=== PATIENT | female | born 1945 | race Caucasian/White ===

== ENCOUNTER 2020-06-29 19:13 | Inpatient (IN) | payer MEDICARE, SELFPAY ==
[2020-06-29] VITALS (10 sets, daily range): BP systolic 91–146; BP diastolic 59–122; PULSE 87–139; RESP 13–20; TEMP 36.6–36.9; O2SAT 94–99; BMI 26.3; BMI 25.9
--- NOTE | 2020-06-29 19:34 | EKG12_ITS ---
Test Reason : DYSRHYTHMIA Blood Pressure : / mmHG Vent. Rate : 140 BPM Atrial Rate : 138 BPM P-R Int : 000 ms QRS Dur : 094 ms QT Int : 300 ms P-R-T Axes : 000 -27 112 degrees QTc Int : 458 ms Atrial fibrillation with rapid ventricular response Nonspecific ST and T wave abnormality Abnormal ECG Confirmed by SHAHEED BEAVERS, FLYNN ([id number]), editor magazine CARLOZ DIXON ([id number]) on 07/02/2020 2:22:00 PM Referred By: Lauren Edwards Confirmed By:FLYNN HUMMEL MD
[2020-06-29 19:46] LABS: Absolute Lymphocyte Count 3.78 X10^3/uL (0.83-4.51); Absolute Neutrophil Count 4.9 X10^3/uL (2.0-7.7); Basophil# 0.04 X10^3/uL; Basophil% 0.4 % (0-1); Eosinophil# 0.16 X10^3/uL; Eosinophils% 1.6 % (0-5); Hematocrit 43.7 % (37-47); Hemoglobin 14.5 g/dL (12.0-15.0); Lymphocyte # 3.78 X10^3/ul (4.0); Lymphocyte % 38.5 % (19-41); Mean Corp Hgb Conc 33.2 g/dL (32-36); Mean Corpuscular Hgb 30.7 pg (27.0-32.0); Mean Corpuscular Volume 92.6 fL (81-99); Mean Platelet Vol. 10.7 fl (6.2-12.0); Monocyte# 0.92 X10^3/uL; Monocyte% 9.4 % (0-10); NRBC Flagged by Analyzer 0 % (0-5); Neutrophil % 49.8 % (47-70); Platelet Count 266 K/mm3 (150-450); RBC Distribution Width CV 12.9 % (11.6-14.6); RBC Distribution Width SD 43.8 fl (35.1-43.9); Red Blood Count 4.72 M/mm3 (4.2-5.4); White Blood Count 9.8 K/mm3 (4.4-11.0)
[2020-06-29] MEDS: Metoprolol Tartrate 5 MG/5 ML Vial IV ×3 (19:59→20:50)
[2020-06-29 20:16] LABS: Anion Gap 10 (5-15); BUN 18 mg/dL (7-18); BUN/Creat Ratio 17.8 RATIO (10-20); Calcium,Total 9.2 mg/dL (8.5-10.1); Chloride 104 mmol/L (98-107); Creatinine, Serum 1.01 mg/dL (0.55-1.02); EST Glomerular Filtration Rate 57 mL/min (>60); Est Glom Filt Rate - Afr Amer 69 mL/min (>60); Estimated Creatinine Clearance 47.52 ml/min; Glucose 196 mg/dL (74-106); Potassium 3.7 mmol/L (3.5-5.1); Sodium Level 140 mmol/L (136-145)
--- NOTE | 2020-06-29 20:20 | RAD_ITS ---
STUDY: X-RAY CHEST REASON FOR EXAM: Female, 75 years old. Chest pain, Hx afib TECHNIQUE: Single frontal view of the chest. COMPARISON: None. FINDINGS: There is no focal consolidation. Normal size heart. Normal mediastinum and sudhir. Normal visualized pulmonary arteries. Normal visualized aortic arch and descending thoracic aorta. Normal visualized thoracic spine. Normal visualized ribs, clavicles, and shoulders. There is no demonstrated abnormality of the visualized soft tissue structures of the upper abdomen. RAD/Chest 1 View (Portable) IMPRESSION: No acute cardiopulmonary process. Electronically Signed: Sonia West MD at 20:36 EST Tel , Service support ,
--- NOTE | 2020-06-29 21:16 | HP.PCM_ITS ---
Problem List (1) Atrial fibrillation with RVR Status: Acute (2) Diabetes mellitus, type II Status: Chronic Qualifiers: Diabetes mellitus intermediate insulin use: without intermediate manager use Diabetes mellitus complication status: with other specified complication Qualified Code(s): E11.69 - Type 2 diabetes mellitus with other specified complication (3) Hypertension Status: Chronic Qualifiers: Hypertension type: essential hypertension Qualified Code(s): I10 - Essential (primary) hypertension History of Present Illness Date of Admission: 06/29/20 Chief Complaint: Chest pain, palpitations, racing heart. 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 Patient notes she had an episode approximately 2 weeks prior with similar symptoms and did take an extra dose of metoprolol at that time that symptoms resolved within 5 hours. They had recommended that she go to the ED for evaluation if it was recurrent. Work-up in the ED included T 98.1, heart rate 139, BP 145/87, respiratory rate 18, 99% on room air, CBC unremarkable, BMP with glucose 196 otherwise not marked appearing, troponin less than 0.015, EKG with atrial fibrillation with RVR, chest x-rays no acute cardiopulmonary findings. In the ED patient administered 3 doses of metoprolol 5 mg IV. Discussed with ED physician and despite IV BB she still has variable rate 160-100. Discussed starting cardizem drip. Past Medical History Past Medical History (Chronic Problems): Chronic Problems Diabetes mellitus, type II (Chronic) Hypertension (Chronic) Allergies codeine Allergy (Verified 06/29/20 19:47) Rash Home Medications: Ambulatory Orders Medication Instructions Recorded Metformin HCl 500 mg PO BID 06/29/20 Metoprolol Succinate 25 mg PO DAILY 06/29/20 Rivaroxaban [Xarelto] 20 mg PO DAILY 06/29/20 Surgical History: - - Hysterectomy, bilateral tubal ligation, right breast cyst removal. Psychiatric History: No pertinent psych hx TUTORING MANAGER History: No pertinent TUTORING MANAGER history Lives: Spouse/ Significant Other Smoking Status: Never smoker Tobacco Use: Non-smoker Alcohol: None Drugs: None - *Family History Maternal History Items: Hypertension Paternal History Items: Cancer, Diabetes Review of Systems Constitutional: Reports: Fatigue. Denies: Chills, Fever, Weight Change HEENT: Denies: Head Aches, Sinus Congestion, Sinus Drainage Cardiovascular: Reports: Light Headedness, Palpitations. Denies: Chest Pain Respiratory: Denies: Cough, Shortness of Breath, Shortness of breath at rest, Shortness of breath upon exertion, Sputum production Gastrointestinal: Denies: Abdominal Pain, Nausea, Vomiting Genitourinary: Denies: Dysuria Musculoskeletal: Denies: Joint Pain, Joint Tenderness Skin: Denies: Rash, Wounds Neurological: Denies: Numbness, Tingling, Focal weakness Psychiatric: Denies: Anxiety, Depression, Homicidal Ideations, Suicidal Ideations Hematologic/ Lymphatic: Reports: Easy Bruising, Easy Bleeding VTE Information - Inpt Only VTE Present on Admission: No VTE Mechan Device Prophylaxis: SCD's VTE Pharm Prophylaxis ordered?: No Reason prophylaxis not ordered:: Medical Contraindication - We will continue patient home Xarelto regimen. Patient Problems: Active and Suspected Problems Atrial fibrillation with RVR (Acute) Subjective: Patient seated upright in the ED bed, no acute distress, rate varying between 90 and 130s during evaluation. Objective: Physical Examination: General: awake, alert, oriented x 3 and cooperative, seated upright in the ED bed in no apparent distress. Skin: normal color, turgor, no icterus, cyanosis. HEENT: AT/NC, EOMI, PERRLA, MMM, no carotid bruits or JVD noted. Lungs: CTA bilaterally, moderate effort, mild decrease BL bases, no rales, ronchi or wheezing. Heart: Irregular irregular; no gallop, rub audible, + SM. Abdomen: soft, NTTP, ND, normal BS, no HSM. Extremities: no cyanosis, clubbing, or edema. Neurological: patient awake, alert, oriented x 3; cognitive function intact; pupils equally reactive to light and accomodation; cranial nerves II-XII grossly normal, moving all 4 extremities, no focal deficits, strength mildly global decrease given acute presentation. Psychiatric: affect appears normal, no acute evidence of depressive or anxiety feelings. - Physical Exam Vitals/I&O's: Vital Signs Temp Pulse Resp BP Pulse Ox 98.1 F 121 H 13 131/68 H 96 06/29/20 19:14 06/29/20 20:03 06/29/20 20:03 06/29/20 20:03 06/29/20 20:03 Oxygen Delivery Method Room Air Weight: 168 lb Body Mass Index (BMI) 26.3 Laboratory Results 06/29/20 19:40: WBC 9.8, RBC 4.72, Hgb 14.5, Hct 43.7, MCV 92.6, MCH 30.7, MCHC 33.2, RDW Std Deviation 43.8, RDW Coeff of Matthew 12.9, Plt Count 266, MPV 10.7, Immature Gran % (Auto) 0.300, Neut % (Auto) 49.8, Lymph % (Auto) 38.5, [place] % (Auto) 9.4, Eos % (Auto) 1.6, Baso % (Auto) 0.4, Absolute Neuts (auto) 4.9, Absolute Lymphs (auto) 3.78, Nucleated RBC % 0 06/29/20 19:40: Sodium 140, Potassium 3.7, Chloride 104, Carbon Dioxide 26.0, Anion Gap 10, BUN 18, Creatinine 1.01, Estim Creat Clear Calc 47.52, Est GFR (MDRD) Af Amer 69, Est GFR (MDRD) Non-Af 57 L, BUN/Creatinine Ratio 17.8, Glucose 196 H, Calcium 9.2, Troponin I < 0.015 Assessment/Plan All Active Problems Atrial fibrillation with RVR (Acute) The patient is a 75 y/o F w/ PMHx: Diabetes mellitus type II, HTN, Chronic AF who presents to the [facility] ED on 06/29/20 with history of onset palpitations, racing heart with home heart monitor reporting 180s, associated lightheadedness without any associated chest pain or dyspnea but not improving despite self administration of an additional dose of her home metoprolol starting approximately 1 hour 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 1. Chronic atrial fibrillation with RVR: EKG in ED w/ atrial relation w/ RVR. Patient administered metoprolol 5 mg IV x 3 and transitioned to cardizem drip in ED. Will admit to PCU, maintain on telemetry, obtain cardiac enzyme serial set, obtain magnesium level, obtain ECHO, obtain TSH level. Continue home xarelto regimen. Will continue on cardizem drip with plan for oral transition after 24 hours if appropriate with likely increased metoprolol regimen. BP low in the ED following metoprolol regimen thus if ongoing may need to consider transition to amiodarone instead of Cardizem drip. If necessary may consider cardiology consultation. 2. Hypertension: Holding patient metoprolol regimen, IV Cardizem drip as noted, as needed IV hydralazine if needed although currently BP low with recent IV metoprolol regimen. 3. Diabetes mellitus type II: Hold oral home regimen, continue home insulin regimen, ADA diet, accu checks w/ ISS. 4. DVT prophylaxis: SCDs, continue home Xarelto regimen. 5. CODE status: Patient LEONARD is her and living will is currently in place. Discussed CODE status at length including difference between FULL code, DNR-CCA and DNR-CC status. Following discussions about the differences in these status, requested Full Code status. Advanced Care Planning Face to Face Time: 16 minutes. Inpatient E&M: 92743 Init Hosp L3 Procedures: 55977 Advncd Care Plan 30 Min
--- NOTE | 2020-06-29 21:31 | ED.DCSUM_ITS ---
History of Present Illness Chief Complaint: Palpitations Informant: Patient Narrative: Patient presenting for evaluation secondary to palpitations. Patient has an underlying history of atrial fibrillation, she is anticoagulated with Xarelto and takes metoprolol. Patient states that about an hour prior to arrival she had an onset of palpitations and lightheadedness. Patient denies that she has had any missed doses of her medications, recent illnesses, and there was no associated chest pain. She took an additional dose of her metoprolol which did not seem to alleviate her symptoms so she presented to the emergency department for further evaluation. Review of systems otherwise negative. Past Medical History - Allergies and Home Meds Allergies/Adverse Reactions: Allergies codeine Allergy (Verified 06/29/20 19:47) Rash Primary Care Physician: Baldev Shore DO [Primary Care Provider] - Past Medical History: - - Atrial fibrillation Lives: Alone Smoking Status: Never smoker Alcohol: None Drugs: None Review of Systems All systems negative except as indicated General: Denies: Chills, Fever, Sweats Eyes: Denies: Visual changes - bilaterally, Diplopia ENT: Denies: Rhinorrhea, Sore throat Cardiovascular: Reports: Palpitations, - - Lightheadedness Respiratory: Denies: Dyspnea, Cough, Dyspnea on exertion Gastrointestinal: Denies: Abdominal pain, Nausea, Vomiting, Diarrhea, Melena, Hematochezia Genitourinary: Denies: Dysuria, Hematuria, Frequency Musculoskeletal: Denies: Back pain, Extremity Pain Skin: Denies: Rash, Wounds Neurological: Denies: Headache, Weakness, Numbness Physical Exam Vital Signs/Narrative: Vital Signs Temp Pulse Resp BP Pulse Ox 06/29/20 20:03 121 H 13 131/68 H 96 06/29/20 19:47 132 H 17 146/122 H 95 06/29/20 19:14 98.1 F 139 H 18 145/87 H 99 Inital Vital Signs reviewed: Yes General: Well nourished, Well developed, No Acute Distress Head: Normocephalic, Atraumatic Eyes: Perrl, EOMI ENT: Moist mucous membranes, No rhinorrhea Neck: Supple, Nontender Cardiovascular: No murmurs, Irregular, Tachycardia, - - 2+ radial pulses bilaterally symmetric Respiratory: No distress, CTA bilaterally, Chest nontender Abdomen: Soft, Nontender, Nondistended, Normal bowel sounds Back: Nontender, Normal Inspection Extremities: Nontender, Edema - +1 bilateral lower extremity peripheral edema Skin: Normal color, No rash Neurological: Alert, Oriented x3, Cranial nerves II-XII grossly intact, Normal Strength, Normal Sensation Psychological: Normal affect, Normal Mood Diagnostic/Tx/Re-eval - Medical Decision Making Patient presented with A. fib with RVR. Laboratory work-up was obtained and was found to be unremarkable no elevation in troponin. Patient was given 3 doses of Lopressor and had modest improvement of her heart rate, but still maintained heart rates in the 1 teens to 120s. Due to her lightheadedness, symptomatology, and the fact that she has been refractory to initial medical treatment I believe she requires admission. She was started on a Cardizem drip, and will be admitted under the hospitalist. Critical care time (excluding procedures): 30-74 minutes ED Disposition - Plan for ED Patient: Disposition: Acute Care [facility] Diagnosis: Atrial fibrillation with RVR
--- NOTE | 2020-06-29 23:19 | ECHOD_ITS ---
Reason For Study: ARRHYTHMIA Procedure This was a 2D Doppler, Color Flow transthoracic echocardiogram. Exam performed portable in patient room. Left Ventricle Normal LV size. Left ventricular systolic function is normal. The estimated ejection fraction is 60 %. No evidence for diastolic dysfunction. No regional wall motion abnormalities noted. Right Ventricle Normal RV size. Normal systolic function. Atria The left atrium is mildly enlarged. Normal right atrium. No doppler evidence for ASD. Mitral Valve There is no mitral annular calcification. Normal mitral valve. Trivial mitral valve insufficiency. Tricuspid Valve Normal tricuspid valve. Mild tricuspid valve insufficiency. Right ventricular systolic pressure estimated to be 29 mmHg. Aortic Valve Trisinus/trileaflet aortic valve. Normal aortic valve. Pulmonic Valve The pulmonic valve is not well visualized. Trivial eccentric pulmonic valve insufficiency. Great Vessels Normal sized aortic root. Pericardium/Pleural No pericardial effusion. MMode/2D Measurements & Calculations LVIDd: 4.5 cm IVSd: 1.1 cm Ao root diam: 3.5 cm LVIDs: 2.9 cm LVPWd: 0.98 cm RVDd: 4.3 cm FS: 36.7 % LAV(MOD-bp): 56.2 ml LA A4 area: 20.8 cm2 LA dimension(2D): 4.1 cm LAV(MOD-bp) Indexed: 30.2 ml/m2 LAV(MOD-sp2): 45.0 ml LAV(MOD-sp4): 58.5 ml RA A4 area: 13.6 cm2 Time Measurements MV dec time: 0.28 sec Doppler Measurements & Calculations MV E max veto: 74.3 cm/sec Lat Peak E' Veto: 9.8 cm/sec Med Peak E' Veto: 6.1 cm/sec MV A max veto: 102.3 cm/sec E/E' lat: 7.6 E/E' med: 12.2 MV E/A: 0.73 Ao V2 max: 144.8 cm/sec LV V1 max: 82.3 cm/sec PA V2 max: 104.8 cm/sec Ao max P.4 mmHg LV V1 max P.7 mmHg TR max veto: 255.7 cm/sec TR max P.1 mmHg Interpretation Summary Left ventricular systolic function is normal. The estimated ejection fraction is 60 %. The left atrium is mildly enlarged. Trivial mitral valve insufficiency. Mild tricuspid valve insufficiency. Trivial eccentric pulmonic valve insufficiency. Right ventricular systolic pressure estimated to be 29 mmHg. No evidence for diastolic dysfunction. Ordering Physician: Lauren Edwards Referring Physician: BALDEV MOSS Performed By: Meghna Geller, MEDHATCS, RVT
[2020-06-30] VITALS (19 sets, daily range): BP systolic 80–135; BP diastolic 49–111; PULSE 52–88; RESP 16–18; TEMP 36.4–36.7; O2SAT 97–100
[2020-06-30 00:05] LABS: Bedside Glucose 142 mg/dL (70-110)
[2020-06-30 00:45] LABS: Magnesium 1.9 mg/dL (1.6-2.6)
[2020-06-30] MEDS: Metoprolol(XL)Succ 25 MG Tablet PO (03:10)
[2020-06-30 03:11] LABS: Absolute Lymphocyte Count 3.28 X10^3/uL (0.83-4.51); Absolute Neutrophil Count 3.2 X10^3/uL (2.0-7.7); Basophil# 0.05 X10^3/uL; Basophil% 0.7 % (0-1); Eosinophil# 0.21 X10^3/uL; Eosinophils% 2.8 % (0-5); Hematocrit 38.7 % (37-47); Hemoglobin 12.6 g/dL (12.0-15.0); Lymphocyte # 3.28 X10^3/ul (4.0); Lymphocyte % 43.2 % (19-41); Mean Corp Hgb Conc 32.6 g/dL (32-36); Mean Corpuscular Hgb 30.7 pg (27.0-32.0); Mean Corpuscular Volume 94.2 fL (81-99); Mean Platelet Vol. 10.9 fl (6.2-12.0); Monocyte# 0.82 X10^3/uL; Monocyte% 10.8 % (0-10); NRBC Flagged by Analyzer 0 % (0-5); Neutrophil # 3.21 X10^3/uL (2.7-7.7); Neutrophil % 42.1 % (47-70); Platelet Count 244 K/mm3 (150-450); RBC Distribution Width CV 13.1 % (11.6-14.6); Red Blood Count 4.11 M/mm3 (4.2-5.4); White Blood Count 7.6 K/mm3 (4.4-11.0)
[2020-06-30 04:46] LABS: AST(SGOT) 10 U/L (15-37); Alanine Aminotransfer ALT/SGPT 18 U/L (13-56); Albumin, Serum 3.5 g/dL (3.2-5.0); Alkaline Phosphatase 59 U/L (45-117); Anion Gap 7 (5-15); BUN 19 mg/dL (7-18); BUN/Creat Ratio 20.8 RATIO (10-20); Calcium,Total 8.5 mg/dL (8.5-10.1); Chloride 110 mmol/L (98-107); Cholesterol 160 mg/dL (200); Creatinine, Serum 0.91 mg/dL (0.55-1.02); EST Glomerular Filtration Rate 64 mL/min (>60); Est Glom Filt Rate - Afr Amer 78 mL/min (>60); Estimated Creatinine Clearance 52.74 ml/min; Globulin 3.4 g/dL (2.2-4.2); Glucose 112 mg/dL (74-106); High Density Lipoprotein 49 mg/dL; Potassium 3.6 mmol/L (3.5-5.1); Protein, Total 6.9 g/dL (6.4-8.2); Sodium Level 145 mmol/L (136-145); Thyroid Stim Hormone (TSH) 6.14 uIU/mL (0.358-3.74); Triglycerides 138 mg/dL; Very Low Density Lipoprotein 28 mg/dL (5-40)
--- NOTE | 2020-06-30 05:55 | EKG12_ITS ---
Test Reason : AM EKG Blood Pressure : / mmHG Vent. Rate : 056 BPM Atrial Rate : 056 BPM P-R Int : 168 ms QRS Dur : 092 ms QT Int : 476 ms P-R-T Axes : 043 -26 003 degrees QTc Int : 459 ms Sinus bradycardia Otherwise normal ECG When compared with ECG of 29-JUN-2020 19:16, MANUAL COMPARISON REQUIRED, DATA IS UNCONFIRMED Confirmed by LUZ ELENA BEAVERS, VIRGINIE ([id number]), city editor CARLOZ DIXON ([id number]) on 07/03/2020 11:00:59 AM Referred By: Lauren Edwards Confirmed By:VIRGINIE LAGUNA MD
--- NOTE | 2020-06-30 11:54 | DCINST_ITS ---
- Discharge Diagnoses Current Active Problems: Current Active and Chronic Problems Atrial fibrillation with RVR (Acute) Diabetes mellitus, type II (Chronic) Hypertension (Chronic) You will use the following diet at home:: Cardiac Discharge Activity: Return to Normal Activity Call your doctor if you observe: Shortness of breath, Dizziness, Fainting spells, Chest pain Allergies/Adverse Reactions: Allergies codeine Allergy (Verified 06/29/20 19:47) Rash Medications to take at Discharge Metformin HCl 500 mg PO BID 06/29/20 Rivaroxaban [Xarelto] 20 mg PO DAILY 06/29/20 Metoprolol Tartrate 25 mg PO BID #60 tab 06/30/20 The following prescriptions were given: Metoprolol Tartrate 25 mg PO BID #60 tab Prescription Printed Primary Care Physician: Baldev Shore DO [Primary Care Provider] - Please follow up with your Primary Care Physician in: 1 Week Test Results: Test results from this visit will be discussed in further detail at your follow- up appointment, if applicable. Please Follow Up With: Srinivasa Newby MD When: 1 Week, as scheduled Proposed Discharge Date: 06/30/20
--- NOTE | 2020-06-30 12:16 | PCM.DC.SUM ---
<Anamika Dupree NP - Last Filed: 06/30/20 13:06> Discharge Date and Diagnosis - Problem List Patient Problems: Active and Suspected Problems Atrial fibrillation with RVR (Acute) Date of Admission: 06/29/20 Date of Discharge: 06/30/20 - Primary Discharge Diagnosis Acute Problems: Active Problems 1. Paroxysmal atrial fibrillation with RVR 2. Hypertension 3. Type 2 diabetes mellitus - Secondary Discharge Diagnosis Chronic Problems: Chronic Problems Diabetes mellitus, type II (Chronic) Hypertension (Chronic) Hospital Course and Treatment Imaging Results: Diagnostic Data Chest X-Ray 06/29/20 20:20 IMPRESSION: No acute cardiopulmonary process. Electronically Signed: Sonia West MD at 20:36 EST Tel , Service support , Operations: None Procedures: 2-D Echocardiogram Summary of Care Provided: The patient is a 75 year old F admitted 06/29/2020 due to palpitations. 1. Paroxysmal atrial fibrillation with RVR-patient states she has had about 3 episodes of increased heart rate since March. She follows with Dr. Newby, cardiology with [facility] in [place]. Patient received IV metoprolol x3 followed by Cardizem drip in ER. She converted to sinus rhythm. Troponin negative. TSH 6.14. Free T4 normal. On day of discharge heart rate 50s to 60s. Previously on metoprolol XL 25 mg daily. Transitioned to metoprolol tartrate 25 mg twice daily. Instructed patient to continue monitoring heart rate. Follow-up with primary paramedic supervisor in 1 week. Echocardiogram completed, will be reviewed by cardiology prior to discharge. 2. Hypertension-continue metoprolol. 3. Type 2 diabetes mellitus-continue home metformin regimen. Patient seen and examined prior to discharge. Physical assessment as noted below. Patient is stable for discharge with follow up recommendations as noted above. This patient was seen by PRATIK CummingsC under the supervision of Dr. Gomes. Patient Problems: Active and Suspected Problems Atrial fibrillation with RVR (Acute) - Physical Exam Vitals/I&O's: Vital Signs Temp Pulse Resp BP Pulse Ox 97.6 F L 62 16 120/76 100 06/30/20 08:31 06/30/20 11:09 06/30/20 08:31 11/07/20 08:31 06/30/20 08:31 Oxygen Delivery Method Room Air Weight: 164 lb 14.492 oz Body Mass Index (BMI) 25.9 Intake and Output for Last 24 Hours 06/28/20 06/29/20 06/30/20 23:59 23:59 23:59 Intake Total 8.08 / 60.58 66.25 / 66.25 Balance 8.08 / 60.58 66.25 / 66.25 General: Alert, Oriented x3, Cooperative HEENT: Atraumatic, PERRLA, EOMI, Normocephalic Neck: Supple, No JVD, Negative Carotid Bruits Lungs: Clear to auscultation, Normal air movement Cardiovascular: - - Sinus bradycardia Abdomen: Bowel Sounds Present, Soft, Non Tender, Non-Distended Extremities: No clubbing, No cyanosis, No edema, Capillary Refill Less than 3 Seconds Skin: No rashes, No breakdown Musculoskeletal: No Tenderness to Palpation of Joints or Extremities Neurological: Cranial nerves II-XII grossly intact, Neuro grossly intact Psych/Mental Status: Normal Affect, Appropriate Laboratory Results 06/29/20 19:40: WBC 9.8, RBC 4.72, Hgb 14.5, Hct 43.7, MCV 92.6, MCH 30.7, MCHC 33.2, RDW Std Deviation 43.8, RDW Coeff of Matthew 12.9, Plt Count 266, MPV 10.7, Immature Gran % (Auto) 0.300, Neut % (Auto) 49.8, Lymph % (Auto) 38.5, [facility] % (Auto) 9.4, Eos % (Auto) 1.6, Baso % (Auto) 0.4, Absolute Neuts (auto) 4.9, Absolute Lymphs (auto) 3.78, Nucleated RBC % 0 06/29/20 19:40: Sodium 140, Potassium 3.7, Chloride 104, Carbon Dioxide 26.0, Anion Gap 10, BUN 18, Creatinine 1.01, Estim Creat Clear Calc 47.52, Est GFR (MDRD) Af Amer 69, Est GFR (MDRD) Non-Af 57 L, BUN/Creatinine Ratio 17.8, Glucose 196 H, Calcium 9.2, Troponin I < 0.015 06/29/20 23:33: POC Glucose 142 H 06/30/20 00:07: Magnesium 1.9, Troponin I < 0.015 06/30/20 02:46: WBC 7.6, RBC 4.11 L, Hgb 12.6, Hct 38.7, MCV 94.2, MCH 30.7, MCHC 32.6, RDW Std Deviation 45.0 H, RDW Coeff of Matthew 13.1, Plt Count 244, MPV 10.9, Immature Gran % (Auto) 0.400, Neut % (Auto) 42.1 L, Lymph % (Auto) 43.2 H, [facility] % (Auto) 10.8 H, Eos % (Auto) 2.8, Baso % (Auto) 0.7, Absolute Neuts (auto) 3.2, Absolute Lymphs (auto) 3.28, Nucleated RBC % 0 06/30/20 02:46: Sodium 145, Potassium 3.6, Chloride 110 H, Carbon Dioxide 28.0, Anion Gap 7, BUN 19 H, Creatinine 0.91, Estim Creat Clear Calc 52.74, Est GFR (MDRD) Af Amer 78, Est GFR (MDRD) Non-Af 64, BUN/Creatinine Ratio 20.8 H, Glucose 112 H, Calcium 8.5, Total Bilirubin 0.20, AST 10 L, ALT 18, Alkaline Phosphatase 59, Total Protein 6.9, Albumin 3.5, Globulin 3.4, Albumin/Globulin Ratio 1.0, Triglycerides 138, Cholesterol 160, LDL Cholesterol 83, VLDL Cholesterol 28, HDL Cholesterol 49, TSH 6.14 H 06/30/20 02:46: Troponin I < 0.015 06/30/20 05:38: Troponin I < 0.015 Current Medications Acetaminophen (Acetaminophen 325 Mg Tablet) 650 mg PO Q6H PRN PRN PRN Reason: Pain Score 1-10/Temp > 100.7 F Al Hydroxide/Mg Hydroxide (Mag Hydrox/Al Hydrox/Simeth 30 Ml Udc) 30 ml PO Q6H PRN PRN PRN Reason: Gastric Burning Albuterol Sulfate (Albuterol 2.5 Mg/3 Ml Vial.Neb.) 2.5 mg INHALATION Q2H PRN PRN PRN Reason: Dyspnea, wheezing Guaifenesin (Guaifenesin 10 Ml Udc (200mg/10ml)) 20 ml PO Q4H PRN PRN PRN Reason: COUGH Hydralazine HCl (Hydralazine 20 Mg/Ml Vial) 10 mg IV Q4H PRN PRN PRN Reason: SBP > 160 Sodium Chloride () 250 mls @ 15 mls/hr IV .[id number] PRN PRN Reason: Saline Flush Sodium Chloride () 250 mls @ 15 mls/hr IV .[id number] PRN PRN Reason: Additional IVPB Infusion Insulin Human Lispro (Insulin Lispro 100 Unit/Ml Insuln.Pen) 0 unit SC ACHS [facility]; Protocol Last Admin: 06/30/20 06:50 Dose: Not Given Documented by: Magnesium Hydroxide (Magnesium Hydroxide 30 Ml Udc) 30 ml PO DAILY PRN PRN PRN Reason: Constipation Melatonin (Melatonin 3 Mg Tablet) 3 mg PO QHS PRN PRN PRN Reason: INSOMNIA Metoprolol Succinate (Metoprolol(Xl)Succ 25 Mg Tablet) 25 mg PO DAILY [facility] Last Admin: 06/30/20 03:10 Dose: 25 mg Documented by: Nitroglycerin (Nitroglycerin (Inpatient Use) 0.4 Mg Tab.Subl) 0.4 mg SUBLINGUAL Q5M PRN PRN Reason: CARDIAC/CHEST PAIN Ondansetron HCl (Ondansetron 4 Mg/2 Ml Vial) 4 mg IV Q8H PRN PRN PRN Reason: NAUSEA/VOMITING Prochlorperazine Edisylate (Prochlorperazine 10 Mg/2 Ml Vial) 5 mg IV Q4H PRN PRN PRN Reason: Breakthrough Nausea/Vomiting Psyllium Hydrophilic Mucilloid (Psyllium 1 Packet) 1 packet PO DAILY PRN PRN PRN Reason: Constipation Rivaroxaban (Rivaroxaban 20 Mg Tablet) 20 mg PO DAILY [facility] Senna/Docusate Sodium (Senna/Docusate Sodium 1 Tablet) 2 tablet PO BID PRN PRN PRN Reason: Constipation Sodium Chloride (0.9% Saline Lock 10 Ml Syringe) 10 - 40 ml IV UD PRN PRN Reason: SALINE FLUSH Throat Lozenges (Benzocaine/Menthol 1 Lozenge) 1 lozenge MUCOUS MEM Q2H PRN PRN PRN Reason: SORE THROAT Discharge Diet: Low fat/ Low Cholesterol Discharge Activity: Return to Normal Activity Call your doctor if you observe: Shortness of breath, Dizziness, Fainting spells, Chest pain Home Medications: Medications to take at Discharge Metformin HCl 500 mg PO BID 06/29/20 Rivaroxaban [Xarelto] 20 mg PO DAILY 06/29/20 Metoprolol Tartrate 25 mg PO BID #60 tab 06/30/20 Following Prescriptions Were Given to Patient: Metoprolol Tartrate 25 mg PO BID #60 tab Prescription Printed Primary Care Physician: Baldev Shore DO [Primary Care Provider] - Please follow up with your Primary Care Physician in: 1 Week Please Follow Up With: Srinivasa Newby MD When: 1 Week Disposition: Home Minutes spent on discharge:: 35 Patient Condition:: Stable Medical Necessity - Tobacco Use Smoking Status: Never smoker Tobacco Use: Non-smoker Meaningful Use Info Meaningful Use Diagnoses (Choose all that apply): None applicable <Javi Gomes - Last Filed: 06/30/20 13:42> Discharge Date and Diagnosis - Primary Discharge Diagnosis Acute Problems: Active Problems Atrial fibrillation with RVR (Acute) - Secondary Discharge Diagnosis Chronic Problems: Chronic Problems Diabetes mellitus, type II (Chronic) Hypertension (Chronic) Hospital Course and Treatment Summary of Care Provided: This patient was seen in conjunction with LISSETT Cummings . I have independently interviewed and examined the patient and reviewed pertinent historical, laboratory, and other data. Please refer to LISSETT Cummings note for details of this patient's presentation, findings, and recommendations. I have reviewed LISSETT Cummings note and concur with documented findings. In brief, patient is a 85-year-old lady with past medical history significant for diabetes mellitus type 2, essential tension, paroxysmal A. fib who presented with patient's. Patient was found to be in A. fib with RVR. Admitted to monitored bed for subsequent management Hospital course: As documented above - Physical Exam Vitals/I&O's: Vital Signs Temp Pulse Resp BP Pulse Ox 97.6 F L 62 16 120/76 100 06/30/20 08:31 06/30/20 11:09 06/30/20 08:31 06/30/20 08:31 06/30/20 08:31 Oxygen Delivery Method Room Air Weight: 74.8 kg Body Mass Index (BMI) 25.9 Intake and Output for Last 24 Hours 1106/29/20 06/30/20 23:59 23:59 23:59 Intake Total 8.08 / 60.58 66.25 / 66.25 Balance 8.08 / 60.58 66.25 / 66.25 Laboratory Results 06/29/20 19:40: WBC 9.8, RBC 4.72, Hgb 14.5, Hct 43.7, MCV 92.6, MCH 30.7, MCHC 33.2, RDW Std Deviation 43.8, RDW Coeff of Matthew 12.9, Plt Count 266, MPV 10.7, Immature Gran % (Auto) 0.300, Neut % (Auto) 49.8, Lymph % (Auto) 38.5, [facility] % (Auto) 9.4, Eos % (Auto) 1.6, Baso % (Auto) 0.4, Absolute Neuts (auto) 4.9, Absolute Lymphs (auto) 3.78, Nucleated RBC % 0 06/29/20 19:40: Sodium 140, Potassium 3.7, Chloride 104, Carbon Dioxide 26.0, Anion Gap 10, BUN 18, Creatinine 1.01, Estim Creat Clear Calc 47.52, Est GFR (MDRD) Af Amer 69, Est GFR (MDRD) Non-Af 57 L, BUN/Creatinine Ratio 17.8, Glucose 196 H, Calcium 9.2, Troponin I < 0.015 06/29/20 23:33: POC Glucose 142 H 06/30/20 00:07: Magnesium 1.9, Troponin I < 0.015 06/30/20 02:46: WBC 7.6, RBC 4.11 L, Hgb 12.6, Hct 38.7, MCV 94.2, MCH 30.7, MCHC 32.6, RDW Std Deviation 45.0 H, RDW Coeff of Matthew 13.1, Plt Count 244, MPV 10.9, Immature Gran % (Auto) 0.400, Neut % (Auto) 42.1 L, Lymph % (Auto) 43.2 H, [facility] % (Auto) 10.8 H, Eos % (Auto) 2.8, Baso % (Auto) 0.7, Absolute Neuts (auto) 3.2, Absolute Lymphs (auto) 3.28, Nucleated RBC % 0 06/30/20 02:46: Sodium 145, Potassium 3.6, Chloride 110 H, Carbon Dioxide 28.0, Anion Gap 7, BUN 19 H, Creatinine 0.91, Estim Creat Clear Calc 52.74, Est GFR (MDRD) Af Amer 78, Est GFR (MDRD) Non-Af 64, BUN/Creatinine Ratio 20.8 H, Glucose 112 H, Calcium 8.5, Total Bilirubin 0.20, AST 10 L, ALT 18, Alkaline Phosphatase 59, Total Protein 6.9, Albumin 3.5, Globulin 3.4, Albumin/Globulin Ratio 1.0, Triglycerides 138, Cholesterol 160, LDL Cholesterol 83, VLDL Cholesterol 28, HDL Cholesterol 49, TSH 6.14 H 06/30/20 02:46: Troponin I < 0.015 06/30/20 02:46: Free T4 0.96 06/30/20 05:38: Troponin I < 0.015 06/30/20 13:32: POC Glucose 84 Current Medications Acetaminophen (Acetaminophen 325 Mg Tablet) 650 mg PO Q6H PRN PRN PRN Reason: Pain Score 1-10/Temp > 100.7 F Al Hydroxide/Mg Hydroxide (Mag Hydrox/Al Hydrox/Simeth 30 Ml Udc) 30 ml PO Q6H PRN PRN PRN Reason: Gastric Burning Albuterol Sulfate (Albuterol 2.5 Mg/3 Ml Vial.Neb.) 2.5 mg INHALATION Q2H PRN PRN PRN Reason: Dyspnea, wheezing Guaifenesin (Guaifenesin 10 Ml Udc (200mg/10ml)) 20 ml PO Q4H PRN PRN PRN Reason: COUGH Hydralazine HCl (Hydralazine 20 Mg/Ml Vial) 10 mg IV Q4H PRN PRN PRN Reason: SBP > 160 Sodium Chloride () 250 mls @ 15 mls/hr IV .[id number] PRN PRN Reason: Saline Flush Sodium Chloride () 250 mls @ 15 mls/hr IV .[id number] PRN PRN Reason: Additional IVPB Infusion Insulin Human Lispro (Insulin Lispro 100 Unit/Ml Insuln.Pen) 0 unit SC ACHS [facility]; Protocol Last Admin: 06/30/20 13:34 Dose: Not Given Documented by: Magnesium Hydroxide (Magnesium Hydroxide 30 Ml Udc) 30 ml PO DAILY PRN PRN PRN Reason: Constipation Melatonin (Melatonin 3 Mg Tablet) 3 mg PO QHS PRN PRN PRN Reason: INSOMNIA Metoprolol Succinate (Metoprolol(Xl)Succ 25 Mg Tablet) 25 mg PO DAILY [facility] Last Admin: 06/30/20 03:10 Dose: 25 mg Documented by: Nitroglycerin (Nitroglycerin (Inpatient Use) 0.4 Mg Tab.Subl) 0.4 mg SUBLINGUAL Q5M PRN PRN Reason: CARDIAC/CHEST PAIN Ondansetron HCl (Ondansetron 4 Mg/2 Ml Vial) 4 mg IV Q8H PRN PRN PRN Reason: NAUSEA/VOMITING Prochlorperazine Edisylate (Prochlorperazine 10 Mg/2 Ml Vial) 5 mg IV Q4H PRN PRN PRN Reason: Breakthrough Nausea/Vomiting Psyllium Hydrophilic Mucilloid (Psyllium 1 Packet) 1 packet PO DAILY PRN PRN PRN Reason: Constipation Rivaroxaban (Rivaroxaban 20 Mg Tablet) 20 mg PO DAILY [facility] Last Admin: 06/30/20 13:34 Dose: Not Given Documented by: Senna/Docusate Sodium (Senna/Docusate Sodium 1 Tablet) 2 tablet PO BID PRN PRN PRN Reason: Constipation Sodium Chloride (0.9% Saline Lock 10 Ml Syringe) 10 - 40 ml IV UD PRN PRN Reason: SALINE FLUSH Throat Lozenges (Benzocaine/Menthol 1 Lozenge) 1 lozenge MUCOUS MEM Q2H PRN PRN PRN Reason: SORE THROAT Inpatient E&M: [id number] [facility]
[2020-06-30 12:44] LABS: T4 Free Direct 0.96 ng/dL (0.76-1.46)
[2020-06-30 13:36] LABS: Bedside Glucose 84 mg/dL (70-110)
== END 2020-06-30 14:37 | disposition home or self-care (01) | DRG 310 ==
LOC: ED 21:43 → PCU 22:07
PROVIDERS: Nurse Practitioner Family; Admitting Provider Family Medicine; Emergency Provider Emergency Medicine; PCP Family Medicine; Referring Provider Family Medicine; Visit Provider Internal Medicine
DX: I48.0 Paroxysmal atrial fibrillation (principal); E11.9 Type 2 diabetes mellitus without complications; I10 Essential (primary) hypertension; Z79.01 Long term (current) use of anticoagulants; Z79.899 Other long term (current) drug therapy
CPT/HCPCS: 36415; 71045; 80048; 80053; 80061; 82962; 83735; 84439; 84443; 84484; 85025; 93005; 93306; 99285

== ENCOUNTER → 2021-04-26 15:20 | Outpatient (CLI) | payer MEDICARE, SELFPAY ==
--- NOTE | 2021-04-26 15:28 | US_ITS ---
STUDY: ULTRASOUND TRANSVAGINAL CLINICAL: Female, 75 years old. UTI, ABN EXAM -- PT REFUSED TA TECHNIQUE: Transvaginal COMPARISON: None. FINDINGS: Normal uterine size measuring 11.4 x 6.5 x 5.6 cm in maximal craniocaudal dimension. 5.8 cm fibroid in the fundus the uterus with some peripheral calcifications consistent with a degenerated fibroid.. 3.5 cm isoechoic mass within the lower uterine segment consistent with a fibroid. 1.5 cm exophytic fibroid of the posterior uterus. Normal endometrial thickness measuring 4 mm. There are no endometrial masses, and there is no fluid in the endometrial cavity. Normal uterine cervix. The ovaries are not visualized. There is no free fluid in the pelvis. Polycystic ovary disease: No. US/Transvaginal Non- IMPRESSION: Enlarged fibroid uterus. Electronically Signed: Navneet Castañeda MD at 11:27 EDT Tel , Service support ,
--- NOTE | 2021-04-26 15:28 | US_ITS ---
STUDY: RENAL ULTRASOUND - COMPLETE REASON FOR EXAM: Female, 75 years old. UTI TECHNIQUE: Ultrasound evaluation of the kidneys was performed with real-time and static abebe-scale imaging. COMPARISON: None. FINDINGS: RIGHT KIDNEY: Normal location of the right kidney, which is normal in size. The right kidney measures 12.4 cm. There is a normal cortex of the right kidney. The renal cortex measures 0.8 cm. There is no right renal mass or cyst. There are no right renal calculi. There is no right hydronephrosis. DISTAL RIGHT URETER: There is non-visualization of the distal right ureter. There is no demonstrated right ureterovesical junction calculus. There is a visualized right ureteral jet. LEFT KIDNEY: Normal location of the left kidney, which is normal in size. The left kidney measures 11.6 cm. There is a normal cortex of the left kidney. The renal cortex measures 1.1 cm. There is no left renal mass or cyst. There are no left renal calculi. There is no left hydronephrosis. DISTAL LEFT URETER: There is non-visualization of the distal left ureter. There is no demonstrated left ureterovesical junction calculus. There is a visualized left ureteral jet. BLADDER: The distended urinary bladder has a volume of 186 ml. The empty urinary bladder has a volume of ml. There is a normal wall thickness of the distended urinary bladder. There is no demonstrated mass within the urinary bladder. There are no demonstrated bladder calculi. US/Kidney and Bladder IMPRESSION: Normal ultrasound of the kidneys and urinary bladder. Electronically Signed: Navneet Castañeda MD at 10:58 EDT Tel , Service support ,
== END ==
LOC: US 15:25
PROVIDERS: PCP Family Medicine; Referring Provider Urology; Visit Provider Urology
DX: N39.0 Urinary tract infection, site not specified (principal); R93.49 Abnormal radiologic findings on diagnostic imaging of other urinary organs
CPT/HCPCS: 76770; 76830

== ENCOUNTER → 2023-11-17 | Outpatient (CLI) | payer MEDICARE, SELFPAY | END | disposition home or self-care (01) | PROVIDERS: PCP Family Medicine; Visit Provider Physician Assistant | DX: R30.0 Dysuria (principal) | CPT/HCPCS: 87086 ==

== ENCOUNTER 2025-02-02 07:22 | Day surgery (SDC) | payer MEDICARE, SELFPAY ==
--- NOTE | 2025-01-25 12:09 | EKG12_ITS ---
Test Reason : PREOP Blood Pressure : */* mmHG Vent. Rate : 50 BPM Atrial Rate : 50 BPM P-R Int : 170 ms QRS Dur : 94 ms QT Int : 452 ms P-R-T Axes : 49 -40 16 degrees QTcB Int : 412 ms Sinus bradycardia Possible Left atrial enlargement Left axis deviation Septal infarct , age undetermined Abnormal ECG Confirmed by Bhupinder Murcia ([id number]), editor trade journal CARLOZ DIXON ([id number]) on 01/25/2025 1:40:33 PM Referred By: Susan Best Confirmed By: Bhupinder Murcia
--- NOTE | 2025-01-25 23:34 | PAT.ANESEVAL ---
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 When Was Last Pacemaker Check QUESTION #4 FULL TEXT: You/Your Family Experience fever (hyperthermia) with Anesthesia Last Oral Intake Last Oral intake: Last Oral Intake NPO since Meds taken in AM with sips of water? Meds patient instructed to take am of surgery PONV PONV - motor vehicle operator road supervisor: PONV - motor vehicle operator road supervisor Female Yes 01/19/25 13:24 HX of Motion Sickness No 01/19/25 13:24 HX of N/V After Surgery No 01/19/25 13:24 Non-Smoker Yes 01/19/25 13:24 Duration of Surgery greater Yes 01/19/25 13:24 than 60 minutes Number of Risk Factors 3 01/19/25 13:24 PONV Score Moderate Risk 01/19/25 13:24 Height & Weight Height & Weight: Anesthesia: Height & Weight Height 5 ft 5 in 11/17/23 15:41 Respiratory Assessment Respiratory Assessment - motor vehicle operator road supervisor: Respiratory Tract Infection Hx - motor vehicle operator road supervisor Hx Respiratory Tract Infection No 01/19/25 13:24 STOP Sleep Apnea STOP Sleep Apnea - motor vehicle operator road supervisor: STOP Sleep Apnea - motor vehicle operator road supervisor Hx Hypertension Yes: CONTROLLED WITH MEDS 01/19/25 13:24 FOR MOST PART PER PATIENT Hx Sleep Apnea No 01/19/25 13:24 CPAP BIPAP Do you snore loudly (louder No 01/19/25 13:24 than talking or can be heard Do you often feel tired/ No 01/19/25 13:24 fatigued/ sleepy during daytime? Has anyone observed you stop No 01/19/25 13:24 breathing during sleep? STOP Results Negative 01/19/25 13:24 QUESTION #5 FULL TEXT : Do you snore loudly (louder than talking or can be heard through closed doors)? 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 Specify any problems Hx of Preganancy in last 3 No 01/19/25 13:24 Months Nurse Filling Out Transfusion DSCHRIBER 01/19/25 13:24 & Questions: Date: 01/19/25 01/19/25 13:24 Time: 13:27 01/19/25 13:24 Patient unable to answer at this time (ie. confused, unrespo /Reproduction History /Reproductive History - motor vehicle operator road supervisor: /Reproductive Hx- motor vehicle operator road supervisor Hx Now No 01/19/25 13:24 Gestational Age (in weeks): EDC: Hx Hx Para Hx Section SAB No 01/19/25 13:24 [facility] Medical History (Updated 01/19/25 @ 14:44 by Torie Young) Wears glasses Wears partial dentures Post-menopausal Diabetes Arthritis High cholesterol Dietary restriction History of diverticulitis Heartburn Non-smoker History of pain when walking History of edema History of echocardiogram Cardiology follow-up encounter Hypertension History of atrial fibrillation Home Medications ?Medication ?Instructions ?Recorded ?Last Taken ?Type rivaroxaban 20 mg tablet 20 mg PO DAILY blood thinner 06/29/20 Unknown History ascorbic acid (vitamin C) 500 mg 500 mg PO DAILY 11/17/23 Unknown History tablet cephalexin 250 mg capsule 250 mg PO QHS 11/17/23 Unknown History cyanocobalamin (vitamin B-12) 500 500 mcg PO DAILY 11/17/23 Unknown History mcg tablet metoprolol succinate 50 mg 100 mg PO QDAY 11/17/23 Unknown History tablet,extended release 24 hr atorvastatin 10 mg tablet 10 mg PO DAILY 01/19/25 Unknown History cholecalciferol (vitamin D3) 25 25 mcg PO DAILY 01/19/25 Unknown History mcg (1,000 unit) capsule (Vitamin D3) lisinopril 20 mg tablet 20 mg PO DAILY 01/19/25 Unknown History metformin 500 mg tablet 1,000 mg PO BID 01/19/25 Unknown History methenamine hippurate 1 gram tablet 1 g PO BID 01/19/25 Unknown History Allergy/AdvReac Type Severity Reaction Status Date / Time codeine Allergy Rash Verified 01/19/25 13:02 Family History (Updated 11/17/23 @ 15:30 by Anamika Valencia) Other A-fib Diabetes Surgical History (Updated 01/19/25 @ 13:34 by Torie Young) Hx of left cataract extraction Hx of breast biopsy History of Hx of colonoscopy History of hernia repair History of dilatation and curettage Social History (Updated 11/17/23 @ 15:30 by Anamika Valencia) Smoking Status: Never smoker alcohol intake: never Audit: Pertinent Findings HISTORY of Pertinent Findings History of Pertinent Findings: Hx of pAF and HTN. Pertinent Findings EKG Perinent findings: 09/2024: Sinus bradycardia with left axis deviation Echo (EF%) pertinent findings: 06/2020: EF 60%, trivial MV Regurg, mild Tricuspid regurg, mild pulm regurg Additional pertinent findings: Event monitor showed 5% Afib in early 2024. Recommendation Anesthesia Recommendation Anesthesia recommendation: OPTIMIZED for anesthesia
[2025-02-02] VITALS (9 sets, daily range): BP systolic 95–137; BP diastolic 44–67; PULSE 51–72; RESP 16; TEMP 36.1–36.7; O2SAT 85–100; BMI 26.2
--- OUTSIDE RECORDS SUMMARY | 2025-02-02 07:26 | XMS RPT_ITS | CCD ---
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 Baldev Shore Primary Care Provider [phone] Dr. Baldev Shore Referring Provider [phone] MAGDA Briscoe Attending Provider [phone] ARMANDO FRANKLIN Attending Unavailable PETRILLA, ARMANDO Referring Unavailable PETRILLA, ARMANDO Primary Care Unavailable PETRILLA, ARMANDO Primary Care Unavailable JOYCE PHILLIPS Attending Unavailable PETRILLA, ARMANDO Attending Unavailable PETRILLA, ARMANDO Primary Care Unavailable PETRILLA, ARMANDO Primary Care Unavailable JOYCE PHILLIPS Attending Unavailable ALICELLA, ARMANDO Primary Care Unavailable PARKER WEST Attending Unavailable PETRILLA, ARMANDO Primary Care Unavailable PETRILLA, ARMANDO Attending Unavailable PETRILLA, ARMANDO Primary Care Unavailable REYNALDO ROMAN Attending Unavailable PETRILLA, ARMANDO Primary Care Unavailable JOYCE PHILLIPS Attending Unavailable ALICELLA, ARMANDO Primary Care Unavailable PARKER WEST Referring Unavailable PARKER WEST Attending Unavailable NICK HAGAN Attending Unavailable ARMANDO FRANKLIN Primary Care Unavailable Susan Best Referring Unavailable Baldev Shore Primary Care Unavailable Bhupinder Murcia Attending Unavailable Susan Best Referring Unavailable Baldev Shore Primary Care Unavailable Susan Best Attending Unavailable Allergies Allergy Classification Reported Allergen(s) Allergy Type Date of Onset Reaction(s) Facility (20 sources) Cefaclor Drug Allergy 03-01-2015 [place], [place] (20 sources) Codeine Drug Allergy 03-01-2015 Rash [place], [place] (1 source) Codeine Drug Allergy 01-19-2025 [facility] Repository Medications Current Medications Medication Drug Class(es) Dates Sig (Normalized) Sig (Original) ALPRAZolam 0.25 mg oral tablet (20 sources) Benzodiazepine Start: 06-07-2024 End: 09-13-2024 ALPRAZolam (Xanax) 0.25 MG tablet Indications: Anxiety attack 1/2 or one tab q day prn anxiety 15 tablet 09/13/2024 Active Start: 08-18-2023 ALPRAZolam (Xa nax) disintegrating tablet 0.25 mg Start: 07-01-2023 End: 06-07-2024 take 1 tablet by mouth once daily as needed for anxiety ALPRAZolam (Xanax) 0.25 MG tablet Indications: Anxiety attack Take 1 tablet (0.25 mg) by mouth Nightly as needed for anxiety. 30 tablet 1 07/01/2023 06/07/2024 Discontinued (Reorder) Start: 03-24-2023 End: 05-07-2023 take 1 tablet by mouth three times daily as needed for anxiety ALPRAZolam (Xanax) 0.25 MG tablet Indications: Anxiety attack Take 1 tablet (0.25 mg) by mouth 3 times daily as needed for anxiety for up to 5 days. 15 tablet 0 03/24/2023 05/07/2023 Discontinued (Therapy completed) Start: 10-08-2022 End: 02-10-2023 take 1 tablet by mouth three times daily as needed for anxiety ALPRAZolam (Xanax) 0.25 MG tablet Indications: Anxiety attack Take 1 tablet (0.25 mg) by mouth 3 times daily as needed for anxiety for up to 4 days. 12 tablet 0 10/08/2022 02/10/2023 Discontinued (Therapy completed) ascorbic acid 500 mg oral tablet (20 sources) Vitamin C Start: 11-17-2023 take 500 mg by mouth once daily Ascorbic Acid (Vitamin C) Active 500 MG PO DAILY November 17, 2023 12:00am ascorbic acid (V itamin C) 500 mg chewable tablet Chew 500 mg in the morning. Active take 1 tablet by mouth once ivone y vitamin C (ASCORBIC ACID) 500 MG tablet Take 500 mg by mouth daily 0 Active atorvastatin 10 mg oral tablet (20 sources) HMG-CoA Reductase Inhibitor Start: 01-15-2023 End: 05-16-2025 take 1 tablet by mouth once daily atorvastatin (Lipitor) 10 MG tablet Indications: Pure hypercholesterolemia Take 1 tablet (10 mg) by mouth daily. 90 tablet 1 11/17/2024 05/16/2025 Active Start: 09-01-2022 End: 11-30-2022 take 1 tablet by mouth once daily atorvastatin (Lipitor) 10 MG tablet Take 1 tablet (10 mg) by mouth daily. 90 tablet 0 09/01/2022 Active Start: 06-23-2022 End: 08-29-2022 take 1 tablet by mouth in the morning atorvastatin (Lipitor) 10 MG tablet Take 1 tablet (10 mg) by mouth in the morning. 90 tablet 0 06/23/2022 08/29/2022 Discontinued (Reorder) Start: 12-06-2021 take 1 tablet by isabell th once daily atorvastatin (LIPITOR) 10 MG tablet Take 1 tablet by mouth daily 90 tablet 0 12/06/2021 Active blood glucose monitor kit an d supplies (3 sources) Start: 08-25-2019 blood glucose monitor kit and supplies Indications: Type 2 diabetes mellitus without complication, without long-term current use of insulin (HCC) Test 2 times a day & as needed for symptoms of irregular blood glucose. 1 kit 0 08/25/2019 Active Blood Glucose Monitoring Sup pl (FreeStyle Lite) device (20 sources) Start: 07-27-2024 Blood Glucose Monitoring Suppl (FreeStyle Lite) device Use as instructed E11.9 1 each 07/27/2024 Active Start: 07-27-2022 End: 07-27-2024 [address] Monitoring [address] (FreeStyle Lite) device Use as instructed E11.9 1 each 07/27/2022 07/27/2024 Discontinued (Reorder) Start: 07-27-2022 Blood Glucose Monitoring Suppl (FreeStyle Lite) device Use as instructed E11.9 1 each 07/27/2022 Active Start: 07-27-2022 Blood Glucose Monitoring Suppl (FreeStyle Lite) device Use as instructed E11.9 1 each 0 07/27/2022 Active calcium carbonate 1250 mg oral tablet (1 source) take 1 tablet by mouth twice daily calcium carbonate (OSCAL) 500 MG TABS tablet Take 500 mg by mouth 2 times daily 0 Active cephalexin 250 mg oral capsule (20 sources) Cephalosporin Antibacterial Start: End: take 500 mg by mouth three times daily Cephalexin Discontinued 500 MG PO THREE TIMES A DAY November 17, 2023 12:00am November 17, 2023 3:59pm Start: 10-12-2023 take 1 capsule by mo ut once daily cephalexin (Keflex) 250 MG capsule Take 250 mg by mouth Nightly. 10/12/2023 Active cholecalciferol 0.025 mg oral tablet (20 sources) Vitamin D take 1 tablet by mouth in the morning cholecalciferol (Vitamin D-3) 25 MCG (1000 UT) tablet Take 1,000 Units by mouth in the morning. Active take 1 tablet by mouth once ivone y vitamin D (CHOLECALCIFEROL) 1000 UNIT TABS tablet Take 1,000 Units by mouth daily 0 Active ciprofloxacin 500 mg oral tablet (1 source) Quinolone Antimicrobial Start: 11-17-2023 take 500 mg by mouth twice daily Ciprofloxacin Hcl Active 500 MG PO TWICE A DAY November 17, 2023 12:00am Diabetic Shoe MISC (3 sources) Start: 03-16-2020 Diabetic Shoe MISC Indications: Type 2 diabetes mellitus without complication, without long-term current use of insulin (HCC) by Does not apply route 1 each 0 03/16/2020 Active estradiol 0.1 mg/ml vaginal cream (20 sources) Estrogen estradiol (Estra ce) 0.1 MG/GM vaginal cream Insert 2 g into the vagina daily. Active lisinopril 20 mg oral tablet (20 sources) Angiotensin Converting Enzyme Inhibitor Start: 08-23-2024 End: 01-11-2025 take 1 tablet by mouth once daily lisinopril 20 MG tablet TAKE 1 TABLET BY MOUTH ONCE A DAY 90 tablet 1 01/11/2025 Active Start: 05-11-2024 End: 08-23-2024 take 1 tablet by mouth once daily lisinopril 10 MG tablet Indications: Essential (primary) hypertension Take 1 tablet (10 mg) by mouth daily for 90 doses. 90 tablet 1 05/11/2024 08/23/2024 Discontinued (Dose adjustment) Start: 04-26-2024 End: 05-11-2024 take 1 tablet by mouth once daily lisinopril 5 MG tablet Indications: Essential (primary) hypertension Take 1 tablet (5 mg) by mouth daily. 90 tablet 1 04/26/2024 05/11/2024 Discontinued Start: 07-01-2023 End: 12-12-2023 take 1 tablet by mouth once daily before breakfast lisinopril 5 MG tablet Indications: Essential (primary) hypertension Take 1 tablet (5 mg) by mouth every morning (before breakfast). 90 tablet 1 08/20/2023 Active metFORMIN hydrochloride 500 mg oral tablet (20 sources) Biguanide Start: 01-15-2023 End: 04-19-2025 take 2 tablets by mouth twice daily at mealtime metFORMIN (Glucophage) 500 MG tablet Indications: Type 2 diabetes mellitus without complication, without long-term current use of insulin (HCC) Take 2 tablets (1,000 mg) by mouth 2 times daily (with meals). 360 tablet 1 10/21/2024 04/19/2025 Active Start: 09-01-2022 End: 11-30-2022 take 2 tablets by mouth in the morning metFORMIN (Glucophage) 500 MG tablet Take 2 tablets (1,000 mg) by mouth in the morning and 2 tablets (1,000 mg) in the evening. Take with meals. 120 tablet 0 09/08/2022 10/01/2022 Discontinued (Reorder) Start: 06-23-2022 End: 08-29-2022 take 2 tablets by mouth in the morning metFORMIN (Glucophage) 500 MG tablet Take 2 tablets (1,000 mg) by mouth in the morning and 2 tablets (1,000 mg) in the evening. Take with meals. 120 tablet 1 06/23/2022 08/29/2022 Discontinued (Reorder) Start: 12-26-2021 metFORMIN (GLU COPHAGE) 500 MG tablet Indications: Type 2 diabetes mellitus without complication, without long-term current use of insulin (HCC) Take 2 tablets in the morning and 1 tablet in the evening 270 tablet 0 12/26/2021 Active Start: 06-29-2020 End: 11-17-2023 take 1 tablet by mouth twice daily at mealtime metFORMIN (GLUCOPHAGE) 500 MG tablet Indications: Type 2 diabetes mellitus without complication, without long-term current use of insulin (HCC) Take 1 tablet by mouth 2 times daily (with meals) 180 tablet 0 04/18/2021 Active Start: 03-16-2020 take 1 tablet by isabell th twice daily at mealtime metFORMIN (GLUCOPHAGE) 500 MG tablet Take 1 tablet by mouth 2 times daily (with meals) 180 tablet 0 03/16/2020 Active 24 hr metoprolol succinate 100 mg extended release oral tablet (20 sources) beta-Adrenergic Angela Start: 11-22-2024 End: 11-22-2025 take 1 tablet by mouth once daily metoprolol succinate XL (Toprol-XL) 100 MG 24 hr tablet Take 1 tablet (100 mg) by mouth daily. Do not crush or chew. 30 tablet 11 11/22/2024 11/22/2025 Active Start: 12-09-2023 End: 12-12-2023 take 5 mg intravenously every six hours as needed metoprolol tartrate (Lopressor) injection 5 mg Start: 01-15-2023 End: 08-23-2024 take 1 tablet by mouth once daily metoprolol succinate XL (Toprol-XL) 50 MG 24 hr tablet Indications: Essential (primary) hypertension Take 1 tablet (50 mg) by mouth daily. 90 tablet 1 07/18/2024 08/23/2024 Discontinued Start: 09-24-2022 take 1 tablet by mouth once da antonio metoprolol succinate XL (Toprol-XL) 50 MG 24 hr tablet Take 1 tablet (50 mg) by mouth daily. 90 tablet 3 09/24/2022 Active Start: 02-19-2022 End: 09-24-2022 take 1 tablet by mouth every twenty-four hours in the morning metoprolol succinate XL (Toprol-XL) 25 MG 24 hr tablet Take 1 tablet by mouth in the morning. 0 02/19/2022 09/24/2022 Discontinued (Reorder) Start: 12-17-2020 take 1 tablet by mouth once da antonio metoprolol succinate (TOPROL XL) 25 MG extended release tablet Take 1 tablet by mouth daily 90 tablet 3 12/17/2020 Active Start: 06-30-2020 End: 11-17-2023 take 25 mg by mouth twice daily Metoprolol Tartrate Di scontinued 25 MG PO TWICE A DAY 60 June 30, 2020 1:00am November 17, 2023 3:31pm Start: 06-29-2020 End: 06-30-2020 take 25 mg by mouth once daily Metoprolol Succinate Di scontinued 25 MG PO DAILY June 29, 2020 1:00am June 30, 2020 1:10pm Start: 01-25-2020 take 1 tablet by mouth once da antonio metoprolol succinate (TOPROL XL) 25 MG extended release tablet Take 1 tablet by mouth daily 90 tablet 3 01/25/2020 Active rivaroxaban 20 mg oral tablet (20 sources) Factor Xa Inhibitor Start: 06-27-2020 End: 12-08-2025 take 1 tablet by mouth once daily at breakfast rivaroxaban (Xarelto) 20 MG tablet TAKE 1 TABLET BY MOUTH DAILY (WITH BREAKFAST) 90 tablet 3 12/28/2024 8:43 AM EDT 12/08/2024 12/08/2025 Active Start: 03-28-2020 take 1 tablet by isabell th once daily at breakfast rivaroxaban (XARELTO) 20 MG TABS tablet Take 1 tablet by mouth daily (with breakfast) 90 tablet 3 03/28/2020 Active vitamin B12 (20 sources) Vitamin B12 Start: 11-17-2023 take 500 ug by mouth once daily Cyanocobalamin (Vitamin B-12) Active 500 MCG PO DAILY November 17, 2023 12:00am take 1 tablet by mouth in the mo rning cyanocobalamin (Vitamin B-12) 500 MCG tablet Take 500 mcg by mouth in the morning. Active Completed/Discontinued Medications Medication Drug Class(es) Dates Sig (Normalized) Sig (Original) Acetaminophen (3 sources) Start: 12-09-2023 End: 12-12-2023 take 1 tablet by mouth every six hours as needed for pain and fever acetaminophen (Tylenol) tablet 650 mg Start: 08-18-2023 End: 08-18-2023 acetaminophen (Tylenol) tabl et 1,000 mg acetaminophen 325 mg / oxyCODONE hydrochloride 5 mg oral tablet (4 sources) Opioid Agonist Start: 08-18-2023 End: 08-23-2023 take 1 tablet by mouth every six hours as needed for pain oxyCODONE-acetaminophen (Percocet) 5-325 MG tablet Indications: Hernia, inguinal, right Take 1 tablet by mouth every 6 hours as needed for severe pain (7-10) for up to 5 days. 10 tablet 0 08/18/2023 08/23/2023 calcium chloride 0.0014 meq/ml / potassium chloride 0.004 meq/ml / sodium chloride 0.103 meq/ml / sodium lactate 0.028 meq/ml injectable solution (3 sources) Start: 12-09-2023 End: 12-11-2023 lactated Ringer's infusion Start: 08-18-2023 End: 08-18-2023 lactated Ringer's (LR) infus ion carvedilol 12.5 mg oral tablet (20 sources) alpha-Adrenergic Angela, beta-Adrenergic Angela Start: 08-23-2024 End: 11-22-2024 take 1 tablet by mouth twice daily at mealtime carvedilol (Coreg) 12.5 MG tablet Take 1 tablet (12.5 mg) by mouth 2 times daily (with meals). 180 tablet 1 08/23/2024 11/22/2024 Discontinued (Therapy completed) cholecalciferol 9.52 unt/ml / glucose 357 mg/ml oral gel (3 sources) Vitamin D Start: 12-09-2023 End: 12-12-2023 glucose oral gel 15 g Start: 08-18-2023 End: 08-18-2023 glucose oral gel 15 g cranberry preparation 450 mg oral tablet (13 sources) Non-Standardized Food Allergenic Extract, Non-Standardized Plant Allergenic Extract End: 02-10-2023 Cranberry 450 MG tablet Take 1 tablet by mouth in the morning and 1 tablet at noon and 1 tablet before bedtime. 0 02/10/2023 Discontinued (Therapy completed) take 1 tablet by mouth once ivone y Cranberry 450 MG TABS Take 1 tablet by mouth daily 0 Active 0.4 ml enoxaparin sodium 100 mg/ml prefilled syringe (2 sources) Low Molecular Weight Heparin Start: 12-09-2023 End: 12-12-2023 enoxaparin (Lovenox) syringe 40 mg famotidine 20 mg oral tablet (20 sources) Histamine-2 Receptor Antagonist Start: 12-11-2023 End: 12-12-2023 take 20 mg by mouth once daily as needed for gastroesophageal reflux disease 20 mg, Oral, Nightly PRN, heartburn, Starting on Thu12/11/23 at 1432 Start: 08-18-2023 End: 08-18-2023 famotidine (Pepcid) tablet 2 0 mg fluticasone propionate 0.05 mg/actuat metered dose nasal spray (20 sources) Corticosteroid Start: 12-11-2023 End: 12-12-2023 1 spray, Each Nostril, Daily PRN, allergies, Starting on Thu12/11/23 at 1432, Shake gently. Before first use, prime pump (press 6 times until fine spray appears). After use, clean tip and replace cap. Start: 01-20-2020 take 1 spray(s) nasa l route once daily as needed fluticasone (Flonase) 50 MCG/ACT nasal spray Administer 1 spray into affected nostril(s) Daily as needed. 01/20/2020 Active Start: 01-20-2020 fluticasone (F lonase) 50 MCG/ACT nasal spray Administer 1 spray into affected nostril(s). 0 01/20/2020 Active Start: 01-20-2020 fluticasone (F LONASE) 50 MCG/ACT nasal spray 1 spray by Nasal route 2 times daily 3 Bottle 1 01/20/2020 Active glucagon (rdna) 1 mg injection (3 sources) Antihypoglycemic Agent Start: 12-09-2023 End: 12-12-2023 glucagon (human recombinant) injection 1 mg Start: 08-18-2023 End: 08-18-2023 glucagon (human recombinant) injection 1 mg 150 ml glucose 50 mg/ml inje ction (6 sources) Start: 12-09-2023 End: 12-12-2023 dextrose 50 % solution 12.5 g Start: 12-09-2023 End: 12-12-2023 dextrose 5 % infusion Start: 08-18-2023 End: 08-18-2023 dextrose 5 % infusion Start: 08-18-2023 End: 08-18-2023 dextrose 50 % solution 12.5 g 1 ml hydrALAZINE hydrochloride 20 mg/ml injection (2 sources) Arteriolar Vasodilator Start: 12-09-2023 End: 12-12-2023 take 5 mg intravenously every four hours as needed for hypertension hydrALAZINE (Apresoline) injection 5 mg 1 ml HYDROmorphone hydrochloride 1 mg/ml cartridge (1 source) Opioid Agonist Start: 08-18-2023 End: 08-18-2023 HYDROmorphone (Dilaudid) injection 0.5 mg hyoscyamine sulfate 0.12 mg / methenamine 118 mg / methylene blue 10 mg / phenyl salicylate 36 mg / sodium phosphate, monobasic 40.8 mg oral capsule (20 sources) Oxidation-Reduct ion Agent Start: 10-23-2021 End: 12-01-2023 Meth-Hyo-M Bl-Na Phos-Ph Warren (Uribel) 118 MG capsule Take 1 capsule by mouth in the morning and 1 capsule at noon and 1 capsule before bedtime. 0 10/23/2021 12/01/2023 Discontinued (Cost of medication) insulin lispro 100 unt/ml injectable solution (2 sources) Insulin Analog Start: 08-18-2023 End: 08-18-2023 Insulin Lispro (Humalog) injection 4 Units Start: 08-18-2023 End: 08-18-2023 Insulin Lispro (Humalog) inj ection 0-12 Units Insulin Lispro (Humalog) injection 0-6 Units (2 sources) Start: 12-09-2023 End: 12-12-2023 Insulin Lispro (Humalog) injection 0-6 Units iopamidol (Isovue-370) 76 % injection 75 mL (2 sources) Start: 12-08-2023 End: 12-08-2023 iopamidol (Isovue-370) 76 % injection 75 mL lidocaine hydrochloride 0.02 mg/mg topical gel (2 sources) Antiarrhythmic, Amide Local Anesthetic Start: 12-09-2023 End: 12-09-2023 lidocaine (Uro-Jet) 2 % gel 1 ml LORazepam 2 mg/ml injection (3 sources) Benzodiazepine Start: 12-09-2023 End: 12-12-2023 take 0.5 mg intravenously every six hours as needed for anxiety 0.5 mg, IntraVENous, Every 6 hours PRN, anxiety, Starting on Thu12/09/23 at 0249, For IV doses dilute dose with 1ml NS. Start: 06-18-2021 End: 06-18-2021 LORazepam (ATIVAN) tablet 1 mg 1 ml morphine sulfate 4 mg/ml cartridge (4 sources) Opioid Agonist Start: 12-08-2023 End: 12-12-2023 morphine injection 4 mg 1 ml naloxone hydrochloride 0.4 mg/ml injection (2 sources) Opioid Antagonist Start: 12-09-2023 End: 12-12-2023 naloxone (Narcan) injection 0.4 mg 2 ml ondansetron 2 mg/ml injection (2 sources) Serotonin-3 Receptor Antagonist Start: 12-08-2023 End: 12-08-2023 ondansetron (Zofran) injection 4 mg ondansetron ODT (Zofran-ODT) disintegrating tablet 4 mg (2 sources) Start: 12-09-2023 End: 12-12-2023 take 1 tablet by mouth every eight hours as needed for nausea and vomiting ondansetron ODT (Zofran-ODT) disintegrating tablet 4 mg oxymetazoline hydrochloride 0.5 mg/ml nasal spray (2 sources) Start: 12-09-2023 End: 12-09-2023 oxymetazoline (Afrin) 0.05 % nasal spray 2 spray phenol 14 mg/ml mucosal spray (2 sources) Start: 12-11-2023 End: 12-12-2023 phenol (Chloraseptic) 1.4 % mouth/throat spray 1 spray microencapsulated potassium chloride 20 meq extended release oral tablet (2 sources) Start: 12-11-2023 End: 12-12-2023 potassium chloride CR (Klor-Con M20) ER tablet 40 mEq 5 ml sodium chloride 9 mg/ml injection (6 sources) Start: 08-18-2023 End: 08-18-2023 sodium chloride 0.9 % infusion Start: 08-18-2023 End: 08-18-2023 sodium chloride 0.9% (NS) fl ush 10 mL turmeric extract 500 mg oral capsule (13 sources) End: 02-10-2023 take 1 tablet by mouth in the morning Turmeric 500 MG tablet Take 1 tablet by mouth in the morning. 0 02/10/2023 Discontinued (Therapy completed) take 1 tablet by mouth in the mo rning Turmeric 500 MG tablet Take 1 tablet by mouth in the morning. 0 Active take 1 tablet by mouth once ivone y Turmeric 500 MG TABS Take 1 tablet by mouth daily 0 Active take 1 tablet by mouth once ivone y Turmeric 500 MG TABS Take 1 tablet by mouth daily 0 Active Problems Active Problems Problem Classification Problem Date Documented Da te Episodic/Chronic Anxiety disorders (20 sources) Anxiety attack ; Translations: [Panic disorder [episodic paroxysmal anxiety]] Onset: 10-08-2022 Resolved: 10-05-2024 Chronic Cardiac dysrhythmias (20 sources) Paroxysmal atrial fibrillation; Translations: [Paroxysmal atrial fibrillation] Onset: 02-02-2018 02-02-2018 Chronic Cardiac dysrhythmias (2 sources) Palpitations; Translations: [Palpitations] Episodic Diabetes mellitus with complications (2 sources) Type 2 diabetes mellitus with other specified complication; Translations: [Type 2 diabetes mellitus with other specified complication (HCC)] Onset: 10-05-2024 Chronic Diabetes mellitus without complication (20 sources) Type 2 diabetes mellitus; Translations: [Type 2 diabetes mellitus without complication] Onset: 06-07-2015 Resolved: 04-25-2016 04-25-2016 Chronic Diabetes mellitus without complication (1 source) Drug-induced hyperglycemia; Translations: [Hyperglycemia, unspecified] 03-24-2023 Episodic Disorders of lipid metabolism (20 sources) Mixed hyperlipidemia; Translations: [Mixed hyperlipidemia] Onset: 05-11-2024 12-01-2023 Chronic Essential hypertension (20 sources) Essential hypertension; Translations: [Essential (primary) hypertension] Onset: 07-08-2022 10-08-2022 Chronic Malaise and fatigue (20 sources) Fatigue; Translations: [Chronic fatigue, unspecified] Onset: 01-27-2024 Resolved: 05-11-2024 01-27-2024 Chronic Nonmalignant breast conditions (2 sources) Diffuse cystic mastopathy of left breast; Translations: [Diffuse cystic mastopathy of left breast] Onset: 09-02-2018 Chronic Other and unspecified benign neoplasm (5 sources) Leiomyoma; Translations: [Benign neoplasm of connective and other soft tissue, unspecified] Resolved: 04-25-2016 04-25-2016 Episodic Other female genital disorders (3 sources) Vaginal bleeding; Translations: [Abnormal uterine and vaginal bleeding, unspecified] 06-16-2023 Chronic Other gastrointestinal disorders (2 sources) Groin mass; Translations: [Other intra-abdominal and pelvic swelling, mass and lump] 07-30-2023 Episodic Other injuries and conditions due to external causes (1 source) Contusion; Translations: [Other injury of unspecified body region, initial encounter] 10-22-2023 Episodic Residual codes; unclassified (1 source) Postoperative state; Translations: [Other specified postprocedural states] 09-03-2023 Episodic Residual codes; unclassified (1 source) Postmenopausal state; Translations: [Asymptomatic menopausal state] 09-30-2023 Episodic Unclassified (2 sources) 1 Month Follow Up; Translations: [1 Month Follow Up] Onset: 01-27-2024 Urinary tract infections (1 source) Chronic cystitis; Translations: [Other chronic cystitis without hematuria] Chronic Viral infection (2 sources) Disease caused by 2019-nCoV; Translations: [COVID-19] 12-09-2023 Episodic Past or Other Problems Problem Classification Problem Date Documented Da te Episodic/Chronic Abdominal hernia (20 sources) Right inguinal hernia ; Translations: [Unilateral inguinal hernia, without obstruction or gangrene, not specified as recurrent] Onset: 08-03-2023 Resolved: 05-11-2024 08-03-2023 Episodic Intestinal obstruction without hernia (20 sources) Small bowel obstruction; Translations: [Unspecified intestinal obstruction, unspecified as to partial versus complete obstruction] Onset: 12-09-2023 Resolved: 05-11-2024 12-09-2023 Episodic Malaise and fatigue (5 sources) Fatigue; Translations: [Other fatigue] Onset: 08-06-2024 12-01-2023 Episodic Menopausal disorders (20 sources) Postmenopausal bleeding; Translations: [Postmenopausal bleeding] Onset: 08-03-2023 Resolved: 10-05-2024 07-30-2023 Chronic Mycoses (20 sources) Onychomycosis; Translations: [Tinea unguium] Onset: 10-05-2024 10-05-2024 Episodic Other aftercare (20 sources) Patient encounter status; Translations: [senior care (current) use of anticoagulants] Onset: 08-27-2021 Resolved: 10-05-2024 08-27-2021 Episodic Other aftercare (20 sources) Long-term current use of anticoagulant; Translations: [intermission coordinator (current) use of anticoagulants] Onset: 08-27-2021 05-11-2024 Episodic Other aftercare (2 sources) senior care (current) use of anticoagulants; Translations: [intermission coordinator (current) use of anticoagulants] Onset: 05-11-2024 Episodic Other gastrointestinal disorders (20 sources) Personal history of other diseases of the digestive system; Translations: [Personal history of other diseases of digestive system] Onset: 05-11-2024 05-11-2024 Episodic Other screening for suspected conditions (not mental disorders or infectious disease) (2 sources) Encounter for screening mammogram for malignant neoplasm of breast; Translations: [Encounter for screening mammogram for malignant neoplasm of breast] Onset: 10-05-2024 Episodic Residual codes; unclassified (20 sources) Dependent edema; Translations: [Edema, unspecified] Onset: 04-25-2016 04-25-2016 Episodic Residual codes; unclassified (2 sources) Edema, unspecified; Translations: [Edema, unspecified] Onset: 06-08-2022 Episodic Urinary tract infections (20 sources) Recurrent urinary tract infection; Translations: [Urinary tract infection, site not specified] Onset: 04-25-2016 04-25-2016 Episodic Varicose veins of lower extremity (3 sources) Varicose veins of bilateral lower limbs; Translations: [Asymptomatic varicose veins of bilateral lower extremities] Onset: 05-11-2024 05-11-2024 Episodic Results Test Name Value Interpretation Reference Range Facility 12 Lead EKGon 01-25-2025 12 Lead EKG [facility] Cardiovascular Services [address] [place] [address] 12 Lead EKG 01/25/25 1216 MR#: [id number] Acct: [id number] Name: CASSIE MORGAN Rep #: [id number] : 1945 79 From: Bhupinder Murcia MD Attending Dr: Dr. Susan Best MD Status: PRE [facility] Ordering Dr: Susan Best MD Date: 01/25/25 Location: [facility] Sex: F C Admitted: Test Reason : PREOP Blood Pressure : */* mmHG Vent. Rate : 50 BPM Atrial Rate : 50 BPM P-R Int : 170 ms QRS Dur : 94 ms QT Int : 452 ms P-R-T Axes : 49 -40 16 degrees QTcB Int : 412 ms Sinus bradycardia Possible Left atrial enlargement Left axis deviation Septal infarct , age undetermined Abnormal ECG Confirmed by Bhupinder Murcia ([id number]), magazine editor CARLOZ DIXON ([id number]) on 01/25/2025 1:40:33 PM Referred By: Susan Best Confirmed By: Bhupinder Murcia 01/25/25 1340 Date Bhupinder Murcia MD CC: Dr. Susan Best MD; Dr. Baldev Shore, Signed [facility] MR/PAT.Chirag 01-25-2025 MR/PAT.[facility] Medical Records Department [address] [place] [address] PAT - Anesthesia 01/25/25 2334 MR#: [id number] Acct: [id number] Name: CASSIE MORGAN Rep #: [id number] : 1945 79 From: Phoenix Burt MD PCP: Dr. Baldev Shore DO Status:PRE [facility] Y Race: C Location: [facility] Pre-Assessment Diagnosis/Proposed Procedure Planned Operative Procedure(s): CYSTO URETHRAL DILATION Anesthesia History Anesthesia History - refractory technician: Anesthesia History - refractory technician Hx Hospitalization No 01/19/25 13:24 Any Problems With Anesthesia No 01/19/25 13:24 Cholinesterase deficiency No 01/19/25 13:24 You/Your Family Experience No 01/19/25 13:24 fever (hyperthermia) with Relationship Recent Exposure to Contagious Disease Does patient have nerve No 01/19/25 13:24 stimulator Patient instructed to have device shut off --Does patient have Pacemaker or ICD? When Was Last Pacemaker Check QUESTION #4 FULL TEXT: You/Your Family Experience fever (hyperthermia) with Anesthesia Last Oral Intake Last Oral intake: Last Oral Intake NPO since Meds taken in AM with sips of water? Meds patient instructed to take am of surgery PONV PONV - refractory technician: PONV - refractory technician Female Yes 01/19/25 13:24 HX of Motion Sickness No 01/19/25 13:24 HX of N/V After Surgery No 01/19/25 13:24 Non-Smoker Yes 01/19/25 13:24 Duration of Surgery greater Yes 01/19/25 13:24 than 60 minutes Number of Risk Factors 3 01/19/25 13:24 PONV Score Moderate Risk 01/19/25 13:24 Height Weight Height Weight: Anesthesia: Height Weight Height 5 ft 5 in 11/17/23 15:41 Respiratory Assessment Respiratory Assessment - refractory technician: Respiratory Tract Infection Hx - refractory technician Hx Respiratory Tract Infection No 01/19/25 13:24 STOP Sleep Apnea STOP Sleep Apnea - refractory technician: STOP Sleep Apnea - refractory technician Hx Hypertension Yes: CONTROLLED WITH MEDS 01/19/25 13:24 FOR MOST PART PER PATIENT Hx Sleep Apnea No 01/19/25 13:24 CPAP BIPAP Do you snore loudly (louder No 01/19/25 13:24 than talking or can be heard Do you often feel tired/ No 01/19/25 13:24 fatigued/ sleepy during daytime? Has anyone observed you stop No 01/19/25 13:24 breathing during sleep? STOP Results Negative 01/19/25 13:24 QUESTION #5 FULL TEXT : Do you snore loudly (louder than talking or can be heard through closed doors)? 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 Specify any problems Hx of Preganancy in last 3 No 01/19/25 13:24 Months Nurse Filling Out Transfusion DSCHRIBER 01/19/25 13:24 Questions: Date: 01/19/25 01/19/25 13:24 Time: 13:27 01/19/25 13:24 Patient unable to answer at this time (ie. confused, unrespo /Reproduction History /Reproductive History - refractory technician: /Reproductive Hx- refractory technician Hx Now No 01/19/25 13:24 Gestational Age (in weeks): EDC: Hx Hx Para Hx Section SAB No 01/19/25 13:24 [facility] Medical History (Updated 01/19/25 @ 14:44 by Torie Young) Wears glasses Wears partial dentures Post-menopausal Diabetes Arthritis High cholesterol Dietary restriction History of diverticulitis Heartburn Non-smoker History of pain when walking History of edema History of echocardiogram Cardiology follow-up encounter Hypertension History of atrial fibrillation Home Medications ???Medication ???Instructions ???Recorded ???Last Taken ???Type rivaroxaban 20 mg tablet 20 mg PO DAILY blood thinner 06/29 Unknown History ascorbic acid (vitamin C) 500 mg 500 mg PO DAILY 11/17/23 Unknown H istory tablet cephalexin 250 mg capsule 250 mg PO QHS 11/17/23 Unknown His tory cyanocobalamin (vitamin B-12) 500 500 mcg PO DAILY 11/17/23 Unknown History mcg tablet metoprolol succinate 50 mg 100 mg PO QDAY 11/17/23 Unknown Hi story tablet,extended release 24 hr atorvastatin 10 mg tabl (more content not included)... Normal [facility] 36on 01-17-2025 36 Patient is on Metoprolol for rate control and no longer on carvedilol. Normal [facility] 36on 01-11-2025 36 Last seen 12/21/24. B MP done 08/31/24. GFR 81 Normal [facility] Office Visiton 12-21-2024 Follow-up visit [id number] Franco Morgan 1945 F Date Provider Department Center 12/21/2024 [id number] PHILLIPS [facility] Family History Problem Relation Age of Onset Other Mother Comments: natural causes, age 89 Pancreatic cancer Father 79 Diabetes Sister Valvular heart disease Sister Diabetes Brother Family Status - Relation Status Age at Mother Father Sister Alive Brother Alive Brother Alive Brother Alive Level of Service:45418 [place] OFFICE/OUTPATIENT ESTABLISHED MOD MDM 30 MIN Reason for Visit and Comments: Follow-up [555622] Normal [facility] Progress Noteon 12-21-2024 Progress Note [facility] Cardiology Note DATE of SERVICE:12/21/24 TIME of SERVICE: 1:49 PM Chief Complaint: Chief Complaint Patient presents with Follow-up History of PresentIllness: Cassie Morgan is a 79 y.o. female with a history of paroxysmal atrial fibrillation, and hypertension. She was last seen in the office September 28 and seem to be doing well at that time. She then had called into the office on October 10 feeling that she was back in atrial fibrillation. She was set up with an event monitor that she wore for 22 days. She had a 5% A-fib burden with an average heart rate of 121. Coreg was transitioned back to metoprolol. She is now being seen for follow-up. She tells me that her 2 days ago. She had been taking care of him 16/03 prior to his . She states her palpitations have decreased significantly after transitioning back to metoprolol. She denies any chest discomfort. She does have some increased lower extremity edema, but admits that she has not been wearing her DANNIELLE hose as instructed due to being too warm. She will resume these. Past Medical History: Past Medical History: Diagnosis Date Breast cancer screening 09/2024 Chronic anxiety with advanced dementia COVID-19 11/2023 Dependent edema Diverticulosis 2018 hx of Diverticulitis H/O colonoscopy with polypectomy 07/2021- defers rech History of small bowel obstruction 11/2023 hospitalized History of transfusion PAF (paroxysmal atrial fibrillation) ([facility]) 2017 Dr. Roman- OAC, nml EF- successful CV 08/16 Recurrent UTI Keflex prophylaxis Type II or unspecified type diabetes mellitus without mention of complication, not stated as uncontrolled ([facility]) 2013 Past Surgical History Past Surgical History: Procedure Laterality Date BREAST CYST EXCISION Left 2012 Benign CATARACT EXTRACTION Left 2019 SECTION (HISTORICAL) COLONOSCOPY 2013 COLONOSCOPY W/ POLYPECTOMY 07/2021 pt defers rech CYSTOSCOPY 2010 DILATION AND CURETTAGE (HISTORICAL) 08/18/2023 Dr. 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 LAP,INGUINAL HERNIA REPR,INITIAL (HISTORICAL) Right 08/18/2023 [facility] Family History Family History Problem Relation Name Age of Onset Other (02376) Mother Aminah Benitez natural causes, age 89 Pancreatic cancer Father Freddy 79 Diabetes Sister Bonnie Valvular heart disease Sister Bonnie Diabetes Brother Ed Social History Social History Tobacco Use Smoking status: Never Smokeless tobacco: Never Vaping Use Vaping status: Never Used Substance Use Topics Alcohol use: No Alcohol/week: 0.0 standard drinks of alcohol Drug use: No Comment: caffeine: a couple cups of coffee a day Allergies: Allergies Allergen Reactions Cefaclor Codeine Rash Medications: Current Outpatient Medications: ALPRAZolam (Xanax) 0.25 MG tablet, 1/2 or one tab q day prn anxiety, Disp: 15 tablet, Rfl: 0 ascorbic acid (Vitamin C) 500 mg chewable tablet, Chew 500 mg in the morning., Disp: , Rfl: atorvastatin (Lipitor) 10 MG tablet, Take 1 tablet (10 mg) by mouth daily., Disp: 90 tablet, Rfl: 1 cephalexin (Keflex) 250 MG capsule, Take 250 mg by mouth Nightly., Disp: , Rfl: cholecalciferol (Vitamin D-3) 25 MCG (1000 UT) tablet, Take 1,000 Units by mouth in the morning., Disp: , Rfl: cyanocobalamin (Vitamin B-12) 500 MCG tablet, Take 500 mcg by mouth in the morning., Disp: , Rfl: estradiol (Estrace) 0.1 MG/GM vaginal cream, Insert 2 g into the vagina daily., Disp: , Rfl: famotidine (Pepcid) 20 MG tablet, Take 20 mg by mouth Nightly as needed for heartburn., Disp: , Rfl: fluticasone (Flonase) 50 MCG/ACT nasal spray, Administer 1 spray into affected nostril(s) Daily as needed., Disp: , Rfl: lisinopril 20 MG tablet, Take 1 tablet (20 mg) by mouth daily., Disp: 90 tablet, Rfl: 1 metFORMIN (Glucophage) 500 MG tablet, Take 2 tablets (1,000 mg) by mouth 2 times daily (with meals)., Disp: 360 tablet, Rfl: 1 metoprolol succinate XL (Toprol-XL) 100 MG 24 hr tablet, Take 1 tablet (100 mg) by mouth daily. Do not crush or chew., Disp: 30 tablet, Rfl: 11 rivaroxaban (Xarelto) 20 MG tablet, TAKE 1 TABLET BY MOUTH DAILY (WITH BREAKFAST), Disp: 90 tablet, Rfl: 3 Blood Glucose Monitoring Suppl (FreeStyle Lite) device, Use as instructed E11.9, Disp: 1 each, Rfl: 0 FREESTYLE LITE test strip, by Other route daily. Use as instructed E11.9, Disp: 100 each, Rfl: 11 Review of Systems: Review of Systems Constitutional: Negative for chills and fever. HENT: Negative for nosebleeds. Respiratory: Negative for chest tightness and shortness of breath. Cardiovascular: Positive for leg swelling. Negative for chest pain. Gastrointestinal: Negative for abdominal pain, diarrhea and nausea. Genitourinary: Negative for dysuria. Musculoskeletal: Negative for myalgias. Skin: Negative for pallor. Neurological: Negative for dizziness and syncope. (more content not included)... [facility] 36on 11-22-2024 36 I called and advised event monitor notes episodes of A-fib with RVR, heart rate in the 180s at times. Overall patient is asymptomatic. States she is under a lot of situational stress, taking care of her ill who is nearing end-of-life. I also discussed her plan of care with Dr. Roman. Will discontinue carvedilol 12.5 mg twice daily and put her back on Toprol at a higher dose of 100 mg daily. She will keep her upcoming appointment in office already scheduled December 21, 2024 for repeat evaluation. She continues on lisinopril 20 mg daily for her blood pressure as well. She will continue monitoring her blood pressure and heart rate in her home environment. She is to notify the office if she were to have any symptoms or intolerance. [place] [address] 11-17-2024 36 RX loaded Next ov 04/05/25 [facility] 36 Medication name: atorvastatin (Lipitor) 10 MG tablet Medication dosage: 10 mg (Miligrams Monthly quantity needed: 30 How many day supply requestin days Medication route: oral (PO) Medication administration time(s): daily If taking medication PRN, reason for taking medication: N/A If this is a controlled substance do you receive this or any other controlled medication from any other doctor or facility: No Ordering provider: Clyde Sharma PA-C Date of last office visit: 10/05/24 Date of next office visit: 04/05/25 Date of last refill: (see medication tab): 04/26/24 Updated/Validated preferred pharmacy: Yes Patient instructed to contact the pharmacy prior to picking up the medication: Yes [facility] 36 Order re faxed [facility] 36on 11-16-2024 36 Name of caller: [facility] Contact phone number: [phone] Relationship to Patient: patient Provider: Dr. Franklin Practice: [facility] GONZALEZ Chief Complaint/Reason for Call: Patient states [facility] has not received order for diabetic shoes. Requesting to be faxed to [facility] at [phone]. Please advise. Best time of day caller can be reached: any Patient advised that office/PCP has 24-48 business hours to return their call: Yes [place] [address] 11-11-2024 36 I received a strip o n pt's event monitor noting a-fib RVR 1 70's on 11/06/24. Pt states she is feeling well with no new complaints. I advised no new recommendations at this time. I would continue Xarelto 20 mg daily for OAC, Coreg 12.5 mg twice daily continues. She has a follow up in the office scheduled on 12/21/2024 for continued evaluation. [facility] Progress Noteon 11-09-2024 Progress Note Spoke to patient abo nh AWV scheduling. Has appointment on 04/05/25 and could move up and make this appointment her AWV. She stated she couldn't do earlier and just wanted to leave it as it was as her has Alzheimer's and it's difficult enough. Advised she could schedule when in office that day. [place] [address] 11-07-2024 36 Called and spoke to patient at 12:30 pm today. She states she was running a bunch of errands yesterday. She states she thinks she was finishing up at around 4:30 pm yesterday. Does not remember any specific sx but did feel tired at the end of the day. Gave s/sx when to report to ED. Let patient know we will continue to monitor her and we will call if there is anything urgent seen. Pt stats understanding and Pt will call with any questions or concerns. [facility] 11-06-2024 36 S: Rachel with [facility] spoke with CAC nurse regarding results. B: Onset of symptoms/concern 11/06/2024. A: Rachel with [facility] calling to report critical EKG results: She reports that they received at 4:36pm CT patient was in A. Fib RVR 176bpm and currently at 7:36pm CT she is still in A. Fib RVR 190bpm. R: This RN attempted to reach patient and patient's son several times with no answer, left a voicemail on patient's cell to return call. Paged cardiac rehabilitation specialist provider Dr. Betancourt via secure chat- advises if patient is not symptomatic, she should be ok. If she is symptomatic, go to ED for an evaluation. Called patient again with success, she reports that she has been running around all day on her feet, going in and out of the house getting her groceries, she is tired, but she denies palpitations, chest pain, shortness of breath or any other symptoms. Informed her of provider's instructions, she verbalized understanding. No further needs at this time. Patient instructed to call back with new or worsening symptoms. Reason for Disposition Lab or radiology calling with CRITICAL test results Protocols used: PCP Call - No [id number] [facility] 11-03-2024 36 faxed [facility] 36 Name of caller: Jaswinder lewis Contact phone number: [phone] Relationship to Patient: [facility] Provider: [facility] Practice: [facility] KHAN Chief Complaint/Reason for Call: [facility] called again regarding Request an Order for Diabetic shoes, inserts along with chart notes. . They are still waiting on return fax. Best time of day caller can be reached: any Patient advised that office/PCP has 24-48 business hours to return their call: No [facility] 2911-01-2024 29 Addended by: ARMANDO NAJERA on: 11/01/2024 12:12 PM Modules accepted: Orders [facility] 29 Addended by: HARRIET SALDANA on: 11/01/2024 11:19 AM Modules accepted: Orders [facility] 11-01-2024 36 Please sign orders f or Diabetic shoes [facility] 3610-27-2024 36 Is order ok for patient? Please advise [facility] 36 Name of caller: Jaswinder lewis Contact phone number: [phone] Relationship to Patient: [facility] Provider: Dr Franklin Practice: [facility] Chief Complaint/Reason for Call: Requesting an Order for Diabetic shoes, inserts along with chart notes. Best time of day caller can be reached: any Patient advised that office/PCP has 24-48 business hours to return their call: No [facility] Progress Noteon 10-26-2024 Progress Note Your cardiac event monitor notes that of the 22 days of wearing the monitor, you are in atrial fibrillation approximately 5% of the time, heart rates elevated at times. Please continue present medications including Toprol XL 100 mg daily, please continue taking your oral anticoagulant, Xarelto 20 mg daily for stroke risk reduction. Please keep your upcoming appointment in the office as scheduled December 21, 2024 at 1:30 PM at our office for continued evaluation. If any questions, concerns in the interim, please feel free to call our office. Thank you. [facility] 10-21-2024 36 Medication name: metFORMIN (Glucophage) 500 MG tablet Medication dosage: 500 mg (Miligrams Monthly quantity needed: 360 How many day supply requestin days Medication route: oral (PO) Medication administration time(s): 2 times a day (BID) If taking medication PRN, reason for taking medication: N/A If this is a controlled substance do you receive this or any other controlled medication from any other doctor or facility: N/A Ordering provider: Dr. Franklin Date of last office visit: 10.05.24 Date of next office visit: 04.05.25 Date of last refill: (see medication tab): 06.27.24 Updated/Validated preferred pharmacy: Yes Patient instructed to contact the pharmacy prior to picking up the medication: No [facility] 10-14-2024 29 Addended by: PARKER WEST on: 10/14/2024 01:08 PM Modules accepted: Orders [facility] 36on 10-14-2024 36 Chart reviewed. I ag ree a 30 day event monitor would be beneficial to assess if she is having recurrent atrial fibrillation and how often. I will order a 30 day event monitor and ask she be scheduled follow up in 2 months to review results. [facility] 36 Called patient to review A-fib. She states last night she was sitting on the couch and watching tv and she felt like she was into A-fib. She states she started tiredness and her heart was racing. She denied chest pain, SOB or dizziness. HR at that time was 129. Blood pressure this morning was 138/87 HR 97. She does no feel she is in A-fib now. Pulse ox while nurse was on the phone was in the 80's and 90's steady. Pulse ox HR was not bouncing all over. Let patient know Joyce suggested if she went into a-fib again we should have patient get EM. Pt is agreeable. Let patient know this message would be sent to provider to review and make recommendations. [facility] 36 Patient states that she is back in A- Fib, she also stated her blood sugar this morning was 198. Stated it has been up to 212 although she doesn't know if that was right since it was the wrist cuff. States the a- fib is up as well because she can feel it Please call her back to discuss at your earliest convenience. Thank you . [facility] 36on 10-10-2024 36 Pt called back and states her HR on the Kardia is 81 but she did not notice if it gave the rhythm or not. She also took her BP with a wrist cuff, her BP was 113/66 and HR of 74. She reports feeling much better than she did this morning. Pt instructed to call back if she would go back into A-fib, which at that time, an event monitor could ordered per Amauri. Pt verbalized understanding and had no further questions at this time. [facility] 36 Spoke with pt and relayed recommendations per Amauri. Pt states she has not rechecked her rhythm on her Kardia-mobile but will check and call back with the results. [facility] 36 If Bobby now shows a normal sinus rhythm, I would continue her present medications. She is on Xarelto for stroke risk reduction. She is on beta-angela for rate control. If this occurs again however we should consider a 30-day event monitor to see how much A-fib she is having. Thank you Normal [facility] 36 Pt called in stating she was back in A-fib. She reports noticing heart racing palpitations and overall feeling lousey about 8:30 am. She states she checked her rhythm on [employer] around 9:30 am which confirmed A-fib with, HR-126 and second strip, HR-118. Pt denies any CP or SOB. She endorses palpitations and fatigue. Requested pt to put pulse-ox on her finger to monitor HR while on the phone with this nurse. HR stayed consistent between 60's-70's. Pt most likely back to SR. Pt states she was instructed at her CLARI to call if back in A-fib. Let pt know that this information would be given to the provider and someone would call her back with any further recommendations. Pt verbalized understanding and had no further questions at this time. Normal [facility] AMB POC URINE, MICROALBUMINO rdered By: Marti Castaneda on 10-05-2024 Albumin Test strip detection limit <= 20 mg/L (U) [Mass/Vol] 30 mg/L [facility] - 30 mg/L [facility] Albumin/Creatinine (U) [Ratio] 30 mg/g [facility] - 30 mg/g [facility] CREATININE MG/DL 100 mg/dL [facility] brandee [facility] DBT Breast - bilateral scree doriegon 10-05-2024 No mammographic evidence of malignancy. ASSESSMENT: Category 1 Negative RECOMMENDATION: Routine screening mammogram in 1 year. Bilateral CANCER RISK ASSESSMENT: This risk assessment is based on patient provided information collected in a risk survey taken at the time of this examination. LIFETIME BREAST CANCER RISK: William 8: 1.65% - If greater than or equal to 20%, consider annual mammogram and annual screening Breast MRI or follow up in high risk clinic. Is the patient at elevated risk based on the HBOC criteria? Yes (Hereditary Breast and Ovarian Cancer) - If Yes, consider genetic counseling and testing with high risk follow up Is the patient at elevated risk based on the Jackson Syndrome criteria? No - If Yes, consider genetic counseling and testing with high risk follow up. Report Dictated on Electronically Signed By: Kristine Kaye MD Electronically Signed Date/Time: 10/05/2024 2:51 PM EST [facility] Patient Name: CASSIE MORGAN : 1945 Exam Date/Time: 10/05/2024 14:02 Procedure: BI MAMMOGRAM SCREENING TOMOSYNTHESIS BILATERAL Ordering Provider: FRANKLIN EUGENE Reason For Exam: This exam was performed at [facility] [address] [place] [address] RISK ALERT: The Cancer Risk Assessment scores below the recommendation of this report contain an outcome above the normal risk range. PATIENT CANCER HISTORY: No Personal History of Cancer FAMILY CANCER HISTORY: Father Pancreatic Cancer age 79 Image views: 2D Bilateral CC and MLO views were acquired. 3D Bilateral CC and MLO views were acquired. Images were reviewed with CAD. Markings on images: BB's = Nipples; skin lesions Open hopi = Palpable Line = Scar COMPARISON: 09/30/2023 and 12/28/2021 TISSUE DENSITY: BIRADS B - There are scattered areas of fibroglandular density. FINDINGS: No suspicious masses, architectural distortions or suspiciously clustered microcalcifications are identified. There is no evidence of skin thickening or nipple retraction. There are no significant changes when compared with prior studies. [facility] Kristine Kaye MD - 10/05/2024 Patient Name: CASSIE MORGAN : 1945 Exam Date/Time: 10/05/2024 14:02 Procedure: BI MAMMOGRAM SCREENING TOMOSYNTHESIS BILATERAL Ordering Provider: FRANKLIN EUGENE Reason For Exam: This exam was performed at [facility] [address] [place] [place] [address] RISK ALERT: The Cancer Risk Assessment scores below the recommendation of this report contain an outcome above the normal risk range. PATIENT CANCER HISTORY: No Personal History of Cancer FAMILY CANCER HISTORY: Father Pancreatic Cancer age 79 Image views: 2D Bilateral CC and MLO views were acquired. 3D Bilateral CC and MLO views were acquired. Images were reviewed with CAD. Markings on images: BB's = Nipples; skin lesions Open hopi = Palpable Line = Scar COMPARISON: 09/30/2023 and 12/28/2021 TISSUE DENSITY: BIRADS B - There are scattered areas of fibroglandular density. FINDINGS: No suspicious masses, architectural distortions or suspiciously clustered microcalcifications are identified. There is no evidence of skin thickening or nipple retraction. There are no significant changes when compared with prior studies. IMPRESSION: No mammographic evidence of malignancy. ASSESSMENT: Category 1 Negative RECOMMENDATION: Routine screening mammogram in 1 year. Bilateral CANCER RISK ASSESSMENT: This risk assessment is based on patient provided information collected in a risk survey taken at the time of this examination. LIFETIME BREAST CANCER RISK: William 8: 1.65% - If greater than or equal to 20%, consider annual mammogram and annual screening Breast MRI or follow up in high risk clinic. Is the patient at elevated risk based on the HBOC criteria? Yes (Hereditary Breast and Ovarian Cancer) - If Yes, consider genetic counseling and testing with high risk follow up Is the patient at elevated risk based on the Jackson Syndrome criteria? No - If Yes, consider genetic counseling and testing with high risk follow up. Report Dictated on Electronically Signed By: Kristine Kaye MD Electronically Signed Date/Time: 10/05/2024 2:51 PM EST [facility] Radiology Study observation (narrative) [facility] alth DBT Breast - bilateral scree ningOrdered By: Kristine Kaye on 10-05-2024 [facility] [employer] Work Phone: Office Visiton 10-05-2024 Follow-up visit [id number] Franco Morgan 1945 F Date Provider Department Center 10/05/2024 [id number] FRANKLIN [facility] Family History Problem Relation Age of Onset Other Mother Comments: natural causes, age 89 Pancreatic cancer Father 79 Diabetes Sister Valvular heart disease Sister Diabetes Brother Family Status - Relation Status Age at Mother Father Sister Alive Brother Alive Brother Alive Brother Alive Level of Service:55018 [place] OFFICE/OUTPATIENT ESTABLISHED MOD MDM 30 MIN Reason for Visit and Comments: Follow-up [267550] - Med check Normal [facility] Progress Noteon 10-05-[address] [facility] [address] [facility] [id number] Visit type: Established Patient Reason for Visit: Follow-up (Med check) Assessment / Plan: Cassie was seen today for follow-up. Diagnoses and all orders for this visit: Type 2 diabetes mellitus with other specified complication, without long-term current use of insulin (HCC) (Primary) Comments: Stable, cont metformin Orders: - AMB POC URINE, MICROALBUMIN - Comprehensive metabolic panel; Future - Hemoglobin A1c; Future - Lipid panel; Future - Comprehensive metabolic panel - Hemoglobin A1c - Lipid panel THIERRY (generalized anxiety disorder) Comments: Stable, continue as needed Xanax Anticoagulant long-term use Comments: Stable continue Xarelto Recurrent UTI Comments: Stable continue daily Keflex Essential (primary) hypertension Comments: Stable on lisinopril, carvedilol, PAF (paroxysmal atrial fibrillation) (HCC) Comments: Presently normal sinus rhythm Pure hypercholesterolemia Comments: Stable on lipid for Subjective: Patient ID: Cassie Morgan is a 79 y.o. female. HPI type II diabetic with history of hypertension, hyperlipidemia and PAF status post cardioversion 2 months ago for rapid A-fib presents for checkup. Glucose levels in the 150 range. However A1c's have been well. Mostly she has a lot of stress with her who is presently on hospice with advanced dementia. She takes Xanax a few times a week. Due to time restraints she would like to have a checkup only for 6 months. She continues not to smoke or drink. Her children and step kids are pretty helpful. Review of Systems no recent earache sore throat or cough. No chest pain or palpitations. No breakthrough dyspnea PND orthopnea claudication or change in chronic pedal edema. No heartburn or abdominal pain. Bowels are regular. No melena or blood. No breast complaints. Has frequent UTIs and presently on Keflex without vaginal yeast infections. Allergies Allergen Reactions Cefaclor Codeine Rash Current Outpatient Medications on File Prior to Visit Medication Sig Dispense Refill ALPRAZolam (Xanax) 0.25 MG tablet 1/2 or one tab q day prn anxiety 15 tablet 0 ascorbic acid (Vitamin C) 500 mg chewable tablet Chew 500 mg in the morning. atorvastatin (Lipitor) 10 MG tablet Take 1 tablet (10 mg) by mouth daily. 90 tablet 1 Blood Glucose Monitoring Suppl (FreeStyle Lite) device Use as instructed E11.9 1 each 0 carvedilol (Coreg) 12.5 MG tablet Take 1 tablet (12.5 mg) by mouth 2 times daily (with meals). 180 tablet 1 cephalexin (Keflex) 250 MG capsule Take 250 mg by mouth Nightly. cholecalciferol (Vitamin D-3) 25 MCG (1000 UT) tablet Take 1,000 Units by mouth in the morning. cyanocobalamin (Vitamin B-12) 500 MCG tablet Take 500 mcg by mouth in the morning. estradiol (Estrace) 0.1 MG/GM vaginal cream Insert 2 g into the vagina daily. famotidine (Pepcid) 20 MG tablet Take 20 mg by mouth Nightly as needed for heartburn. fluticasone (Flonase) 50 MCG/ACT nasal spray Administer 1 spray into affected nostril(s) Daily as needed. FREESTYLE LITE test strip by Other route daily. Use as instructed E11.9 100 each 11 lisinopril 20 MG tablet Take 1 tablet (20 mg) by mouth daily. 90 tablet 1 metFORMIN (Glucophage) 500 MG tablet Take 2 tablets (1,000 mg) by mouth in the morning and 2 tablets (1,000 mg) in the evening. Take with meals. 360 tablet 1 rivaroxaban (Xarelto) 20 MG tablet TAKE 1 TABLET BY MOUTH DAILY (WITH BREAKFAST) 90 tablet 3 No current facility-administered medications on file prior to visit. Patient Active Problem List Diagnosis Recurrent UTI Type 2 diabetes mellitus with other specified complication, without long-term current use of insulin (HCC) Dependent edema PAF (paroxysmal atrial fibrillation) (HCC) Anticoagulant long-term use Essential (primary) hypertension Postmenopausal bleeding Pure hypercholesterolemia THIERRY (generalized anxiety disorder) History of small bowel obstruction Social History Tobacco Use Smoking status: Never Smokeless tobacco: Never Substance Use Topics Alcohol use: No Alcohol/week: 0.0 standard drinks of alcohol Past Surgical History: Procedure Laterality Date BREAST CYST EXCISION Left 2012 Benign CATARACT EXTRACTION Left 2019 SECTION (HISTORICAL) COLONOSCOPY 2013 COLONOSCOPY W/ POLYPECTOMY 07/2021 ? 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 Normal [facility] ECG 12 lead - CLINIC PERFORM EDon 09-28-2024 [facility] Office Visiton 09-28-2024 Follow-up visit [id number] Franco Morgan 1945 F Date Provider Department Center 09/28/2024 [id number] PHILLIPS [facility] Family History Problem Relation Age of Onset Other Mother Comments: natural causes, age 89 Pancreatic cancer Father 79 Diabetes Sister Diabetes Brother Family Status - Relation Status Age at Mother Father Sister Alive Brother Alive Brother Alive Brother Alive Level of Service:95227 [place] OFFICE/OUTPATIENT ESTABLISHED MOD MDM 30 MIN Reason for Visit and Comments: Follow-up [950314] Normal [facility] Progress Noteon 09-28-2024 Progress Note [facility] Cardiology Note DATE of SERVICE:09/28/24 TIME of SERVICE: 11:35 AM Chief Complaint: Chief Complaint Patient presents with Follow-up History of PresentIllness: Cassie Morgan is a 79 y.o. female with a history of paroxysmal atrial fibrillation, and hypertension. When she was last seen in the office August 23 her blood pressure was elevated. At that time Toprol was changed to carvedilol, and lisinopril was increased to 20 mg daily. She had follow-up blood work August 31 that noted stable electrolytes and renal function. She is back in today for reassessment. She is doing well. She has developed a urinary tract infection and is being treated with antibiotic therapy. She denies any cardiac symptoms including chest pain, shortness of breath, palpitations, or edema. Blood pressure is much better controlled today at this visit. Past Medical History: Past Medical History: Diagnosis Date Anxiety Breast cancer screening by mammogram 09/2023 COVID-19 11/2023 Dependent edema Diverticulosis 2019 Diverticulitis H/O colonoscopy 2013 Dr Ramesh- due 2023 History of transfusion PAF (paroxysmal atrial fibrillation) ([facility]) 2017 Dr. Newby- OAC, nml EF Recurrent UTI Keflex prophylaxis SBO (small bowel obstruction) ([facility]) 11/2023 hospitalized Type II or unspecified type diabetes mellitus without mention of complication, not stated as uncontrolled ([facility]) 2013 Past Surgical History Past Surgical History: Procedure Laterality Date BREAST CYST EXCISION Left 2013 CATARACT EXTRACTION Left 2019 SECTION (HISTORICAL) COLONOSCOPY 2013 COLONOSCOPY W/ POLYPECTOMY 07/2021 ? 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 LAP,INGUINAL HERNIA REPR,INITIAL (HISTORICAL) Right 08/18/2023 Lacho Family History Family History Problem Relation Name Age of Onset Other (24397) Mother Aminah Benitez natural causes, age 89 Pancreatic cancer Father Freddy 79 Diabetes Sister Bonnie Diabetes Brother Ed Social History Social History Tobacco Use Smoking status: Never Smokeless tobacco: Never Vaping Use Vaping status: Never Used Substance Use Topics Alcohol use: No Alcohol/week: 0.0 standard drinks of alcohol Drug use: No Comment: caffeine: a couple cups of coffee a day Allergies: Allergies Allergen Reactions Cefaclor Codeine Rash Medications: Current Outpatient Medications: ALPRAZolam (Xanax) 0.25 MG tablet, 1/2 or one tab q day prn anxiety, Disp: 15 tablet, Rfl: 0 ascorbic acid (Vitamin C) 500 mg chewable tablet, Chew 500 mg in the morning., Disp: , Rfl: atorvastatin (Lipitor) 10 MG tablet, Take 1 tablet (10 mg) by mouth daily., Disp: 90 tablet, Rfl: 1 carvedilol (Coreg) 12.5 MG tablet, Take 1 tablet (12.5 mg) by mouth 2 times daily (with meals)., Disp: 180 tablet, Rfl: 1 cephalexin (Keflex) 250 MG capsule, Take 250 mg by mouth Nightly., Disp: , Rfl: cholecalciferol (Vitamin D-3) 25 MCG (1000 UT) tablet, Take 1,000 Units by mouth in the morning., Disp: , Rfl: cyanocobalamin (Vitamin B-12) 500 MCG tablet, Take 500 mcg by mouth in the morning., Disp: , Rfl: estradiol (Estrace) 0.1 MG/GM vaginal cream, Insert 2 g into the vagina daily., Disp: , Rfl: famotidine (Pepcid) 20 MG tablet, Take 20 mg by mouth Nightly as needed for heartburn., Disp: , Rfl: fluticasone (Flonase) 50 MCG/ACT nasal spray, Administer 1 spray into affected nostril(s) Daily as needed., Disp: , Rfl: lisinopril 20 MG tablet, Take 1 tablet (20 mg) by mouth daily., Disp: 90 tablet, Rfl: 1 metFORMIN (Glucophage) 500 MG tablet, Take 2 tablets (1,000 mg) by mouth in the morning and 2 tablets (1,000 mg) in the evening. Take with meals., Disp: 360 tablet, Rfl: 1 rivaroxaban (Xarelto) 20 MG tablet, TAKE 1 TABLET BY MOUTH DAILY (WITH BREAKFAST), Disp: 90 tablet, Rfl: 3 Blood Glucose Monitoring Suppl (FreeStyle Lite) device, Use as instructed E11.9, Disp: 1 each, Rfl: 0 FREESTYLE LITE test strip, by Other route daily. Use as instructed E11.9, Disp: 100 each, Rfl: 11 Review of Systems: Review of Systems Constitutional: Negative for chills and fever. HENT: Negative for nosebleeds. Respiratory: Negative for chest tightness and shortness of breath. Cardiovascular: Negative for chest pain and leg swelling. Gastrointestinal: Negative for abdominal pain, diarrhea and nausea. Genitourinary: Negative for dysuria. Musculoskeletal: Negative for myalgias. Skin: Negative for pallor. Neurological: Negative for dizziness and syncope. Hematological: Does not bruise/bleed easily. Physical Examination: Vitals: Vitals: 09/28/24 1102 BP: 136/80 BP Location: Left arm Patient Position: Sitting BP Cuff Size: Adult Pulse: 57 SpO2: 100% Weight: 162 lb (73.5 kg) Height: 5' 5 (1.651 m) Body mass index is 26.96 kg/m?. Physical Exam Constitutional: (more content not included)... Normal [facility] 09-20-2024 36 Pt was left a detail ed message and was given breast center number to call and schedule her mammogram. [address] 09-19-2024 36 Last OV:05/11/24 Scheduled:10/05/24 [facility] 36 Name of caller: Franco almeida Contact phone number: [phone] Relationship to Patient: patient Provider: [facility]: [facility] Chief Complaint/Reason for Call: Patient wants to know if you can place an order for her to get a mammogram. She said she would like to get it done on a day she already has some appointments scheduled in September. Please advise Best time of day caller can be reached: any Patient advised that office/PCP has 24-48 business hours to return their call: No [place] [id number] 36 Talked to patient an d got an appointment to be seen sooner per Dr. Franklin on 10/05/[address] 09-13-2024 Medication name: ALPRAZolam (Xanax) 0.25 MG tablet Medication dosage: 0.25 mg (Miligrams Monthly quantity needed: 30 How many day supply requestin days Medication route: oral (PO) Medication administration time(s): as needed (PRN) If taking medication PRN, reason for taking medication: 1/2 or one tab q day prn anxiety If this is a controlled substance do you receive this or any other controlled medication from any other doctor or facility: No Ordering provider: Dr. Franklin Date of last office visit: 05/11/24 Date of next office visit: 11/09/24 Date of last refill: (see medication tab): 07/07/24 Updated/Validated preferred pharmacy: Yes Patient instructed to contact the pharmacy prior to picking up the medication: Yes [address] 09-12-2024 36 Received notificatio n of unread [employer] message sent to pt with lab results per Joyce. Mrs Morgan, I reviewed your blood work. Your labs look stable. Please call with any questions or concerns. Thank you, Joyce Phillips PA-C Spoke with pt and relayed lab results per [employer] message from Joyce. Pt verbalized understanding and had no further questions at this time. Normal [facility] No Panel Informationon 08-23 Sinus Rhythm WITHIN NORMAL LIMITS [facility] Office Visiton 08-23-2024 Follow-up visit [id number] Franco Morgan 1945 F Date Provider Department Center 08/23/2024 [id number] PHILLIPS [facility] Family History Problem Relation Age of Onset Other Mother Comments: natural causes, age 89 Pancreatic cancer Father 79 Diabetes Sister Diabetes Brother Family Status - Relation Status Age at Mother Father Sister Alive Brother Alive Brother Alive Brother Alive Level of Service:33889 [place] OFFICE/OUTPATIENT ESTABLISHED MOD MDM 30 MIN Reason for Visit and Comments: Follow-up [118309] - ED visit follow up Normal [facility] Progress Noteon 08-23-2024 Progress Note Mrs Morgan, I reviewed your blood work. Your labs look stable. Please call with any questions or concerns. Thank you, Joyce Phillips PA-C Normal [facility] Progress Note [facility] Cardiology Note DATE of SERVICE:08/23/24 TIME of SERVICE: 10:40 AM Chief Complaint: Chief Complaint Patient presents with Follow-up ED visit follow up History of PresentIllness: Cassie Morgan is a 79 y.o. female with a history of paroxysmal atrial fibrillation, and hypertension. She was in the emergency room August 06, feeling that she was in atrial fibrillation. EKG did demonstrate that she was in fact in atrial fibrillation. She was also hypertensive with a blood pressure of 175/93. Direct-current cardioversion was completed in the emergency room with adventism of sinus rhythm. She is now being seen in the office for follow-up. She states she will frequently feel fatigued. She has a Kardia, and states she uses it frequently, but is unable to tell me whether she has found herself in atrial fibrillation any other day but August 06. We did do a 3-day monitor back in December but noted normal sinus rhythm without recurrent A-fib. An echocardiogram at that time noted normal LV systolic function without significant valvular disease. Her blood pressure here today is also high. She is unable to tell me how she felt on August 06 that was a different than her typical feeling of fatigue that led her to go to the ER. Past Medical History: Past Medical History: Diagnosis Date Anxiety Breast cancer screening by mammogram 09/2023 COVID-19 11/2023 Dependent edema Diverticulosis 2018 Diverticulitis H/O colonoscopy 2013 Dr Ramesh- due 2023 History of transfusion PAF (paroxysmal atrial fibrillation) ([facility]) 2017 Dr. Newby- OAC, nml EF Recurrent UTI Keflex prophylaxis SBO (small bowel obstruction) ([facility]) 11/2023 hospitalized Type II or unspecified type diabetes mellitus without mention of complication, not stated as uncontrolled ([facility]) 2013 Past Surgical History Past Surgical History: Procedure Laterality Date BREAST CYST EXCISION Left 2013 CATARACT EXTRACTION Left 2019 SECTION (HISTORICAL) COLONOSCOPY 2013 COLONOSCOPY W/ POLYPECTOMY 07/2021 ? 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 LAP,INGUINAL HERNIA REPR,INITIAL (HISTORICAL) Right 08/18/2023 Lacho Family History Family History Problem Relation Name Age of Onset Other (06057) Mother Aminah Benitez natural causes, age 89 Pancreatic cancer Father Freddy 79 Diabetes Sister Bonnie Diabetes Brother Ed Social History Social History Tobacco Use Smoking status: Never Smokeless tobacco: Never Vaping Use Vaping status: Never Used Substance Use Topics Alcohol use: No Alcohol/week: 0.0 standard drinks of alcohol Drug use: No Comment: caffeine: a couple cups of coffee a day Allergies: Allergies Allergen Reactions Cefaclor Codeine Rash Medications: Current Outpatient Medications: ALPRAZolam (Xanax) 0.25 MG tablet, 1/2 or one tab q day prn anxiety, Disp: 30 tablet, Rfl: 0 ascorbic acid (Vitamin C) 500 mg chewable tablet, Chew 500 mg in the morning., Disp: , Rfl: atorvastatin (Lipitor) 10 MG tablet, Take 1 tablet (10 mg) by mouth daily., Disp: 90 tablet, Rfl: 1 cephalexin (Keflex) 250 MG capsule, Take 250 mg by mouth Nightly., Disp: , Rfl: cholecalciferol (Vitamin D-3) 25 MCG (1000 UT) tablet, Take 1,000 Units by mouth in the morning., Disp: , Rfl: cyanocobalamin (Vitamin B-12) 500 MCG tablet, Take 500 mcg by mouth in the morning., Disp: , Rfl: estradiol (Estrace) 0.1 MG/GM vaginal cream, Insert 2 g into the vagina daily., Disp: , Rfl: famotidine (Pepcid) 20 MG tablet, Take 20 mg by mouth Nightly as needed for heartburn., Disp: , Rfl: fluticasone (Flonase) 50 MCG/ACT nasal spray, Administer 1 spray into affected nostril(s) Daily as needed., Disp: , Rfl: metFORMIN (Glucophage) 500 MG tablet, Take 2 tablets (1,000 mg) by mouth in the morning and 2 tablets (1,000 mg) in the evening. Take with meals., Disp: 360 tablet, Rfl: 1 rivaroxaban (Xarelto) 20 MG tablet, TAKE 1 TABLET BY MOUTH DAILY (WITH BREAKFAST), Disp: 90 tablet, Rfl: 3 Blood Glucose Monitoring Suppl (FreeStyle Lite) device, Use as instructed E11.9, Disp: 1 each, Rfl: 0 carvedilol (Coreg) 12.5 MG tablet, Take 1 tablet (12.5 mg) by mouth 2 times daily (with meals)., Disp: 180 tablet, Rfl: 1 FREESTYLE LITE test strip, by Other route daily. Use as instructed E11.9, Disp: 100 each, Rfl: 11 lisinopril 20 MG tablet, Take 1 tablet (20 mg) by mouth daily., Disp: 90 tablet, Rfl: 1 Review of Systems: Review of Systems Constitutional: Negative for chills and fever. HENT: Negative for nosebleeds. Respiratory: Negative for chest tightness and shortness of breath. Cardiovascular: Negative for chest pain and leg swelling. Gastrointestinal: Negative for abdominal pain, diarrhea and nausea. Genitourinary: Negative for dysuria. Musculoskeletal: Negative for myalgias. Skin: Negativ (more content not included)... Normal [facility] ED Nursing Noteon 08-07-2024 ED Nursing Note Pt rhythm back into sinus. Normal [facility] ED Nursing Note Monitor sent to [facility] . Changed to 200 J and shock. Normal [facility] HIGH SENSITIVITY TROPONIN, S ERIAL, SECOND TESTon 08-07-2024 TROPONIN HS DELTA, BASELINE TO SECOND 0 ng/L Normal <=2 [facility] Comment on above: Result Comment: A tr oponin delta greater than or equal to 15 ng/L is significant for acute cardiac injury. Values less than 15 but greater than 2 are an intermediate change requiring a 3rd serial troponin to be drawn. Values less than or equal to 2 indicate acute cardiac injury is not likely, see external algorithms for further clinical guidance. Performed By: #### L [id number], [id number] #### Weight Engineer: NAHED BUENO ([id number]) [facility] ([facility]) [address] TROPONIN HS, SERIAL REFLEX, TEST TWO 6 ng/L Normal <=14 [facility] Comment on above: Performed By: #### L [id number], [id number] #### Weight Engineer: NAHED BUENO ([id number]) [facility] ([facility] [address] BASIC METABOLIC PANELon 12-1 Anion gap [Moles/Vol] 13 mmol/L Normal 3-13 [facility] Comment on above: Performed By: #### L [id number], [id number] #### Weight Engineer: NAHED BUENO ([id number]) [facility] ([facility]) [address] Calcium [Mass/Vol] 9.3 mg/dL Normal 8.8-10.0 [facility] Comment on above: Performed By: #### L [id number], [id number] #### Weight Engineer: NAHED BUENO ([id number]) [facility] ([facility]) [address] Chloride [Moles/Vol] 107 mmol/L Normal 98-107 [facility] Comment on above: Performed By: #### L [id number], [id number] #### Weight Engineer: NAHED BUENO ([id number]) [facility] ([facility]) [address] CO2 [Moles/Vol] 21 mmol/L Low 23-31 [facility] Comment on above: Performed By: #### L [id number], [id number] #### Weight Engineer: NAHED BUENO ([id number]) [facility] ([facility]) [address] Creatinine [Mass/Vol] 0.87 mg/dL Normal 0.57-1.11 [facility] Comment on above: Performed By: #### L [id number], [id number] #### Weight Engineer: NAHED BUENO ([id number]) [facility] ([facility]) [address] GLOMERULAR FILTRATION RATE ML/MIN/1.73 SQ M.PREDICTED 68.3 mL/min/1.73m*2 Normal >60.0 [facility] Comment on above: Result Comment: Calc ulation based on the Chronic Kidney Disease Epidemiology Collaboration (CKD-EPI) equation refit without adjustment for race Performed By: #### L [id number], [id number] #### Weight Engineer: NAHED BUENO ([id number]) [facility] ([facility]) [address] Glucose [Mass/Vol] 151 mg/dL High 82-115 [facility] Comment on above: Performed By: #### L [id number], [id number] #### Weight Engineer: NAHED BUENO ([id number]) [facility] ([facility]) [address] Potassium [Moles/Vol] 3.8 mmol/L Normal 3.5-5.1 [facility] Comment on above: Result Comment: [facility] potassium values may be up to 0.5 mmol/L lower than serum values. Performed By: #### L [id number], [id number] #### Weight Engineer: NAHED BUENO ([id number]) [facility] ([facility]) [address] Sodium [Moles/Vol] 141 mmol/L Normal 136-145 [facility] Comment on above: Performed By: #### L [id number], [id number] #### Weight Engineer: NAHED BUENO ([id number]) [facility] ([facility] [address] Urea nitrogen [Mass/Vol] 17 mg/dL Normal 9-23 [facility] Comment on above: Performed By: #### L [id number], LAB15 #### Weight Engineer: NAHED BUENO ([id number]) [facility] ([facility] [address] CBC WITH AUTO DIFFERENTIALon 08-06-2024 Basophils (Bld) [#/Vol] 0.0 10*3/uL Normal 0.0-0.2 [facility] Comment on above: Performed By: #### L [id number] #### Weight Engineer: NAHED BUENO ([id number]) [facility] ([facility] [address] Basophils/100 WBC (Bld) 0.5 % Normal 0.0-2.0 [facility] Comment on above: Performed By: #### L [id number] #### Weight Engineer: NAHED BUENO ([id number]) [facility] [place] ([facility]) [address] Eosinophils (Bld) [#/Vol] 0.1 10*3/uL Normal 0.0-0.5 [facility] Comment on above: Performed By: #### L [id number] #### Weight Engineer: NAHED BUENO ([id number]) [facility] [address] Eosinophils/100 WBC (Bld) 1.4 % Normal 0.0-6.0 [facility] Comment on above: Performed By: #### L [id number] #### Weight Engineer: NAHED BUENO ([id number]) [facility] ([facility] [address] Erythrocyte distribution width (RBC) [Ratio] 13.2 % Normal 11.5-15.0 [facility] Comment on above: Performed By: #### L [id number] #### Weight Engineer: NAHED BUENO ([id number]) [facility] ([facility]) [address] Hematocrit (Bld) [Volume fraction] 40.7 % Normal 35.0-47.0 [facility] Comment on above: Performed By: #### L [id number] #### Weight Engineer: NAHED BUENO ([id number]) [facility] ([facility]) [address] Hemoglobin (Bld) [Mass/Vol] 13.9 g/dL Normal 11.7-16.0 [facility] Comment on above: Performed By: #### L [id number] #### Weight Engineer: NAHED BUENO ([id number]) [facility] ([facility]) [address] [place] [address] IMMATURE GRANS % 0.1 % Normal 0.0-2.0 [facility] Comment on above: Performed By: #### L [id number] #### Weight Engineer: NAHED BUENO ([id number]) [facility] ([facility]) [address] IMMATURE GRANS ABSOLUTE 0.0 10*3/uL Normal <0.1 [facility] Comment on above: Performed By: #### L [id number] #### Weight Engineer: NAHED BUENO ([id number]) [facility] ([facility]) [address] Lymphocytes (Bld) [#/Vol] 3.2 10*3/uL Normal 1.0-4.3 [facility] Comment on above: Performed By: #### L [id number] #### Weight Engineer: NAHED BUENO ([id number]) [facility] ([facility]) [address] Lymphocytes/100 WBC (Bld) 43.0 % Normal 15.0-45.0 [facility] Comment on above: Performed By: #### L [id number] #### Weight Engineer: NAHED BUENO ([id number]) [facility] ([facility]) [address] MCH (RBC) [Entitic mass] 30.8 pg Normal 26.0-34.0 [facility] Comment on above: Performed By: #### L [id number] #### Weight Engineer: NAHED BUENO ([id number]) [facility] ([facility]) [address] MCHC 34.2 % Normal 30.5-36.0 [facility] Comment on above: Performed By: #### L [id number] #### Weight Engineer: NAHED BUENO ([id number]) [facility] ([facility]) [address] MCV (RBC) [Entitic vol] 90.2 fL Normal 77.0-99.0 [facility] Comment on above: Performed By: #### L [id number] #### Weight Engineer: NAHED BUENO ([id number]) [facility] ([facility]) [address] Monocytes (Bld) [#/Vol] 0.7 10*3/uL Normal 0.0-0.9 [facility] Comment on above: Performed By: #### L [id number] #### Weight Engineer: NAHED BUENO ([id number]) [facility] ([facility]) [address] [place] [address] [place] Monocytes/100 WBC (Bld) 9.3 % Normal 5.0-13.0 [facility] Comment on above: Performed By: #### L [id number] #### Weight Engineer: NAHED BUENO ([id number]) [facility] ([facility]) [address] NEUTROPHILS ABSOLUTE 3.4 10*3/uL Normal 1.8-7.5 [facility] Comment on above: Performed By: #### L [id number] #### Weight Engineer: NAHED BUENO ([id number]) [facility] ([facility]) [address] Neutrophils/100 WBC (Bld) 45.7 % Normal 38.0-82.0 [facility] Comment on above: Performed By: #### L [id number] #### Weight Engineer: NAHED BUENO ([id number]) [facility] ([facility]) [address] NRBC 0.0 /100 WBCs Normal 0.0-2.0 [facility] Comment on above: Performed By: #### L [id number] #### Weight Engineer: NAHED BUENO ([id number]) [facility] ([facility]) [address] Platelet mean volume (Bld) [Entitic vol] 10.2 fL Normal 9.0-12.7 [facility] Comment on above: Performed By: #### L [id number] #### Weight Engineer: NAHED BUENO ([id number]) [facility] ([facility]) [address] [place] [address] [place] Platelets (Bld) [#/Vol] 293 10*3/uL Normal 140-440 [facility] Comment on above: Performed By: #### L [id number] #### Weight Engineer: NAHED BUENO ([id number]) [facility] ([facility]) [address] [place] [address] [place] RBC (Bld) [#/Vol] 4.51 10*6/uL Normal 3.80-5.20 [facility] Comment on above: Performed By: #### L [id number] #### Weight Engineer: NAHED BUENO ([id number]) [facility] ([facility]) [address] [place] [address] [place] WBC (Bld) [#/Vol] 7.4 10*3/uL Normal 3.6-10.7 [facility] Comment on above: Performed By: #### L [id number] #### Weight Engineer: NAHED BUENO ([id number]) [facility] ([facility]) [address] ECG 12-LEADon 08-06-2024 ECG 12-LEAD IMPRESSION: Atrial fibrillation Ventricular premature complex 107 BPM, no STEMI Electronically Signed On 08-06-2024 22:57:55 EST by Ken Jones [facility] ED Provider Noteon ED Provider Note EMERGENCY DEPARTMENT ENCOUNTER Pt Name: Cassie Morgan Birthdate 1945 Date of evaluation: 08/06/2024 ED Provider: Nissa Griggs PA-C CHIEF COMPLAINT Chief Complaint Patient presents with Rapid Heart Rate Patient arrived to ED c/o feeling like she's in a-fib. States she ate a lot of candy earlier today and feels like her heart rate is all over the place. 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 Denies CP or palpitations. HISTORY OF PRESENT ILLNESS (Location/Symptom, Timing/Onset, Context/Setting, Quality, Duration, Modifying Factors, Severity) Note limiting factors. I wore appropriate PPE for the entirety of this encounter. HPI Cassie Mogran is a 79 y.o. female who presents to the emergency department for evaluation of generalized unwell feeling. Patient reports that she has a history of A-fib currently on metoprolol and Xarelto. 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 States that she checked her blood sugar noted to be 200 states that this is very high for her. Reports that she also checked her pulse and noted to be 140 bpm. Denies any chest pain or shortness of breath at this time. Denies any lightheadedness, dizziness, syncopal episode. Denies any abdominal pain, nausea, vomiting. Nursing Notes were reviewed. Limitations to history: None Outside historians: None REVIEW OF SYSTEMS Review of Systems 7 systems reviewed, positives and pertinent negatives as per HPI. All other systems were reviewed and are negative. PAST MEDICAL HISTORY Past Medical History: Diagnosis Date Anxiety Breast cancer screening by mammogram 09/2023 COVID-19 11/2023 Dependent edema Diverticulosis 2019 Diverticulitis H/O colonoscopy 2013 Dr Ramesh- due 2023 History of transfusion PAF (paroxysmal atrial fibrillation) ([facility]) 2017 Dr. Newby- OAC, nml EF Recurrent UTI Keflex prophylaxis SBO (small bowel obstruction) ([facility]) 11/2023 hospitalized Type II or unspecified type diabetes mellitus without mention of complication, not stated as uncontrolled ([facility]) 2013 SURGICAL HISTORY Past Surgical History: Procedure Laterality Date BREAST CYST EXCISION Left 2013 CATARACT EXTRACTION Left 2019 SECTION (HISTORICAL) COLONOSCOPY 2013 COLONOSCOPY W/ POLYPECTOMY 07/2021 ? rech 2025 CYSTOSCOPY 2009 DILATION AND CURETTAGE (HISTORICAL) 08/18/2023 Dr. 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 ATORVASTATIN (LIPITOR) 10 MG TABLET Take 1 tablet (10 mg) by mouth daily. BLOOD GLUCOSE MONITORING SUPPL (FREESTYLE LITE) DEVICE Use as instructed E11.9 CEPHALEXIN (KEFLEX) 250 MG CAPSULE Take 250 mg by mouth Nightly. CHOLECALCIFEROL (VITAMIN D-3) 25 MCG (1000 UT) TABLET Take 1,000 Units by mouth in the morning. CYANOCOBALAMIN (VITAMIN B-12) 500 MCG TABLET Take 500 mcg by mouth in the morning. ESTRADIOL (ESTRACE) 0.1 MG/GM VAGINAL CREAM Insert 2 g into the vagina daily. FAMOTIDINE (PEPCID) 20 MG TABLET Take 20 mg by mouth Nightly as needed for heartburn. FLUTICASONE (FLONASE) 50 MCG/ACT NASAL SPRAY Administer 1 spray into affected nostril(s) Daily as needed. FREESTYLE LITE TEST STRIP by Other route daily. Use as instructed E11.9 LISINOPRIL 10 MG TABLET Take 1 tablet (10 mg) by mouth daily for 90 doses. METFORMIN (GLUCOPHAGE) 500 MG TABLET Take 2 tablets (1,000 mg) by mouth in the morning and 2 tablets (1,000 mg) in the evening. Take with meals. METOPROLOL SUCCINATE XL (TOPROL-XL) 50 MG 24 HR TABLET Take 1 tablet (50 mg) by mouth daily. RIVAROXABAN (XARELTO) 20 MG TABLET TAKE 1 TABLET BY MOUTH DAILY (WITH BREAKFAST) ALLERGIES Cefaclor and Codeine FAMILY HISTORY Family History Problem Relation Name Age of Onset Other (66860) Mother Aminah Benitez natural causes, age 89 Pancreatic cancer Father Freddy 79 Diabetes Sister Bonnie Diabetes Brother Ed SOCIAL HISTORY Social History Socioeconomic History Marital status: Tobacco Use Smoking status: Never Smokeless tobacco: Never Vaping Use Vaping status: Never Used Substance and Sexual Activity Alcohol use: No Alcohol/week: 0.0 standard drinks of alcohol Drug use: No Sexual activity: Defer Social History Narrative to [place], [place] or drinker, has one son and 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 Normal [facility] HIGH SENSITIVITY TROPONIN, S ERIAL BASELINEon 08-06-2024 TROPONIN HIGH SENSITIVITY BASELINE 6 ng/L Normal <=14 [facility] Comment on above: Performed By: #### L [id number], [id number] #### Weight Engineer: NAHED BUENO ([id number]) [facility] ([facility]) [address] [place] [address] Progress Noteon 08-06-2024 Progress Note Emergency Department Encounter [facility] ED Patient: Cassie Morgan : 1945 Date of Evaluation: 08/06/2024 ED Supervising Physician: Nick Hagan DO Patient, Cassie Morgan, is seen and examined in conjunction with advanced practice practitioner. I independently performed history, physical exam, admitted all diagnostic treatment and disposition decisions. I personally evaluated Cassie Morgan and made/approved the management plan and take responsibility for the patient management. This will serve as my Supervisory note and shared attestation. I did perform a substantive portion of the visit including all aspects of the Medical Decision Making. In brief their history revealed 71-year-old female presenting for not feeling well. She says she woke up this morning, did not feel well. She felt fatigued. She checked her blood sugar and found it to be elevated. Checked her heart rate later in the day and found it to be elevated. Has history of atrial fibrillation and takes Xarelto. Has not missed any doses. I did take an extra dose of metoprolol when she noticed her heart rate was elevated. Currently denying chest pain, shortness of breath, leg swelling. Denies recent illness, GI losses.. Their focused exam: GENERAL: Awake, alert, no apparent distress HEENT: Atraumatic, normocephalic. PERRL. EOMI. NECK: Trachea midline. CV: Irregular tachycardia RESPIRATORY: Clear breath sounds bilaterally. No respiratory distress. No accessory muscle use. GI: Abdomen soft, nontender throughout. No rigidity, rebound or guarding. NEURO: Alert and oriented x 3. Follows commands. Normal motor and sensation throughout. EXTREMITIES: No deformities noted. No palpable bony injury. SKIN: Warm, dry, no lesions noted PSYCH: Normal mood and affect ED course/brief MDM: 71-year-old female presenting for not feeling well. Rhythm strip personally reviewed and shows irregular rhythm. EKG personally interpreted confirms atrial fibrillation. Patient appears to have paroxysmal A-fib and was in sinus rhythm at her last cardiology office visit per documentation of previous office visit. We considered dehydration, electrolyte abnormality. Patient was found to have a grossly normal CBC, normal metabolic panel. Her glucose is minimally elevated. She was treated with a liter of IV fluids, 1 single dose of IV metoprolol. Her heart rate did slow into the upper 80s but continued to persistent atrial fibrillation. Chest x-ray personally interpreted shows no acute consolidative process to suggest pneumonia or evidence of heart failure. She has no leg swelling. She is not short of breath nor she requiring oxygen. I discussed options with the patient as her A-fib appears to be incidental and not related to signs of acute coronary syndrome, sepsis or heart failure. Discussed cardioversion versus admission versus discharge and close for cardiology follow-up. She preferred admission. Patient has been compliant with her Xarelto. This does reduce her stroke risk. She was sedated with etomidate, please see procedure note, successfully cardioverted. She woke from sedation without difficulty, was able to walk and ambulate. She continues to feel slightly fatigued but this may be related to an oncoming viral illness. 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 EKG as interpreted by myself: Interpreted in [employer] software by myself and reflects atrial fibrillation. Repeat EKG shows sinus rhythm Diagnostics interpreted by me: Personally interpreted EKG, chest x-ray as above I personally discussed the patient's management with other clinicians: I did personally call and speak with the outside energy sales representatives prior to cardioversion Cardioversion Performed by: Nick Hagan DO Authorized by: Nick Hagan DO Consent: The indications, risks, benefits, alternatives to the procedure were explained to the patient/surrogate decision maker and their questions answered. Consent was obtained to proceed with the procedure. Timeout: Completed immediately prior to the start of the procedure which included verification of the correct patient, correct site and agreement on the procedure to be done. Indications: Indications: atrial fibrillation Sedation: Sedation: moderate Preparation: Cardioversion basis: elective Pre-procedure rhythm: atrial fibrillation Electrode placement: anterior-posterior Procedure Details: Number of attempts: 1 Attempt One Cardioversion mode: synchronous Waveform: biphasic Shock (Joules): 200 Shock outcome: conversion to normal sinus rhythm Post-procedure: Patient status: awake Specify Complication(s): no apparent complications 12 lead ECG: ordered Assistants & Supervision: I personally performed the procedure documented as signed by this procedure note The rhythm stri (more content not included)... [facility] 36on 07-27-2024 36 RX loaded Next ov 11/09/24 [facility] 36 Name of caller: Moraima ferrari Contact phone number: [phone] Relationship to Patient: Carlos Pharmacy Provider: Dr. Franklin Practice: [facility] Chief Complaint/Reason for Call: Pharmacy requesting a new Blood Glucose Monitoring Suppl (FreeStyle Lite) device Please advise Best time of day caller can be reached: Any Patient advised that office/PCP has 24-48 business hours to return their call: Adina [facility] 36on 07-18-2024 36 Medication name: metoprolol succinate XL (Toprol-XL) Medication dosage: 50mg Monthly quantity needed: 30 How many day supply requestin days Medication route: oral (PO) Medication administration time(s): daily If taking medication PRN, reason for taking medication: N/A If this is a controlled substance do you receive this or any other controlled medication from any other doctor or facility: N/A Ordering provider: Dr Franklin Date of last office visit: 05/11/24 Date of next office visit: 11/09/24 Date of last refill: (see medication tab): 06/23/24 Updated/Validated preferred pharmacy: Yes Patient instructed to contact the pharmacy prior to picking up the medication: Yes [address] 07-07-2024 36 Medication name: ALPRAZolam (Xanax) tablet Medication dosage: 0.25 mg (Miligrams Monthly quantity needed: 30 How many day supply requestin days Medication route: oral (PO) Medication administration time(s): as needed (PRN) If taking medication PRN, reason for taking medication: anxiety If this is a controlled substance do you receive this or any other controlled medication from any other doctor or facility: No Ordering provider: Ion Date of last office visit: 05.11.2024 Date of next office visit: 11.09.2024 Date of last refill: (see medication tab): 06.08.2024 Updated/Validated preferred pharmacy: Yes Patient instructed to contact the pharmacy prior to picking up the medication: Yes [address] 06-27-2024 36 Rx loaded [address] 06-24-2024 Medication name: metFORMIN (Glucophage) 500 MG tablet Medication dosage: 1000 mg (Miligrams Monthly quantity needed: 120 How many day supply requestin days Medication route: oral (PO) Medication administration time(s): 2 times a day (BID) If taking medication PRN, reason for taking medication: N/A If this is a controlled substance do you receive this or any other controlled medication from any other doctor or facility: N/A Ordering provider: Dr. Franklin Date of last office visit: 05/11/2024 Date of next office visit: 11/09/2024 Date of last refill: (see medication tab): 01/13/2024 Updated/Validated preferred pharmacy: Yes Patient instructed to contact the pharmacy prior to picking up the medication: N/A [address] 06-09-2024 36 Talked to pharmacy a nd clarified prescription and she verbalized understanding. [facility] 36 Name of caller: eN brand Contact phone number: [phone] Relationship to Patient: [facility] Pharmacy Provider: Ion Practice: [facility] Chief Complaint/Reason for Call: Pharmacy has questions regarding Questions regarding ALPRAZolam (Xanax) 0.25 MG tablet directives. Please advise. Best time of day caller can be reached: any Patient advised that office/PCP has 24-48 business hours to return their call: No [facility] 36on 06-08-2024 36 Noted. [facility] 36on 06-07-2024 36 S: cardiovascular technician calling [facility] for prescription clarification. B: Pt was prescribed Xanax by PCP. A: Pharmacy needs clarification on how often pt can take medication. R: Message to Dr. Franklin's office. Reason for Disposition [1] Caller has NON-URGENT medicine question about med that PCP prescribed AND [2] triager unable to answer question Protocols used: Medication Question [facility] Please send to [facility] pharmacy in [place]. [facility] 36on 06-06-2024 36 Spoke with patient a nd she says she takes a 1/2 pill and sometimes when she needs it she takes a whole pill she says its tricky because its just depends on how she feels, and yes its due to taking care of her . [facility] 36 Patient has only got ten 10 or 20 of these meds at a time reviewing her record and last refilled last fall by Mr. Sharma. Get me details on how frequently she is needing these meds for as needed anxiety. I imagine it is related to taking care of her . [facility] 36 Rx loaded [facility] 36 Pt called into the office stating she had an episode of A-fib after she was seen in office last week. She states it was brief. Nothing further at this time. She just wanted to let us know. [facility] 36 Name of caller: [facility] Contact phone number: [phone] Relationship to Patient: patient Provider: Ion Practice: [facility] Chief Complaint/Reason for Call: Pt wanted to let Dr. Franklin know she went to the heart doctor and had an episode of A Fib. Also BP has been down except a couple of times. Best time of day caller can be reached: AM Patient advised that office/PCP has 24-48 business hours to return their call: N/A Normal [facility] 36 Medication name: ALPRAZolam (Xanax) 0.25 MG tablet Medication dosage: 0.25 mg (Miligrams Monthly quantity needed: 90 How many day supply requestin days Medication route: oral (PO) Medication administration time(s): daily If taking medication PRN, reason for taking medication: N/A If this is a controlled substance do you receive this or any other controlled medication from any other doctor or facility: No Ordering provider: Pedro Date of last office visit: 05/11/24 Date of next office visit: 11/09/24 Date of last refill: (see medication tab): 07/01/23 Updated/Validated preferred pharmacy: Yes [facility] [address] Patient instructed to contact the pharmacy prior to picking up the medication: Yes Normal [facility] ECG 12 lead - CLINIC PERFORM EDon 06-01-2024 Sinus Bradycardia -occasional PAC -Left atrial enlargement. -Anteroseptal infarct -age undetermined. ABNORMAL [facility] Office Visiton 06-01-2024 Follow-up visit [id number] [facility] 1945 F Date Provider Department Center 06/01/2024 [id number] ROMAN [facility] [place] [facility]IDI [facility] [place] Sofya Family History Problem Relation Age of Onset Other Mother Comments: natural causes, age 89 Pancreatic cancer Father 79 Diabetes Sister Diabetes Brother Family Status - Relation Status Age at Mother Father Sister Alive Brother Alive Brother Alive Brother Alive Level of Service:71464 [place] OFFICE/OUTPATIENT ESTABLISHED MOD MDM 30 MIN Reason for Visit and Comments: 3 Month Follow Up [[id number]] Atrial Fibrillation [80] Normal [facility] Progress Noteon 06-01-2024 Progress Note [facility] Medical [facility] Cardiology [facility] - [address] [facility] [address] Dept: [phone] Dept Visit type: Established : 1945 Chief Complaint: Chief Complaint Patient presents with 3 Month Follow Up Atrial Fibrillation History of Present Illness: Cassie Morgan is a 79 y.o. female who is here in follow-up concerning her history of paroxysmal atrial fibrillation and hypertension. Overall she is doing well from a cardiac standpoint with no symptoms of chest pain or tightness. She has rare palpitations. She tries to remain active but has limited mobility due to knee problems. 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 She has not had any bleeding complications related to her anticoagulation. Past Medical History: Past Medical History: Diagnosis Date Anxiety Breast cancer screening by mammogram 09/2023 COVID-19 11/2023 Dependent edema Diverticulosis 2019 Diverticulitis H/O colonoscopy 2013 Dr Ramesh- due 2023 History of transfusion PAF (paroxysmal atrial fibrillation) ([facility]) 2017 Dr. Newby- OAC, nml EF Recurrent UTI Keflex prophylaxis SBO (small bowel obstruction) ([facility]) 11/2023 hospitalized Type II or unspecified type diabetes mellitus without mention of complication, not stated as uncontrolled ([facility]) 2013 Past Surgical History Past Surgical History: Procedure Laterality Date BREAST CYST EXCISION Left 2013 CATARACT EXTRACTION Left 2019 SECTION (HISTORICAL) COLONOSCOPY 2014 COLONOSCOPY W/ POLYPECTOMY 07/2021 ? rech 2025 CYSTOSCOPY 2010 DILATION AND CURETTAGE (HISTORICAL) 08/18/2023 Dr. 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 LAP,INGUINAL HERNIA REPR,INITIAL (HISTORICAL) Right 08/18/2023 Lacho Family History Family History Problem Relation Name Age of Onset Other (13335) Mother Aminah Benitez natural causes, age 89 Pancreatic cancer Father Freddy 79 Diabetes Sister Bonnie Diabetes Brother Ed Social History Social History Tobacco Use Smoking status: Never Smokeless tobacco: Never Vaping Use Vaping status: Never Used Substance Use Topics Alcohol use: No Alcohol/week: 0.0 standard drinks of alcohol Drug use: No Allergies: Allergies Allergen Reactions Cefaclor Codeine Rash Medications: Current Outpatient Medications: ALPRAZolam (Xanax) 0.25 MG tablet, Take 1 tablet (0.25 mg) by mouth Nightly as needed for anxiety., Disp: 30 tablet, Rfl: 1 ascorbic acid (Vitamin C) 500 mg chewable tablet, Chew 500 mg in the morning., Disp: , Rfl: atorvastatin (Lipitor) 10 MG tablet, Take 1 tablet (10 mg) by mouth daily., Disp: 90 tablet, Rfl: 1 Blood Glucose Monitoring Suppl (FreeStyle Lite) device, Use as instructed E11.9, Disp: 1 each, Rfl: 0 cephalexin (Keflex) 250 MG capsule, Take 250 mg by mouth Nightly., Disp: , Rfl: cholecalciferol (Vitamin D-3) 25 MCG (1000 UT) tablet, Take 1,000 Units by mouth in the morning., Disp: , Rfl: cyanocobalamin (Vitamin B-12) 500 MCG tablet, Take 500 mcg by mouth in the morning., Disp: , Rfl: estradiol (Estrace) 0.1 MG/GM vaginal cream, Insert 2 g into the vagina daily., Disp: , Rfl: famotidine (Pepcid) 20 MG tablet, Take 20 mg by mouth Nightly as needed for heartburn., Disp: , Rfl: fluticasone (Flonase) 50 MCG/ACT nasal spray, Administer 1 spray into affected nostril(s) Daily as needed., Disp: , Rfl: FREESTYLE LITE test strip, by Other route daily. Use as instructed E11.9, Disp: 100 each, Rfl: 11 lisinopril 10 MG tablet, Take 1 tablet (10 mg) by mouth daily for 90 doses. (Patient taking differently: Take 20 mg by mouth daily.), Disp: 90 tablet, Rfl: 1 metFORMIN (Glucophage) 500 MG tablet, Take 2 tablets (1,000 mg) by mouth in the morning and 2 tablets (1,000 mg) in the evening. Take with meals., Disp: 360 tablet, Rfl: 1 metoprolol succinate XL (Toprol-XL) 50 MG 24 hr tablet, Take 1 tablet (50 mg) by mouth daily., Disp: 90 tablet, Rfl: 3 rivaroxaban (Xarelto) 20 MG tablet, TAKE 1 TABLET BY MOUTH DAILY (WITH BREAKFAST), Disp: 90 tablet, Rfl: 3 Review of Systems: Review of Systems Constitutional: Negative for activity change, chills, diaphoresis, fatigue and fever. HENT: Negative for nosebleeds and trouble swallowing. Eyes: Negative for discharge and visual disturbance. Respiratory: Negative for apnea, cough, chest tightness, shortness of breath and wheezing. Cardiovascular: Positive for leg swelling. Negative for chest pain and palpitations. Gastrointestinal: Negative for abdominal distention, abdominal pain, blood in stool, diarrhea, nausea and vomiting. Endocrine: Negative for cold intolerance and heat intolerance. Genitourinary: Negative for hematuria. Musculoskeletal: Negative for gait problem and myalgias. Skin: Negative for color change and rash. Neurological: Ne (more content not included)... Normal [facility] 36on 05-13-2024 36 Placed call to virgiejagjit nt. Two patient identifers confirmed. Was able to speak to patient. All concerns in message have been addressed. No questions at this time. Call ended Normal [facility] 36 Pt anxious for results Normal [facility] 36 Name of caller: [facility] Contact phone number: [phone] Relationship to Patient: patient Provider: Armando Franklin DO Practice: [facility] Chief Complaint/Reason for Call: Pt calling to go over her lab results. Please advise Best time of day caller can be reached: any Patient advised that office/PCP has 24-48 business hours to return their call: no Normal [facility] Office Visiton 05-11-2024 Follow-up visit [id number] Franco Morgan la 1945 F Date Provider Department Center 05/11/2024 [id number] FRANKLIN [facility] Family History Problem Relation Age of Onset Other Mother Comments: natural causes, age 89 Pancreatic cancer Father 79 Diabetes Sister Diabetes Brother Family Status - Relation Status Age at Mother Father Sister Alive Brother Alive Brother Alive Brother Alive Level of Service:54566 [place] OFFICE/OUTPATIENT ESTABLISHED MOD MDM 30 MIN Reason for Visit and Comments: Other [0] - [place] - small bowel obstruction Flu Vaccine [189] - Patient has agreed to receive influenza vaccine in the office today. Normal [facility] PATINSon 05-11-2024 PATINS Call with BP reading in one month Normal [facility] Progress Noteon 05-11-[address] [facility] - [address] [facility] [address] Visit type: Established Patient Reason for Visit: Other ([place] - small bowel obstruction ) and Flu Vaccine (Patient has agreed to receive influenza vaccine in the office today. ) Assessment / Plan: Cassie was seen today for other and flu vaccine. Diagnoses and all orders for this visit: Type 2 diabetes mellitus with other specified complication, without long-term current use of insulin (HCC) (Primary) Comments: Stable, continue metformin Orders: - Hemoglobin A1c; Future - Hemoglobin A1c Essential (primary) hypertension Comments: Uncontrolled, increase lisinopril 10 mg daily. BP check 4 weeks Orders: - lisinopril 10 MG tablet; Take 1 tablet (10 mg) by mouth daily for 90 doses. - CBC auto differential; Future - Comprehensive metabolic panel; Future - CBC auto differential - Comprehensive metabolic panel PAF (paroxysmal atrial fibrillation) (HCC) Comments: Stable, continue metoprolol and Xarelto Pure hypercholesterolemia Comments: Stable, continue Lipitor Orders: - Lipid panel; Future - TSH; Future - Lipid panel - TSH THIERRY (generalized anxiety disorder) History of small bowel obstruction Comments: Resolved, high-fiber meals stool softener lots of liquids Anticoagulant long-term use Dependent edema Varicose veins of both lower extremities, unspecified whether complicated Other orders - Flu vaccine (FLUAD), trivalent, adjuvanted, preservative-free (ages 65+/high dose) 35 Minutes spent on reviewing pertinent history, patient interview, physical exam, discussion of diagnosis and treatment and work-up options. Subjective: Patient ID: Cassie Morgan is a 79 y.o. female. HPI well-controlled type II hypertensive diabetic with atrial fibrillation on Xarelto presents for first-time evaluation in many years. Past medical, surgical, family and social history reviewed and chart updated. Glucose levels have been excellent. No change in vision or skin. Had a partial small bowel obstruction in November requiring NG suction. No recurrent symptoms. Had a ventral hernia repair in August 15 along with a D&C for postmenopausal vaginal bleeding. No pathology found on endometrial sampling. Hernia surgery went well. Overall she considers herself healthy. Has a lot of stress dealing with her with moderately severe dementia. Review of Systems no recent earache sore throat or cough. No chest pain or dyspnea. No palpitations PND orthopnea or change in chronic leg edema and varicosities. Recent echocardiogram showed preserved left ventricular ejection fraction. She denies cough or phlegm or fever. No heartburn or reflux. Bowels are regular on fruit and fiber. No change in arthralgias. No change in skin breakdowns of her legs or feet or toes she does wear support hose in the fall and winter Allergies Allergen Reactions Cefaclor Codeine Rash Current Outpatient Medications on File Prior to Visit Medication Sig Dispense Refill ALPRAZolam (Xanax) 0.25 MG tablet Take 1 tablet (0.25 mg) by mouth Nightly as needed for anxiety. 30 tablet 1 ascorbic acid (Vitamin C) 500 mg chewable tablet Chew 500 mg in the morning. atorvastatin (Lipitor) 10 MG tablet Take 1 tablet (10 mg) by mouth daily. 90 tablet 1 Blood Glucose Monitoring Suppl (FreeStyle Lite) device Use as instructed E11.9 1 each 0 cephalexin (Keflex) 250 MG capsule Take 250 mg by mouth Nightly. cholecalciferol (Vitamin D-3) 25 MCG (1000 UT) tablet Take 1,000 Units by mouth in the morning. cyanocobalamin (Vitamin B-12) 500 MCG tablet Take 500 mcg by mouth in the morning. estradiol (Estrace) 0.1 MG/GM vaginal cream Insert 2 g into the vagina daily. famotidine (Pepcid) 20 MG tablet Take 20 mg by mouth Nightly as needed for heartburn. fluticasone (Flonase) 50 MCG/ACT nasal spray Administer 1 spray into affected nostril(s) Daily as needed. FREESTYLE LITE test strip by Other route daily. Use as instructed E11.9 100 each 11 metFORMIN (Glucophage) 500 MG tablet Take 2 tablets (1,000 mg) by mouth in the morning and 2 tablets (1,000 mg) in the evening. Take with meals. 360 tablet 1 metoprolol succinate XL (Toprol-XL) 50 MG 24 hr tablet Take 1 tablet (50 mg) by mouth daily. 90 tablet 3 rivaroxaban (Xarelto) 20 MG tablet TAKE 1 TABLET BY MOUTH DAILY (WITH BREAKFAST) 90 tablet 3 [DISCONTINUED] lisinopril 5 MG tablet Take 1 tablet (5 mg) by mouth daily. 90 tablet 1 No current facility-administered medications on file prior to visit. Patient Active Problem List Diagnosis Recurrent UTI Type 2 diabetes mellitus with other specified complication, without long-term current use of insulin (HCC) Dependent edema PAF (paroxysmal atrial fibrillation) (HCC) Anticoagulant long-term use Essential (primary) hypertension Postmenopausal bleeding Pure hypercholesterolemia THIERRY (generalized anxiet (more content not included)... [facility] 36on 04-26-2024 36 Rx loaded [facility] 36 Medication name: atorvastatin (Lipitor) 10 MG tablet Medication dosage: 10 mg (Miligrams Monthly quantity needed: 90 How many day supply requestin days Medication route: oral (PO) Medication administration time(s): daily If taking medication PRN, reason for taking medication: N/A If this is a controlled substance do you receive this or any other controlled medication from any other doctor or facility: N/A Ordering provider: Clyde Sharma Date of last office visit: 07/01/23 Date of next office visit: 05/11/24 Date of last refill: (see medication tab): 01/15/23 Updated/Validated preferred pharmacy: Yes [facility] [address] Patient instructed to contact the pharmacy prior to picking up the medication: N/A [facility] 36 Rx loaded [facility] Progress Noteon 04-26-2024 Progress Note Patient is requested refill her medication lisinopril and atorvastatin. I did review her chart she did have baseline blood work obtained back in November. Shows normal kidney function liver function. She does have a scheduled follow-up appointment later this month with her primary care physician. Medications are authorized and refilled today. Clyde Sharma PA-C [facility] 36on 04-22-2024 36 Medication name: lisinopril 5 MG tablet Medication dosage: 5 mg (Miligrams Monthly quantity needed: 30 How many day supply requestin days Medication route: oral (PO) Medication administration time(s): daily If taking medication PRN, reason for taking medication: N/A If this is a controlled substance do you receive this or any other controlled medication from any other doctor or facility: N/A Ordering provider: Dr. Franklin Date of last office visit: na Date of next office visit: 05/11/24 Date of last refill: (see medication tab): 08/20/23 Updated/Validated preferred pharmacy: Yes Request is coming from [facility] [phone] Patient instructed to contact the pharmacy prior to picking up the medication: N/A [facility] 36on 03-28-2024 36 Medication name: TGYLE LITE test strip Medication dosage: . . Monthly quantity needed: 100 How many day supply requestin days Medication route: other Medication administration time(s): daily If taking medication PRN, reason for taking medication: N/A If this is a controlled substance do you receive this or any other controlled medication from any other doctor or facility: N/A Ordering provider: ion Date of last office visit: 07/01/2023 Date of next office visit: 05/11/2024 Date of last refill: (see medication tab): 06/23/23 Updated/Validated preferred pharmacy: Yes Patient instructed to contact the pharmacy prior to picking up the medication: Yes [facility] 36on 02-12-2024 36 Noted [facility] 36 Name of caller: [facility] Contact phone number: [phone] Relationship to Patient: patient Provider: Dr Franklin Practice: [facility] Chief Complaint/Reason for Call: Patient has been scheduled on 05/06/[address] Franklin for transitional care appointment. FY Best time of day caller can be reached: any Patient advised that office/PCP has 24-48 business hours to return their call: Yes [facility] 36 Left message for patient to return call to the office. First available with Dr Franklin on a Thursday afternoon is May 25. [place] 16378on 02-11-2024 36 Name of Caller: [facility] Contact Reason for Appointment: Pt has had to reschedule her [place] appt twice , I contacted back line and she was offered 02/16/24 at 430 but Pt is only able to be seen on a Thursday afternoon appt. I was unable to find an appt Pt would like to be contacted to discuss getting fit into schedule. Please advise Office Name: [facility]. Medication Refills need, if any: na Medication Name: na [facility] Office Visiton 01-27-2024 [id number] [facility] 1945 [facility] Date Provider Department Center 01/27/2024 [id number] GOMEZ [facility] CV Sofya Family History Problem Relation Age of Onset Other Mother Comments: natural causes Pancreatic cancer Father 79 Diabetes Sister Diabetes Brother Family Status - Relation Status Age at Mother Father Sister Alive Brother Alive Brother Alive Brother Alive Level of Service:57947 [place] OFFICE/OUTPATIENT ESTABLISHED MOD MDM 30 MIN Reason for Visit and Comments: 1 Month Follow Up [[id number]] Normal [facility] Progress Noteon 01-27-2024 Progress Note [facility] Cardiol ogy Office Note DATE of SERVICE: 01/27/24 TIME of SERVICE: 1:38 PM Reason for Visit: Chief Complaint Patient presents with 1 Month Follow Up History ofPresent Illness: Cassie Morgan is a 78 y.o. female who is known to Dr. Roman. She has a history of paroxysmal atrial fibrillation, historically maintaining a normal sinus rhythm. Continues on Toprol XL 50 mg daily, and is anticoagulated on Xarelto 20 mg daily. At her last office visit with Dr. Roman in November she was describing symptoms of intermittent palpitations and fatigue. She was recommended underwent a repeat transthoracic echo December 30, 2023 noting a well-preserved EF measured 67%, no significant valvular disease. She also wore a 3-day Holter monitor in December noting a sinus rhythm, with an average heart rate in the 60s. Today in office she continues to experience intermittent palpitations and fatigue, denies worsening symptoms. States she remains very active, is able to do the things that she wants to do without limitation. Blood pressure and heart rate remain well-controlled. She has a [employer] mobile, she showed me strips that note elevated heart rates in the 130s. I spent quite a long time discussing these, the baseline of the stroke is quite variable, it was difficult for me to tell if she was indeed in A-fib at that time. I did note that if she is experiencing elevated heart rates, she can take a one-time dose of extra half tab of Toprol to equal 25 mg in a 24-hour period. However if she is taking extra Toprol, I advise she notify the office. She continues to deny any specific symptoms of chest discomfort, pain, or shortness of breath. Past Medical History: Past Medical History: Diagnosis Date Anxiety Breast cancer screening by mammogram 09/2023 needs phys exam Dependent edema Diverticulosis 2018 Diverticulitis H/O colonoscopy 2013 Dr Ramesh- due 2023 History of transfusion PAF (paroxysmal atrial fibrillation) ([facility]) 2017 Dr. Newby- OAC, nml EF Recurrent UTI Type II or unspecified type diabetes mellitus without mention of complication, not stated as uncontrolled ([facility]) 2013 Past Surgical History Past Surgical History: Procedure Laterality Date BREAST CYST EXCISION Left 10/2012 CATARACT EXTRACTION Left 10/2018 SECTION (HISTORICAL) COLONOSCOPY 2013 COLONOSCOPY W/ POLYPECTOMY 07/2021 ? rech 2025 CYSTOSCOPY 10/2009 DILATION AND CURETTAGE (HISTORICAL) 08/18/2023 LAP,INGUINAL HERNIA REPR,INITIAL (HISTORICAL) Right 08/18/2023 Lacho Family History Family History Problem Relation Name Age of Onset Other (28905) Mother Aminah Benitez natural causes Pancreatic cancer Father Freddy 79 Diabetes Sister Diabetes Brother Social History Social History Tobacco Use Smoking status: Never Smokeless tobacco: Never Vaping Use Vaping Use: Never used Substance Use Topics Alcohol use: No Alcohol/week: 0.0 standard drinks of alcohol Drug use: No Allergies: Allergies Allergen Reactions Cefaclor Codeine Rash Medications: Current Outpatient Medications: ALPRAZolam (Xanax) 0.25 MG tablet, Take 1 tablet (0.25 mg) by mouth Nightly as needed for anxiety., Disp: 30 tablet, Rfl: 1 ascorbic acid (Vitamin C) 500 mg chewable tablet, Chew 500 mg in the morning., Disp: , Rfl: atorvastatin (Lipitor) 10 MG tablet, Take 1 tablet (10 mg) by mouth daily., Disp: 90 tablet, Rfl: 1 Blood Glucose Monitoring Suppl (FreeStyle Lite) device, Use as instructed E11.9, Disp: 1 each, Rfl: 0 cephalexin (Keflex) 250 MG capsule, Take 250 mg by mouth Nightly., Disp: , Rfl: cholecalciferol (Vitamin D-3) 25 MCG (1000 UT) tablet, Take 1,000 Units by mouth in the morning., Disp: , Rfl: cyanocobalamin (Vitamin B-12) 500 MCG tablet, Take 500 mcg by mouth in the morning., Disp: , Rfl: estradiol (Estrace) 0.1 MG/GM vaginal cream, Insert 2 g into the vagina daily., Disp: , Rfl: famotidine (Pepcid) 20 MG tablet, Take 20 mg by mouth Nightly as needed for heartburn., Disp: , Rfl: fluticasone (Flonase) 50 MCG/ACT nasal spray, Administer 1 spray into affected nostril(s) Daily as needed., Disp: , Rfl: FREESTYLE LITE test strip, by Other route daily. Use as instructed E11.9, Disp: 100 each, Rfl: 1 lisinopril 5 MG tablet, Take 1 tablet (5 mg) by mouth every morning (before breakfast)., Disp: 90 tablet, Rfl: 1 metFORMIN (Glucophage) 500 MG tablet, Take 2 tablets (1,000 mg) by mouth in the morning and 2 tablets (1,000 mg) in the evening. Take with meals., Disp: 360 tablet, Rfl: 1 metoprolol succinate XL (Toprol-XL) 50 MG 24 hr tablet, Take 1 tablet (50 mg) by mouth daily., Disp: 90 tablet, Rfl: 3 rivaroxaban (Xarelto) 20 MG tablet, TAKE 1 TABLET BY MOUTH DAILY (WITH BREAKFAST), Disp: 90 tablet, Rfl: 3 Review of Systems: Review of Systems Constitutional: Negative for activity change, chills, diaphoresis, fatigue and fever. Pt states feeling well HENT: Negative for nosebleeds (more content not included)... Normal [facility] Heart TransthoracicOrdere d By: Srinivasa Gonzalez on 12-30-2023 Aortic Sinus Valsalva 3.0 cm [employer] Work Phone: [phone] Aortic Sinus Valsalva Index 1.67 cm/m2 [facility] Work Phone: [phone] Ascending Aorta 3.4 cm [facility] Work Phone: [phone] Ascending Aorta Index 1.89 cm/m2 [facility] Work Phone: [employer] Velocity 2.6 cm2 [facility] Work Phone: [phone] AV Area by VTI 2.0 cm2 [facility] Work Phone: AV Mean Gradient 5 mmHg [facility] Work Phone: [phone] AV Mean Velocity 1.1 m/s [facility] Work Phone: AV Peak Gradient 9 mmHg [facility] Work Phone: [phone] AV Peak Velocity 1.5 m/s [facility] Work Phone: [phone] AV Velocity Ratio 0.60 [facility] Work Phone: AV VTI 39.5 cm [facility] Work Phone: NOLAN/BSA Peak Velocity 1.4 cm2/m2 [facility] Work Phone: [phone] NOLAN/BSA VTI 1.1 cm2/m2 [facility] Work Phone: [phone] E/E' Lateral 11.60 [facility] Work Phone: [phone] E/E' Ratio (Averaged) 11.60 [facility] Work Phone: [phone] E/E' Septal 11.60 [facility] Work Phone: [phone] EF BP 67 % 55 - 100 % [facility] Work Phone: [phone] Est. RA Pressure 3 mmHg [facility] Work Phone: [phone] Fractional Shortening 2D 33 % 28 - 44 % [facility] Work Phone: [phone] Global Longitudinal Strain -21.1 % [facility] Work Phone: [phone] Interpretation and review of laboratory results Abnormal [facility] Work Phone: [phone] IVC Diameter 1.8 cm [facility] Work Phone: [phone] IVSd 1.1 cm Abnormal 0.6 - 0.9 cm [facility] Work Phone: [phone] LA Diameter 3.8 cm [facility] Work Phone: [phone] LA Size Index 2.11 cm/m2 [facility] Work Phone: [phone] LA Volume 2C 77 mL Abnormal 22 - 52 mL [facility] Work Phone: [phone] LA Volume 4C 48 mL 22 - 52 mL [facility] Work Phone: [phone] LA Volume A/L 68 mL [facility] Work Phone: LA Volume Index 2C 43 mL/m2 Abnormal 16 - 34 mL/m2 [facility] Work Phone: LA Volume Index 4C 27 mL/m2 16 - 34 mL/m2 [facility] Work Phone: LA Volume Index A/L 38 mL/m2 16 - 34 mL/m2 [facility] Work Phone: LV E' Lateral Velocity 5 cm/s [facility] Work Phone: LV E' Septal Velocity 5 cm/s [facility] Work Phone: LV EDV A2C 84 mL [facility] Work Phone: LV EDV A4C 75 mL [facility] Work Phone: LV EDV BP 81 mL 56 - 104 mL [facility] Work Phone: LV EDV Index A2C 47 mL/m2 [facility] Work Phone: LV EDV Index A4C 42 mL/m2 [facility] Work Phone: LV EDV Index BP 45 mL/m2 [facility] Work Phone: LV Ejection Fraction A2C 73 % [facility] Work Phone: LV Ejection Fraction A4C 60 % [facility] Work Phone: LV ESV A2C 22 mL [facility] Work Phone: LV ESV A4C 30 mL [facility] Work Phone: LV ESV BP 26 mL 19 - 49 mL [facility] Work Phone: LV ESV Index A2C 12 mL/m2 [facility] Work Phone: LV ESV Index A4C 17 mL/m2 [facility] Work Phone: LV ESV Index BP 14 mL/m2 [facility] Work Phone: LV Mass 2D 188.1 g Abnormal 67 - 162 g [facility] Work Phone: LV Mass 2D Index 104.5 g/m2 Abnormal 43 - 95 g/m2 [facility] Work Phone: LV RWT Ratio 0.41 [facility] Work Phone: LVIDd 4.9 cm 3.9 - 5.3 cm [facility] Work Phone: LVIDd Index 2.72 cm/m2 [facility] Work Phone: LVIDs 3.3 cm [facility] Work Phone: LVIDs Index 1.83 cm/m2 [facility] Work Phone: LVOT Area 4.2 cm2 [facility] Work Phone: LVOT Cardiac Output 5.1 liter/minute [facility] Work Phone: LVOT Diameter 2.3 cm [facility] Work Phone: LVOT Mean Gradient 2 mmHg [facility] [employer] Work Phone: LVOT Peak Gradient 4 mmHg [facility] [employer] Work Phone: LVOT Peak Velocity 0.9 m/s [facility] [employer] Work Phone: LVOT Stroke Volume Index 43.4 mL/m2 [facility] [employer] Work Phone: LVOT SV 78.1 ml [facility] [employer] Work Phone: LVOT VTI 18.8 cm [facility] [employer] Work Phone: LVOT:AV VTI Index 0.48 [facility] Work Phone: LVPWd 1.0 cm Abnormal 0.6 - 0.9 cm [facility] Work Phone: MV A Velocity 1.12 m/s [facility] Work Phone: MV E Velocity 0.58 m/s [facility] Work Phone: MV E Wave Deceleration Time 345.7 ms [facility] Work Phone: MV E/A 0.52 [facility] Work Phone: RV Basal Dimension 3.6 cm [facility] Work Phone: RV Mid Dimension 3.1 cm [facility] Work Phone: RVSP 33 [facility] Work Phone: [phone] Sinotubular Junction 2.9 cm [facility] Work Phone: [phone] TAPSE 3.1 cm 1.7 cm [facility] Work Phone: TR Max Velocity 2.73 m/s [facility] Work Phone: TR Peak Gradient 30 mmHg [facility] Work Phone: [facility] Work Phone: Heart Transthoracicon Left Ventricle: Left ventricle size is normal. Mildly increased wall thickness. Normal left ventricular systolic function. EF by 2D [employer] Biplane is 67%. Global longitudinal strain is normal with a value of -21.1%. Normal wall motion. Diastolic dysfunction present with normal LVEF. Normal left ventricular filling pressure. Right Ventricle: Right ventricle size is normal. Normal systolic function. TAPSE is 3.1 cm. Left Atrium: Left atrium is mildly dilated. LA Vol Index A/L is 38 mL/m2. No significant valvular abnormalities. Left Ventricle Left ventricle size is normal. Mildly increased wall thickness. Normal left ventricular systolic function. EF by 2D [employer] Biplane is 67%. Global longitudinal strain is normal with a value of -21.1%. Normal wall motion. Diastolic dysfunction present with normal LVEF. Normal left ventricular filling pressure. Right Ventricle Right ventricle size is normal. Normal systolic function. TAPSE is 3.1 cm. Left Atrium Left atrium is mildly dilated. LA Vol Index A/L is 38 mL/m2. Right Atrium Right atrium size is normal. IVC/SVC IVC diameter is normal and decreases greater than 50% during inspiration; therefore the estimated right atrial pressure is normal (~3 mmHg). Mitral Valve Valve structure is normal. No regurgitation. No stenosis noted. Tricuspid Valve Valve structure is normal. Mild (1+) regurgitation. Normal RVSP. Est RA pressure is 3 mmHg. RVSP is 33 mmHg. Aortic Valve Trileaflet. No cusp thickening. No cusp calcification. No regurgitation. No stenosis. Pulmonic Valve Valve structure is normal. Trace regurgitation. Ascending Aorta Normal sized sinuses of Valsalva and ascending aorta. Sinuses of Valsalva diameter is 3.0 cm. Ao ascending diameter is 3.4 cm. Pericardium No pericardial effusion. Septum No interatrial shunt visualized on color Doppler. Study Details Image quality: adequate. Additional technique includes myocardial strain. Heart rate: 61 bpm. Blood pressure: 154/85 mmHg. Technical qualifiers: Technically difficult study. No contrast was given. Comparison Study There is no prior study available for comparison Echo Additional Conclusions No significant valvular abnormalities. CV CPACS Basic metabolic 1998 panelon 12-12-2023 Anion gap [Moles/Vol] 2 mmol/L Low 3 - 13 mmol/L [facility] Calcium [Mass/Vol] 8.3 mg/dL Low 8.4 - 10. 4 mg/dL [facility] Chloride [Moles/Vol] 107 mmol/L 98 - 10 7 mmol/L [facility] CO2 [Moles/Vol] 29 mmol/L 22 - 30 mmol/L [facility] Creatinine [Mass/Vol] 0.63 mg/dL 0.52 - 1.04 mg/dL [facility] GFR/1.73 sq M.predicted MDRD (S/P/Bld) [Vol rate/Area] - PINF [facility] Comment on above: Calculation based on the Chronic Kidney Disease Epidemiology Collaboration (CKD-EPI) equation refit without adjustment for race Glucose [Mass/Vol] 108 mg/dL High 70 - 100 mg/dL [facility] Interpretation and review of laboratory results Abnormal [facility] Potassium [Moles/Vol] 4.0 mmol/L 3.5 - 5.1 mmol/L [facility] Sodium [Moles/Vol] 139 mmol/L 135 - 145 mmol/L [facility] Urea nitrogen [Mass/Vol] 10 mg/dL 7 - 17 mg/dL [facility] CBC W Auto Differential pane l (Bld)on 12-12-2023 Basophils (Bld) [#/Vol] 0.0 10*3/uL 0.0 - 0.2 10*3/uL [facility] Basophils/100 WBC (Bld) 0.6 % 0.0 - 2.0 % [facility] Eosinophils (Bld) [#/Vol] 0.3 10*3/uL 0.0 - 0.5 10*3/uL [facility] Eosinophils/100 WBC (Bld) 4.8 % 0.0 - 6.0 % [facility] Erythrocyte distribution width (RBC) [Ratio] 13.0 % 11.5 - 15.0 % [facility] Hematocrit (Bld) [Volume fraction] 33.5 % Low 35.0 - 47.0 % [facility] Hemoglobin (Bld) [Mass/Vol] 10.8 g/dL Low 11.7 - 16.0 g/dL [facility] Immature granulocytes (Bld) [#/Vol] 0.0 10*3/uL NINF - 0.1 10*3/uL [facility] Immature granulocytes/100 WBC (Bld) 0.0 % 0.0 - 2.0 % [facility] Interpretation and review of laboratory results Abnormal [facility] Lymphocytes (Bld) [#/Vol] 2.6 10*3/uL 1.0 - 4.3 10*3/uL [facility] Lymphocytes/100 WBC (Bld) 37.3 % 15.0 - 45.0 % [facility] MCH (RBC) [Entitic mass] 30.3 pg 26.0 - 34.0 pg [facility] MCHC (RBC) [Mass/Vol] 32.2 % 30.5 - 36.0 % [facility] MCV (RBC) [Entitic vol] 94.1 fL 77.0 - 99.0 fL [facility] Monocytes (Bld) [#/Vol] 0.8 10*3/uL 0.0 - 0.9 10*3/uL [facility] Monocytes/100 WBC (Bld) 10.8 % 5.0 - 13.0 % [facility] Neutrophils (Bld) [#/Vol] 3.2 10*3/uL 1.8 - 7.5 10*3/uL [facility] Neutrophils/100 WBC (Bld) 46.5 % 38.0 - 82.0 % [facility] Nucleated RBC/100 WBC (Bld) [Ratio] 0.0 % [facility] Platelet mean volume (Bld) [Entitic vol] 10.3 fL 9.0 - 12.7 fL [facility] Platelets (Bld) [#/Vol] 192 10*3/uL 140 - 440 10*3/uL [facility] RBC (Bld) [#/Vol] 3.56 10*6/uL Low 3.80 - 5.2 0 10*6/uL [facility] WBC (Bld) [#/Vol] 6.9 10*3/uL 3.6 - 10.7 10*3/uL [facility] Laboratory - Chemistry and C hemistry - challengeon 12-12-2023 Glucose [Mass/Vol] 261 mg/dL High 70 - 100 mg/dL [facility] Glucose [Mass/Vol] 117 mg/dL High 70 - 100 mg/dL [facility] No Panel Informationon 12-11 Interpretation and review of laboratory results Abnormal [facility] Performed by: [facility], [address] [facility] [address] CLIA ID: [id number] [facility] Interpretation and review of laboratory results Abnormal [facility] Performed by: [facility], [address] [facility] [address] CLIA ID: [id number] [facility] Radiology Study observation (narrative) [facility] Radiology Study observation (narrative) [facility] Basic metabolic 1998 panelon 12-11-2023 Anion gap [Moles/Vol] 5 mmol/L 3 - 13 mmol/L [facility] Calcium [Mass/Vol] 8.3 mg/dL Low 8.4 - 10. 4 mg/dL [facility] Chloride [Moles/Vol] 106 mmol/L 98 - 10 7 mmol/L [facility] CO2 [Moles/Vol] 27 mmol/L 22 - 30 mmol/L [facility] Creatinine [Mass/Vol] 0.60 mg/dL 0.52 - 1.04 mg/dL [facility] GFR/1.73 sq M.predicted MDRD (S/P/Bld) [Vol rate/Area] - PINF [facility] Comment on above: Calculation based on the Chronic Kidney Disease Epidemiology Collaboration (CKD-EPI) equation refit without adjustment for race Glucose [Mass/Vol] 135 mg/dL High 70 - 100 mg/dL [facility] Interpretation and review of laboratory results Abnormal [facility] Potassium [Moles/Vol] 3.1 mmol/L Low 3.5 - 5.1 mmol/L [facility] Sodium [Moles/Vol] 138 mmol/L 135 - 145 mmol/L [facility] Urea nitrogen [Mass/Vol] 5 mg/dL Low 7 - 17 mg/dL [facility] CBC W Auto Differential pane l (Bld)on 12-11-2023 Basophils (Bld) [#/Vol] 0.0 10*3/uL 0.0 - 0.2 10*3/uL [facility] Basophils/100 WBC (Bld) 0.3 % 0.0 - 2.0 % [facility] Eosinophils (Bld) [#/Vol] 0.2 10*3/uL 0.0 - 0.5 10*3/uL [facility] Eosinophils/100 WBC (Bld) 1.7 % 0.0 - 6.0 % [facility] Erythrocyte distribution width (RBC) [Ratio] 13.3 % 11.5 - 15.0 % [facility] Hematocrit (Bld) [Volume fraction] 34.4 % Low 35.0 - 47.0 % [facility] Hemoglobin (Bld) [Mass/Vol] 11.3 g/dL Low 11.7 - 16.0 g/dL [facility] Immature granulocytes (Bld) [#/Vol] 0.0 10*3/uL NINF - 0.1 10*3/uL [facility] Immature granulocytes/100 WBC (Bld) 0.3 % 0.0 - 2.0 % [facility] Interpretation and review of laboratory results Abnormal [facility] Lymphocytes (Bld) [#/Vol] 2.0 10*3/uL 1.0 - 4.3 10*3/uL [facility] Lymphocytes/100 WBC (Bld) 22.6 % 15.0 - 45.0 % [facility] MCH (RBC) [Entitic mass] 30.7 pg 26.0 - 34.0 pg [facility] MCHC (RBC) [Mass/Vol] 32.8 % 30.5 - 36.0 % [facility] MCV (RBC) [Entitic vol] 93.5 fL 77.0 - 99.0 fL [facility] Monocytes (Bld) [#/Vol] 0.9 10*3/uL 0.0 - 0.9 10*3/uL [facility] Monocytes/100 WBC (Bld) 10.4 % 5.0 - 13.0 % [facility] Neutrophils (Bld) [#/Vol] 5.7 10*3/uL 1.8 - 7.5 10*3/uL [facility] Neutrophils/100 WBC (Bld) 64.7 % 38.0 - 82.0 % [facility] [employer] Nucleated RBC/100 WBC (Bld) [Ratio] 0.0 % [facility] [employer] Platelet mean volume (Bld) [Entitic vol] 11.1 fL 9.0 - 12.7 fL [facility] Platelets (Bld) [#/Vol] 207 10*3/uL 140 - 440 10*3/uL [facility] RBC (Bld) [#/Vol] 3.68 10*6/uL Low 3.80 - 5.2 0 10*6/uL [facility] WBC (Bld) [#/Vol] 8.8 10*3/uL 3.6 - 10.7 10*3/uL [facility] Laboratory - Chemistry and C hemistry - challengeon 12-11-2023 Glucose [Mass/Vol] 243 mg/dL High 70 - 100 mg/dL [facility] Glucose [Mass/Vol] 121 mg/dL High 70 - 100 mg/dL [facility] Glucose [Mass/Vol] 86 mg/dL 70 - 100 mg/dL [facility] Magnesium [Mass/Vol] 1.8 mg/dL 1.6 - 2 .3 mg/dL [facility] Glucose [Mass/Vol] 147 mg/dL High 70 - 100 mg/dL [facility] Magnesium [Mass/Vol]on 12-10 Interpretation and review of laboratory results Normal [facility] No Panel Informationon 12-10 Interpretation and review of laboratory results Abnormal [facility] Performed by: [facility], [address] [facility] [address] CLIA ID: [id number] [facility] Interpretation and review of laboratory results Abnormal [facility] Performed by: [facility], [address] [facility] [address] CLIA ID: [id number] [facility] Interpretation and review of laboratory results Normal [facility] Performed by: [facility], [address] [facility] [address] CLIA ID: [id number] [facility] Interpretation and review of laboratory results Abnormal [facility] Performed by: [facility], [address] [facility] [address] CLIA ID: [id number] [facility] Radiology Study observation (narrative) [facility] Radiology Study observation (narrative) [facility] Radiology Study observation (narrative) [facility] Radiology Study observation (narrative) [facility] Basic metabolic 1998 panelon 12-10-2023 Anion gap [Moles/Vol] 4 mmol/L 3 - 13 mmol/L [facility] Calcium [Mass/Vol] 8.3 mg/dL Low 8.4 - 10. 4 mg/dL [facility] Chloride [Moles/Vol] 106 mmol/L 98 - 10 7 mmol/L [facility] CO2 [Moles/Vol] 30 mmol/L 22 - 30 mmol/L [facility] Creatinine [Mass/Vol] 0.62 mg/dL 0.52 - 1.04 mg/dL [facility] GFR/1.73 sq M.predicted MDRD (S/P/Bld) [Vol rate/Area] - PINF [facility] Comment on above: Calculation based on the Chronic Kidney Disease Epidemiology Collaboration (CKD-EPI) equation refit without adjustment for race Glucose [Mass/Vol] 144 mg/dL High 70 - 100 mg/dL [facility] Interpretation and review of laboratory results Abnormal [facility] Potassium [Moles/Vol] 3.6 mmol/L 3.5 - 5.1 mmol/L [facility] Sodium [Moles/Vol] 140 mmol/L 135 - 145 mmol/L [facility] Urea nitrogen [Mass/Vol] 10 mg/dL 7 - 17 mg/dL [facility] CBC W Auto Differential pane l (Bld)Ordered By: Roger Teixeira on 12-10-2023 Basophils (Bld) [#/Vol] 0.0 10*3/uL 0.0 - 0.2 10*3/uL [facility] Basophils/100 WBC (Bld) 0.2 % 0.0 - 2.0 % [facility] Eosinophils (Bld) [#/Vol] 0.0 10*3/uL 0.0 - 0.5 10*3/uL [facility] Eosinophils/100 WBC (Bld) 0.3 % 0.0 - 6.0 % [facility] Erythrocyte distribution width (RBC) [Ratio] 13.8 % 11.5 - 15.0 % [facility] Hematocrit (Bld) [Volume fraction] 35.6 % 35.0 - 47.0 % [facility] Hemoglobin (Bld) [Mass/Vol] 11.3 g/dL Low 11.7 - 16.0 g/dL [facility] [employer] Immature granulocytes (Bld) [#/Vol] 0.0 10*3/uL NINF - 0.1 10*3/uL [facility] Immature granulocytes/100 WBC (Bld) 0.3 % 0.0 - 2.0 % [facility] Interpretation and review of laboratory results Abnormal [facility] [employer] Lymphocytes (Bld) [#/Vol] 1.9 10*3/uL 1.0 - 4.3 10*3/uL [facility] Lymphocytes/100 WBC (Bld) 19.6 % 15.0 - 45.0 % [facility] MCH (RBC) [Entitic mass] 29.9 pg 26.0 - 34.0 pg [facility] MCHC (RBC) [Mass/Vol] 31.7 % 30.5 - 36.0 % [facility] MCV (RBC) [Entitic vol] 94.2 fL 77.0 - 99.0 fL [facility] [employer] Monocytes (Bld) [#/Vol] 0.8 10*3/uL 0.0 - 0.9 10*3/uL [facility] Monocytes/100 WBC (Bld) 8.4 % 5.0 - 13.0 % [facility] Neutrophils (Bld) [#/Vol] 6.7 10*3/uL 1.8 - 7.5 10*3/uL [facility] Neutrophils/100 WBC (Bld) 71.2 % 38.0 - 82.0 % [facility] Nucleated RBC/100 WBC (Bld) [Ratio] 0.0 % [facility] [employer] Platelet mean volume (Bld) [Entitic vol] 10.3 fL 9.0 - 12.7 fL [facility] Platelets (Bld) [#/Vol] 204 10*3/uL 140 - 440 10*3/uL [facility] RBC (Bld) [#/Vol] 3.78 10*6/uL Low 3.80 - 5.2 0 10*6/uL [facility] WBC (Bld) [#/Vol] 9.4 10*3/uL 3.6 - 10.7 10*3/uL [facility] Laboratory - Chemistry and C hemistry - challengeon 12-10-2023 Glucose [Mass/Vol] 122 mg/dL High 70 - 100 mg/dL [facility] [employer] Glucose [Mass/Vol] 150 mg/dL High 70 - 100 mg/dL [facility] [employer] Glucose [Mass/Vol] 154 mg/dL High 70 - 100 mg/dL [facility] Glucose [Mass/Vol] 143 mg/dL High 70 - 100 mg/dL [facility] [employer] No Panel Informationon 12-09 Interpretation and review of laboratory results Abnormal [facility] [employer] Performed by: [facility], [address] [facility] [address] CLIA ID: [id number] [facility] [employer] [facility] Interpretation and review of laboratory results Abnormal [facility] Performed by: [facility], [address] [facility] [address] CLIA ID: [id number] [facility] Interpretation and review of laboratory results Abnormal [facility] Performed by: [facility], [address] [facility] [address] CLIA ID: [id number] [facility] [employer] [facility] Interpretation and review of laboratory results Abnormal [facility] [employer] Performed by: [facility], [address] [facility] [address] CLIA ID: [id number] [facility] Radiology Study observation (narrative) [facility] Radiology Study observation (narrative) [facility] Radiology Study observation (narrative) [facility] Radiology Study observation (narrative) [facility] XR Abdomen Supine and Latera l-decubituson 12-10-2023 Improved small bowel dilation since the prior study. Enteric tube terminates overlying the proximal stomach; consider repositioning. Report Dictated on Electronically Signed By: Homer Sanders MD Electronically Signed Date/Time: 12/10/2023 8:03 AM T [facility] RADIOLOGY SYSTEM Patient Name: CASSIE MORGAN : 1945 [facility]#: [id number] Exam Date/Time: 12/10/2023 07:33 Procedure: XR ABDOMEN 2 VIEWS SUPINE AND DECUBITUS Ordering Provider: CANO ALAINA Reason For Exam: SBO EXAM TYPE: XR ABDOMEN 2 VIEWS SUPINE AND DECUBITUS EXAM DATE AND TIME: 12/10/2023 7:33 AM EDT INDICATION: 78 years Female with small bowel obstruction COMPARISON: 12/09/2023, 12/08/2023 TECHNIQUE: AP supine and left lateral decubitus radiographs of the abdomen and pelvis were obtained. FINDINGS: Improved small bowel dilation since the prior study No free air or air-fluid levels. An enteric tube terminates overlying the proximal stomach with the side-port overlying the distal esophagus. Calcified uterine leiomyomata are present. Degenerative changes are seen in the visualized spine. The visualized lung bases are unremarkable. [facility] Homer Sanders MD - 12/10/2023 Patient Name: CASSIE MORGAN : 1945 Exam Date/Time: 12/10/2023 07:33 Procedure: XR ABDOMEN 2 VIEWS SUPINE AND DECUBITUS Ordering Provider: CANO ALAINA Reason For Exam: SBO EXAM TYPE: XR ABDOMEN 2 VIEWS SUPINE AND DECUBITUS EXAM DATE AND TIME: 12/10/2023 7:33 AM EDT INDICATION: 78 years Female with small bowel obstruction COMPARISON: 12/09/2023, 12/08/2023 TECHNIQUE: AP supine and left lateral decubitus radiographs of the abdomen and pelvis were obtained. FINDINGS: Improved small bowel dilation since the prior study No free air or air-fluid levels. An enteric tube terminates overlying the proximal stomach with the side-port overlying the distal esophagus. Calcified uterine leiomyomata are present. Degenerative changes are seen in the visualized spine. The visualized lung bases are unremarkable. IMPRESSION: Improved small bowel dilation since the prior study. Enteric tube terminates overlying the proximal stomach; consider repositioning. Report Dictated on Electronically Signed By: Homer Sanders MD Electronically Signed Date/Time: 12/10/2023 8:03 AM EDT [facility] Radiology Study observation (narrative) [facility] XR Abdomen Supine and Latera l-decubitusOrdered By: Homer Sanders on 12-10-2023 [facility] Work Phone: CRP [Mass/Vol]on 12-09-2023 Interpretation and review of laboratory results Normal [facility] CT Abdomen and Pelvis W cont rast Elsa 12-09-2023 Findings are most concerning for small bowel obstruction with a transition point within the lower abdomen at the midline. A small amount of fluid is present in the pelvis dependently. There is no obvious free air. Surgical consultation is recommended. Colonic diverticulosis. The uterus is enlarged with multiple probable calcified leiomyomas, correlate with clinical exam. Hepatic lesions likely reflect cysts and/or hemangiomas. Report Dictated on Electronically Signed By: Sabrina Baker MD Electronically Signed Date/Time: 12/09/2023 12:06 AM [facility] Patient Name: CASSIE MORGAN : 1945 Exam Date/Time: 12/08/2023 23:56 Procedure: CT ABDOMEN PELVIS W CONTRAST Ordering Provider: IYER AMY Reason For Exam: Abdominal pain, acute, nonlocalized CT ABDOMEN AND PELVIS Indication: Abdominal pain Scan Parameters: Multiple axial CT images were obtained of the abdomen and pelvis. Coronal and sagittal reconstructions were reviewed as well. ALARA protocol. Dose reduction was employed with automated exposure control. Contrast: 75 mL of Isovue-370 IV contrast; no oral contrast Comparison: 09/04/2018 (report only; images not available) FINDINGS: Lung bases: The lung bases are clear. Osseous structures: The osseous lesions are intact. There is narrowing of both hips. Liver: A few low attenuating lesions are present within the liver measuring up to 1.1 cm. Gallbladder/Biliary tree: No biliary dilatation. The gallbladder is normal. Spleen: Normal. Adrenals: Normal. Pancreas: Normal. Kidneys/Bladder: The kidneys are symmetric without hydronephrosis. Tiny right renal cysts present. The bladder contour is normal. Adnexa: Multiple calcified uterine probable leiomyomas are present. The uterus is enlarged and anteverted measuring 7.3 x 6.5 x 6.3 cm. A small amount of fluid is present in the pelvic cul-de-sac, of uncertain etiology. Lymph nodes: There is no adenopathy. GI Tract: Multiple colonic diverticuli are present. The appendix is not clearly identified in the right lower quadrant. There is poor distention of multiple large bowel loops which limits overall evaluation. Lack of GI contrast limits overall evaluation. There are multiple loops of fluid-filled and distended small bowel with what appears to be a change of caliber at the midline along the distal small bowel (coronal series 5 image 35). Small bowel loop distention of 3 cm. The distal small bowel is completely decompressed. Air within the lumen of the dilated small bowel is likely within the lumen and less likely within the wall. A small sliding-type hiatal hernia is present. The duodenum and proximal jejunum are of normal caliber. Vasculature: Normal contour. Mild atherosclerotic calcifications are present. [facility] Sabrina Baker MD - 12/09/2023 Patient Name: CASSIE MORGAN : 1945 Exam Date/Time: 12/08/2023 23:56 Procedure: CT ABDOMEN PELVIS W CONTRAST Ordering Provider: IYER AMY Reason For Exam: Abdominal pain, acute, nonlocalized CT ABDOMEN AND PELVIS Indication: Abdominal pain Scan Parameters: Multiple axial CT images were obtained of the abdomen and pelvis. Coronal and sagittal reconstructions were reviewed as well. ALARA protocol. Dose reduction was employed with automated exposure control. Contrast: 75 mL of Isovue-370 IV contrast; no oral contrast Comparison: 09/04/2018 (report only; images not available) FINDINGS: Lung bases: The lung bases are clear. Osseous structures: The osseous lesions are intact. There is narrowing of both hips. Liver: A few low attenuating lesions are present within the liver measuring up to 1.1 cm. Gallbladder/Biliary tree: No biliary dilatation. The gallbladder is normal. Spleen: Normal. Adrenals: Normal. Pancreas: Normal. Kidneys/Bladder: The kidneys are symmetric without hydronephrosis. Tiny right renal cysts present. The bladder contour is normal. Adnexa: Multiple calcified uterine probable leiomyomas are present. The uterus is enlarged and anteverted measuring 7.3 x 6.5 x 6.3 cm. A small amount of fluid is present in the pelvic cul-de-sac, of uncertain etiology. Lymph nodes: There is no adenopathy. GI Tract: Multiple colonic diverticuli are present. The appendix is not clearly identified in the right lower quadrant. There is poor distention of multiple large bowel loops which limits overall evaluation. Lack of GI contrast limits overall evaluation. There are multiple loops of fluid-filled and distended small bowel with what appears to be a change of caliber at the midline along the distal small bowel (coronal series 5 image 35). Small bowel loop distention of 3 cm. The distal small bowel is completely decompressed. Air within the lumen of the dilated small bowel is likely within the lumen and less likely within the wall. A small sliding-type hiatal hernia is present. The duodenum and proximal jejunum are of normal caliber. Vasculature: Normal contour. Mild atherosclerotic calcifications are present. IMPRESSION: Findings are most concerning for small bowel obstruction with a transition point within the lower abdomen at the midline. A small amount of fluid is present in the pelvis dependently. There is no obvious free air. Surgical consultation is recommended. Colonic diverticulosis. The uterus is enlarged with multiple probable calcified leiomyomas, correlate with clinical exam. Hepatic lesions likely reflect cysts and/or hemangiomas. Report Dictated on Electronically Signed By: Sabrina Baker MD Electronically Signed Date/Time: 12/09/2023 12:[address] [facility] [address] Abdomen and Pelvis W cont rast IVOrdered By: Sabrina aBker on 12-09-2023 [facility] Work Phone: Laboratory - Chemistry and C hemistry - challengeon 12-09-2023 Glucose [Mass/Vol] 132 mg/dL High 70 - 100 mg/dL [facility] [employer] Glucose [Mass/Vol] 115 mg/dL [facility] [employer] Glucose [Mass/Vol] 115 mg/dL High 70 - 100 mg/dL [facility] [employer] Glucose [Mass/Vol] 153 mg/dL High 70 - 100 mg/dL [facility] [employer] Glucose [Mass/Vol] 153 mg/dL [facility] [employer] Glucose [Mass/Vol] 174 mg/dL High 70 - 100 mg/dL [facility] Procalcitonin [Mass/Vol] 0.03 ng/mL 0.00 - 0.09 ng/mL [facility] [employer] CRP [Mass/Vol] mg/L NINF - 10.0 mg/L [facility] [employer] Laboratory - Chemistry and C hemistry - challengeOrdered By: Michael Mendoza on 12-09-2023 Glucose [Mass/Vol] 174 mg/dL [facility] No Panel Informationon 12-08 Interpretation and review of laboratory results Abnormal [facility] by: [facility], [address], [facility] [address] CLIA ID: [id number] [facility] Interpretation and review of laboratory results Normal [facility] Interpretation and review of laboratory results Abnormal [facility] Performed by: [facility], [address], [facility] [address] CLIA ID: [id number] [facility] Interpretation and review of laboratory results Abnormal [facility] Performed by: [facility], [address], [facility] [address] CLIA ID: [id number] [facility] Interpretation and review of laboratory results Normal [facility] Interpretation and review of laboratory results Abnormal [facility] Performed by: [facility], [address] [place], [facility] [address] CLIA ID: [id number] [facility] Radiology Study observation (narrative) [facility] Rad[facility] Study observation (narrative) [facility] Rad[facility] Study observation (narrative) [facility] Radiology Study observation (narrative) [facility] Rad[facility] Study observation (narrative) [facility] observation (narrative) [facility] No Panel InformationOrdered By: Michael Mendoza on 12-09-2023 Interpretation and review of laboratory results Normal [facility] Radiology Study observation (narrative) [facility] Procalcitonin [Mass/Vol]on 0 12-09-2023 Interpretation and review of laboratory results Normal [facility] PCT <0.50 = Low risk of severe sepsis and/or septic shock. PCT >2.00 = High risk of severe sepsis and/or septic shock. [facility] Urinalysis complete panel (U )Ordered By: Xochitl Concepcion on 12-09-2023 Bacteria LM.HPF (Urine sed) [#/Area] Negative Negative /HPF [facility] Bilirubin Ql (U) Negative Negative mg/dL [facility] Clarity (U) Clear Clear [facility] Color (U) Light Yellow Lt. Yellow [facility] Epithelial cells.squamous LM.HPF (Urine sed) [#/Area] [facility] Gl[facility] Ql (U) Normal Normal (<70) mg/dL [facility] Hemoglobin Ql (U) 0.03 mg/dL Abnormal Negative [facility] Hyaline casts Auto (Urine sed) [#/Area] 0-2 Abnormal Negative /LPF [facility] Interpretation and review of laboratory results Abnormal [facility] Ketones (U) [Mass/Vol] 60 mg/dL Abnormal Negative [facility] Leukocyte esterase Test strip Ql (U) Negative Negative [facility]/uL [facility] Mucus LM.HPF (Urine sed) [#/Area] Few Negative /LPF [facility] Nitrite Ql (U) Negative Negative [facility] th pH (U) 6.5 [pH] 5.0 - 8.0 pH [facility] Protein (U) [Mass/Vol] 20 mg/dL Abnormal Negative [facility] RBC LM.HPF (Urine sed) [#/Area] 3-5 Abnormal [facility] Specific gravity (U) [Rel density] High 1.005 - 1.030 [facility] Urobilinogen (U) [Mass/Vol] Normal Normal (0-1) mg/dL [facility] WBC LM.HPF (Urine sed) [#/Area] 3-5 [facility] XR Abdomen Single viewon Findings and impression: Abdomen single view shows the tip of the NG tube projecting below left hemidiaphragm pointing laterally. Please confirm the function and positioning clinically prior to use. Report Dictated on Electronically Signed By: Naresh Nelson MD Electronically Signed Date/Time: 12/09/2023 10:37 AM EDT [facility] Patient Name: CASSIE MORGAN : 1945 Exam Date/Time: 12/09/2023 10:33 Procedure: XR ABDOMEN 1 VIEW Ordering Provider: CANO ALAINA Reason For Exam: NGT placement, SBO Indication: NG placement. [facility] Naresh Nelson MD - 12/09/2023 Patient Name: CASSIE MORGAN : 1945 Exam Date/Time: 12/09/2023 10:33 Procedure: XR ABDOMEN 1 VIEW Ordering Provider: CANO ALAINA Reason For Exam: NGT placement, SBO Indication: NG placement. IMPRESSION: Findings and impression: Abdomen single view shows the tip of the NG tube projecting below left hemidiaphragm pointing laterally. Please confirm the function and positioning clinically prior to use. Report Dictated on Electronically Signed By: Naresh Nelson MD Electronically Signed Date/Time: 12/09/2023 10:37 AM EDT [facility] Radiology Study observation (narrative) [facility] XR Abdomen Single viewOrdere d By: Naresh Nelson on 12-09-2023 [facility] Work Phone: Basic metabolic 1998 panelon 12-08-2023 Anion gap [Moles/Vol] 15 mmol/L High 3 - 13 mmol/L [facility] [employer] Calcium [Mass/Vol] 9.7 mg/dL 8.4 - 10. 4 mg/dL [facility] Chloride [Moles/Vol] 104 mmol/L 98 - 10 7 mmol/L [facility] CO2 [Moles/Vol] 19 mmol/L Low 22 - 30 mmol/L [facility] Creatinine [Mass/Vol] 0.91 mg/dL 0.52 - 1.04 mg/dL [facility] GFR/1.73 sq M.predicted MDRD (S/P/Bld) [Vol rate/Area] 65.1 mL/min/{1.73_m2} - PINF [facility] Comment on above: Calculation based on the Chronic Kidney Disease Epidemiology Collaboration (CKD-EPI) equation refit without adjustment for race Glucose [Mass/Vol] 175 mg/dL High 70 - 100 mg/dL [facility] Interpretation and review of laboratory results Abnormal [facility] Potassium [Moles/Vol] 3.8 mmol/L 3.5 - 5.1 mmol/L [facility] Sodium [Moles/Vol] 138 mmol/L 135 - 145 mmol/L [facility] Urea nitrogen [Mass/Vol] 22 mg/dL High 7 - 17 mg/dL [facility] CBC W Auto Differential pane l (Bld)on 12-08-2023 Basophils (Bld) [#/Vol] 0.1 10*3/uL 0.0 - 0.2 10*3/uL [facility] Basophils/100 WBC (Bld) 0.5 % 0.0 - 2.0 % [facility] Eosinophils (Bld) [#/Vol] 0.1 10*3/uL 0.0 - 0.5 10*3/uL [facility] Eosinophils/100 WBC (Bld) 1.2 % 0.0 - 6.0 % [facility] Erythrocyte distribution width (RBC) [Ratio] 12.9 % 11.5 - 15.0 % [facility] Hematocrit (Bld) [Volume fraction] 39.5 % 35.0 - 47.0 % [facility] Hemoglobin (Bld) [Mass/Vol] 13.4 g/dL 11.7 - 16.0 g/dL [facility] Immature granulocytes (Bld) [#/Vol] 0.0 10*3/uL NINF - 0.1 10*3/uL [facility] Immature granulocytes/100 WBC (Bld) 0.2 % 0.0 - 2.0 % [facility] Interpretation and review of laboratory results Abnormal [facility] Lymphocytes (Bld) [#/Vol] 3.4 10*3/uL 1.0 - 4.3 10*3/uL [facility] Lymphocytes/100 WBC (Bld) 31.0 % 15.0 - 45.0 % [facility] MCH (RBC) [Entitic mass] 30.1 pg 26.0 - 34.0 pg [facility] MCHC (RBC) [Mass/Vol] 33.9 % 30.5 - 36.0 % [facility] MCV (RBC) [Entitic vol] 88.8 fL 77.0 - 99.0 fL [facility] Monocytes (Bld) [#/Vol] 0.9 10*3/uL 0.0 - 0.9 10*3/uL [facility] Monocytes/100 WBC (Bld) 7.8 % 5.0 - 13.0 % [facility] Neutrophils (Bld) [#/Vol] 6.4 10*3/uL 1.8 - 7.5 10*3/uL [facility] Neutrophils/100 WBC (Bld) 59.3 % 38.0 - 82.0 % [facility] Nucleated RBC/100 WBC (Bld) [Ratio] 0.0 % [facility] Platelet mean volume (Bld) [Entitic vol] 10.9 fL 9.0 - 12.7 fL [facility] Platelets (Bld) [#/Vol] 280 10*3/uL 140 - 440 10*3/uL [facility] RBC (Bld) [#/Vol] 4.45 10*6/uL 3.80 - 5.2 0 10*6/uL [facility] WBC (Bld) [#/Vol] 10.8 10*3/uL High 3.6 - 10.7 10*3/uL [facility] CT Abdomen and Pelvis W cont rast Elsa 12-08-2023 Radiology Study observation (narrative) [facility] Hepatic function 2000 panelo n 12-08-2023 Albumin [Mass/Vol] 4.5 g/dL 3.5 - 5.0 g/dL [facility] ALP [Catalytic activity/Vol] 64 U/L 38 - 126 U/L [facility] ALT [Catalytic activity/Vol] 15 U/L 0 - 34 U/L [facility] AST [Catalytic activity/Vol] 21 U/L 15 - 46 U/L [facility] Bilirubin [Mass/Vol] 0.6 mg/dL 0.2 - 1 .3 mg/dL [facility] Bilirubin.conjugated [Mass/Vol] 0.0 mg/dL 0.0 - 0.3 mg/dL [facility] Protein [Mass/Vol] 7.5 g/dL 6.3 - 8.2 g/dL [facility] Laboratory - Chemistry and C hemistry - challengeon 12-08-2023 Lipase [Catalytic activity/Vol] 115 U/L 23 - 300 U/L [facility] Laboratory - Microbiology an d Antimicrobial susceptibilityon 12-08-2023 FLUAV RNA MALI+probe Ql (Resp) Not detected Not Detected [facility] FLUBV RNA MALI+probe Ql (Resp) Not detected Not Detected [facility] RSV RNA MALI+probe Ql (Resp) Not detected Not Detected [facility] SARS-CoV-2 (COVID-19) RNA MALI+probe Ql (Resp) Detected Abnormal Not Detected [facility] SARS-CoV-2 (COVID-19) RNA MALI+probe Ql (Unsp spec) Methodology: real-time, RT-PCR The SARS-CoV-2, Flu A/B, and RSV Combo assay is intended for in vitro diagnostic use under the FDA Emergency Use Authorization (EUA). This test has not been FDA cleared or approved. In compliance with this authorization, please visit www.fda.gov/media/42399 5/download or www.fda.gov/media/48977 6/download to access the applicable information sheets. [facility] No Panel Informationon 12-07 Interpretation and review of laboratory results Normal [facility] SARS-CoV-2, Flu A/B, and RSV Comboon 12-08-2023 Interpretation and review of laboratory results Abnormal [facility] ECG 12 lead - CLINIC PERFORM EDon 12-01-2023 Sinus Bradycardia Low voltage in precordial leads. -Left atrial enlargement. Left axis ABNORMAL [facility] Culture, urineOrdered By: [facility] on 11-17-2023 Bacteria identified Cx Nom (U) Culture exhibits no growth. [facility] Laboratory - Chemistry and C hemistry - challengeon 11-17-2023 Bilirubin Ql (U) Negative [facility] Glucose Ql (U) Negative [facility] Ketones Ql (U) Negative [facility] pH (U) 5.0 [pH] [facility] Specific gravity (U) [Rel density] 1.005 [facility] Urobilinogen (U) [Mass/Vol] 0.4604964 mg/dL [facility] Laboratory - Hematology and Cell countson 11-17-2023 Hemoglobin Ql (U) Trace [facility] Laboratory - Specimen inform ationon 11-17-2023 Clarity (U) Clear [facility] Color (U) Yellow [facility] Laboratory - Urinalysison Nitrite Ql (U) Negative [facility] Protein Ql (U) Negative [facility] No Panel Informationon 11-16 Urine Leukocytes Positive [facility] Urine Non-Hemolyzed Blood [facility] DBT Breast - bilateral scree ningon 09-30-2023 No mammographic evidence of malignancy. ASSESSMENT: Category 1 Negative RECOMMENDATION: Routine screening mammogram in 1 year. Bilateral CANCER RISK ASSESSMENT: This risk assessment is based on patient provided information collected in a risk survey taken at the time of this examination. LIFETIME BREAST CANCER RISK: William: 2.22% - If greater than or equal to 20%, consider annual mammogram and annual screening Breast MRI or follow up in high risk clinic. Is the patient at elevated risk based on the HBOC criteria? Yes (Hereditary Breast and Ovarian Cancer) - If Yes, consider genetic counseling and testing with high risk follow up. Is the patient at elevated risk based on the Jackson Syndrome criteria? No - If Yes, consider genetic counseling and testing with high risk follow up. Report Dictated on Workstation: [id number] Electronically Signed By: Ubaldo Horner MD Electronically Signed Date/Time: 09/30/2023 1:43 PM EST [facility] Patient Name: CASSIE MORGAN : 1945 Exam Date/Time: 09/30/2023 13:34 Procedure: BI MAMMOGRAM SCREENING TOMOSYNTHESIS BILATERAL Ordering Provider: SHARMA JAMES Reason For Exam: z12.31 Image views: 2D Bilateral CC and MLO views were acquired. 3D Bilateral CC and MLO views were acquired. Images were reviewed with CAD. Markings on images: BB's = Nipples; skin lesions Open hopi = Palpable Line = Scar COMPARISON: 12/28/2021 and 05/04/2020 TISSUE DENSITY: BIRADS B - There are scattered fibroglandular densities. FINDINGS: No suspicious masses, architectural distortions or suspiciously clustered microcalcifications are identified. There is no evidence of skin thickening or nipple retraction. There are no significant changes when compared with prior studies. [facility] Ubaldo Horner MD - 09/30/2023 Patient Name: CASSIE MORGAN : 1945 Exam Date/Time: 09/30/2023 13:34 Procedure: BI MAMMOGRAM SCREENING TOMOSYNTHESIS BILATERAL Ordering Provider: SHARMA JAMES Reason For Exam: z12.31 Image views: 2D Bilateral CC and MLO views were acquired. 3D Bilateral CC and MLO views were acquired. Images were reviewed with CAD. Markings on images: BB's = Nipples; skin lesions Open hopi = Palpable Line = Scar COMPARISON: 12/28/2021 and 05/04/2020 TISSUE DENSITY: BIRADS B - There are scattered fibroglandular densities. FINDINGS: No suspicious masses, architectural distortions or suspiciously clustered microcalcifications are identified. There is no evidence of skin thickening or nipple retraction. There are no significant changes when compared with prior studies. IMPRESSION: No mammographic evidence of malignancy. ASSESSMENT: Category 1 Negative RECOMMENDATION: Routine screening mammogram in 1 year. Bilateral CANCER RISK ASSESSMENT: This risk assessment is based on patient provided information collected in a risk survey taken at the time of this examination. LIFETIME BREAST CANCER RISK: William: 2.22% - If greater than or equal to 20%, consider annual mammogram and annual screening Breast MRI or follow up in high risk clinic. Is the patient at elevated risk based on the HBOC criteria? Yes (Hereditary Breast and Ovarian Cancer) - If Yes, consider genetic counseling and testing with high risk follow up. Is the patient at elevated risk based on the Jackson Syndrome criteria? No - If Yes, consider genetic counseling and testing with high risk follow up. Report Dictated on Workstation: [id number] Electronically Signed By: Ubaldo Horner MD Electronically Signed Date/Time: 09/30/2023 1:43 PM EST [facility] Radiology Study observation (narrative) [facility] DBT Breast - bilateral scree ningOrdered By: Ubaldo Horner on 09-30-2023 [facility] Work Phone: DXA Skeletal system.axial Vi ews for bone densityon 09-30-2023 Osteopenia FRACTURE RISK: The estimated 10 year risk for a major osteoporosis-related fracture is 17 % and risk for hip fracture is 5.2 % (FRAX web version 3.08). FOLLOW-UP RECOMMENDATIONS: Patients with osteoporosis or or at high risk for fracture should have follow-up bone density tests. For Medicare patients, routine testing is allowed every 2 years. Patients who have low bone mass (T score -2.0 to -2.49), who are currently on treatment for low bone mass, or having risk factors for accelerated bone loss (glucocorticoids, aromatase inhibitors, etc.), consider repeat DXA in 1-2 years. Patients with osteopenia and no risk factors may consider follow-up every 3-5 years. Report Dictated on Electronically Signed By: Kiran Taylor MD Electronically Signed Date/Time: 09/30/2023 4:15 PM [facility] Patient Name: CASSIE MORGAN : 1945 Exam Date/Time: 09/30/2023 13:20 Procedure: DEXA BONE DENSITY AXIAL SKELETON Ordering Provider: SHARMA JAMES Reason For Exam: POSTMENOPAUSAL OSTEOPOROSIS DXA BONE DENSITOMETRY: CLINICAL INDICATION: Asymptomatic postmenopausal status, screening for osteoporosis COMPARISON: None TECHNIQUE: Quantitative bone mineral densitometry of the hip and lumbar spine was performed with a dual energy x-ray observed absorptiometry device - HoloWOWIO Horizon W. Regions of interest were obtained through the left proximal femur and compared to the normal value of the young adult. Regions of interest were also obtained through the lumbar vertebrae with an average value determined and compared with the young adult. The measured bone density minus the bone density of the young normal reference divided by the reference standard deviation is expressed as the T score. Using the same formula adjusting the reference density and standard deviation for age and race determines the Z score. According to World Health Organization criteria: T-score of -1.0 or higher is normal. T-score between -1.0 and -2.5 is low bone density or osteopenia. T-score of -2.5 or lower is abnormally low, compatible with osteoporosis. T-score of -2.5 or less plus fragility fracture indicates severe osteoporosis. FINDINGS: Spine: L1-L4 Density 0.89 g/cm2. T-score: -1.5 Z-score: 1.1 Comparison from prior examination:N/A Hip: Femoral neck Density: 0.58 g/cm2. T-score: -2.4 Z-score: -0.2 Hip: Total hip Density: 0.75 g/cm2. T-score: -1.6 Z-score: 0.3 Comparison from prior examination:N/A [facility] Kiran Taylor MD - 09/30/2023 Patient Name: CASSIE MORGAN : 1945 Exam Date/Time: 09/30/2023 13:20 Procedure: DEXA BONE DENSITY AXIAL SKELETON Ordering Provider: SHARMA JAMES Reason For Exam: POSTMENOPAUSAL OSTEOPOROSIS DXA BONE DENSITOMETRY: CLINICAL INDICATION: Asymptomatic postmenopausal status, screening for osteoporosis COMPARISON: None TECHNIQUE: Quantitative bone mineral densitometry of the hip and lumbar spine was performed with a dual energy x-ray observed absorptiometry device - HoloWOWIO Horizon W. Regions of interest were obtained through the left proximal femur and compared to the normal value of the young adult. Regions of interest were also obtained through the lumbar vertebrae with an average value determined and compared with the young adult. The measured bone density minus the bone density of the young normal reference divided by the reference standard deviation is expressed as the T score. Using the same formula adjusting the reference density and standard deviation for age and race determines the Z score. According to World Health Organization criteria: T-score of -1.0 or higher is normal. T-score between -1.0 and -2.5 is low bone density or osteopenia. T-score of -2.5 or lower is abnormally low, compatible with osteoporosis. T-score of -2.5 or less plus fragility fracture indicates severe osteoporosis. FINDINGS: Spine: L1-L4 Density 0.89 g/cm2. T-score: -1.5 Z-score: 1.1 Comparison from prior examination:N/A Hip: Femoral neck Density: 0.58 g/cm2. T-score: -2.4 Z-score: -0.2 Hip: Total hip Density: 0.75 g/cm2. T-score: -1.6 Z-score: 0.3 Comparison from prior examination:N/A IMPRESSION: Osteopenia FRACTURE RISK: The estimated 10 year risk for a major osteoporosis-related fracture is 17 % and risk for hip fracture is 5.2 % (FRAX web version 3.08). FOLLOW-UP RECOMMENDATIONS: Patients with osteoporosis or or at high risk for fracture should have follow-up bone density tests. For Medicare patients, routine testing is allowed every 2 years. Patients who have low bone mass (T score -2.0 to -2.49), who are currently on treatment for low bone mass, or having risk factors for accelerated bone loss (glucocorticoids, aromatase inhibitors, etc.), consider repeat DXA in 1-2 years. Patients with osteopenia and no risk factors may consider follow-up every 3-5 years. Report Dictated on Electronically Signed By: Kiran Taylor MD Electronically Signed Date/Time: 09/30/2023 4:15 PM EST [facility] Radiology Study observation (narrative) [facility] DXA Skeletal system.axial Vi ews for bone densityOrdered By: Kiran Taylor on 09-30-2023 [facility] Work Phone: POCT glucose meteron 023 Glucose [Mass/Vol] 210 mg/dL High 70 - 100 mg/dL [facility] Interpretation and review of laboratory results Abnormal [facility] Performed by: [facility], [address] [place] [id number] CLIA ID: [id number] [facility] Glucose [Mass/Vol] 123 mg/dL High 70 - 100 mg/dL [facility] Interpretation and review of laboratory results Abnormal [facility] Performed by: [facility], [address] [place] [id number] CLIA ID: [id number] [facility] ABO and Rh group Confirm Nom (Bld)on 06-16-2023 ABO group Nom (Bld) A [facility] D Ag Ql (RBC) Positive [facility] Bacterial vaginosis and vagi nitis rRNA panel Probe (Vag fld)on 06-16-2023 Bacterial vaginosis Ql (Vag fld) [Interp] Not detected Not Detected [facility] C. glabrata DNA MALI+probe Ql (Vag fld) Not detected Not Detected [facility] Brisa sp DNA MALI+probe Ql (Vag fld) Not detected Not Detected [facility] Interpretation and review of laboratory results Normal [facility] T. vaginalis DNA MALI+probe Ql (Vag fld) Not detected Not Detected [facility] Methodology: real-ti me PCR A negative result does not preclude a possible infection. This assay can detect the Brisa species C. albicans, C. tropicalis, C. parapsilosis, and C. dubliniensis but does not differentiate among them. The assay also detects C. glabrata and C. krusei, but does not differentiate between them. Results should be interpreted in conjunction with other clinical data. This test has not been validated for use with specimens collected by patients at home. This test is intended for medical purposes only and is not valid for the evaluation of suspected sexual abuse or for other forensic purposes. [facility] Blood type and Crossmatch magda cain (Bld)on 06-16-2023 ABO group Nom (Bld) A [facility] Blood group antibody screen GEL Ql Negative [facility] D Ag Ql (RBC) Positive [facility] CBC panel Auto (Bld)on 06-16 Erythrocyte distribution width (RBC) [Ratio] 13.7 % 11.5 - 14.5 % [facility] Hematocrit (Bld) [Volume fraction] 40.0 % 35.0 - 47.0 % [facility] Hemoglobin (Bld) [Mass/Vol] 13.4 g/dL 11.7 - 16.0 g/dL [facility] Interpretation and review of laboratory results Normal [facility] MCH (RBC) [Entitic mass] 30.8 pg 26.0 - 34.0 pg [facility] MCHC (RBC) [Mass/Vol] 33.5 % 32.0 - 36.0 % [facility] MCV (RBC) [Entitic vol] 92.0 fL 80.0 - 98.0 fL [facility] Platelet mean volume (Bld) [Entitic vol] 8.8 fL 7.4 - 12.4 fL [facility] Platelets (Bld) [#/Vol] 249 10*3/uL 140 - 440 10*3/uL [facility] RBC (Bld) [#/Vol] 4.35 10*6/uL 3.8 - 5.20 10*6/uL [facility] WBC (Bld) [#/Vol] 5.8 10*3/uL 3.6 - 10.7 10*3/uL [facility] Comprehensive metabolic 1998 panelon 06-16-2023 Albumin [Mass/Vol] 4.4 g/dL 3.5 - 5.0 g/dL [facility] ALP [Catalytic activity/Vol] 50 U/L 38 - 126 U/L [facility] ALT [Catalytic activity/Vol] 14 U/L 0 - 34 U/L [facility] Anion gap [Moles/Vol] 8 mmol/L 3 - 13 mmol/L [facility] AST [Catalytic activity/Vol] 23 U/L 15 - 46 U/L [facility] Bilirubin [Mass/Vol] 0.8 mg/dL 0.2 - 1 .3 mg/dL [facility] Calcium [Mass/Vol] 8.9 mg/dL 8.4 - 10. 4 mg/dL [facility] Chloride [Moles/Vol] 106 mmol/L 98 - 10 7 mmol/L [facility] CO2 [Moles/Vol] 28 mmol/L 22 - 30 mmol/L [facility] Creatinine [Mass/Vol] 0.69 mg/dL 0.52 - 1.04 mg/dL [facility] GFR/1.73 sq M.predicted MDRD (S/P/Bld) [Vol rate/Area] 89.5 mL/min/{1.73_m2} - PINF [facility] Comment on above: Calculation based on the Chronic Kidney Disease Epidemiology Collaboration (CKD-EPI) equation refit without adjustment for race Glucose [Mass/Vol] 170 mg/dL High 70 - 100 mg/dL [facility] Interpretation and review of laboratory results Abnormal [facility] Potassium [Moles/Vol] 3.7 mmol/L 3.5 - 5.1 mmol/L [facility] Protein [Mass/Vol] 7.3 g/dL 6.3 - 8.2 g/dL [facility] Sodium [Moles/Vol] 141 mmol/L 135 - 145 mmol/L [facility] Urea nitrogen [Mass/Vol] 13 mg/dL 7 - 17 mg/dL [facility] US Pelvis transvaginalon Partially calcified uterine leiomyomas in the anterior and posterior myometrium obscure the endometrium. Nonvisualization of both ovaries. Report Dictated on Electronically Signed By: Yovanny Ribeiro MD Electronically Signed Date/Time: 06/16/2023 4:19 PM [facility] 1945 [id number] Exam Date/Time: 06/16/2023 16:10 Procedure: US PELVIS TRANSVAGINAL Ordering Provider: FALLON JULIANNE Reason For Exam: painless vaginal bleeding post menopause TRANSVAGINAL PELVIC ULTRASOUND CLINICAL INDICATION: vaginal bleeding postmenopausal Transvaginal sonographic images of the pelvis were obtained. COMPARISON: None. FINDINGS: UTERUS: Size: 7.6 x 7.1 x 8.1 cm Myometrium: Several partially calcified uterine leiomyomas, including a 5.9 cm intramural leiomyoma in the anterior uterine body and a 3.5 cm leiomyoma in the posterior uterine body. Endometrium: Obscured Cervix: Unremarkable OVARIES: Not visualized. FLUID: No free fluid. OTHER: No adnexal masses are identified. [facility] Yovanny Ribeiro M D - 06/16/2023 Patient Name: CASSI[facility] MORGAN [facility] 1945 [id number] Exam Date/Time: 06/16/2023 16:10 Procedure: US PELVIS TRANSVAGINAL Ordering Provider: FALLON JULIANNE Reason For Exam: painless vaginal bleeding post menopause TRANSVAGINAL PELVIC ULTRASOUND CLINICAL INDICATION: vaginal bleeding postmenopausal Transvaginal sonographic images of the pelvis were obtained. COMPARISON: None. FINDINGS: UTERUS: Size: 7.6 x 7.1 x 8.1 cm Myometrium: Several partially calcified uterine leiomyomas, including a 5.9 cm intramural leiomyoma in the anterior uterine body and a 3.5 cm leiomyoma in the posterior uterine body. Endometrium: Obscured Cervix: Unremarkable OVARIES: Not visualized. FLUID: No free fluid. OTHER: No adnexal masses are identified. IMPRESSION: Partially calcified uterine leiomyomas in the anterior and posterior myometrium obscure the endometrium. Nonvisualization of both ovaries. Report Dictated on Electronically Signed By: Yovanny Ribeiro MD Electronically Signed Date/Time: 06/16/2023 4:19 PM EDT [facility] Radiology Study observation (narrative) [facility] US Pelvis transvaginalOrdere d By: Yovanny Ribeiro on 06-16-2023 [facility] Work Phone: Urinalysis complete panel (U )on 06-16-2023 Bilirubin Ql (U) Negative Negative mg/dL [facility] [facility] Clarity (U) Clear Clear [facility] [facility] Color (U) Colorless Lt. Yellow [facility] [facility] Glucose Ql (U) Normal Normal (<70) mg/dL [facility] Hemoglobin Ql (U) Negative Negative mg/dL [facility] Interpretation and review of laboratory results Normal [facility] Ketones (U) [Mass/Vol] Negative Negat jef mg/dL [facility] Leukocyte esterase Test strip Ql (U) Negative Negative [facility]/uL [facility] Nitrite Ql (U) Negative Negative [facility] th pH (U) 7.0 [pH] 5.0 - 8.0 pH [facility] Protein (U) [Mass/Vol] Negative Negat jef mg/dL [facility] Specific gravity (U) [Rel density] 1.007 1.005 - 1.030 [facility] Urobilinogen (U) [Mass/Vol] Normal Normal (0-1) mg/dL [facility] ECG 12 lead - CLINIC PERFORM EDon 09-24-2022 Sinus Rhythm -Left atrial enlargement. [facility] MG Breast Tomosynthesis Scr Blon 12-28-2021 MG Breast Tomosynthesis Scr Bl Patient Name: CASSIE MORGAN Mammography ACCESSION EXAM DATE/TIME PROCEDURE ORDERING PROVIDER [id number] 12/28/2021 12:50 EDT MG Breast Tomosynthesis DO SHORE PAUL E. BI Scr CPT code 03174 37620 Reason For Exam (MG Breast Tomosynthesis BI Scr) routine Report TIME SINCE LAST MAMMOGRAM: Last mammogram was performed 1 year and 8 months ago. REASON FOR EXAM: screening, asymptomatic. PROCEDURE: MG BREAST TOMOSYNTHESIS BL SCR: DECEMBER 28, 2021 - 2D/3D Procedure 3D Bilateral CC and MLO view(s) were taken. 2D Bilateral CC and MLO view(s) were taken. Prior study comparison: May 04, 2020, bilateral MG breast tomosynthesis bl scr performed at [facility]. September 02, 2018, bilateral MG breast tomosynthesis bl performed at [facility] at [facility]. September 02, 2018, left breast US breast limited left performed at [facility] at [facility]. TISSUE DENSITY: BIRADS B - There are scattered fibroglandular densities. . RISK ALERT: The Cancer Risk Assessment scores below the recommendation of this report contain an outcome above the normal risk range. PATIENT CANCER HISTORY: No Personal History of Cancer FAMILY CANCER HISTORY: Father Liver Cancer age 80, Pancreatic Cancer age 80 Paternal Uncle Lung Cancer age 50 FINDINGS: No suspicious masses, architectural distortions or suspiciously clustered microcalcifications are identified. There is no evidence of skin thickening or nipple retraction. There are no significant changes when compared with prior studies. No mammographic evidence of malignancy. Markings on images: BB's = Nipples; skin lesions Open hopi = Palpable Line = Scar Mammography Report 2D digital mammography and tomosynthesis imaging were performed and reviewed with CAD. ASSESSMENT: Category 1 Negative RECOMMENDATION: Routine screening mammogram of both breasts in 1 year. . Report Dictated on Cancer Risk Assessment: This risk assessment is based on patient provided information collected in a risk survey taken at the time of this examination. Lifetime breast cancer risk: Average Risk - If greater than or equal to 20%, consider annual mammogram and annual screening Breast MRI or follow up in high risk clinic. A score of Average Risk indicates a score of less than 20%. Is the patient at elevated risk based on the HBOC criteria? Yes (Hereditary Breast and Ovarian Cancer) - If yes, consider genetic counseling and testing with high risk follow up. Is the patient at elevated risk based on the Jackson Syndrome criteria? No - If yes, consider genetic counseling and testing with high risk follow up. Final Signed Date and Time: 12/30/2021 8:12 am Signed by: MD KAYE ANN C. Normal [facility] CULTURE URINEon 06-20-2021 CULTURE URINE CULTURE URINE --> Status: F Normal urogenital oliver present. Normal [facility] Comment on above: Performed By: #### C /UR #### [facility] [address] [place] [id number] CR Chest Portableon 06-18-20 21 CR Chest Portable Patient Name: CASSIE MORGAN Diagnostic Radiology ACCESSION EXAM DATE/TIME PROCEDURE ORDERING PROVIDER [id number] 06/18/2021 13:18 EDT CR Chest Portable [id number] AB [facility] CPT code 28509 Reason For Exam (CR Chest Portable) chest pain shortness of breath Report Portable chest 06/18/2021: Clinical Information: Chest pain, shortness of breath. Findings: A single AP portable view of the chest was obtained at 1315 hours. Comparison was made to the prior study 01/13/2018. The trachea is midline. The heart is not enlarged. No focal areas of consolidation or volume loss are seen. There are no pleural effusions. The pulmonary vasculature does not appear congested. The visualized bony structures are intact. Impression: No acute process. Report Dictated on Final Dictating Physician: MD MILLER RISA Signed Date and Time: 06/18/2021 1:43 pm Signed by: MD MILLER RISA Transcribed Date and Time: 06/18/2021 1:44 Normal [facility] Comp Metabolic Panelon 06-18 Calcium [Mass/Vol] 9.8 mg/dL Normal 8.4-10.4 [facility] Comment on above: Performed By: #### SHANI ORLANDODF, CMP3 #### [facility] [address] [place] [address] ALP [Catalytic activity/Vol] 70 U/L Normal 38-126 [facility] Comment on above: Performed By: #### SHANI ORLANDODF CMP3 #### [facility] [address] [place] [address] ALT [Catalytic activity/Vol] 14 U/L Normal 0-34 [facility] Comment on above: Result Comment: The ALT test is performed by an updated assay method. Please note that the reference intervals have been changed and are now sex specific. Performed By: #### Maximus MORRELL HEMDF, CMP3 #### [facility] [address] [place] [address] Anion gap [Moles/Vol] 12 mmol/L Normal 3-13 [facility] Comment on above: Performed By: #### Maximus MORRELL HEMDF, CMP3 #### [facility] [address] [place] [address] AST [Catalytic activity/Vol] 22 U/L Normal 15-46 [facility] Comment on above: Performed By: #### Maximus MORRELL HEMDF, CMP3 #### [facility] [address] [place] [address] Bilirubin [Mass/Vol] 0.7 mg/dL Normal 0.2-1.3 [facility] Comment on above: Performed By: #### SAUD ORLANDO, CMP3 #### [facility] [address] [place] [address] CO2 [Moles/Vol] 18 mmol/L Low 22-30 [facility] Comment on above: Performed By: #### SHANI ORLANDODF, CMP3 #### [facility] [address] [place] [address] Creatinine [Mass/Vol] 0.71 mg/dL Normal 0.52-1.25 [facility] Comment on above: Performed By: #### SHANI ORLANDODF, CMP3 #### [facility] [address] [place] [address] GFR/1.73 sq M.predicted among blacks MDRD (S/P/Bld) [Vol rate/Area] mL/min/{1.73_m2} Normal >60 [facility] Comment on above: Performed By: #### Maximus MORRELL HEMDF, CMP3 #### [facility] [address] [place] [address] GFR/1.73 sq M.predicted among non-blacks MDRD (S/P/Bld) [Vol rate/Area] 83.2 mL/min/{1.73_m2} Normal >60 [facility] Comment on above: Result Comment: KDIG O guidelines provide the following GFR categories: Stage GFR(ml/min/1.73 m2) Terms G1 >=90 Normal or high G2 60-89 Mildly decreased* G3a 45-59 Mildly to moderately decreased G3b 30-44 Moderately to severely decreased G4 15-29 Severely decreased G5 <15 Kidney failure *Relative to young adult level. In the absence of evidence of kidney damage, neither GFR category G1 nor G2 fulfill the criteria for CKD. The CKD-EPI equation is validated in individuals 18 years of age and older. Currently the best equation for estimating glomerular filtration rate (GFR) from serum creatinine in children is the Bedside Madrigal equation. It is less accurate in patients with extremes of muscle mass, restriction of dietary protein, ingestion of creatine, extra-renal metabolism of creatinine, or treatment with medications that affect renal tubular creatinine secretion. Performed By: #### T PORSCHE HEMDF, CMP3 #### [facility] [address] [place] [address] Glucose [Mass/Vol] 174 mg/dL High 70-100 [facility] Comment on above: Performed By: #### T PORSCHE, HEMDF, CMP3 #### [facility] [address] [place] [address] Protein [Mass/Vol] 7.6 g/dL Normal 6.3-8.2 [facility] Comment on above: Performed By: #### T PORSCHE, HEMDF, CMP3 #### [facility] [address] [place] [address] Urea nitrogen [Mass/Vol] 18 mg/dL Normal 9-20 [facility] Comment on above: Performed By: #### T PORSCHE, HEMDF, CMP3 #### [facility] [address] [place] [address] Potassium [Moles/Vol] 3.8 mmol/L Normal 3.5-5.1 [facility] Comment on above: Performed By: #### T PORSCHE HEMDF, CMP3 #### [facility] [address] [place] [address] Albumin [Mass/Vol] 4.7 g/dL Normal 3.5-5.0 [facility] Comment on above: Performed By: #### T PORSCHE, HEMDF, CMP3 #### [facility] [address] [place] [address] Chloride [Moles/Vol] 111 mmol/L High 98-107 [facility] Comment on above: Performed By: #### T PORSCHE, HEMDF, CMP3 #### [facility] [address] [place] [address] Sodium [Moles/Vol] 142 mmol/L Normal 135-145 [facility] Comment on above: Performed By: #### T PORSCHE, HEMDF, CMP3 #### [facility] [address] [place] [address] Complete Urinalysison 2020 Appearance (U) Clear Normal Clear [facility] Comment on above: Result Comment: . Performed By: #### C UA2 #### [facility] [address] [place] [address] Bilirubin,Urine Negative Normal Negative [facility] Comment on above: Result Comment: . Performed By: #### C UA2 #### [facility] [address] [place] [address] Color (U) Light-Yellow Normal Lt. Yellow [facility] Comment on above: Result Comment: . Performed By: #### C UA2 #### [facility] [address] [place] [address] Glucose Ql (U) Normal Normal Normal (<70) [facility] Comment on above: Result Comment: . Performed By: #### C UA2 #### [facility] [address] [place] [address] Ketone,Urine 20 mg/dL Abnormal Negative [facility] Comment on above: Result Comment: . Performed By: #### C UA2 #### [facility] [address] [place] [address] Leukocytes,Urine Negative Normal Negative [facility] Comment on above: Result Comment: . Performed By: #### C UA2 #### [facility] [address] [place] [address] Nitrites,Urine Negative Normal Negative [facility] Comment on above: Result Comment: . Performed By: #### C UA2 #### [facility] [address] [place] [address] Occult Blood,Urine Negative Normal Negative [facility] Comment on above: Result Comment: . Performed By: #### C UA2 #### [facility] [address] [place] [address] pH,Urine 7.0 Normal 5.0-8.0 [facility] Comment on above: Result Comment: . Performed By: #### C UA2 #### [facility] [address] [place] [address] Specific [place],Urine 1.006 Normal 1.005 - 1.030 [facility] Comment on above: Result Comment: . Performed By: #### C UA2 #### [facility] [address] [place] [address] Total Protein,Urine Negative Normal Negative [facility] Comment on above: Result Comment: . Performed By: #### C UA2 #### [facility] [address] [place] [address] Urobilinogen,Urine Normal Normal Normal (0-1) [facility] Comment on above: Result Comment: . Performed By: #### C UA2 #### [facility] [address] [place] [address] Comprehensive Metabolic Pane lOrdered By: Ab Reza on 06-18-2021 Albumin [Mass/Vol] 4.7 g/dL 3.5 - 5.0 g/dL [facility] Work Phone: [phone] ALP (Bld) [Catalytic activity/Vol] 70 U/L 38 - 126 U/L [facility] Work Phone: [phone] ALT [Catalytic activity/Vol] 14 U/L 0 - 34 U/L [facility] Work Phone: [phone] Comment on above: The ALT test is perf ormed by an updated assay method. Please note that the reference intervals have been changed and are now sex specific. Anion gap [Moles/Vol] 12 mmol/L 3 - 13 mmol/L [facility] Work Phone: [phone] [Catalytic activity/Vol] 22 U/L 15 - 46 U/L [facility] Work Phone: [phone] Bilirubin [Mass/Vol] 0.7 mg/dL 0.2 - 1 .3 mg/dL [facility] Work Phone: [phone] Calcium [Mass/Vol] 9.8 mg/dL 8.4 - 10. 4 mg/dL [facility] Work Phone: [phone] Chloride [Moles/Vol] 111 mmol/L High 98 - 10 7 mmol/L [facility] Work Phone: [phone] CO2 [Moles/Vol] 18 mmol/L Low 22 - 30 mmol/L [facility] [facility] Work Phone: [phone] Creatinine [Mass/Vol] 0.71 mg/dL 0.52 - 1.25 mg/dL [facility] Work Phone: [phone] EGFR IF NonAfrican Maltese 83.2 mL/min >60 [facility] Work Phone: Comment on above: KDIGO guidelines pro vide the following GFR categories: Stage GFR(ml/min/1.73 m2) Terms G1 >=90 Normal or high G2 60-89 Mildly decreased* G3a 45-59 Mildly to moderately decreased G3b 30-44 Moderately to severely decreased G4 15-29 Severely decreased G5 <15 Kidney failure *Relative to young adult level. In the absence of evidence of kidney damage, neither GFR category G1 nor G2 fulfill the criteria for CKD. The CKD-EPI equation is validated in individuals 18 years of age and older. Currently the best equation for estimating glomerular filtration rate (GFR) from serum creatinine in children is the Bedside Madrigal equation. It is less accurate in patients with extremes of muscle mass, restriction of dietary protein, ingestion of creatine, extra-renal metabolism of creatinine, or treatment with medications that affect renal tubular creatinine secretion. Free PSA/Total PSA [Mass fraction] 7.6 g/dL 6.3 - 8.2 g/dL [facility] Work Phone: GFR/1.73 sq M.predicted among blacks MDRD (S/P/Bld) [Vol rate/Area] mL/min/{1.73_m2} >60 mL/min [facility] Work Phone: Glucose [Mass/Vol] 174 mg/dL High 70 - 100 mg/dL [facility] Work Phone: Potassium [Moles/Vol] 3.8 mmol/L 3.5 - 5.1 mmol/L [facility] Work Phone: Sodium [Moles/Vol] 142 mmol/L 135 - 145 mmol/L [facility] Work Phone: Urea nitrogen (BldV) [Mass/Vol] 18 mg/dL 9 - 20 mg/dL [facility] Work Phone: ED Provider Noteon ED Provider Note Emergency Department Encounter [facility] Patient: Cassie Morgan : 1945 Date of Evaluation: 06/18/2021 ED Supervising Physician: Libertad López DO I independently examined and evaluated Cassie Morgan. In brief, ED Course as of Jun 18 150 Tue Jun 18, 2021 1318 Patient is a 76-year-old who presents emergency department today for anxiety attack. [BM] 1342 She does have history of paroxysmal atrial fibrillation noticed that her heart rate was faster today than normal and was having palpitations. Reports bilateral foot numbness as well and does have history of neuropathy but she states that this made her more anxious. Denies any chest pain or any other recent illness. On exam patient slightly anxious appearing, initially patient's heart rate is irregularly irregular and tachycardic at 134 but repeat is irregularly irregular now heart rate is 64. Will give 1 mg Ativan for anxiety and perform cardiac evaluation. [BM] 1357 Repeat EKG performed at 1349 showing atrial fibrillation, heart rate 114, no ST or T wave changes appreciated. [BM] 1401 CBC is unremarkable. [BM] 1402 Chest x-ray showed no acute process. [BM] 1421 CMP is unremarkable. [BM] 1429 Troponin is within normal limits. [BM] 1459 Urinalysis showing no evidence of infection. [BM] ED Course User Index [BM] Libertad López DO On reevaluation patient is feeling significantly improved. Will discharge home with close outpatient follow-up with her primary care provider as well as guest services lead in the next 1 to 2 days. Told to return to the ED for any new or concerning symptoms. All diagnostic, treatment, and disposition decisions were made by myself in conjunction with the Resident. I also supervised monique portions of any procedures performed by the Resident. For all further details of the patient's emergency department visit, please see their documentation. (Please note that portions of this note may have been completed with a voice recognition program. Efforts were made to edit the dictations but occasionally words are mis-transcribed.) Libertad López DO [employer] Libertad López DO 06/18/21 1508 [facility] ED [facility] EMERGENCY DEPARTMENT ENCOUNTER Pt Name: Cassie Morgan Birthdate 1945 Date of evaluation: 06/18/2021 Provider: Ab Reza MD CHIEF COMPLAINT Chief Complaint Patient presents with ? Anxiety HISTORY OF PRESENT ILLNESS (Location/Symptom, Timing/Onset, Context/Setting, Quality, Duration, Modifying Factors, Severity) Note limiting factors. I wore a N95 mask for the entirety of this encounter. Does this patient come from an ECF, SNF, Rehab, Retirement or other Congregate setting: No (If yes to above patient needs a Covid-19 test) DEBORA Morgan is a 76 y.o. female who presents to the emergency department chest pain, shortness of breath onset this morning the patient attributes to an anxiety attack. Patient reports the symptoms are common with her anxiety attacks. She states that this trigger today was exacerbated by sudden paresthesias in her left foot. She denies any recent trauma, slurred speech, weakness in her extremities or difficulty walking. Patient does have history of atrial fibrillation which she takes Toprol-XL and Xarelto for anticoagulation. She denies any recent travel or sick contacts, she is vaccinated for COVID-19, she denies any unilateral swelling. Patient also reports that sometimes benzodiazepines assist for anxiety. Denies any suicidal homicidal ideations. Nursing Notes were reviewed. REVIEW OF SYSTEMS (2+ for level 4; 10+ for level 5) Review of Systems Constitutional: Negative for chills and fever. HENT: Negative for sore throat. Eyes: Negative for visual disturbance. Respiratory: Positive for shortness of breath. Negative for cough. Cardiovascular: Positive for chest pain and palpitations. Negative for leg swelling. Gastrointestinal: Negative for abdominal pain, diarrhea, nausea and vomiting. Genitourinary: Negative for dysuria and hematuria. Musculoskeletal: Negative for myalgias. Skin: Negative for rash and wound. Neurological: Negative for dizziness, weakness, light-headedness and headaches. Psychiatric/Behavioral: Negative for self-injury and suicidal ideas. The patient is nervous/anxious. PAST MEDICAL HISTORY Past Medical History: Diagnosis Date ? Dependent edema ? Diverticulosis 2019 Diverticulitis ? Eye exam normal 08/23/2020 no retinopathy ? H/O colonoscopy 2013 Dr Ramesh- due for 2023 ? PAF (paroxysmal atrial fibrillation) ([facility]) 2017 Dr. Newby- OAC, nml EF ? Recurrent UTI ? Type II or unspecified type diabetes mellitus without mention of complication, not stated as uncontrolled 2013 SURGICAL HISTORY Past Surgical History: Procedure Laterality Date ? BREAST CYST EXCISION Left 10/2012 ? CATARACT REMOVAL Left 10/2018 ? COLONOSCOPY 09/2013 ? CYSTOSCOPY 10/2009 CURRENT MEDICATIONS Discharge Medication List as of 06/18/2021 3:03 PM CONTINUE these medications which have NOT CHANGED Details metFORMIN (GLUCOPHAGE) 500 MG tablet Take 1 tablet by mouth 2 times daily (with meals), Disp-180 tablet, R-0Normal metoprolol succinate (TOPROL XL) 25 MG extended release tablet Take 1 tablet by mouth daily, Disp-90 tablet, R-3Normal rivaroxaban (XARELTO) 20 MG TABS tablet Take 1 tablet by mouth daily (with breakfast), Disp-90 tablet,R-3Normal Diabetic Shoe MISC Starting Thu03/16/2020, Disp-1 each,R-0, Print blood glucose test strips (EXACTECH TEST) strip 1 each by In Vitro route daily As needed., Disp-100 each, R-3Normal fluticasone (FLONASE) 50 MCG/ACT nasal spray 1 spray by Nasal route 2 times daily, Disp-3 Bottle, R-1Normal blood glucose monitor kit and supplies Test 2 times a day & as needed for symptoms of irregular blood glucose., Disp-1 kit, R-0, Normal Turmeric 500 MG TABS Take 1 tablet by mouth dailyHistorical Med Cranberry 450 MG TABS Take 1 tablet by mouth dailyHistorical Med vitamin C (ASCORBIC ACID) 500 MG tablet Take 500 mg by mouth dailyHistorical Med LANCETS ULTRA FINE MISC DAILY Starting [facility] 10/08/2017, Disp-100 each, R-3, NormalDX E11.9 vitamin D (CHOLECALCIFEROL) 1000 UNIT TABS tablet Take 1,000 Units by mouth daily ALLERGIES Ceclor [cefaclor] and Codeine FAMILY HISTORY Family History Problem Relation Age of Onset ? Other Mother natural causes ? Cancer Father age 79, pancreatic CA ? Diabetes Sister ? Diabetes Brother SOCIAL HISTORY Social History Socioeconomic History ? Marital status: Spouse name: None ? Number of children: None ? Years of education: None ? Highest education level: None Occupational History ? None Tobacco Use ? Smoking status: Never Smoker ? Smokeless tobacco: Never Used Vaping Use ? Vaping Use: Never used Substance and Sexual Activity ? Alcohol use: No Alcohol/week: 0.0 standard drinks ? Drug use: No Comment: Caffeine use:2 to 3 cups of coffee per day ? Sexual activity: Yes Partners: Male Other Topics Concern ? None Social History Narrative to Peter, (more content not included)... Normal [facility] Hemogram (CBC) w/Auto DiffOr dered By: Ab Reza on 06-18-2021 Absolute Baso # 0.0 10*3/uL 0.0 - 0.2 10*3/uL [facility] Work [facility]: Absolute Neut # 3.0 10*3/uL 1.8 - 7.0 10*3/uL [facility] Work Phone: Hemoglobin.gastrointest inal spec 1 Ql (Stl) 14.1 g/dL 11.7 - 16.0 g/dL [facility] Work Phone: [phone] MCHC (RBC) [Mass/Vol] 33.2 % 32.0 - 36.0 % [facility] Work Phone: [phone] Platelet distribution width (Bld) [Ratio] 13.5 % 11.5 - 14.5 % [facility] Work Phone: [phone] Hemogram w/ Autodiffon 06-18 Abs Baso Cnt 0.0 10*3/uL Normal 0.0-0.2 [facility] Comment on above: Performed By: #### SAUD ORLANDO, CMP3 #### [facility] [address] [place] [address] Abs Neutrophile Cnt 3.0 10*3/uL Normal 1.8-7.0 [facility] Comment on above: Performed By: #### SHANI ORLANDODF, CMP3 #### [facility] [address] [place] [address] Erythrocyte distribution width (RBC) [Ratio] 13.5 % Normal 11.5-14.5 [facility] Comment on above: Performed By: #### SHANI ORLANDODF, CMP3 #### [facility] [address] [place] [address] Hemoglobin (Bld) [Mass/Vol] 14.1 g/dL Normal 11.7-16.0 [facility] Comment on above: Performed By: #### Maximus MORRELL HEMDF, CMP3 #### [facility] [address] [place] [address] MCHC 33.2 % Normal 32.0-36.0 [facility] Comment on above: Performed By: #### Maximus MORRELL HEMDF, CMP3 #### [facility] [address] [place] [address] Hemogram w/ AutodiffOrdered By: Ab Reza on 06-18-2021 Basophils/100 WBC (Bld) 0.7 % Normal 0.0-2.0 [facility] Work Phone: [phone] Comment on above: Performed By: #### Maximus MORRELL HEMDF, CMP3 #### [facility] [address] [place] [address] Eosinophils (Bld) [#/Vol] 0.1 10*3/uL Normal 0.0-0.5 [facility] Work Phone: [phone] Comment on above: Performed By: #### Maximus MORRELL HEMDF, CMP3 #### [place] [address] [place] [address] Eosinophils/100 WBC (Bld) 1.2 % Normal 1.0-6.0 [facility] Work Phone: [phone] Comment on above: Performed By: #### Maximus MORRELL HEMDF, CMP3 #### [facility] [address] [place] [address] Granulocytes/100 WBC (Bld) 48.2 % Normal 40.0-80.0 [facility] Work Phone: [phone] Comment on above: Performed By: #### Maximus MORRELL HEMDF, CMP3 #### [facility] [address] [place] [address] Hematocrit (Bld) [Volume fraction] 42.5 % Normal 35.0-47.0 [facility] Work Phone: [phone] Comment on above: Performed By: #### T PORSCHE HEMDF, CMP3 #### [place] [address] [place] [address] Lymphocytes (Bld) [#/Vol] 2.4 10*3/uL Normal 1.0-4.3 [facility] Work Phone: [phone] Comment on above: Performed By: #### T PORSCHE, HEMDF, CMP3 #### [employer] [facility] [address] [place] [address] Lymphocytes/100 WBC (Bld) 38.6 % Normal 20.0-40.0 [facility] Work Phone: [phone] Comment on above: Performed By: #### T PORSCHE, HEMDF, CMP3 #### [facility] [employer] [facility] [address] [place] [address] MCH (RBC) [Entitic mass] 30.3 pg Normal 26.0-34.0 [facility] Work Phone: Comment on above: Performed By: #### T PORSCHE, HEMDF, CMP3 #### [facility] [employer] [place] [address] [place] [address] MCV (RBC) [Entitic vol] 91.2 fL Normal 79.0-98.0 [facility] Work Phone: Comment on above: Performed By: #### T PORSCHE, HEMDF, CMP3 #### [employer] [place] [address] [place] [address] Monocytes (Bld) [#/Vol] 0.7 10*3/uL Normal 0.0-0.8 [facility] Work Phone: 1 Comment on above: Performed By: #### T ROPBg, HEMDF, CMP3 #### [employer] [place] [address] [place] [address] Monocytes/100 WBC (Bld) 11.3 % High 2.0-10.0 [facility] Work Phone: Comment on above: Performed By: #### T ROPBg, HEMDF, CMP3 #### [employer] [place] [address] [place] [address] Platelet mean volume (Bld) [Entitic vol] 9.2 fL Normal 7.4-10.4 [facility] Work Phone: [phone] Comment on above: Performed By: #### T ROPN, HEMDF, CMP3 #### [employer] [place] [address] [place] [address] Platelets (Bld) [#/Vol] 253 10*3/uL Normal 140-440 [facility] Work Phone: 1 Comment on above: Performed By: #### Maximus MORRELL HEMDF, CMP3 #### [employer] [address] [place] [address] RBC (Bld) [#/Vol] 4.66 10*6/uL Normal 3.80-5.20 [facility] Work Phone: 1 Comment on above: Performed By: #### Maximus MORRELL, HEMDF, CMP3 #### [employer] [address] [place] [address] WBC (Bld) [#/Vol] 6.2 10*3/uL Normal 3.6-10.7 [facility] Work Phone: 1 Comment on above: Performed By: #### Maximus MORRELL HEMDF, CMP3 #### [facility] [address] [place] [address] No Panel InformationOrdered By: Ab Reza on 06-18-2021 Interpretation and review of laboratory results Abnormal [facility] Work Phone: 1 Test Performed by [facility], [address] [place] [address] [facility] Work Phone: [facility] Work Phone: Troponin Ion 06-18-2021 Troponin I.cardiac [Mass/Vol] ng/mL Normal 0.000-0.034 [facility] [employer] Comment on above: Result Comment: . Performed By: #### Maximus MORRELL, HEMDF, CMP3 #### [facility] [address] [place] [address] Troponin j2Ocygeqz By: Daniel Reza on 06-18-2021 Troponin I.cardiac [Mass/Vol] ng/mL 0.000 - 0.034 ng/mL [facility] Work Phone: Comment on above: . Test Performed by [facility] [employer] [facility], [address] [place] [address] [facility] Work Phone: [phone] [facility] Work Phone: [phone] UrinalysisOrdered By: Ab Reza on 06-18-2021 Appearance (U) Clear Clear NA [facility] Work Phone: [phone] Comment on above: . Bilirubin Urine Negative Negative mg/dL [facility] Work Phone: [phone] Comment on above: . Color (U) Light-Yellow Lt. Yellow NA [facility] Work Phone: [phone] Comment on above: . Glucose, Ur Normal Normal (<70) mg/dL [facility] Work Phone: [phone] Comment on above: . Interpretation and review of laboratory results Abnormal [facility] Work Phone: [phone] Ketones Ql (U) 20 mg/dL Abnormal Negative [facility] Work Phone: 1 Comment on above: . LEUKOCYTES, UA Negative Negative Emerita/uL [facility] Work Phone: [phone] Comment on above: . Nitrite, Urine Negative Negative NA [facility] Work Phone: 1 Comment on above: . Occult Blood,Urine Negative Negative mg/dL [facility] Work Phone: 1 Comment on above: . pH (U) 7.0 [pH] [facility] Work Phone: 1 Comment on above: . Specific [place], Urine 1.006 [facility] Work Phone: [phone] Comment on above: . Total Protein, Urine Negative Negativ e mg/dL [facility] Work Phone: [phone] Comment on above: . Urobilinogen, Urine Normal Normal ( 0-1) mg/dL [facility] Work Phone: [phone] Comment on above: . Test Performed by [facility], [address] [place], [place] [address] [facility] Work Phone: [phone] [facility] Work Phone: [phone] XR CHEST PORTABLEOrdered By: Ab Reza on 06-18-2021 Patient Name: CASSIE MORGAN Diagnostic Radiology ACCESSION EXAM DATE/TIME PROCEDURE ORDERING PROVIDER [id number] 06/18/2021 13:18 EDT CR Chest Portable [id number] AB MUHAMMAD CPT code 15717 Reason For Exam (CR Chest Portable) chest pain shortness of breath Report Portable chest 06/18/2021: Clinical Information: Chest pain, shortness of breath. Findings: A single AP portable view of the chest was obtained at 1315 hours. Comparison was made to the prior study 01/13/2018. The trachea is midline. The heart is not enlarged. No focal areas of consolidation or volume loss are seen. There are no pleural effusions. The pulmonary vasculature does not appear congested. The visualized bony structures are intact. Impression: No acute process. Report Dictated on --- Final --- Dictating Physician: MD MILLER RISA Signed Date and Time: 06/18/2021 1:43 pm Signed by: MD MILLER RISA Transcribed Date and Time: 06/18/2021 1:44 [facility] Work Phone: [facility] - 06/18/2021 1:45 PM EDT Patient Name: CASSIE MORGAN Diagnostic Radiology ACCESSION EXAM DATE/TIME PROCEDURE ORDERING PROVIDER [id number] 06/18/2021 13:18 EDT CR Chest Portable [id number] REZA CPT code 77241 Reason For Exam (CR Chest Portable) chest pain shortness of breath Report Portable chest 06/18/2021: Clinical Information: Chest pain, shortness of breath. Findings: A single AP portable view of the chest was obtained at 1315 hours. Comparison was made to the prior study 01/13/2018. The trachea is midline. The heart is not enlarged. No focal areas of consolidation or volume loss are seen. There are no pleural effusions. The pulmonary vasculature does not appear congested. The visualized bony structures are intact. Impression: No acute process. Report Dictated on --- Final --- Dictating Physician: MD MILLER RISA Signed Date and Time: 06/18/2021 1:43 pm Signed by: MD MILLER RISA Transcribed Date and Time: 06/18/2021 1:44 [facility] Work Phone: [facility] Work Phone: [facility] JUSTIN DIGITAL SCREEN SAAD Kapoor 05-04-2020 Patient Name: CASSIE MORGAN ---Mammography--- Exam Date/Time 05/04/2020 10:25:00 EDT Exam MG Breast Tomosynthesis BI Scr Ordering Physician DO SHORE PAUL E. Accession Number [id number] CPT4 Codes 85938 (MG Breast Tomosynthesis Scr Bl), 00650 (MG MAMMO 2D SCREENING) Reason For Exam screening Report TIME SINCE LAST MAMMOGRAM: Last mammogram was performed 1 year and 8 months ago. REASON FOR EXAM: screening, asymptomatic. PROCEDURE: MG BREAST TOMOSYNTHESIS BL SCR: 2019 - 2D/3D Procedure 3D Bilateral CC and MLO view(s) were taken. 2D Bilateral CC and MLO view(s) were taken. Prior study comparison: September 02, 2018, bilateral MG breast tomosynthesis bl performed at [facility]. February 12, 2018, left breast MG breast tomosynthesis left performed at [facility]. May 25, 2017, bilateral MG breast tomosynthesis bl scr performed at [facility]. May 12, 2016, bilateral screening mammogram performed at [facility]. TISSUE DENSITY: BIRADS B - There are scattered fibroglandular densities. FINDINGS: No suspicious masses, architectural distortions or suspiciously clustered microcalcifications are identified. There is no evidence of skin thickening or nipple retraction. There are no significant changes when compared with prior studies. Markings on images: BB's = Nipples; skin lesions Open hopi = Palpable Line = Scar 2D digital mammography and tomosynthesis imaging were performed and reviewed with CAD. ASSESSMENT: Category 1 Negative RECOMMENDATION: Routine screening mammogram of both breasts in 1 year. Report Dictated on Cancer Risk Assessment: This risk assessment is based on patient provided information collected in a risk survey taken at the time of this examination. Lifetime breast cancer risk: 5.72% - If greater than or equal to 20%, consider annual mammogram and annual screening Breast MRI or follow up in high risk clinic. Is the patient at elevated risk based on the HBOC criteria? Yes (Hereditary Breast and Ovarian Cancer) - If yes, consider genetic counseling and testing with high risk follow up. HNPCC mutation risk (Jackson Syndrome): 1.4% - if greater than or equal to 5%, consider genetic counseling, testing and screening colonoscopy. --- Final --- Signed Date and Time: 05/04/2020 11:04 am Signed by: MD TONIE, SABRINA [facility] Incoming Radiology Results From [facility] - 05/04/2020 11:17 AM EDT Patient Name: CASSIE MORGAN ---Mammography--- Exam Date/Time 05/04/2020 10:25:00 EDT Exam MG Breast Tomosynthesis BI Scr Ordering Physician DO SHORE PAUL E. Accession Number [id number] CPT4 Codes 84757 (MG Breast Tomosynthesis Scr Bl), 55149 (MG MAMMO 2D SCREENING) Reason For Exam screening Report TIME SINCE LAST MAMMOGRAM: Last mammogram was performed 1 year and 8 months ago. REASON FOR EXAM: screening, asymptomatic. PROCEDURE: MG BREAST TOMOSYNTHESIS BL SCR: 2019 - 2D/3D Procedure 3D Bilateral CC and MLO view(s) were taken. 2D Bilateral CC and MLO view(s) were taken. Prior study comparison: September 02, 2018, bilateral MG breast tomosynthesis bl performed at [facility]. February 12, 2018, left breast MG breast tomosynthesis left performed at [facility]. May 25, 2017, bilateral MG breast tomosynthesis bl scr performed at [facility]. May 12, 2016, bilateral screening mammogram performed at [facility]. TISSUE DENSITY: BIRADS B - There are scattered fibroglandular densities. FINDINGS: No suspicious masses, architectural distortions or suspiciously clustered microcalcifications are identified. There is no evidence of skin thickening or nipple retraction. There are no significant changes when compared with prior studies. Markings on images: BB's = Nipples; skin lesions Open hopi = Palpable Line = Scar 2D digital mammography and tomosynthesis imaging were performed and reviewed with CAD. ASSESSMENT: Category 1 Negative RECOMMENDATION: Routine screening mammogram of both breasts in 1 year. Report Dictated on Cancer Risk Assessment: This risk assessment is based on patient provided information collected in a risk survey taken at the time of this examination. Lifetime breast cancer risk: 5.72% - If greater than or equal to 20%, consider annual mammogram and annual screening Breast MRI or follow up in high risk clinic. Is the patient at elevated risk based on the HBOC criteria? Yes (Hereditary Breast and Ovarian Cancer) - If yes, consider genetic counseling and testing with high risk follow up. HNPCC mutation risk (Jackson Syndrome): 1.4% - if greater than or equal to 5%, consider genetic counseling, testing and screening colonoscopy. --- Final --- Signed Date and Time: 05/04/2020 11:04 am Signed by: MD TONIE, [place], [place] MG Breast Tomosynthesis Diag nostic BIo 09-02-2018 MG Breast Tomosynthesis Diagnostic BI Patient Name: CASSIE MORGAN Mammography Exam Date/Time 09/02/2018 13:08:32 EST Exam MG Breast Tomosynthesis BI Ordering Physician DO SHORE PAUL E. Accession Number [id number] CPT4 Codes 52720 (MG Breast Tomosynthesis BI), 80505 (MG MAMMO 2D DIAG BILAT) Reason For Exam fibrocystic disease of the left breast N60.12 Report PATIENT HISTORY: Patient is postmenopausal. No known family history of cancer. Benign excisional biopsy of the left breast, 1999. Benign excisional biopsy of the right breast, 1961. Took hormonal contraceptives for 10 years. Patient has never smoked. Patient's BMI is 26.3. TIME SINCE LAST MAMMOGRAM: Last mammogram was performed 1 year and 3 months ago. REASON FOR EXAM: follow-up at short interval from prior study. PROCEDURE: MG BREAST TOMOSYNTHESIS BL: SEPTEMBER 02, 2018 - 2D/3D Procedure 3D Bilateral CC and MLO view(s) were taken. 2D Bilateral CC and MLO view(s) were taken. Prior study comparison: February 12, 2018, MG breast tomosynthesis left, performed at [facility]. May 25, 2017, bilateral MG breast tomosynthesis bl scr, performed at [facility]. May 12, 2016, bilateral screening mammogram, performed at [facility]. May 08, 2015, bilateral screening mammogram, performed at [facility]. TISSUE DENSITY: There are scattered fibroglandular densities. . FINDINGS: The patient is a 73-year-old who presents for short-term follow-up for findings in the right breast initially described on a mammogram dated 05/25/2017. Stable nodular densities are noted in both breasts. There is a Dilated nodule in the middle third of the inferior left breast laterally. A nodular density being followed in the middle third of the right breast is no longer identified mammographically. This was likely a cyst which has resolved. No suspicious tumor calcifications are identified. There is no skin thickening or nipple retraction. Follow-up ultrasound of the right breast fails to demonstrate a discrete solid or cystic mass at the 6:00 position where a hypoechoic mass was previously noted. Targeted ultrasound of the left breast is performed at the seven to 8:00 position. In this location there are three cysts the largest measuring 4 mm in greatest dimension. One is a lobulated and appears to correlate with the mammographic findings. The patient may resume routine screening in one year. Markings on images: BB's = Nipples; skin lesions Open hopi = Palpable Line = Scar US BREAST LIMITED LEFT: SEPTEMBER 02, 2018 - US BREAST LIMITED RIGHT: SEPTEMBER 02, 2018 - 2D digital mammography and tomosynthesis imaging were performed and reviewed with CAD. ASSESSMENT: Category 2 Benign (Overall) RECOMMENDATION: Routine screening mammogram of both breasts in 1 year. . Report Dictated on Final Signed Date and Time: 09/02/2018 2:26 pm Signed by: MD CHU LAUREN B [facility] US Breast Limited Lefton US Breast Limited Left Patient Name: CASSIE ERNANDEZ Ultrasound Exam Date/Time 09/02/2018 14:14:51 EST Exam US Breast Limited Left Ordering Physician DO SHORE PAUL E. Accession Number [id number] CPT4 Codes 76328 () Reason For Exam breast cyst Report PATIENT HISTORY: Patient is postmenopausal. No known family history of cancer. Benign excisional biopsy of the left breast, 1999. Benign excisional biopsy of the right breast, 1961. Took hormonal contraceptives for 10 years. Patient has never smoked. Patient's BMI is 26.3. TIME SINCE LAST MAMMOGRAM: Last mammogram was performed 1 year and 3 months ago. REASON FOR EXAM: follow-up at short interval from prior study. PROCEDURE: MG BREAST TOMOSYNTHESIS BL: SEPTEMBER 02, 2018 - 2D/3D Procedure 3D Bilateral CC and MLO view(s) were taken. 2D Bilateral CC and MLO view(s) were taken. Prior study comparison: February 12, 2018, MG breast tomosynthesis left, performed at [facility]. May 25, 2017, bilateral MG breast tomosynthesis bl scr, performed at [facility]. May 12, 2016, bilateral screening mammogram, performed at [facility]. May 08, 2015, bilateral screening mammogram, performed at [facility]. TISSUE DENSITY: There are scattered fibroglandular densities. . FINDINGS: The patient is a 73-year-old who presents for short-term follow-up for findings in the right breast initially described on a mammogram dated 05/25/2017. Stable nodular densities are noted in both breasts. There is a Dilated nodule in the middle third of the inferior left breast laterally. A nodular density being followed in the middle third of the right breast is no longer identified mammographically. This was likely a cyst which has resolved. No suspicious tumor calcifications are identified. There is no skin thickening or nipple retraction. Follow-up ultrasound of the right breast fails to demonstrate a discrete solid or cystic mass at the 6:00 position where a hypoechoic mass was previously noted. Targeted ultrasound of the left breast is performed at the seven to 8:00 position. In this location there are three cysts the largest measuring 4 mm in greatest dimension. One is a lobulated and appears to correlate with the mammographic findings. The patient may resume routine screening in one year. Markings on images: BB's = Nipples; skin lesions Open hopi = Palpable Line = Scar US BREAST LIMITED LEFT: SEPTEMBER 02, 2018 - US BREAST LIMITED RIGHT: SEPTEMBER 02, 2018 - 2D digital mammography and tomosynthesis imaging were performed and reviewed with CAD. ASSESSMENT: Category 2 Benign (Overall) RECOMMENDATION: Routine screening mammogram of both breasts in 1 year. . Report Dictated on Final Signed Date and Time: 09/02/2018 2:26 pm Signed by: MD CHU LAUREN B [facility] US Breast Limited Righton US Breast Limited Right Patient Name: CASSIE DEL CID Ultrasound Exam Date/Time 09/02/2018 13:45:00 EST Exam US Breast Limited Right Ordering Physician DO SHORE PAUL E. Accession Number [id number] CPT4 Codes 32720 () Reason For Exam breast cyst Report PATIENT HISTORY: Patient is postmenopausal. No known family history of cancer. Benign excisional biopsy of the left breast, 2000. Benign excisional biopsy of the right breast, 1962. Took hormonal contraceptives for 10 years. Patient has never smoked. Patient's BMI is 26.3. TIME SINCE LAST MAMMOGRAM: Last mammogram was performed 1 year and 3 months ago. REASON FOR EXAM: follow-up at short interval from prior study. PROCEDURE: MG BREAST TOMOSYNTHESIS BL: SEPTEMBER 02, 2018 - 2D/3D Procedure 3D Bilateral CC and MLO view(s) were taken. 2D Bilateral CC and MLO view(s) were taken. Prior study comparison: February 12, 2018, MG breast tomosynthesis left, performed at [facility]. May 25, 2017, bilateral MG breast tomosynthesis bl scr, performed at [facility]. May 12, 2016, bilateral screening mammogram, performed at [facility]. May 08, 2015, bilateral screening mammogram, performed at [facility]. TISSUE DENSITY: There are scattered fibroglandular densities. . FINDINGS: The patient is a 73-year-old who presents for short-term follow-up for findings in the right breast initially described on a mammogram dated 05/25/2017. Stable nodular densities are noted in both breasts. There is a Dilated nodule in the middle third of the inferior left breast laterally. A nodular density being followed in the middle third of the right breast is no longer identified mammographically. This was likely a cyst which has resolved. No suspicious tumor calcifications are identified. There is no skin thickening or nipple retraction. Follow-up ultrasound of the right breast fails to demonstrate a discrete solid or cystic mass at the 6:00 position where a hypoechoic mass was previously noted. Targeted ultrasound of the left breast is performed at the seven to 8:00 position. In this location there are three cysts the largest measuring 4 mm in greatest dimension. One is a lobulated and appears to correlate with the mammographic findings. The patient may resume routine screening in one year. Markings on images: BB's = Nipples; skin lesions Open hopi = Palpable Line = Scar US BREAST LIMITED LEFT: SEPTEMBER 02, 2018 - US BREAST LIMITED RIGHT: SEPTEMBER 02, 2018 - 2D digital mammography and tomosynthesis imaging were performed and reviewed with CAD. ASSESSMENT: Category 2 Benign (Overall) RECOMMENDATION: Routine screening mammogram of both breasts in 1 year. . Report Dictated on Final Signed Date and Time: 09/02/2018 2:26 pm Signed by: MD VLAD, VANIA [facility] 11-30-2002 CONVERTED ELECTRONIC SIGNATURE CALEB GONCALVES M.D., PATHOLOGIST (Electronic signature on file) Final Signed Out: 11/30/2002 16:26 [facility] CONVERTED FINAL DIAGNOSIS A. ENDOCERVIX, CURETTAGE - SCANT FRAGMENTS OF BENIGN ENDOCERVICAL GLANDULAR EPITHELIUM. B. ENDOMETRIUM, CURETTAGE - FEATURES SUGGESTIVE OF BENIGN ENDOMETRIAL POLYP. COMMENT - Specimen B consists of fragments of benign endometrium showing mild glandular dilatation and a fibrous stroma. While not completely specific, the features suggest a benign endometrial polyp. There is no evidence of hyperplasia or malignancy. [facility] CONVERTED ORDERING PROVIDER Ordering Provider: REYNALDO WOODRUFF [facility] Vital Signs Date Time Vital Sign Value Performing Clinician Facility 12-21-2024 13:29-0400 Body height 165.1 cm Joyce Alan PA-C Work Phone: [facility] [facility] 12-21-2024 13:29-0400 Body mass index (BMI) [Ratio] 27.32 kg/m2 Joyce Alan PA-C Work Phone: [facility] 12-21-2024 13:29-0400 Body weight 74.48 kg Joyce Alan PA-C Work Phone: [facility] 12-21-2024 13:29-0400 Diastolic blood pressure 70 mm[Hg] Joyce Alan PA-C Work Phone: [facility] 12-21-2024 13:29-0400 Heart rate 61 /min Joyce Alan PA-C Work Phone: [facility] 12-21-2024 13:29-0400 Respiratory rate 16 /min Joyce Alan PA-C Work Phone: [facility] 12-21-2024 13:29-0400 SaO2% (BldA) [Mass fraction] 99 % Joyce Alan PA-C Work Phone: [facility] 12-21-2024 13:29-0400 Systolic blood pressure 138 mm[Hg] Joyce Alan PA-C Work Phone: [facility] 10-05-2024 15:31-0500 Diastolic blood pressure 78 mm[Hg] Armando Franklin DO Work Phone: [facility] 10-05-2024 15:31-0500 Heart rate 68 /min Armando Franklin DO Work Phone: [facility] 10-05-2024 15:31-0500 Systolic blood pressure 136 mm[Hg] Armando Franklin DO Work Phone: [facility] 10-05-2024 14:57-0500 Body height 165.1 cm Armando Franklin DO Work Phone: [facility] 10-05-2024 14:57-0500 Body mass index (BMI) [Ratio] 27.46 kg/m2 Armando Franklin DO Work Phone: [facility] 10-05-2024 14:57-0500 Body temperature 97.81 [degF] Armando Franklin DO Work Phone: [facility] 10-05-2024 14:57-0500 Body weight 74.84 kg Armando Franklin DO Work Phone: [facility] 10-05-2024 14:57-0500 SaO2% (BldA) [Mass fraction] 98 % Armando Franklin DO Work Phone: [facility] 09-28-2024 11:02-0500 Body height 165.1 cm Joyce Alan PA-C Work Phone: [facility] 09-28-2024 11:02-0500 Body mass index (BMI) [Ratio] 26.96 kg/m2 Joyce Alan PA-C Work Phone: [facility] 09-28-2024 11:02-0500 Body weight 73.48 kg Joyce Alan PA-C Work Phone: [facility] 09-28-2024 11:02-0500 Diastolic blood pressure 80 mm[Hg] Joyce Alan PA-C Work Phone: [facility] 09-28-2024 11:02-0500 Heart rate 57 /min Joyce Alan PA-C Work Phone: [facility] 09-28-2024 11:02-0500 SaO2% (BldA) [Mass fraction] 100 % Joyce Alan PA-C Work Phone: [facility] 09-28-2024 11:02-0500 Systolic blood pressure 136 mm[Hg] Joyce Alan PA-C Work Phone: [facility] 08-23-2024 10:23-0500 Diastolic blood pressure 88 mm[Hg] Joyce Alan PA-C Work Phone: [facility] 08-23-2024 10:23-0500 Systolic blood pressure 150 mm[Hg] Joyce Alan PA-C Work Phone: [facility] 08-23-2024 10:01-0500 Body height 165.1 cm Joyce Alan PA-C Work Phone: [facility] 08-23-2024 10:01-0500 Body mass index (BMI) [Ratio] 27.66 kg/m2 Joyce Alan PA-C Work Phone: [facility] 08-23-2024 10:01-0500 Body weight 75.39 kg Joyce Alan PA-C Work Phone: [facility] 08-23-2024 10:01-0500 Heart rate 60 /min Joyce Alan PA-C Work Phone: [facility] 08-23-2024 10:01-0500 SaO2% (BldA) [Mass fraction] 99 % Joyce Alan PA-C Work Phone: [facility] 06-01-2024 10:36-0400 Body height 165.1 cm Reynaldo Roman MD Work Phone: [facility] 06-01-2024 10:36-0400 Body mass index (BMI) [Ratio] 26.59 kg/m2 Reynaldo Roman MD Work Phone: [facility] 06-01-2024 10:36-0400 Body weight 72.48 kg Reynaldo Roman MD Work Phone: [facility] 06-01-2024 10:36-0400 Diastolic blood pressure 80 mm[Hg] Reynaldo Roman MD Work Phone: [facility] 06-01-2024 10:36-0400 Heart rate 58 /min Reynaldo Roman MD Work Phone: [facility] 06-01-2024 10:36-0400 Respiratory rate 16 /min Reynaldo Roman MD Work Phone: [facility] 06-01-2024 10:36-0400 SaO2% (BldA) [Mass fraction] 98 % Reynaldo Roman MD Work Phone: [facility] 06-01-2024 10:36-0400 Systolic blood pressure 130 mm[Hg] Reynaldo Roman MD Work Phone: [facility] 05-11-2024 10:30-0400 Diastolic blood pressure 82 mm[Hg] Armando Franklin DO Work Phone: [facility] 05-11-2024 10:30-0400 Heart rate 72 /min Armando Franklin DO Work Phone: [facility] 05-11-2024 10:30-0400 Systolic blood pressure 144 mm[Hg] Armando Franklin DO Work Phone: [facility] 05-11-2024 09:49-0400 Body height 165.1 cm Armando Franklin DO Work Phone: [facility] 05-11-2024 09:49-0400 Body mass index (BMI) [Ratio] 26.49 kg/m2 Armando Franklin DO Work Phone: [facility] 05-11-2024 09:49-0400 Body temperature 97.11 [degF] Armando Franklin DO Work Phone: [facility] 05-11-2024 09:49-0400 Body weight 72.21 kg Armando Franklin DO Work Phone: [facility] 05-11-2024 09:49-0400 SaO2% (BldA) [Mass fraction] 98 % Armando Franklin DO Work Phone: [facility] 01-27-2024 13:14-0400 Body height 165.1 cm Parker Jenna PERFORMANCE MANAGER - HUMAN SERVICES SUPERVISOR Work Phone: [facility] 01-27-2024 13:14-0400 Body mass index (BMI) [Ratio] 26.56 kg/m2 Parker Jenna PERFORMANCE MANAGER - HUMAN SERVICES SUPERVISOR Work Phone: [facility] 01-27-2024 13:14-0400 Body weight 72.39 kg Parker Alemank PERFORMANCE MANAGER - HUMAN SERVICES SUPERVISOR Work Phone: [facility] 01-27-2024 13:14-0400 Diastolic blood pressure 68 mm[Hg] Parker West PERFORMANCE MANAGER - HUMAN SERVICES SUPERVISOR Work Phone: [facility] 01-27-2024 13:14-0400 Heart rate 65 /min Parker West PERFORMANCE MANAGER - HUMAN SERVICES SUPERVISOR Work Phone: [facility] 01-27-2024 13:14-0400 Respiratory rate 16 /min Parker West PERFORMANCE MANAGER - HUMAN SERVICES SUPERVISOR Work Phone: [facility] 01-27-2024 13:14-0400 SaO2% (BldA) [Mass fraction] 100 % Parker West PERFORMANCE MANAGER - HUMAN SERVICES SUPERVISOR Work Phone: [facility] 01-27-2024 13:14-0400 Systolic blood pressure 122 mm[Hg] Parker West PERFORMANCE MANAGER - HUMAN SERVICES SUPERVISOR Work Phone: [facility] 12-12-2023 07:42-0400 Body temperature 97.3 [degF] Srinivasa Enciso Jr., DO Work Phone: [facility] 12-12-2023 07:42-0400 Diastolic blood pressure 76 mm[Hg] Srinivasa Enciso Jr., DO Work Phone: [facility] 12-12-2023 07:42-0400 Heart rate 69 /min Srinivasa Enciso Jr., DO Work Phone: [facility] 12-12-2023 07:42-0400 Respiratory rate 18 /min Srinivasa Enciso Jr., DO Work Phone: [facility] 12-12-2023 07:42-0400 SaO2% (BldA) [Mass fraction] 98 % Srinivasa Enciso Jr., DO Work Phone: [facility] 12-12-2023 07:42-0400 Systolic blood pressure 134 mm[Hg] Srinivasa Enciso Jr., DO Work Phone: [facility] 12-09-2023 09:11-0400 Body height 165.1 cm Srinivasa Lojewski Jr., DO Work Phone: [facility] 12-09-2023 09:11-0400 Body mass index (BMI) [Ratio] 26.63 kg/m2 Srinivasa Enciso Jr., DO Work Phone: [facility] 12-09-2023 09:11-0400 Body weight 72.58 kg Srinivasa Enciso Jr., DO Work Phone: [facility] 12-01-2023 09:39-0400 Body height 167.6 cm Reynaldo Roman MD Work Phone: [facility] 12-01-2023 09:39-0400 Body mass index (BMI) [Ratio] 25.82 kg/m2 Reynaldo Roman MD Work Phone: [facility] 12-01-2023 09:39-0400 Body weight 72.58 kg Reynaldo Roman MD Work Phone: [facility] 12-01-2023 09:39-0400 Diastolic blood pressure 84 mm[Hg] Reynaldo Roman MD Work Phone: [facility] 12-01-2023 09:39-0400 Heart rate 56 /min Reynaldo Roman MD Work Phone: [facility] 12-01-2023 09:39-0400 Respiratory rate 15 /min Reynaldo Roman MD Work Phone: [facility] 12-01-2023 09:39-0400 Systolic blood pressure 138 mm[Hg] Reynaldo Roman MD Work Phone: [facility] 11-17-2023 15:41-0400 Body height 165.[address] Baldev Shore Work Phone: [facility] 11-17-2023 15:41-0400 Body mass index (BMI) [Ratio] 26.9 kg/m2 Dr. Baldev Shore Work Phone: [facility] 11-17-2023 15:41-0400 Body temperature 98.6 [degF] Dr. Baldev Shore Work Phone: [facility] 11-17-2023 15:41-0400 Body weight 73.[address] Baldev Shore Work Phone: [facility] 11-17-2023 15:41-0400 Diastolic blood pressure 88 mm[Hg] Dr. Baldev Shore Work Phone: [facility] 11-17-2023 15:41-0400 Heart rate 63 /min Dr. Baldev Shore Work Phone: [facility] 11-17-2023 15:41-0400 Respiratory rate 16 /min Dr. Baldev Shore Work Phone: [facility] 11-17-2023 15:41-0400 SaO2% (BldA) [Mass fraction] 98 % Dr. Baldev Shore Work Phone: [facility] 11-17-2023 15:41-0400 Systolic blood pressure 150 mm[Hg] Dr. Baldev Shore Work Phone: [facility] 09-03-2023 12:58-0500 Diastolic blood pressure 76 mm[Hg] Derrell Sims MD Work Phone: [facility] 09-03-2023 12:58-0500 Systolic blood pressure 148 mm[Hg] Derrell Sims MD Work Phone: [facility] 09-03-2023 12:57-0500 Body mass index (BMI) [Ratio] 26.79 kg/m2 Derrell Sims MD Work Phone: [facility] 09-03-2023 12:57-0500 Body weight 73.03 kg Derrell Sims MD Work Phone: [facility] 09-03-2023 12:57-0500 Heart rate 61 /min Derrell Sims MD Work Phone: [facility] 08-18-2023 17:00-0500 Diastolic blood pressure 78 mm[Hg] Derrell Sims MD Work Phone: [facility] 08-18-2023 17:00-0500 Heart rate 62 /min Derrell Sims MD Work Phone: [facility] 08-18-2023 17:00-0500 Respiratory rate 16 /min Derrell Sims MD Work Phone: [facility] 08-18-2023 17:00-0500 SaO2% (BldA) [Mass fraction] 100 % Derrell Sims MD Work Phone: [facility] 08-18-2023 17:00-0500 Systolic blood pressure 152 mm[Hg] Derrell Sims MD Work Phone: [facility] 08-18-2023 15:52-0500 Body temperature 97.5 [degF] Derrell Sims MD Work Phone: [facility] 08-18-2023 10:46-0500 Body mass index (BMI) [Ratio] 26.63 kg/m2 Derrell Sims MD Work Phone: [facility] 08-18-2023 10:46-0500 Body weight 72.58 kg Derrell Sims MD Work Phone: [facility] 08-03-2023 13:41-0500 Body height 165.1 cm Jose Durant MD Work Phone: [facility] 08-03-2023 13:41-0500 Body temperature 97.5 [degF] Jose Durant MD Work Phone: [facility] 08-03-2023 13:41-0500 Diastolic blood pressure 74 mm[Hg] Jose Durant MD Work Phone: [facility] 08-03-2023 13:41-0500 Heart rate 61 /min Jose Durant MD Work Phone: [facility] 08-03-2023 13:41-0500 Systolic blood pressure 137 mm[Hg] Jose Durant MD Work Phone: [facility] 07-28-2023 12:59-0500 Body mass index (BMI) [Ratio] 26.46 kg/m2 Derrell Sims MD Work Phone: [facility] 07-28-2023 12:59-0500 Body weight 72.12 kg Derrell Sims MD Work Phone: [facility] 07-28-2023 12:59-0500 Diastolic blood pressure 79 mm[Hg] Derrell Sims MD Work Phone: [facility] 07-28-2023 12:59-0500 Heart rate 71 /min Derrell Sims MD Work Phone: [facility] 07-28-2023 12:59-0500 Systolic blood pressure 144 mm[Hg] Derrell Sims MD Work Phone: [facility] 06-16-2023 14:33-0400 Diastolic blood pressure 74 mm[Hg] Haydee Roosevelt DO Work Phone: [facility] 06-16-2023 14:33-0400 Heart rate 54 /min Haydee Roosevelt DO Work Phone: [facility] 06-16-2023 14:33-0400 Respiratory rate 16 /min Haydee Roosevelt DO Work Phone: [facility] 06-16-2023 14:33-0400 SaO2% (BldA) [Mass fraction] 100 % Haydee Roosevelt DO Work Phone: [facility] 06-16-2023 14:33-0400 Systolic blood pressure 160 mm[Hg] Haydee Roosevelt DO Work Phone: [facility] 06-16-2023 11:09-0400 Body temperature 97.5 [degF] Haydee Roosevelt DO Work Phone: [facility] 05-07-2023 14:16-0400 Body height 165.1 cm Jona Garcia MD Work Phone: [facility] 05-07-2023 14:16-0400 Body mass index (BMI) [Ratio] 26.63 kg/m2 Jona Garcia MD Work Phone: [facility] 05-07-2023 14:16-0400 Body weight 72.58 kg Jona Garcia MD Work Phone: [facility] 05-07-2023 14:16-0400 Diastolic blood pressure 76 mm[Hg] Jona Garcia MD Work Phone: [facility] 05-07-2023 14:16-0400 Heart rate 66 /min Jona Garcia MD Work Phone: [facility] 05-07-2023 14:16-0400 SaO2% (BldA) [Mass fraction] 99 % Jona Garcia MD Work Phone: [facility] 05-07-2023 14:16-0400 Systolic blood pressure 125 mm[Hg] Jona Garcia MD Work Phone: [facility] 03-24-2023 12:53-0400 Diastolic blood pressure 86 mm[Hg] Clyde Grafo PA-C Work Phone: [facility] 03-24-2023 12:53-0400 Systolic blood pressure 136 mm[Hg] Clyde Sharma PA-C Work Phone: [facility] 03-24-2023 12:33-0400 Body height 165.1 cm Clyde Sharma PA-C Work Phone: [facility] 03-24-2023 12:33-0400 Body mass index (BMI) [Ratio] 25.96 kg/m2 Clyde Sharma PA-C Work Phone: [facility] 03-24-2023 12:33-0400 Body temperature 99.1 [degF] Clyde Grafo PA-C Work Phone: [facility] 03-24-2023 12:33-0400 Body weight 70.76 kg Clyde Sharma PA-C Work Phone: [facility] 03-24-2023 12:33-0400 Heart rate 62 /min Clyde Sharma PA-C Work Phone: [facility] 03-24-2023 12:33-0400 SaO2% (BldA) [Mass fraction] 97 % Clyde Sharma PA-C Work Phone: [facility] 02-10-2023 11:18-0400 Diastolic blood pressure 78 mm[Hg] Joyce Alan PA-C Work Phone: [facility] 02-10-2023 11:18-0400 Systolic blood pressure 144 mm[Hg] Joyce Alan PA-C Work Phone: [facility] [employer] 02-10-2023 11:15-0400 Body height 167.6 cm Joyce Alan PA-C Work Phone: [facility] [employer] 02-10-2023 11:15-0400 Body mass index (BMI) [Ratio] 25.82 kg/m2 Joyce Alan PA-C Work Phone: [facility] [employer] 02-10-2023 11:15-0400 Body weight 72.58 kg Joyce Alan PA-C Work Phone: [facility] [employer] 02-10-2023 11:15-0400 Heart rate 69 /min Joyce Alan PA-C Work Phone: [facility] [employer] 02-10-2023 11:15-0400 Respiratory rate 14 /min Joyce Aaln PA-C Work Phone: [facility] [employer] 10-08-2022 11:10-0500 Body height 167.6 cm Clyde Sharma PA-C Work Phone: [facility] [employer] 10-08-2022 11:10-0500 Body mass index (BMI) [Ratio] 25.82 kg/m2 Clyde Sharma PA-C Work Phone: [facility] [employer] 10-08-2022 11:10-0500 Body temperature 97.81 [degF] Clyde Sharma PA-C Work Phone: [facility] [employer] 10-08-2022 11:10-0500 Body weight 72.58 kg Clyde Grafo PA-C Work Phone: [facility] [employer] 10-08-2022 11:10-0500 Diastolic blood pressure 74 mm[Hg] Clyde Sharma PA-C Work Phone: [facility] [employer] 10-08-2022 11:10-0500 Heart rate 64 /min Clyde Grafo PA-C Work Phone: [facility] [employer] 10-08-2022 11:10-0500 SaO2% (BldA) [Mass fraction] 100 % Clyde Sharma PA-C Work Phone: [facility] [employer] 10-08-2022 11:10-0500 Systolic blood pressure 130 mm[Hg] Clyde Grafo PA-C Work Phone: [facility] [employer] 09-24-2022 14:39-0500 Body height 167.6 cm Tommy Woodard MD Work Phone: [facility] [employer] 09-24-2022 14:39-0500 Body mass index (BMI) [Ratio] 25.34 kg/m2 Tommy Woodard MD Work Phone: [facility] [employer] 09-24-2022 14:39-0500 Body weight 71.22 kg Tommy Woodard MD Work Phone: [facility] [employer] 09-24-2022 14:39-0500 Diastolic blood pressure 82 mm[Hg] Tommy Woodard MD Work Phone: [facility] [employer] 09-24-2022 14:39-0500 Heart rate 81 /min Tommy Woodard MD Work Phone: [facility] [employer] 09-24-2022 14:39-0500 Respiratory rate 14 /min Tommy Woodard MD Work Phone: [facility] [employer] 09-24-2022 14:39-0500 Systolic blood pressure 134 mm[Hg] Tommy Woodard MD Work Phone: [facility] [employer] 06-18-2021 15:20-0400 Diastolic blood pressure 88 mm[Hg] Libertad Maribel DO Work Phone: [facility] Work Phone: 06-18-2021 15:20-0400 Heart rate 87 /min Libertad Maribel DO Work Phone: [facility] Work Phone: 06-18-2021 15:20-0400 Respiratory rate 16 /min Libertad Maribel DO Work Phone: [facility] Work Phone: 06-18-2021 15:20-0400 SaO2% (BldA) [Mass fraction] 97 % Libertad Maribel DO Work Phone: [facility] Work Phone: 06-18-2021 15:20-0400 Systolic blood pressure 136 mm[Hg] Libertad Maribel DO Work Phone: [facility] Work Phone: 06-18-2021 14:15-0400 Body mass index (BMI) [Ratio] 25.92 kg/m2 Libertad Maribel DO Work Phone: [facility] Work Phone: 06-18-2021 14:15-0400 Body weight 76.2 kg Libertad Maribel DO Work Phone: [facility] Work Phone: 06-18-2021 13:01-0400 Body temperature 97.7 [degF] Libertad Maribel DO Work Phone: [facility] Work Phone: Encounters Encounter Date Encounter Type Care Provider Facility Start: 02-02-2025 ambulatory [facility] Facility: [facility] Start: 01-30-2025 Encounter for other preprocedural examination [facility] Start: 01-25-2025 End: 01-25-2025 ambulatory [facility] Facility:[facility] Start: 01-10-2025 End: 01-11-2025 Valentina Phillips PA-C Work Phone: [facility] Start: 12-21-2024 End: 12-21-2024 Office outpatient visit 25 minutes Joyce Phillips PA-C Work Phone: [facility] Comment on above: PAF (paroxysmal atri al fibrillation) (HCC) (Primary Dx); Essential (primary) hypertension Start: 12-21-2024 End: 12-21-2024 ambulatory [facility] Start: 12-08-2024 End: 12-08-2024 Refill Reynaldo Roman MD Work Phone: [facility] Start: 11-22-2024 End: 11-22-2024 Telephone encounter Parker West APRN - SUSAN Work Phone: [facility] Comment on above: Other (Elevated hear t rate on her event monitor.) Start: 11-17-2024 End: 11-17-2024 Refill Clyde Sh[facility]-C [facility] Comment on above: Pure hypercholestero lemia Start: 11-11-2024 End: 11-11-2024 Telephone encounter Parker West APRN - SUSAN Work Phone: [facility] Comment on above: Other (A-fib RVR on event monitor) Start: 10-27-2024 End: 10-28-2024 Telephone encounter Armando Franklin DO [facility] Phone[facility] Comment on above: Other Start: 10-26-2024 End: 10-26-2024 Subsequent hospital visit by physician Parker West APRN - SUSAN Work Phone: [facility] Non-Invasive Cardiology Comment on above: PAF (paroxysmal atri al fibrillation) (HCC) Start: 10-26-2024 End: 10-26-2024 ambulatory [facility] Start: 10-21-2024 End: 10-21-2024 Refill Armando Franklin DO Work Phone: [facility] Comment on above: Type 2 diabetes vilma itus without complication, without long- term current use of insulin (CMS/HCC) (HCC) Start: 10-14-2024 End: 10-14-2024 Telephone encounter Reynaldo Roman MD Work Phone: [facility] Start: 10-10-2024 End: 10-10-2024 Telephone encounter Reynaldo Roman MD Work Phone: [facility] Comment on above: Atrial Fibrillation Start: 10-05-2024 End: 10-05-2024 Office outpatient visit 25 minutes Armando Franklin DO Work Phone: [facility] Comment on above: Type 2 diabetes vilma itus with other specified complication, without long-term current use of insulin ([facility]) (Primary Dx); THIERRY (generalized anxiety disorder); Anticoagulant long-term use; Recurrent UTI; Essential (primary) hypertension; PAF (paroxysmal atrial fibrillation) ([facility]); Pure hypercholesterolemia; Onychomycosis Start: 10-05-2024 End: 10-05-2024 Subsequent hospital visit by physician Armando Franklin DO Work Phone: [facility] Comment on above: Encounter for screen ing mammogram for malignant neoplasm of breast Start: 10-05-2024 End: 10-05-2024 ambulatory [facility] Start: 09-28-2024 End: 09-28-2024 Office outpatient visit 25 minutes Joyce Phillips PA-C Work Phone: [facility] Comment on above: Essential (primary) hypertension (Primary Dx); PAF (paroxysmal atrial fibrillation) (HCC) Start: 09-28-2024 End: 09-28-2024 ambulatory [facility] Start: 09-19-2024 End: 12-19-2024 Telephone encounter Armando Franklin DO Work Phone: [facility] Comment on above: Orders Encounter for screen ing mammogram for malignant neoplasm of breast (Primary Dx) Start: 09-13-2024 End: 09-13-2024 Refill Armando Franklin DO Work Phone: [facility] Comment on above: Anxiety attack Start: 08-23-2024 End: 08-23-2024 Office outpatient visit 25 minutes Joyce Phillips PA-C Work Phone: [facility] Cardiology - [place] Comment on above: Essential (primary) hypertension (Primary Dx); PAF (paroxysmal atrial fibrillation) (HCC) Start: 08-23-2024 End: 08-23-2024 ambulatory ARMANDO FRANKLIN [facility] Start: 08-06-2024 End: 08-07-2024 Emergency department patient visit NICK HAGAN [facility] Start: 07-27-2024 End: 07-27-2024 Refill Armando Franklin DO Work Phone: [facility] Start: 07-18-2024 End: 07-18-2024 Refill Armando Franklin DO Work Phone: [facility] Comment on above: Essential (primary) hypertension Start: 07-07-2024 End: 07-07-2024 Refill Armando Franklin DO Work Phone: [facility] Comment on above: Anxiety attack Start: 06-24-2024 End: 06-27-2024 Refill Armando Franklin DO Work Phone: [facility] Comment on above: Type 2 diabetes vilma itus without complication, without long- term current use of insulin ([facility]/HCC) (HCC) Start: 06-08-2024 End: 06-08-2024 Orders Only Armando Franklin DO Work Phone: [facility] Comment on above: Anxiety attack Start: 06-07-2024 End: 06-07-2024 Orders Only Armando Franklin DO Work Phone: [facility] Comment on above: Anxiety attack Start: 06-06-2024 End: 06-29-2024 Orders Only Armando Franklin DO Work Phone: [facility] Comment on above: Anxiety attack Other (A Fib ) Start: 06-01-2024 End: 06-01-2024 ambulatory [facility] Start: 06-01-2024 End: 06-01-2024 Office outpatient visit 25 minutes Reynaldo Roman MD Work Phone: [facility] Cardiology [place] Comment on above: PAF (paroxysmal atri al fibrillation) (HCC) (Primary Dx); Essential (primary) hypertension; Mixed hyperlipidemia Start: 05-11-2024 End: 05-11-2024 Office outpatient visit 25 minutes Armando Franklin DO Work Phone: [facility] Comment on above: Type 2 diabetes vilma itus with other specified complication, without long-term current use of insulin (HCC) (Primary Dx); Essential (primary) hypertension; PAF (paroxysmal atrial fibrillation) (HCC); Pure hypercholesterolemia; THIERRY (generalized anxiety disorder); History of small bowel obstruction; Anticoagulant long-term use; Dependent edema; Varicose veins of both lower extremities, unspecified whether complicated Start: 05-11-2024 End: 05-11-2024 ambulatory [facility] Start: 04-26-2024 End: 04-28-2024 Orders Only Clyde Sharma PA-C Work Phone: [facility] Comment on above: Pure hypercholestero lemia Start: 03-28-2024 End: 03-29-2024 Refill Armando Franklin DO Work Phone: [facility] Start: 02-11-2024 End: 02-12-2024 Telephone encounter Armando Franklin DO Work Phone: [facility] Comment on above: Appointment Start: 01-27-2024 End: 01-27-2024 ambulatory [facility] Start: 01-27-2024 End: 01-27-2024 Office outpatient visit 25 minutes Parkerbg West PERFORMANCE MANAGER - HUMAN SERVICES SUPERVISOR Work Phone: [facility] Comment on above: Essential (primary) hypertension (Primary Dx); PAF (paroxysmal atrial fibrillation) (HCC); Chronic fatigue; Encounter for current long-term use of anticoagulants Start: 01-13-2024 Refill Armando Soriano Alice maecory DO Work Phone: [facility] Clinical Communication Comment on above: Type 2 diabetes vilma itus without complication, without long- term current use of insulin ([facility]/HCC) (HCC) Start: 12-30-2023 End: 12-30-2023 Subsequent hospital visit by physician Reynaldo Roman MD Work Phone: [facility] Non-Invasive Cardiology Comment on above: PAF (paroxysmal atri al fibrillation) (HCC); Other fatigue PAF (paroxysmal atri al fibrillation) (HCC) Start: 12-21-2023 End: 02-15-2024 ambulatory Yolanda Cleveland RN [facility] Clinical Communication Start: 12-21-2023 End: 02-15-2024 Patient encounter procedure Yolanda Cleveland RN [facility] Clinic al Communication Start: 12-17-2023 Refill Tommy Jameson Work Phone: [facility] Start: 12-08-2023 End: 12-12-2023 Evaluation and management of inpatient Srinivasa Wilder Enciso DO Work Phone: [facility] Medical Surgical Unit [facility] Comment on above: Small bowel obstruct ion (HCC) (Primary Dx); COVID Start: 12-01-2023 End: 12-01-2023 Office outpatient visit 25 minutes Reynaldo Roman MD Work Phone: [facility] Card[facility] Comment on above: PAF (paroxysmal atri al fibrillation) (HCC) (Primary Dx); Palpitations; Mixed hyperlipidemia; Other fatigue Start: 11-30-2023 Telephone encounter Reynaldo lewis MD Work Phone: [facility] Card[facility] Comment on above: OTHER Start: 11-17-2023 End: 11-17-[address] Baldev Shore Work Phone: [facility] Work Phone: Start: 11-17-2023 End: 11-17-[address] Baldev Shore Work Phone: [facility]-Laboratory, Specimen Work Phone: Start: 11-17-2023 End: 11-17-[address] Baldev Shore Work Phone: [facility] Work Phone: Start: 10-22-2023 Orders Only Katerina acosta PA-C Work Phone: [facility] Cardiology Comment on above: PAF (paroxysmal atri al fibrillation) (HCC) (Primary Dx); Bruising Start: 10-01-2023 Telephone encounter Armando Correa lesley MONT[place] OCA Work Phone: [facility] Comment on above: other (Released 3 re sult messages to Patient) Start: 09-30-2023 End: 09-30-2023 Subsequent hospital visit by physician Clyde Sharma PA-C Work Phone: [facility] Comment on above: Encounter for screen ing mammogram for malignant neoplasm of breast Post-menopausal Start: 09-08-2023 End: 09-08-2023 Subsequent hospital visit by physician Clyde Sharma PA-C Work Phone: [facility] Radiology Comment on above: Canceled (Other: Poonam m/Resource Maintenance) Start: 09-03-2023 End: 09-03-2023 Postop follow up visit related to original px Derrell Sims MD Work Phone: [facility] Obstetrics & Gynecology Comment on above: Postoperative state (Primary Dx) Start: 08-25-2023 ambulatory [facility] Start: 08-25-2023 Patient encounter procedure [facility] Pate [facility] Start: 08-23-2023 ambulatory Delicia Santos RN [facility] Clinical Communication Start: 08-23-2023 Patient encounter procedure Delicia Santos RN [facility] Clinical Communication Start: 08-22-2023 ambulatory Delicia Santos RN [facility] Clinical Communication Start: 08-22-2023 Patient encounter procedure Delicia Santos RN [facility] Clinical Communication Start: 08-20-2023 Refill Clyde Ordonez Work Phone: [facility] Comment on above: Essential (primary) hypertension Start: 08-18-2023 ambulatory Derrell Sims MD Work Phone: [facility] PRE PROCEDURE Start: 08-18-2023 End: 08-18-2023 Subsequent hospital visit by physician Derrell Sims MD Work Phone: [facility] MAIN OR Comment on above: Right inguinal herni a (Primary Dx); Postmenopausal bleeding; Hernia, inguinal, right Start: 08-05-2023 End: 08-05-2023 Subsequent hospital visit by physician Clyde Sharma PA-C Work Phone: [facility] Radiology Comment on above: Canceled (Patient: Bo bell Unwell) Start: 08-04-2023 Telephone encounter Derrell Sims MD Work Phone: [facility] Gynecologic Oncology Comment on above: surgery scheduling ( Scheduled at [facility]) Cardiac Clearance Start: 08-03-2023 Admission to [facility] Trupti MAN Work Phone: [facility] General Surgery Comment on above: Right inguinal herni a (Primary Dx) Start: 08-03-2023 ambulatory Trupti MAN Work Phone: [facility] General Surgery Start: 08-03-2023 End: 08-03-2023 Office outpatient new 45 minutes Jose Durant MD Work Phone: [facility] General Surgery Comment on above: Hernia, inguinal, ri ght (Primary Dx); Inguinal mass Start: 07-28-2023 End: 07-28-2023 Office outpatient new 30 minutes Derrell Sims MD Work Phone: [facility] Obstetrics & Gynecology Comment on above: PMB (postmenopausal bleeding) (Primary Dx); Vaginal bleeding; Inguinal mass Start: 06-25-2023 Refill Baldev varghese DO Work Phone: [facility] Clinical Communication Comment on above: Type 2 diabetes vilma itus without complication, without long- term current use of insulin ([facility]) ([facility]) Start: 06-23-2023 Refill Ade Enamorado [facility] Cardiology Comment on above: Essential (primary) hypertension Start: 06-18-2023 Refill Armando chandler DO Work Phone: [facility] Medicine Comment on above: Type 2 diabetes vilma itus without complication, without long- term current use of insulin ([facility]) ([facility]) Start: 06-17-2023 ambulatory Rika bird RN [facility] Clinical Communication Start: 06-17-2023 Patient encounter procedure Teri Miranda RN [facility] Clinical Communication Start: 06-16-2023 End: 06-16-2023 Emergency department patient visit Haydee Garcia DO Work Phone: [facility] ED Comment on above: Vaginal bleeding (Pr imary Dx); Leiomyoma Start: 06-15-2023 Transcribe Orders Clyde Sharma PA-C Work Phone: [facility] Central Scheduling Comment on above: Encounter for screen ing mammogram for malignant neoplasm of breast (Primary Dx) Start: 05-07-2023 End: 05-07-2023 Office outpatient visit 25 minutes Jona Garcia MD Work Phone: [facility] Cardiology Comment on above: PAF (paroxysmal atri al fibrillation) ([facility]) ([facility]) Start: 03-24-2023 End: 03-24-2023 Office outpatient visit 15 minutes Clyde Sharma PA-C Work Phone: [facility] Comment on above: Anxiety attack (Prim rob Dx); Hyperglycemia, drug-induced Start: 03-19-2023 ambulatory Tanja Iqbal RN [facility] C linical Communication Start: 03-19-2023 Patient encounter procedure [facility] Start: 02-10-2023 End: 02-10-2023 Office outpatient visit 15 minutes Joyce Phillips PA-C Work Phone: [facility] Cardiology Comment on above: PAF (paroxysmal atri al fibrillation) (CMS/HCC) (HCC) (Primary Dx) Start: 12-22-2022 Refill Sushma Hussein CNP Work Phone: [facility] Start: 10-08-2022 End: 10-08-2022 Office outpatient visit 25 minutes Clyde Sharma PA-C Work Phone: [facility] Comment on above: Type 2 diabetes vilma itus without complication, without long- term current use of insulin (CMS/HCC) (HCC) (Primary Dx); Anxiety attack; PAF (paroxysmal atrial fibrillation) (CMS/HCC) (HCC); Chronic cystitis Start: 10-01-2022 Refill Baldev Tipton o DO Work Phone: [facility] Start: 09-24-2022 End: 09-24-2022 Office outpatient new 45 minutes Tommy Woodard MD Work Phone: [facility] Comment on above: PAF (paroxysmal atri al fibrillation) (CMS/HCC) (HCC) Start: 09-08-2022 Refill Baldev Jagjit Vickcass o DO Work Phone: [facility] Start: 09-05-2022 Refill Baldev Vickcass o DO Work Phone: [facility] Start: 08-29-2022 Refill Baldev E Fracass o DO Work Phone: [facility] Start: 12-28-2021 End: 12-28-2021 Subsequent hospital visit by physician Baldev Shore DO Work Phone: [facility] Mammography Comment on above: Visit for screening mammogram Start: 06-18-2021 End: 06-18-2021 Emergency department patient visit Libertad López DO [facility] Comment on above: Anxiety attack (Prim rob Dx); Palpitations Start: 05-04-2020 End: 05-04-2020 Subsequent hospital visit by physician Baldev Shore Work Phone: [facility] Comment on above: Arrived Start: 09-02-2018 Patient encounter procedure Baldev ano [facility] Start: 11-29-2002 End: 11-29-2002 Patient encounter procedure Reynaldo Hopatriciawanda Work Phone: [facility] Start: 11-29-2002 Results Only Reynaldo Woodruff Work Phone: [facility] Procedures Date Procedure Procedure Detail Performing Clinician Start: 10-05-2024 Urine albumin quantitative Armando Soriano Ion DO Work Phone: Start: 10-05-2024 Screening digital br east tomosynthesis bi Armando Soriano Ion DO Work Phone: Start: 09-28-2024 Ecg routine ecg w/le ast 12 lds w/i&r Reynaldo Roman MD Work Phone: Start: 08-23-2024 Ecg routine ecg w/le ast 12 lds w/i&r Reynaldo Roman MD Work Phone: Start: 06-01-2024 Ecg routine ecg w/le ast 12 lds w/i&r Reynaldo Roman MD Work Phone: Start: 12-30-2023 Echo tthrc r-t 2d w/wom-mode compl spec&colr d Reynaldo Roman MD Work Phone: Start: 12-12-2023 Glucose quantitative blood xcpt reagent strip Clyde Ugarte MD Work Phone: Start: 12-12-2023 Glucose quantitative blood xcpt reagent strip Clyde Ugarte MD Work Phone: Start: 12-12-2023 Basic metabolic pane l calcium total Sheron Mccallum MD Work Phone: Start: 12-11-2023 Glucose quantitative blood xcpt reagent strip Sheron Mccallum MD Work Phone: Start: 12-11-2023 Glucose quantitative blood xcpt reagent strip Sheron Mccallum MD Work Phone: Start: 12-11-2023 Glucose quantitative blood xcpt reagent strip Sheron Mccallum MD Work Phone: Start: 12-11-2023 End: 12-11-2023 Basic metabolic panel calcium total Sheron Mccallum MD Work Phone: Start: 12-10-2023 End: 12-10-2023 Basic metabolic panel calcium total Sheron Mccallum MD Work Phone: Start: 12-10-2023 Radiologic exam abdo men 2 views rTupti MAN Work Phone: Start: 12-09-2023 Glucose quantitative blood xcpt reagent strip Sheron Mccallum MD Work Phone: Start: 12-09-2023 POCT GLUCOSE METER Ryan Chung MD Work Phone: Start: 12-09-2023 Glucose quantitative blood xcpt reagent strip Sheron Mccallum MD Work Phone: Start: 12-09-2023 POCT GLUCOSE METER Ryan Chung MD Work Phone: Start: 12-09-2023 Glucose quantitative blood xcpt reagent strip Sheron Mccallum MD Work Phone: Start: 12-09-2023 Radiologic exam abdo men 1 view Trupti MAN Work Phone: Start: 12-09-2023 Urinalysis complete panel - Urine Padmini MAN Work Phone: Start: 12-09-2023 Urnls dip stick/tabl et reagent auto microscopy Padmini MAN Work Phone: Start: 12-09-2023 POCT GLUCOSE METER Ryan Chung MD Work Phone: Start: 12-09-2023 Glucose quantitative blood xcpt reagent strip Sheron Mccallum MD Work Phone: Start: 12-08-2023 Ct abdomen & pelvis w/contrast material Padmini MAN Work Phone: Start: 12-08-2023 Basic metabolic pane l calcium total Padmini Smiley Adilene MAN Work Phone: Start: 12-08-2023 C-reactive protein Ryan mena Chung MD Work Phone: Start: 12-08-2023 SARS-COV-2, FLU A/B, AND RSV COMBO Srinivasa Wilder Enciso DO Work Phone: Start: 12-01-2023 Ecg routine ecg w/le ast 12 lds w/i&r Reynaldo Roman MD Work Phone: Start: 11-17-[address] Baldev Shore Work Phone: Start: 09-30-2023 Screening digital br east tomosynthesis bi Clyde Sharma PA-C Work Phone: Start: 09-30-2023 Dxa bone density ilana dy 1/> sites axial skel Clyde Sharma PA-C Work Phone: Start: 08-18-2023 Glucose quantitative blood xcpt reagent strip Derrell Sims MD Work Phone: Start: 08-18-2023 End: 08-18-2023 Hysteroscopy bx endometrium&/polypc w/wo d&c Derrell Sims MD Work Phone: Start: 08-18-2023 End: 08-18-2023 Laparoscopy surg rpr initial inguinal hernia Jose Durant MD Work Phone: Start: 08-18-2023 Glucose quantitative blood xcpt reagent strip Derrell Sims MD Work Phone: Start: 07-01-2023 Adult depression scr eening assessment Derrell Sims MD Work Phone: Start: 06-16-2023 Us transvaginal Yara Fallon PA-C Work Phone: Start: 06-16-2023 Bacterial vaginosis and vaginitis rRNA panel - Vaginal fluid by Probe Sahra Aminah LAKE Work Phone: Start: 06-16-2023 Urinalysis complete panel - Urine Sahra Fallon ALEKSANDRA Work Phone: Start: 06-16-2023 Urnls dip stick/tabl et rgnt auto w/o microscopy Sahra Aminah [facility] Work Phone: Start: 06-16-2023 ABO and Rh group [Ty pe] in Blood by Confirmatory method Sahra Fallon [facility] Work Phone: Start: 06-16-2023 Blood typing serologic abo Sahraindu [facility] Work Phone: Start: 06-16-2023 Comprehensive metabo lic panel Sahraindu SELBYFlynn Work Phone: Start: 05-07-2023 Ecg routine ecg w/le ast 12 lds trcg only w/o i&r Jona Garcia MD Work Phone: Start: 02-10-2023 Ecg routine ecg w/le ast 12 lds trcg only w/o i&r Tommy Woodard MD Work Phone: Start: 09-24-2022 Ecg routine ecg w/le ast 12 lds w/i&r Tommy Woodard MD Work Phone: Start: 07-08-2022 Adult depression scr eening assessment Sushma Pereira APRN - [facility] Work Phone: Start: 02-27-2022 Lipid 1996 panel - S jolynn or Plasma Baldev Shore DO Work Phone: Start: 08-08-2021 Colonoscopy Baldev coronado DO Work Phone: Start: 06-18-2021 Urnls dip stick/tabl et rgnt auto w/o microscopy Ab Reza MD Work Phone: Start: 06-18-2021 Comprehensive metabo lic panel Ab Reza MD Work Phone: Start: 06-18-2021 End: 06-18-2021 Ecg routine ecg w/least 12 lds w/i&r Ab Reza MD Work Phone: Start: 06-18-2021 Radiologic exam ches t single view Ab Reza MD Work Phone: Start: 05-04-2020 Screening digital br east tomosynthesis bi Baldev Tiptonhalima Work Phone: Start: 11-29-2002 CONVERTED SURGICAL PATHOLOGY Reynaldo Feliciano Kacy Work Phone: Plan of Treatment Date Care Activity Detail Author Start: 08-08-2031 Screening for malignant neoplasm of colon [facility] Start: 10-05-2025 Diabetes: Urine Albumin-Creatinine Ratio for Kidney Health Diabetes: Urine Albumin-Creatinine Ratio for Kidney Health [facility] Start: 08-31-2025 Diabetes: Estimated Glomerular Filtration Rate for Kidney [facility] Diabetes: Estimated Glomerular Filtration Rate for Kidney Health [facility] Start: 08-06-2025 Diabetes: Estimated Glomerular Filtration Rate for Kidney Health Diabetes: Estimated Glomerular Filtration Rate for Kidney Health [facility] Start: 05-11-2025 Diabetes: Estimated Glomerular Filtration Rate for Kidney Health Diabetes: Estimated Glomerular Filtration Rate for Kidney Health [facility] Start: 04-05-2025 End: 04-05-2025 Patient encounter procedure [facility] Start: 03-29-2025 End: 03-29-2025 Patient encounter procedure 03/29/2025 3:00 PM EDT Office Visit [facility] [address] [phone] Reynaldo Roman MD [address] [place] [phone] [facility] Start: 12-29-2024 Echocardiography Echocardiogram [facility] Start: 12-21-2024 End: 12-21-2024 Patient encounter procedure 12/21/2024 1:30 PM EDT Office Visit [facility] [address] [facility] [address] [place] [phone] Joyce Phillips PA-C [address] [facility] [address] [place] [address] [facility] Start: 12-15-2024 Glaucoma screening Diabetes: Retinopathy Screening [facility] Start: 12-11-2024 Creatinine measurement Creatinine Level [facility] Start: 12-11-2024 Potassium measurement Potassium Level [facility] Start: 12-07-2024 End: 12-07-2024 Patient encounter procedure 12/07/2024 1:00 PM EDT Office Visit [facility] 155 [facility] [address] [place] [phone] Joyce Phillips PA-C [address] [address] [facility] Start: 11-09-2024 End: 11-09-2024 Patient encounter procedure 11/09/2024 1:30 PM EDT Office Visit [facility] [address] [place] [address] Armando Franklin DO [address] [place] [address] [facility] Start: 10-26-2024 End: 10-26-2024 Patient encounter procedure 10/26/2024 1:30 PM EST Appointment [facility] Non-Invasive Cardiology [address] [place] [phone] Parker West, PERFORMANCE MANAGER - HUMAN SERVICES SUPERVISOR [address] [facility], [address] [place] [address] [facility] Non-Invasive Cardiology Start: 10-14-2024 End: 10-14-2026 Cardiac event monitor (30 days) Cardiac event monitor (30 days) [facility] Cardiac Services Routine PAF (paroxysmal atrial fibrillation) (HCC) Expected: 10/14/2024, Expires: 10/14/2026 [facility] [employer] [facility] Work Phone: Comment on above: Expected: 10/14/2024, Expires: Start: 10-05-2024 End: 10-05-2024 Patient encounter procedure [facility] Start: 10-05-2024 End: 10-05-2025 Comprehensive metabolic 1998 panel - Serum or Plasma Comprehensive metabolic panel Lab Routine Type 2 diabetes mellitus with other specified complication, without long-term current use of insulin (HCC) Expected: 10/05/2024 (Approximate), Expires: 10/05/2025 [facility] [employer] Work Phone: Comment on above: Expected: 10/05/2024 (Approximate), Expi res: 10/05/2025 Start: 10-05-2024 End: 10-05-2025 Hemoglobin A1c measurement Hemoglobin A1c Lab Routine Type 2 diabetes mellitus with other specified complication, without long-term current use of insulin (HCC) Expected: 10/05/2024 (Approximate), Expires: 10/05/2025 [facility] [employer] Comment on above: Expected: 10/05/2024 (Approximate), Expi res: 10/05/2025 Start: 10-05-2024 End: 10-05-2025 Lipid 1996 panel - Serum or Plasma Lipid panel Lab Routine Type 2 diabetes mellitus with other specified complication, without long-term current use of insulin (HCC) Expected: 10/05/2024 (Approximate), Expires: 10/05/2025 [facility] Comment on above: Expected: 10/05/2024 (Approximate), Expi res: 10/05/2025 Start: 09-28-2024 End: 09-28-2024 Patient encounter procedure 09/28/2024 11:00 AM EST Office Visit [facility] Cardiology [facility] [address] [phone] Joyce Phillips PA-C [address] [address] [facility] Cardiology [facility] Start: 09-06-2024 End: 08-23-2025 Basic metabolic 1998 panel - Serum or Plasma Basic metabolic panel Lab Routine PAF (paroxysmal atrial fibrillation) (HCC) Essential (primary) hypertension Expected: 09/06/2024 (Approximate), Expires: 08/23/2025 [employer] Work Phone: Comment on above: Expected: 09/06/2024 (Approximate), Expi res: 08/23/2025 Start: 08-24-2024 Medicare Advantage Annual Wellness Visit Medicare Advantage Annual Wellness Visit [email or web address] Start: 07-31-2024 Medicare Advantage Annual Wellness Visit (AWV) Medicare Advantage Annual Wellness Visit (AWV) [email or web address] Start: 07-01-2024 Depression Screening Depression Screening [employer] Start: 06-16-2024 Creatinine measurement Creatinine Level [employer] Start: 06-16-2024 Potassium measurement Potassium Level [employer] Start: 06-01-2024 End: 06-01-2024 Patient encounter procedure [facility] [employer] [facility] Cardiology Start: 05-11-2024 End: 05-11-2025 CBC W Auto Differential panel - Blood CBC auto differential Lab Routine Essential (primary) hypertension Expected: 05/11/2024 (Approximate), Expires: 05/11/2025 [employer] Work Phone: Comment on above: Expected: 05/11/2024 (Approximate), Expi res: 05/11/2025 Start: 05-11-2024 End: 05-11-2025 Comprehensive metabolic 1998 panel - Serum or Plasma Comprehensive metabolic panel Lab Routine Essential (primary) hypertension Expected: 05/11/2024 (Approximate), Expires: 05/11/2025 [email or web address] Comment on above: Expected: 05/11/2024 (Approximate), Expi res: 05/11/2025 Start: 05-11-2024 End: 05-11-2025 Hemoglobin A1c measurement Hemoglobin A1c Lab Routine Type 2 diabetes mellitus with other specified complication, without long-term current use of insulin (HCC) Expected: 05/11/2024 (Approximate), Expires: 05/11/2025 [email or web address] Comment on above: Expected: 05/11/2024 (Approximate), Expi res: 05/11/2025 Start: 05-11-2024 End: 05-11-2025 Lipid 1996 panel - Serum or Plasma Lipid panel Lab Routine Pure hypercholesterolemia Expected: 05/11/2024 (Approximate), Expires: 05/11/2025 [facility] Comment on above: Expected: 05/11/2024 (Approximate), Expi res: 05/11/2025 Start: 05-11-2024 End: 05-11-2025 Thyrotropin [Units/volume] in Serum or Plasma TSH Lab Routine Pure hypercholesterolemia Expected: 05/11/2024 (Approximate), Expires: 05/11/2025 [facility] Comment on above: Expected: 05/11/2024 (Approximate), Expi res: 05/11/2025 Start: 05-11-2024 End: 05-11-2024 Patient encounter procedure 05/11/2024 10:00 AM EDT Office Visit [facility] [address] [place] [address] Armando Franklin, [address] [place] [address] [facility] Start: 05-09-2024 End: 05-09-2024 Patient encounter procedure 05/09/2024 3:30 PM EDT Office Visit [facility] [address] [place] [address] Armando Franklin, [address] [place] [address] [facility] Start: 05-06-2024 End: 05-06-2024 Patient encounter procedure 05/06/2024 2:30 PM EDT Office Visit [facility] Cardiology [address] [facility] [address] [place] [phone] Reynadlo Roman MD [address] [facility] [address] [place] [address] [facility] Start: 04-24-2024 COVID-19 Vaccine ( season) COVID-19 Vaccine ( season) [facility] Start: 04-24-2024 COVID-19 Vaccine ( season) COVID-19 Vaccine ( season) [facility] Start: 04-24-2024 Influenza vaccination [facility] Start: 03-02-2024 End: 03-02-2024 Patient encounter procedure 03/02/2024 3:30 PM EDT Office Visit [facility] Medicine [address] [place] [address] Armando Franklin, DO [address] [place] [address] [facility] Start: 01-28-2024 End: 01-28-2024 Patient encounter procedure 01/28/2024 2:30 PM EDT Office Visit [facility] Medicine [address] [place] [address] Armando Franklin, DO [address] [place] [address] [facility] Start: 01-27-2024 End: 01-27-2024 Patient encounter procedure 01/27/2024 1:00 PM EDT Office Visit [facility] Cardiology [address] [phone] Parker West, PERFORMANCE MANAGER - HUMAN SERVICES SUPERVISOR [address] [facility], [address] [place] [address] [facility] Start: 01-20-2024 End: 01-20-2024 Patient encounter procedure 01/20/2024 10:00 AM EDT Office Visit [facility] Cardiology [address] [facility] [address] [place] [phone] Parker West, PERFORMANCE MANAGER - HUMAN SERVICES SUPERVISOR [address] [facility], [address] [place] [address] [facility] Start: 01-12-2024 End: 01-12-2024 Patient encounter procedure 01/12/2024 3:00 PM EDT Office Visit [facility] [address] [place] [address] Armando Franklin, [address] [place] [address] [facility] Start: 12-30-2023 Depression Monitoring Depression Monitoring [facility] Start: 12-30-2023 End: 12-30-2023 Patient encounter procedure [facility] Non-Invasive Cardiology Start: 12-16-2023 End: 12-16-2023 Patient encounter procedure [facility] Non-Invasive Cardiology Start: 12-01-2023 End: 11-30-2025 Cardiac holter monitor (8- 15 days) Cardiac holter monitor (8- 15 days) CV Cardiac Services Routine PAF (paroxysmal atrial fibrillation) (HCC) Expected: 12/01/2023, Expires: 11/30/2025 [employer] Work Phone: Comment on above: Expected: 12/01/2023, Expires: Start: 12-01-2023 End: 11-30-2025 US Heart Transthoracic Transthoracic echocardiogram (TTE) complete with contrast, bubble, strain, and 3D PRN CV Echocardiography Routine PAF (paroxysmal atrial fibrillation) (HCC) Other fatigue Expected: 12/01/2023 (Approximate), Expires: 11/30/2025 [email or web address] Comment on above: Expected: 12/01/2023 (Approximate), Expi res: 11/30/2025 Start: 10-22-2023 End: 10-21-2024 CBC W Auto Differential panel - Blood CBC auto differential Lab Routine PAF (paroxysmal atrial fibrillation) (HCC) Bruising Expected: 10/22/2023 (Approximate), Expires: 10/21/2024 [employer] Work Phone: Comment on above: Expected: 10/22/2023 (Approximate), Expi res: 10/21/2024 Start: 10-08-2023 Diabetic foot examination Diabetes: Foot Exam [facility] Start: 10-08-2023 DTaP/Tdap/Td Vaccines (1 - Tdap) DTaP/Tdap/Td Vaccines (1 - Tdap) [facility] Comment on above: Postponed from 1965 (Patient Refus ed) Start: 09-30-2023 End: 09-30-2023 Patient encounter procedure [facility] Radiology Start: 09-20-2023 Screening for malignant neoplasm of colon Colon cancer screen colonoscopy [place], [place] Start: 09-08-2023 Subsequent hospital visit by physician 09/08/2023 1:20 PM EST Hospital Encounter [facility] [address] [place] [address] Clyde Sharma PA-C [address] [facility] [address] [place] [address] [facility] Start: 09-08-2023 End: 09-08-2023 Patient encounter procedure [facility] Radiology Start: 09-03-2023 End: 09-03-2023 Patient encounter procedure 09/03/2023 1:00 PM EST Office Visit [facility] Obstetrics & Gynecology [address] [place] [address] [place] [phone] Derrell Sims MD [address] [place] [address] [facility] Ob[facility]etrics [facility] Gynecology Start: 08-31-2023 End: 08-31-2023 Patient encounter procedure [facility] General Surgery Start: 08-27-2023 End: 08-27-2023 Patient encounter procedure 08/27/2023 1:00 PM EST Office Visit [facility] Cardiology [address] [place] [phone] Jona Garcia MD [address] [address] [facility] Card[facility] Start: 08-24-2023 Medicare Advantage Annual Wellness Visit Medicare Advantage Annual Wellness Visit [facility] Start: 08-18-2023 End: 08-18-2023 Hysteroscopy bx endometrium&/polypc w/wo d&c HYSTEROSCOPY BIOPSY ENDOMETRIUM AND OR POLYPECTOMY Right inguinal hernia Postmenopausal bleeding 08/18/2023 2:29 PM EST [facility] Operating Room Start: 08-18-2023 End: 08-18-2023 Laparoscopy surg rpr initial inguinal hernia LAPAROSCOPY REPAIR INGUINAL HERNIA Right inguinal hernia Postmenopausal bleeding 08/18/2023 2:29 PM EST [facility] Operating Room Start: 08-18-2023 End: 08-18-2023 Admission to same day surgery center 08/18/2023 12:30 PM EST - 08/18/2023 2:25 PM EST Surgery [facility] MAIN OR [address] [place] [address] Derrell Sims MD [address] [place] [address] HYSTEROSCOPY, DILATION AND CURETTAGE / ROBOTIC RIGHT INGUINAL HERNIA REPAIR [14368 (CPT )] [facility] MAIN OR Comment on above: HYSTEROSCOPY, DILATION AND CURETTAGE / R OBOTIC RIGHT INGUINAL HERNIA REPAIR [16737 (CPT )] Start: 08-18-2023 End: 08-18-2023 Anesthesia consultation 08/18/2023 12:30 PM EST Anesthesia Event [facility] MAIN OR [address] [place] [address] Ronal Vargas PA-C [address] [facility] [address] [place] [address] [facility] MAIN OR Start: 08-18-2023 End: 08-18-2023 Hysteroscopy bx endometrium&/polypc w/wo d&c HYSTEROSCOPY BIOPSY ENDOMETRIUM AND OR POLYPECTOMY Right inguinal hernia Postmenopausal bleeding 08/18/2023 12:30 PM EST [facility] Operating Room Start: 08-18-2023 End: 08-18-2023 Laparoscopy surg rpr initial inguinal hernia LAPAROSCOPY REPAIR INGUINAL HERNIA Right inguinal hernia Postmenopausal bleeding 08/18/2023 12:30 PM EST [facility] Operating Room Start: 08-18-2023 Subsequent hospital visit by physician 08/18/2023 12:30 PM EST Hospital Encounter [facility] MAIN OR [address] [place] [phone] Derrell Sims MD [address] [place] [address] [facility] MAIN OR Start: 08-06-2023 End: 08-06-2023 Admission to establishment 08/06/2023 7:30 AM EST Pre-Admission Testing [facility] Pre-Admit Testing [address] [place] [phone] Derrell Sims MD [address] [place] [address] [facility] Pre-Admit Testing Start: 08-05-2023 End: 08-05-2023 Patient encounter procedure [facility] Radiology Start: 08-05-2023 Subsequent hospital visit by physician 08/05/2023 1:00 PM EST Hospital Encounter [facility] Radiology [address] [place] [address] Clyde Sharma PA-C [address] [facility] [address] [place] [address] Canceled (Patient: Feeling Unwell) [facility] Radiology Comment on above: Canceled (Patient: Feeling Unwell) Start: 08-03-2023 End: 08-03-2023 Patient encounter procedure 08/03/2023 1:30 PM EST Office Visit [facility] General Surgery [address] [facility] [address] [place] [phone] Jose Durant MD [address] [facility] [address] [place] [address] [facility] General Surgery Start: 07-28-2023 End: 07-28-2023 Patient encounter procedure 07/28/2023 1:15 PM EST Office Visit [facility] Obstetrics & Gynecology [address] [place] [phone] Derrell Sims MD [address] [place] [address] [facility]etric[facility]necology Start: 07-08-2023 Depression Screening Depression Screening [facility] Start: 07-01-2023 End: 07-01-2023 Patient encounter procedure [facility] Start: 06-15-2023 End: 08-15-2024 DBT Breast - bilateral screening Bilateral screening mammogram with tomosynthesis Imaging Routine Encounter for screening mammogram for malignant neoplasm of breast Expected: 06/15/2023, Expires: 08/15/2024 [facility] Work Phone: Comment on above: Expected: 06/15/2023, Expires: Start: 05-07-2023 End: 05-07-2023 Patient encounter procedure 05/07/2023 2:00 PM EDT Office Visit [facility] Cardiology [address] [place] [phone] Jona Garcia MD [address] [address] [facility] Cardiology Start: 04-24-2023 COVID-19 Vaccine ( season) COVID-19 Vaccine ( season) [facility] Start: 04-24-2023 Influenza vaccination Influenza Vaccine (#1) [facility] Start: 03-25-2023 End: 03-25-2023 Patient encounter procedure 03/25/2023 3:00 PM EDT Office Visit [facility] Cardiology [address] [place] [phone] Katerina Hopkins PA-Flynn [address] [place] [address] [facility] Start: 02-27-2023 Lipid panel Lipid Panel [facility] Start: 01-05-2023 Hemoglobin A1c measurement Diabetes: Hemoglobin A1C [facility] Start: 12-09-2022 Diabetic retinal exam Di[facility] Start: 10-29-2022 Depression Screen Depression Screen [facility] Start: 10-29-2022 Lipid panel Lipids [facility] Start: 10-14-2022 COVID-19 Vaccine (5 - Pfizer series) COVID-19 Vaccine (5 - Pfizer series) [facility] Start: 10-08-2022 End: 10-08-2023 Hemoglobin A1c/Hemoglobin.total in Blood Hemoglobin A1c Lab Routine Type 2 diabetes mellitus without complication, without long-term current use of insulin ([facility]) (HCC) Expected: 10/08/2022 (Approximate), Expires: 10/08/2023 [facility] Work Phone: Comment on above: Expected: 10/08/2022 (Approximate), Expi res: 10/08/2023 Start: 10-08-2022 End: 10-08-2022 Patient encounter procedure 10/08/2022 Office Visit Family Medicine Clyde Sharma PA-C [address], [place] [phone] [facility] Medicine Start: 10-07-2022 End: 10-07-2022 Patient encounter procedure 10/07/2022 Office Visit Family Medicine Baldev Shore DO [address] [place] [address] [facility] Start: 07-03-2022 Hemoglobin A1c measurement A1C test (Diabetic or Prediabetic) [facility] Start: 06-25-2022 Diabetes: Urine Albumin-Creatinine Ratio for Kidney Health Diabetes: Urine Albumin-Creatinine Ratio for Kidney Health [facility] Start: 06-25-2022 Diabetic foot examination Diabetic foot exam [facility] Start: 06-25-2022 Urine screening for protein Diabetes: Urine Protein Screening [facility] Start: 05-30-2022 Hemoglobin A1c measurement Diabetes: Hemoglobin A1C [facility] Start: 02-27-2022 End: 02-27-2022 Patient encounter procedure 02/27/2022 Office Visit [facility] Baldev Shore DO [address] [place] [address] [facility] Start: 08-23-2021 Diabetic retinal exam Diabetic retinal exam [facility] Work Phone: Start: 08-04-2021 Annual Wellness Visit (AWV) Annual Wellness Visit (AWV) [facility] Start: 08-03-2021 Hemoglobin A1c measurement A1C test (Diabetic or Prediabetic) [facility] Work Phone: Start: 06-25-2021 End: 06-25-2021 Patient encounter procedure 06/25/2021 Office Visit [facility] Baldev Shore DO [address] [place] [address] [phone] [facility] Start: 05-15-2021 COVID-19 Vaccine (3 - Pfizer booster) COVID-19 Vaccine (3 - Pfizer booster) [facility] Work Phone: Start: 2021 RSV Immunization for Adults (1 - 1-dose 75+ series) RSV Immunization for Adults (1 - 1-dose 75+ series) [facility] Start: 04-24-2021 Influenza vaccination Flu vaccine (#1) [facility] Work Phone: Start: 03-16-2021 HbA1c (Bld) [Mass fraction] A1C test (Diabetic or Prediabetic) [place], [place] Start: 01-19-2021 Lipid panel Lipid screen [place] Start: 10-03-2020 Diabetic retinal exam Diabetic retinal exam [place], [place] Start: 09-02-2020 Screening for malignant neoplasm of breast Breast cancer screen [place] Start: 05-19-2020 Diabetic foot examination Diabetic foot exam [place] Start: 04-24-2020 Influenza vaccination Flu vaccine (#1) [place] Start: 07-01-2019 Diabetic microalbuminuria test Diabetic microalbuminuria test [place] Start: 02-10-2019 Annual Wellness Visit (AWV) Annual Wellness Visit (AWV) [place] Start: 12-15-2013 Shingles Vaccine (2 of 3) Shingles Vaccine (2 of 3) [place] Start: 2006 RSV Immunization aged 60 or older (1 - 1-dose 60+ series) RSV Immunization aged 60 or older (1 - 1-dose 60+ series) [facility] Start: 1991 Screening for malignant neoplasm of colon [facility] Start: 1965 DTaP/Tdap/Td vaccine (1 - Tdap) DTaP/Tdap/Td vaccine (1 - Tdap) [facility] Start: 1965 DTaP/Tdap/Td Vaccines (1 - Tdap) DTaP/Tdap/Td Vaccines (1 - Tdap) [facility] Start: 1964 Hepatitis C screening [facility] Start: 1956 Diabetic foot examination Diabetes: Foot Exam [facility] Start: 1956 Glaucoma screening Diabetes: Retinopathy Screening [facility] Start: 1956 Preventive dental service Diabetes: Dental Exam [facility] Start: 1946 DISCONTINUED Medicare Advantage Annual Wellness Visit (AWV) DISCONTINUED Medicare Advantage Annual Wellness Visit (AWV) [facility] Start: 1946 Echocardiography Echocardiogram [facility] Start: 1946 Hepatitis B Vaccines (1 of 3 - 3-dose series) Hepatitis B Vaccines (1 of 3 - 3-dose series) [facility] Start: 1946 Hepatitis C screening Hepatitis C screen [place], [place] Start: 1945 Medicare Advantage Annual Wellness Visit (AWV) Medicare Advantage Annual Wellness Visit (AWV) [facility] Start: 1945 Screening for osteoporosis Bone Density Scan [facility] End: 10-26-2024 Cardiac event monitor (30 days) [facility] [employer] Work Phone: Comment on above: Once for 1 Occurrences starting 10/27/19 until 10/26/2024 End: 12-30-2023 Cardiac holter monitor (8- 15 days) [employer] Work Phone: Comment on above: Once for 1 Occurrences starting 12/30/19 24 until 12/30/2023 End: 06-18-2021 Culture, Urine Culture, Urine Microbiology STAT One Time for 1 Occurrences starting 06/18/2021 until 06/18/2021 [employer] Work Phone: Comment on above: One Time for 1 Occurrences starting 05/25 until 06/18/2021 Culture, Urine Culture, Urine M icrobiology STAT 06/18/2021 2:14 PM EDT [employer] Work Phone: ECG 12 lead - CLINIC PERFORMED ECG 12 lead - CLINIC PERFORMED CV ECG Routine PAF (paroxysmal atrial fibrillation) (CMS/HCC) ([facility]) 02/10/2023 11:10 AM EDT [employer] Work Phone: ECG 12 lead - CLINIC PERFORMED ECG 12 lead - CLINIC PERFORMED CV ECG Routine PAF (paroxysmal atrial fibrillation) ([facility]/HCC) ([facility]) 05/07/2023 2:29 PM EDT [employer] Work Phone: EKG 12 Lead - Chest Pain [facility] Work Phone: Laparoscopy surg rpr initial inguinal hernia ROBOTIC (XI) REPAIR INGUINAL HERNIA Right inguinal hernia [employer] OUTSIDE PROCEDURE SCAN OUTSIDE P ROCEDURE SCAN Procedures Ordered: 08/04/2023 [employer] Comment on above: Ordered: 08/04/2023 OUTSIDE PROCEDURE SCAN OUTSIDE P ROCEDURE SCAN Procedures Ordered: 09/07/2023 [employer] Comment on above: Ordered: 09/07/2023 End: 12-28-2021 Screening digital breast tomosynthesis bi [employer] Work Phone: Comment on above: Once for 1 Occurrences starting 12/29/19 until 12/28/2021 Tissue exam [employer] Work Phone: Comment on above: Release Upon Ordering for 1 Occurrences starting 08/18/2023 Immunizations Immunization Date Immunization Notes Care Provider Braden montemayor 05-11-2024 Seasonal trivalent influenza vaccine, adjuvanted, preservative free Armando Franklin DO Work Phone: [email or web address] 06-13-2022 Covid-19, Pfizer Bivalent Booster, (Age 12y+), Im, 30 Mcg/0e Sushma Pereira PERFORMANCE MANAGER - HUMAN SERVICES SUPERVISOR Work Phone: [facility] 06-13-2022 Influenza, Seasonal, Quadrivalent, Adjuvanted Sushma Nellyynick PERFORMANCE MANAGER - HUMAN SERVICES SUPERVISOR Work Phone: [facility] 06-13-2022 influenza virus vacc ine, unspecified formulation Clyde Sharma PA-C Work Phone: [facility] 06-25-2021 Influenza, Seasonal, Quadrivalent, Adjuvanted Sushma Nellyynick PERFORMANCE MANAGER - HUMAN SERVICES SUPERVISOR Work Phone: [facility] 06-25-2021 Pfizer SARS-CoV-2 Vaccination Sushma Nellyynick PERFORMANCE MANAGER - HUMAN SERVICES SUPERVISOR Work Phone: [facility] 11-29-2020 zoster vaccine recombinant Sushma Nellyynick PERFORMANCE MANAGER - HUMAN SERVICES SUPERVISOR Work Phone: [facility] 11-12-2020 Pfizer SARS-CoV-2 Vaccination Sushma Easy[employer]comynick PERFORMANCE MANAGER - HUMAN SERVICES SUPERVISOR Work Phone: [facility] 10-21-2020 Pfizer SARS-CoV-2 Vaccination Sushma Nellyynick PERFORMANCE MANAGER - HUMAN SERVICES SUPERVISOR Work Phone: [facility] 08-01-2020 zoster vaccine recombinant Sushma [employer]com[employer] PERFORMANCE MANAGER - HUMAN SERVICES SUPERVISOR Work Phone: [facility] 06-24-[address] Baldev Shore Work Phone: [facility] 05-17-2019 influenza, high dose seasonal, preservative-free [facility] [place], [place] 06-16-2018 influenza, injectabl e, quadrivalent, contains preservative [facility], [place] 06-26-2017 influenza, injectabl e, quadrivalent, contains preservative Baldev Shore [facility] 06-19-2016 influenza, injectabl e, quadrivalent, contains preservative [facility], [place] 11-27-2015 pneumococcal conjuga te vaccine, 13 valent Baldev Shore [facility] 06-07-2015 influenza virus vacc ine, unspecified formulation Baldev Shore [facility] , [place] 06-07-2015 influenza virus vacc ine, whole virus Sushma Pereira PERFORMANCE MANAGER - HUMAN SERVICES SUPERVISOR Work Phone: [facility] 08-10-2014 influenza virus vacc ine, unspecified formulation Baldev Shore [facility] , [place] 08-10-2014 influenza, seasonal, injectable Sushma Villegasjania PERFORMANCE MANAGER - HUMAN SERVICES SUPERVISOR Work Phone: [facility] 08-10-2014 pneumococcal polysaccharide vaccine, 23 valent Baldev Shore [facility] 10-20-2013 zoster vaccine, live Baldev Shore [facility] Payers Date Payer Category Payer Self-pay [id number] 2021 Medicare [employer] MED[employer] RE [employer] SECURE [id number] 2021-Present [address] [place] [address] Medicare HMO [id number] 2021 Medicare HMO [employer] SECURE [id number] 2015 Medicare [id number] 1945 Unknown [id number] Unknown Unknown [id number] 2 Unknown [id number] Social History Date Type Detail Facility Start: 04-12-2020 End: 06-18-2021 Tobacco smoking status NHIS Never smoker [place] Start: 04-12-2020 End: 06-18-2021 Tobacco use and exposure Never used [place] Start: 04-12-2020 End: 12-21-2024 Alcohol intake Current non-drinker of alcohol (finding) [place] Start: 01-05-2019 End: 03-20-2021 History SDOH Alcohol Frequency 1 [place] Start: 01-05-2019 End: 03-20-2021 History SDOH Social Connections Phone 5 [place] Start: 01-05-2019 End: 01-20-2020 History SDOH Social Connections Get Together 3 [place] Start: 01-05-2019 End: 01-20-2020 History SDOH IPV Fear 2 [place], [place] Start: 1945 Sex Assigned At Not on file M [place] Start: 06-18-2021 End: 12-12-2023 Alcohol intake [facility] Start: 08-29-2022 End: 05-07-2023 Exposure to SARS-CoV-2 (event) Not sure [facility] Start: 02-10-2023 End: 12-12-2023 Tobacco use panel [facility] How often to you hav e a drink containing alcohol? Never [facility] How many standard dr inks containing alcohol do you have on a typical day? Patient does not drink [facility] In the past 12 month s, was there a time when you were not able to pay the mortgage or rent on time? No [facility] Start: 11-17-2023 Tobacco smoking stat us IAIS Unknown if ever smoked [facility] Start: 06-29-2020 None [facility] Start: 06-29-2020 Spouse/ Signif icant Other [facility] Start: 06-29-2020 Non-smoker [facility] Start: 1945 Sex Assigned At Female [facility] Are you now , , , , never or living with a partner? [facility] [employer] How hard is it for y ou to pay for the very basics like food, housing, medical care, and heating Not very hard [facility] [employer] Do you feel stress - tense, restless, nervous, or anxious, or unable to sleep at night because your mind is troubled all the time - these days [OSQ] To some extent [employer] (I/We) worried wheth er (my/our) food would run out before (I/we) got money to buy more. Never true [employer] Start: 03-24-2022 Sex Female (finding) [employer] Medical Equipment Procedure Code Equipment Code Equipment Origin al Text Equipment Identifier Dates 1 each by In Vit ro route daily As needed. [id number] Start: 01-23-2020 1 Units by Does not apply route daily DX E11.9 [id number] Start: 10-08-2017 Use as instructe d E11.9 [id number] Start: 07-27-2022 End: 07-08-2023 Use as instructed [id number] Start: 07-25-2022 End: 07-25-2023 1 each by Other route daily. Use as instructed E11.9 [id number] Start: 07-27-2022 End: 06-23-2023 1 EACH BY IN VIT RO ROUTE DAILY NEEDED. [id number] Start: 04-27-2022 End: 04-27-2023 by Other route daily. Use as instructed E11.9 [id number] Start: 06-23-2023 End: 03-28-2024 Mesh Progrip 16x 12cm - [id number] Start: 08-18-2023 by Other route daily. Use as instructed E11.9 [id number] Start: 03-29-2024 Goals Date Patient Goal Desired Activity /State Clinical Notes 06-18-2021 to 01-11-2025 Telephone Encounter - January Mccurdy RN - 01/11/2025 7:35 AM EDTTelephone Encounter - January Mccurdy RN - 01/11/2025 7:35 AM Bin Phillips PA-C - 12/21/2024 1:30 PM EDTPatient Instructions Note Date & Type Note Facility 01-11-2025 Telephone encounter Note Last seen 12/21/24. BMP done 08/31/24. GFR 81 [facility] 01-11-2025 Miscellaneous Notes Last seen 12/21/24. BMP done 08/31/24. GFR 81 documented in this encounter [facility] 12-21-2024 History of Present illness Narrative [facility] Cardiology Note DATE of SERVICE:12/21/24 TIME of SERVICE: 1:49 PM Chief Complaint: Chief Complaint Patient presents with Follow-up History of PresentIllness: Cassie Morgan is a 79 y.o. female with a history of paroxysmal atrial fibrillation, and hypertension. She was last seen in the office September 28 and seem to be doing well at that time. She then had called into the office on October 10 feeling that she was back in atrial fibrillation. She was set up with an event monitor that she wore for 22 days. She had a 5% A-fib burden with an average heart rate of 121. Coreg was transitioned back to metoprolol. She is now being seen for follow-up. She tells me that her 2 days ago. She had been taking care of him 16/03 prior to his . She states her palpitations have decreased significantly after transitioning back to metoprolol. She denies any chest discomfort. She does have some increased lower extremity edema, but admits that she has not been wearing her DANNIELLE hose as instructed due to being too warm. She will resume these. Past Medical History: Past Medical History: Diagnosis Date Breast cancer screening 09/2024 Chronic anxiety with advanced dementia COVID-19 11/2023 Dependent edema Diverticulosis 2019 hx of Diverticulitis H/O colonoscopy with polypectomy 07/2021- defers rech History of small bowel obstruction 11/2023 hospitalized History of transfusion PAF (paroxysmal atrial fibrillation) (HCC) 2017 Dr. Roman- OAC, nml EF- successful CV 08/16 Recurrent UTI Keflex prophylaxis Type II or unspecified type diabetes mellitus without mention of complication, not stated as uncontrolled (HCC) 2013 Past Surgical History Past Surgical History: Procedure Laterality Date BREAST CYST EXCISION Left 2012 Benign CATARACT EXTRACTION Left 2019 SECTION (HISTORICAL) COLONOSCOPY 2013 COLONOSCOPY W/ POLYPECTOMY 07/2021 pt defers rech CYSTOSCOPY 2009 DILATION AND CURETTAGE (HISTORICAL) 08/18/2023 Dr. 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 LAP,INGUINAL HERNIA REPR,INITIAL (HISTORICAL) Right 08/18/2023 [facility] Family History Family History Problem Relation Name Age of Onset Other (36209) Mother Aminah Benitez natural causes, age 89 Pancreatic cancer Father Freddy 79 Diabetes Sister Bonnie Valvular heart disease Sister Bonnie Diabetes Brother Ed Social History Social History Tobacco Use Smoking status: Never Smokeless tobacco: Never Vaping Use Vaping status: Never Used Substance Use Topics Alcohol use: No Alcohol/week: 0.0 standard drinks of alcohol Drug use: No Comment: caffeine: a couple cups of coffee a day Allergies: Allergies Allergen Reactions Cefaclor Codeine Rash Medications: Current Outpatient Medications: ALPRAZolam (Xanax) 0.25 MG tablet, 1/2 or one tab q day prn anxiety, Disp: 15 tablet, Rfl: 0 ascorbic acid (Vitamin C) 500 mg chewable tablet, Chew 500 mg in the morning., Disp: , Rfl: atorvastatin (Lipitor) 10 MG tablet, Take 1 tablet (10 mg) by mouth daily., Disp: 90 tablet, Rfl: 1 cephalexin (Keflex) 250 MG capsule, Take 250 mg by mouth Nightly., Disp: , Rfl: cholecalciferol (Vitamin D-3) 25 MCG (1000 UT) tablet, Take 1,000 Units by mouth in the morning., Disp: , Rfl: cyanocobalamin (Vitamin B-12) 500 MCG tablet, Take 500 mcg by mouth in the morning., Disp: , Rfl: estradiol (Estrace) 0.1 MG/GM vaginal cream, Insert 2 g into the vagina daily., Disp: , Rfl: famotidine (Pepcid) 20 MG tablet, Take 20 mg by mouth Nightly as needed for heartburn., Disp: , Rfl: fluticasone (Flonase) 50 MCG/ACT nasal spray, Administer 1 spray into affected nostril(s) Daily as needed., Disp: , Rfl: lisinopril 20 MG tablet, Take 1 tablet (20 mg) by mouth daily., Disp: 90 tablet, Rfl: 1 metFORMIN (Glucophage) 500 MG tablet, Take 2 tablets (1,000 mg) by mouth 2 times daily (with meals)., Disp: 360 tablet, Rfl: 1 metoprolol succinate XL (Toprol-XL) 100 MG 24 hr tablet, Take 1 tablet (100 mg) by mouth daily. Do not crush or chew., Disp: 30 tablet, Rfl: 11 rivaroxaban (Xarelto) 20 MG tablet, TAKE 1 TABLET BY MOUTH DAILY (WITH BREAKFAST), Disp: 90 tablet, Rfl: 3 Blood Glucose Monitoring Suppl (FreeStyle Lite) device, Use as instructed E11.9, Disp: 1 each, Rfl: 0 FREESTYLE LITE test strip, by Other route daily. Use as instructed E11.9, Disp: 100 each, Rfl: 11 Review of Systems: Review of Systems Constitutional: Negative for chills and fever. HENT: Negative for nosebleeds. Respiratory: Negative for chest tightness and shortness of breath. Cardiovascular: Positive for leg swelling. Negative for chest pain. Gastrointestinal: Negative for abdominal pain, diarrhea and nausea. Genitourinary: Negative for dysuria. Musculoskeletal: Negative for myalgias. Skin: Negative for pallor. Neurological: Negative for dizziness and syncope. Hematological: Does not bruise/bleed easily. Physical Examination: Vitals: Vitals: 12/21/24 1329 BP: 138/70 BP Location: Right arm Patient Position: Sitting BP Cuff Size: Large adult Pulse: 61 Resp: 16 SpO2: 99% Weight: 164 lb 3.2 oz (74.5 kg) Height: 5' 5 (1.651 m) Body mass index is 27.32 kg/m . Physical Exam Constitutional: General: She is not in acute distress. Appearance: She is not diaphoretic. HENT: Head: Normocephalic. Eyes: General: Right eye: No discharge. Left eye: No discharge. Conjunctiva/sclera: Conjunctivae normal. Cardiovascular: Rate and Rhythm: Normal rate and regular rhythm. Pulmonary: Breath sounds: No wheezing or rales. Abdominal: General: Bowel sounds are normal. Palpations: Abdomen is soft. Musculoskeletal: Right lower leg: No edema. Left lower leg: No edema. Skin: General: Skin is warm and dry. Findings: No erythema or rash. Neurological: Mental Status: She is oriented to person, place, and time. Psychiatric: Mood and Affect: Mood normal. Laboratory Tests: Lab Results Component Value Date WBC 7.4 08/06/2024 HGB 13.9 08/06/2024 HCT 40.7 08/06/2024 MCV 90.2 08/06/2024 PLT 293 08/06/2024 Lab Results Component Value Date GLUCOSE 119 (H) 08/31/2024 CALCIUM 9.2 08/31/2024 NA 141 08/06/2024 K 3.8 08/06/2024 CO2 23 08/31/2024 CL 107 08/06/2024 BUN 18 08/31/2024 CREATININE 0.75 [facility]/31/2024 [facility] Lab Results Component Value Date CHOL 145 02/27/2022 CHOL 195 10/29/2021 CHOL 189 07/03/2021 Lab Results Component Value Date TRIG 75 02/27/2022 TRIG 96 10/29/2021 TRIG 97 07/03/2021 Lab Results Component Value Date HDL 60 02/27/2022 HDL 57 10/29/2021 HDL 43 07/03/2021 No results found for: LDLCALC, LDLDIRECT No components found for: LVEF, LVEFMODE [id number] Score for Atrial Fibrillation Stroke Risk Risk Factors C CHF No, 0 H HTN Yes, 1 A2 Age >= 75 Yes, 2 D DM Yes, 1 S2 Prior Stroke/TIA No, 0 V Vascular Disease No, 0 A Age 65-74 No, 0 Sc Sex Female, 1 [id number] Score 5 Calculator: [id number] risk stratification score for estimation of stroke risk for nonvalvular atrial fibrillation in adults - UpToDate Atrial fibrillation in adults: Use of oral anticoagulants - UpToDate Assessment and Plan: Paroxysmal atrial fibrillation. By exam heart rate rhythm is regular. She will continue metoprolol for rate control. She will rate control. She will continue Xarelto for stroke risk reduction. Hypertension. Blood pressure is controlled. She will continue lisinopril and metoprolol. Chemistry panel in August noted stable electrolytes and renal function. Hyperlipidemia. She will continue atorvastatin. She has a lipid panel ordered along with CMP per Dr. Franklin's office. Is scheduled to see Dr. Roman office 6. She understands to call sooner with any questions or concerns. I, Joyce Phillips PA-C, furnish ongoing care related to Cassie Morgan single, serious and complex condition(s) Atrial Fibrillation. I assume responsibility for the patient's ongoing medical care of this condition. documented in this encounter [facility] 11-22-2024 Telephone encounter Note I called and advised event monitor notes episodes of A-fib with RVR, heart rate in the 180s at times. Overall patient is asymptomatic. States she is under a lot of situational stress, taking care of her ill who is nearing end-of-life. I also discussed her plan of care with Dr. Roman. Will discontinue carvedilol 12.5 mg twice daily and put her back on Toprol at a higher dose of 100 mg daily. She will keep her upcoming appointment in office already scheduled December 21, 2024 for repeat evaluation. She continues on lisinopril 20 mg daily for her blood pressure as well. She will continue monitoring her blood pressure and heart rate in her home environment. She is to notify the office if she were to have any symptoms or intolerance. [facility] 11-22-2024 Miscellaneous Notes I called and advised event monitor notes episodes of A-fib with RVR, heart rate in the 180s at times. Overall patient is asymptomatic. States she is under a lot of situational stress, taking care of her ill who is nearing end-of-life. I also discussed her plan of care with Dr. Roman. Will discontinue carvedilol 12.5 mg twice daily and put her back on Toprol at a higher dose of 100 mg daily. She will keep her upcoming appointment in office already scheduled December 21, 2024 for repeat evaluation. She continues on lisinopril 20 mg daily for her blood pressure as well. She will continue monitoring her blood pressure and heart rate in her home environment. She is to notify the office if she were to have any symptoms or intolerance. documented in this encounter [facility] 11-17-2024 Telephone encounter Note RX loaded Next ov 04/05/25 [facility] 11-17-2024 Miscellaneous Notes RX loaded Next ov 04/05/25 Medication name: atorvastatin (Lipitor) 10 MG tablet Medication dosage: 10 mg (Miligrams Monthly quantity needed: 30 How many day supply requestin days Medication route: oral (PO) Medication administration time(s): daily If taking medication PRN, reason for taking medication: N/A If this is a controlled substance do you receive this or any other controlled medication from any other doctor or facility: No Ordering provider: Clyde Sharma PA-C Date of last office visit: 10/05/24 Date of next office visit: 04/05/25 Date of last refill: (see medication tab): 04/26/24 Updated/Validated preferred pharmacy: Yes Patient instructed to contact the pharmacy prior to picking up the medication: Yes documented in this encounter [facility] 11-17-2024 Telephone encounter Note Medication name: atorvastatin (Lipitor) 10 MG tablet Medication dosage: 10 mg (Miligrams Monthly quantity needed: 30 How many day supply requestin days Medication route: oral (PO) Medication administration time(s): daily If taking medication PRN, reason for taking medication: N/A If this is a controlled substance do you receive this or any other controlled medication from any other doctor or facility: No Ordering provider: Clyde Sharma PA-C Date of last office visit: 10/05/24 Date of next office visit: 04/05/25 Date of last refill: (see medication tab): 04/26/24 Updated/Validated preferred pharmacy: Yes Patient instructed to contact the pharmacy prior to picking up the medication: Yes [facility] [employer] 11-17-2024 Telephone encounter Note Order re faxed [facility] [employer] 11-17-2024 Miscellaneous Notes Order re faxed Name of caller: Cassie Contact phone number: [phone] Relationship to Patient: patient Provider: Dr. Franklin Practice: [facility] Chief Complaint/Reason for Call: Patient states [facility] has not received order for diabetic shoes. Requesting to be faxed to [facility] at [phone]. Please advise. Best time of day caller can be reached: any Patient advised that office/PCP has 24-48 business hours to return their call: Yes faxed Name of caller: [facility] Contact phone number: [phone] Relationship to Patient: [facility] Provider: [facility] Practice: [facility] Chief Complaint/Reason for Call: [facility] called again regarding Request an Order for Diabetic shoes, inserts along with chart notes. . They are still waiting on return fax. Best time of day caller can be reached: any Patient advised that office/PCP has 24-48 business hours to return their call: No Addended by: ARMANDO FRANKLIN on: 11/01/2024 12:12 PM Modules accepted: Orders Addended by: HARRIET SALDANA on: 11/01/2024 11:19 AM Modules accepted: Orders Please sign orders for Diabetic shoes Is order ok for patient? Please advise Name of caller: [facility] Contact phone number: [phone] Relationship to Patient: [facility] Provider: Dr Franklin Practice: [facility] Chief Complaint/Reason for Call: Requesting an Order for Diabetic shoes, inserts along with chart notes. Best time of day caller can be reached: any Patient advised that office/PCP has 24-48 business hours to return their call: No documented in this encounter [facility] 11-16-2024 Telephone encounter Note Name of caller: [employer] Contact phone number: [phone] Relationship to Patient: patient Provider: Dr. Franklin Practice: [facility] Chief Complaint/Reason for Call: Patient states [facility] has not received order for diabetic shoes. Requesting to be faxed to [facility] at [phone]. Please advise. Best time of day caller can be reached: any Patient advised that office/PCP has 24-48 business hours to return their call: Yes [facility] 11-16-2024 Miscellaneous Notes Name of caller: Cassie Contact phone number: [phone] Relationship to Patient: patient Provider: Dr. Franklin Practice: [facility] Chief Complaint/Reason for Call: Patient states [facility] has not received order for diabetic shoes. Requesting to be faxed to [facility] at [phone]. Please advise. Best time of day caller can be reached: any Patient advised that office/PCP has 24-48 business hours to return their call: Yes faxed Name of caller: [facility] Contact phone number: [phone] Relationship to Patient: [facility] Provider: [facility] Practice: [facility] Chief Complaint/Reason for Call: [facility] called again regarding Request an Order for Diabetic shoes, inserts along with chart notes. . They are still waiting on return fax. Best time of day caller can be reached: any Patient advised that office/PCP has 24-48 business hours to return their call: No Addended by: ARMANDO FRANKLIN on: 11/01/2024 12:12 PM Modules accepted: Orders Addended by: HARRIET SALDANA on: 11/01/2024 11:19 AM Modules accepted: Orders Please sign orders for Diabetic shoes Is order ok for patient? Please advise Name of caller: [facility] Contact phone number: [phone] Relationship to Patient: [facility] Provider: Dr Franklin Practice: [facility] Chief Complaint/Reason for Call: Requesting an Order for Diabetic shoes, inserts along with chart notes. Best time of day caller can be reached: any Patient advised that office/PCP has 24-48 business hours to return their call: No documented in this encounter [facility] 11-11-2024 Telephone encounter Note I received a strip on pt's event monitor noting a-fib RVR 1 70's on 11/06/24. Pt states she is feeling well with no new complaints. I advised no new recommendations at this time. I would continue Xarelto 20 mg daily for OAC, Coreg 12.5 mg twice daily continues. She has a follow up in the office scheduled on 12/21/2024 for continued evaluation. [facility] 11-11-2024 Miscellaneous Notes I received a strip on pt's event monitor noting a-fib RVR 1 70's on 11/06/24. Pt states she is feeling well with no new complaints. I advised no new recommendations at this time. I would continue Xarelto 20 mg daily for OAC, Coreg 12.5 mg twice daily continues. She has a follow up in the office scheduled on 12/21/2024 for continued evaluation. documented in this encounter [facility] 11-03-2024 Telephone encounter Note faxed [facility] 11-03-2024 Miscellaneous Notes faxed Name of caller: Toña Contact phone number: [phone] Relationship to Patient: Home Link Provider: [facility] Practice: [facility] Chief Complaint/Reason for Call: Home Link called again regarding Request an Order for Diabetic shoes, inserts along with chart notes. . They are still waiting on return fax. Best time of day caller can be reached: any Patient advised that office/PCP has 24-48 business hours to return their call: No Addended by: ARMANDO FRANKLIN on: 11/01/2024 12:12 PM Modules accepted: Orders Addended by: HARRIET SALDANA on: 11/01/2024 11:19 AM Modules accepted: Orders Please sign orders for Diabetic shoes Is order ok for patient? Please advise Name of caller: Toña Contact phone number: [phone] Relationship to Patient: Home Link Provider: Dr Franklin Practice: [facility] Chief Complaint/Reason for Call: Requesting an Order for Diabetic shoes, inserts along with chart notes. Best time of day caller can be reached: any Patient advised that office/PCP has 24-48 business hours to return their call: No documented in this encounter [facility] 11-03-2024 Telephone encounter Note Name of caller: Toña Contact phone number: [phone] Relationship to Patient: Home Link Provider: [facility] Practice: [facility] Chief Complaint/Reason for Call: Home Link called again regarding Request an Order for Diabetic shoes, inserts along with chart notes. . They are still waiting on return fax. Best time of day caller can be reached: any Patient advised that office/PCP has 24-48 business hours to return their call: No [facility] 11-01-2024 Note Addended by: ARMANDO NAJERA on: 11/01/2024 12:12 PM Modules accepted: Orders [facility] 11-01-2024 Note Addended by: ARMANDO NAJERA on: 11/01/2024 12:12 PM Modules accepted: Orders [facility] 11-01-2024 Note Addended by: ARMANDO NAJERA on: 11/01/2024 12:12 PM Modules accepted: Orders [facility] 11-01-2024 Note Addended by: ARMANDO NAJERA on: 11/01/2024 12:12 PM Modules accepted: Orders [facility] 11-01-2024 Note Addended by: ARMANDO NAJERA on: 11/01/2024 12:12 PM Modules accepted: Orders [facility] 11-01-2024 Note Addended by: ARMANDO NAJERA on: 11/01/2024 12:12 PM Modules accepted: Orders [facility] 11-01-2024 Miscellaneous Notes Addended by: ARMANDO FRANKLIN on: 11/01/2024 12:12 PM Modules accepted: Orders Addended by: HARRIET SALDANA on: 11/01/2024 11:19 AM Modules accepted: Orders Please sign orders for Diabetic shoes Is order ok for patient? Please advise Name of caller: Toña Contact phone number: [phone] Relationship to Patient: Home Link Provider: Dr Franklin Practice: [facility] Chief Complaint/Reason for Call: Requesting an Order for Diabetic shoes, inserts along with chart notes. Best time of day caller can be reached: any Patient advised that office/PCP has 24-48 business hours to return their call: No documented in this encounter [facility] 11-01-2024 Note Addended by: HARRIET SALDANA on: 11/01/2024 11:19 AM Modules accepted: Orders [facility] 11-01-2024 Note Addended by: HARRIET SALDANA on: 11/01/2024 11:19 AM Modules accepted: Orders [facility] 11-01-2024 Note Addended by: HARRIET SALDANA on: 11/01/2024 11:19 AM Modules accepted: Orders [facility] 11-01-2024 Note Addended by: HARRIET SALDANA on: 11/01/2024 11:19 AM Modules accepted: Orders [facility] 11-01-2024 Note Addended by: HARRIET SALDANA on: 11/01/2024 11:19 AM Modules accepted: Orders [facility] 11-01-2024 Note Addended by: HARRIET SALDANA on: 11/01/2024 11:19 AM Modules accepted: Orders [facility] 11-01-2024 Telephone encounter Note Please sign orders for Diabetic shoes [facility] 10-27-2024 Telephone encounter Note Is order ok for patient? Please advise [facility] 10-27-2024 Miscellaneous Notes Is order ok for patient? Please advise Name of caller: Toña Contact phone number: [phone] Relationship to Patient: Home Link Provider: Dr Franklin Practice: [facility] Chief Complaint/Reason for Call: Requesting an Order for Diabetic shoes, inserts along with chart notes. Best time of day caller can be reached: any Patient advised that office/PCP has 24-48 business hours to return their call: No documented in this encounter [facility] 10-27-2024 Telephone encounter Note Name of caller: Toña Contact phone number: [phone] Relationship to Patient: Home Link Provider: Dr Franklin Practice: [facility] Chief Complaint/Reason for Call: Requesting an Order for Diabetic shoes, inserts along with chart notes. Best time of day caller can be reached: any Patient advised that office/PCP has 24-48 business hours to return their call: No [facility] [employer] 10-21-2024 Telephone encounter Note Medication name: metFORMIN (Glucophage) 500 MG tablet Medication dosage: 500 mg (Miligrams Monthly quantity needed: 360 How many day supply requestin days Medication route: oral (PO) Medication administration time(s): 2 times a day (BID) If taking medication PRN, reason for taking medication: N/A If this is a controlled substance do you receive this or any other controlled medication from any other doctor or facility: N/A Ordering provider: Dr. Franklin Date of last office visit: 10.05.24 Date of next office visit: 04.05.25 Date of last refill: (see medication tab): 06.27.24 Updated/Validated preferred pharmacy: Yes Patient instructed to contact the pharmacy prior to picking up the medication: No [facility] [employer] 10-21-2024 Miscellaneous Notes Medication name: metFORMIN (Glucophage) 500 MG tablet Medication dosage: 500 mg (Miligrams Monthly quantity needed: 360 How many day supply requestin days Medication route: oral (PO) Medication administration time(s): 2 times a day (BID) If taking medication PRN, reason for taking medication: N/A If this is a controlled substance do you receive this or any other controlled medication from any other doctor or facility: N/A Ordering provider: Dr. Franklin Date of last office visit: 10.05.24 Date of next office visit: 04.05.25 Date of last refill: (see medication tab): 06.27.24 Updated/Validated preferred pharmacy: Yes Patient instructed to contact the pharmacy prior to picking up the medication: No documented in this encounter [facility] [employer] 10-14-2024 Note Addended by: PARKER WEST on: 10/14/2024 01:08 PM Modules accepted: Orders [employer] 10-14-2024 Note Addended by: PARKER WEST on: 10/14/2024 01:08 PM Modules accepted: Orders [employer] 10-14-2024 Note Addended by: PARKER WEST on: 10/14/2024 01:08 PM Modules accepted: Orders [email or web address] 10-14-2024 Miscellaneous Notes Addended by: PARKER WEST on: 10/14/2024 01:08 PM Modules accepted: Orders Chart reviewed. I agree a 30 day event monitor would be beneficial to assess if she is having recurrent atrial fibrillation and how often. I will order a 30 day event monitor and ask she be scheduled follow up in 2 months to review results. Called patient to review A-fib. She states last night she was sitting on the couch and watching tv and she felt like she was into A-fib. She states she started tiredness and her heart was racing. She denied chest pain, SOB or dizziness. HR at that time was 129. Blood pressure this morning was 138/87 HR 97. She does no feel she is in A-fib now. Pulse ox while nurse was on the phone was in the 80's and 90's steady. Pulse ox HR was not bouncing all over. Let patient know Joyce suggested if she went into a-fib again we should have patient get EM. Pt is agreeable. Let patient know this message would be sent to provider to review and make recommendations. Patient states that she is back in A- Fib, she also stated her blood sugar this morning was 198. Stated it has been up to 212 although she doesn't know if that was right since it was the wrist cuff. States the a- fib is up as well because she can feel it Please call her back to discuss at your earliest convenience. Thank you . Pt called back and states her HR on the Kardia is 81 but she did not notice if it gave the rhythm or not. She also took her BP with a wrist cuff, her BP was 113/66 and HR of 74. She reports feeling much better than she did this morning. Pt instructed to call back if she would go back into A-fib, which at that time, an event monitor could ordered per [employer]. Pt verbalized understanding and had no further questions at this time. Spoke with pt and relayed recommendations per Amauri. Pt states she has not rechecked her rhythm on her Kardia-mobile but will check and call back with the results. If Kardia now shows a normal sinus rhythm, I would continue her present medications. She is on Xarelto for stroke risk reduction. She is on beta-angela for rate control. If this occurs again however we should consider a 30-day event monitor to see how much A-fib she is having. Thank you Pt called in stating she was back in A-fib. She reports noticing heart racing palpitations and overall feeling lousey about 8:30 am. She states she checked her rhythm on [employer] around 9:30 am which confirmed A-fib with, HR-126 and second strip, HR-118. Pt denies any CP or SOB. She endorses palpitations and fatigue. Requested pt to put pulse-ox on her finger to monitor HR while on the phone with this nurse. HR stayed consistent between 60's-70's. Pt most likely back to SR. Pt states she was instructed at her CLARI to call if back in A-fib. Let pt know that this information would be given to the provider and someone would call her back with any further recommendations. Pt verbalized understanding and had no further questions at this time. documented in this encounter [facility] 10-14-2024 Telephone encounter Note Chart reviewed. I agree a 30 day event monitor would be beneficial to assess if she is having recurrent atrial fibrillation and how often. I will order a 30 day event monitor and ask she be scheduled follow up in 2 months to review results. [facility] 10-14-2024 Telephone encounter Note Called patient to review A-fib. She states last night she was sitting on the couch and watching tv and she felt like she was into A-fib. She states she started tiredness and her heart was racing. She denied chest pain, SOB or dizziness. HR at that time was 129. Blood pressure this morning was 138/87 HR 97. She does no feel she is in A-fib now. Pulse ox while nurse was on the phone was in the 80's and 90's steady. Pulse ox HR was not bouncing all over. Let patient know Joyce suggested if she went into a-fib again we should have patient get EM. Pt is agreeable. Let patient know this message would be sent to provider to review and make recommendations. [email or web address] 10-14-2024 Telephone encounter Note Patient states that she is back in A- Fib, she also stated her blood sugar this morning was 198. Stated it has been up to 212 although she doesn't know if that was right since it was the wrist cuff. States the a- fib is up as well because she can feel it Please call her back to discuss at your earliest convenience. Thank you . [employer] 10-10-2024 Telephone encounter Note Pt called back and states her HR on the Kardia is 81 but she did not notice if it gave the rhythm or not. She also took her BP with a wrist cuff, her BP was 113/66 and HR of 74. She reports feeling much better than she did this morning. Pt instructed to call back if she would go back into A-fib, which at that time, an event monitor could ordered per Joyce-PA. Pt verbalized understanding and had no further questions at this time. [employer] 10-10-2024 Miscellaneous Notes Pt called back and states her HR on the Kardia is 81 but she did not notice if it gave the rhythm or not. She also took her BP with a wrist cuff, her BP was 113/66 and HR of 74. She reports feeling much better than she did this morning. Pt instructed to call back if she would go back into A-fib, which at that time, an event monitor could ordered per Joyce-PA. Pt verbalized understanding and had no further questions at this time. Spoke with pt and relayed recommendations per Joyce-PA. Pt states she has not rechecked her rhythm on her Kardia-mobile but will check and call back with the results. If Bobby now shows a normal sinus rhythm, I would continue her present medications. She is on Xarelto for stroke risk reduction. She is on beta-angela for rate control. If this occurs again however we should consider a 30-day event monitor to see how much A-fib she is having. Thank you Pt called in stating she was back in A-fib. She reports noticing heart racing palpitations and overall feeling lousey about 8:30 am. She states she checked her rhythm on kardia-mobile around 9:30 am which confirmed A-fib with, HR-126 and second strip, HR-118. Pt denies any CP or SOB. She endorses palpitations and fatigue. Requested pt to put pulse-ox on her finger to monitor HR while on the phone with this nurse. HR stayed consistent between 60's-70's. Pt most likely back to SR. Pt states she was instructed at her CLARI to call if back in A-fib. Let pt know that this information would be given to the provider and someone would call her back with any further recommendations. Pt verbalized understanding and had no further questions at this time. documented in this encounter [facility] [employer] 10-10-2024 Telephone encounter Note Spoke with pt and relayed recommendations per Amauri. Pt states she has not rechecked her rhythm on her Kardia-mobile but will check and call back with the results. [facility] Telephone encounter Note If Bobby now shows a normal sinus rhythm, I would continue her present medications. She is on Xarelto for stroke risk reduction. She is on beta-angela for rate control. If this occurs again however we should consider a 30-day event monitor to see how much A-fib she is having. Thank you [facility] 10-10-2024 Telephone encounter Note Pt called in stating she was back in A-fib. She reports noticing heart racing palpitations and overall feeling lousey about 8:30 am. She states she checked her rhythm on [employer] around 9:30 am which confirmed A-fib with, HR-126 and second strip, HR-118. Pt denies any CP or SOB. She endorses palpitations and fatigue. Requested pt to put pulse-ox on her finger to monitor HR while on the phone with this nurse. HR stayed consistent between 60's-70's. Pt most likely back to SR. Pt states she was instructed at her CLARI to call if back in A-fib. Let pt know that this information would be given to the provider and someone would call her back with any further recommendations. Pt verbalized understanding and had no further questions at this time. [facility] 10-05-2024 History of Present illness Narrative Images from the original note were not included. [facility] - [address] [facility] [id number] Visit type: Established Patient Reason for Visit: Follow-up (Med check) Assessment / Plan: Cassie was seen today for follow-up. Diagnoses and all orders for this visit: Type 2 diabetes mellitus with other specified complication, without long-term current use of insulin (HCC) (Primary) Comments: Stable, cont metformin Orders: - AMB POC URINE, MICROALBUMIN - Comprehensive metabolic panel; Future - Hemoglobin A1c; Future - Lipid panel; Future - Comprehensive metabolic panel - Hemoglobin A1c - Lipid panel THIERRY (generalized anxiety disorder) Comments: Stable, continue as needed Xanax Anticoagulant long-term use Comments: Stable continue Xarelto Recurrent UTI Comments: Stable continue daily Keflex Essential (primary) hypertension Comments: Stable on lisinopril, carvedilol, PAF (paroxysmal atrial fibrillation) ([facility]) Comments: Presently normal sinus rhythm Pure hypercholesterolemia Comments: Stable on lipid for Subjective: Patient ID: Cassie Morgan is a 79 y.o. female. HPI type II diabetic with history of hypertension, hyperlipidemia and PAF status post cardioversion 2 months ago for rapid A-fib presents for checkup. Glucose levels in the 150 range. However A1c's have been well. Mostly she has a lot of stress with her who is presently on hospice with advanced dementia. She takes Xanax a few times a week. Due to time restraints she would like to have a checkup only for 6 months. She continues not to smoke or drink. Her children and step kids are pretty helpful. Review of Systems no recent earache sore throat or cough. No chest pain or palpitations. No breakthrough dyspnea PND orthopnea claudication or change in chronic pedal edema. No heartburn or abdominal pain. Bowels are regular. No melena or blood. No breast complaints. Has frequent UTIs and presently on Keflex without vaginal yeast infections. Allergies Allergen Reactions Cefaclor Codeine Rash Current Outpatient Medications on File Prior to Visit Medication Sig Dispense Refill ALPRAZolam (Xanax) 0.25 MG tablet 1/2 or one tab q day prn anxiety 15 tablet 0 ascorbic acid (Vitamin C) 500 mg chewable tablet Chew 500 mg in the morning. atorvastatin (Lipitor) 10 MG tablet Take 1 tablet (10 mg) by mouth daily. 90 tablet 1 Blood Glucose Monitoring Suppl (TurnStyle Lite) device Use as instructed E11.9 1 each 0 carvedilol (Coreg) 12.5 MG tablet Take 1 tablet (12.5 mg) by mouth 2 times daily (with meals). 180 tablet 1 cephalexin (Keflex) 250 MG capsule Take 250 mg by mouth Nightly. cholecalciferol (Vitamin D-3) 25 MCG (1000 UT) tablet Take 1,000 Units by mouth in the morning. cyanocobalamin (Vitamin B-12) 500 MCG tablet Take 500 mcg by mouth in the morning. estradiol (Estrace) 0.1 MG/GM vaginal cream Insert 2 g into the vagina daily. famotidine (Pepcid) 20 MG tablet Take 20 mg by mouth Nightly as needed for heartburn. fluticasone (Flonase) 50 MCG/ACT nasal spray Administer 1 spray into affected nostril(s) Daily as needed. FREESTYLE LITE test strip by Other route daily. Use as instructed E11.9 100 each 11 lisinopril 20 MG tablet Take 1 tablet (20 mg) by mouth daily. 90 tablet 1 metFORMIN (Glucophage) 500 MG tablet Take 2 tablets (1,000 mg) by mouth in the morning and 2 tablets (1,000 mg) in the evening. Take with meals. 360 tablet 1 rivaroxaban (Xarelto) 20 MG tablet TAKE 1 TABLET BY MOUTH DAILY (WITH BREAKFAST) 90 tablet 3 No current facility-administered medications on file prior to visit. Patient Active Problem List Diagnosis Recurrent UTI Type 2 diabetes mellitus with other specified complication, without long-term current use of insulin (HCC) Dependent edema PAF (paroxysmal atrial fibrillation) (HCC) Anticoagulant long-term use Essential (primary) hypertension Postmenopausal bleeding Pure hypercholesterolemia THIERRY (generalized anxiety disorder) History of small bowel obstruction Social History Tobacco Use Smoking status: Never Smokeless tobacco: Never Substance Use Topics Alcohol use: No Alcohol/week: 0.0 standard drinks of alcohol Past Surgical History: Procedure Laterality Date BREAST CYST EXCISION Left 2012 Benign CATARACT EXTRACTION Left 2019 SECTION (HISTORICAL) COLONOSCOPY 2013 COLONOSCOPY W/ POLYPECTOMY 07/2021 ? 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 Patient appears well, alert and oriented x 3, pleasant, cooperative. Vitals are as noted. Neck supple, no abnormal adenopathy, thyroid lesions or masses.. Lungs are clear to auscultation. Heart is regular, without change in murmurs, no gallops or ectopy. Abdomen is soft, non tender, without masses, hepatosplenomegaly, or bruits. Normal BS evident. Extremities have chronic venous stasis changes and 1+ pedal edema. Right foot more than left. No skin breakdowns of the soles of the feet. Peripheral pulses are good. No worrisome skin lesions. Screening neurological exam is normal without focal deficits. Substantial onychomycosis of multiple toenails documented in this encounter [facility] 09-28-2024 Note Sinus Bradycardia -Left axis. -Poor R-wave progression -nonspecific -consider old anterior infarct. ABNORMAL [facility] 09-28-2024 History of Present illness Narrative [facility] Cardiology Note DATE of SERVICE:09/28/24 TIME of SERVICE: 11:35 AM Chief Complaint: Chief Complaint Patient presents with Follow-up History of PresentIllness: Cassie Morgan is a 79 y.o. female with a history of paroxysmal atrial fibrillation, and hypertension. When she was last seen in the office August 23 her blood pressure was elevated. At that time Toprol was changed to carvedilol, and lisinopril was increased to 20 mg daily. She had follow-up blood work August 31 that noted stable electrolytes and renal function. She is back in today for reassessment. She is doing well. She has developed a urinary tract infection and is being treated with antibiotic therapy. She denies any cardiac symptoms including chest pain, shortness of breath, palpitations, or edema. Blood pressure is much better controlled today at this visit. Past Medical History: Past Medical History: Diagnosis Date Anxiety Breast cancer screening by mammogram 09/2023 COVID-19 11/2023 Dependent edema Diverticulosis 2019 Diverticulitis H/O colonoscopy 2013 Dr Ramesh- due 2023 History of transfusion PAF (paroxysmal atrial fibrillation) ([facility]) 2017 Dr. Newby- OAC, nml EF Recurrent UTI Keflex prophylaxis SBO (small bowel obstruction) ([facility]) 11/2023 hospitalized Type II or unspecified type diabetes mellitus without mention of complication, not stated as uncontrolled (HCC) 2013 Past Surgical History Past Surgical History: Procedure Laterality Date BREAST CYST EXCISION Left 2013 CATARACT EXTRACTION Left 2019 SECTION (HISTORICAL) COLONOSCOPY 2013 COLONOSCOPY W/ POLYPECTOMY 07/2021 ? 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 LAP,INGUINAL HERNIA REPR,INITIAL (HISTORICAL) Right 08/18/2023 L[facility] Family History Family History Problem Relation Name Age of Onset Other (31694) Mother Aminah Benitez natural causes, age 89 Pancreatic cancer Father Freddy 79 Diabetes Sister Bonnie Diabetes Brother Ed Social History Social History Tobacco Use Smoking status: Never Smokeless tobacco: Never Vaping Use Vaping status: Never Used Substance Use Topics Alcohol use: No Alcohol/week: 0.0 standard drinks of alcohol Drug use: No Comment: caffeine: a couple cups of coffee a day Allergies: Allergies Allergen Reactions Cefaclor Codeine Rash Medications: Current Outpatient Medications: ALPRAZolam (Xanax) 0.25 MG tablet, 1/2 or one tab q day prn anxiety, Disp: 15 tablet, Rfl: 0 ascorbic acid (Vitamin C) 500 mg chewable tablet, Chew 500 mg in the morning., Disp: , Rfl: atorvastatin (Lipitor) 10 MG tablet, Take 1 tablet (10 mg) by mouth daily., Disp: 90 tablet, Rfl: 1 carvedilol (Coreg) 12.5 MG tablet, Take 1 tablet (12.5 mg) by mouth 2 times daily (with meals)., Disp: 180 tablet, Rfl: 1 cephalexin (Keflex) 250 MG capsule, Take 250 mg by mouth Nightly., Disp: , Rfl: cholecalciferol (Vitamin D-3) 25 MCG (1000 UT) tablet, Take 1,000 Units by mouth in the morning., Disp: , Rfl: cyanocobalamin (Vitamin B-12) 500 MCG tablet, Take 500 mcg by mouth in the morning., Disp: , Rfl: estradiol (Estrace) 0.1 MG/GM vaginal cream, Insert 2 g into the vagina daily., Disp: , Rfl: famotidine (Pepcid) 20 MG tablet, Take 20 mg by mouth Nightly as needed for heartburn., Disp: , Rfl: fluticasone (Flonase) 50 MCG/ACT nasal spray, Administer 1 spray into affected nostril(s) Daily as needed., Disp: , Rfl: lisinopril 20 MG tablet, Take 1 tablet (20 mg) by mouth daily., Disp: 90 tablet, Rfl: 1 metFORMIN (Glucophage) 500 MG tablet, Take 2 tablets (1,000 mg) by mouth in the morning and 2 tablets (1,000 mg) in the evening. Take with meals., Disp: 360 tablet, Rfl: 1 rivaroxaban (Xarelto) 20 MG tablet, TAKE 1 TABLET BY MOUTH DAILY (WITH BREAKFAST), Disp: 90 tablet, Rfl: 3 Blood Glucose Monitoring Suppl (FreeStyle Lite) device, Use as instructed E11.9, Disp: 1 each, Rfl: 0 FREESTYLE LITE test strip, by Other route daily. Use as instructed E11.9, Disp: 100 each, Rfl: 11 Review of Systems: Review of Systems Constitutional: Negative for chills and fever. HENT: Negative for nosebleeds. Respiratory: Negative for chest tightness and shortness of breath. Cardiovascular: Negative for chest pain and leg swelling. Gastrointestinal: Negative for abdominal pain, diarrhea and nausea. Genitourinary: Negative for dysuria. Musculoskeletal: Negative for myalgias. Skin: Negative for pallor. Neurological: Negative for dizziness and syncope. Hematological: Does not bruise/bleed easily. Physical Examination: Vitals: Vitals: 09/28/24 1102 BP: 136/80 BP Location: Left arm Patient Position: Sitting BP Cuff Size: Adult Pulse: 57 SpO2: 100% Weight: 162 lb (73.5 kg) Height: 5' 5 (1.651 m) Body mass index is 26.96 kg/m . Physical Exam Constitutional: General: She is not in acute distress. Appearance: She is not diaphoretic. HENT: Head: Normocephalic. Eyes: General: Right eye: No discharge. Left eye: No discharge. Conjunctiva/sclera: Conjunctivae normal. Cardiovascular: Rate and Rhythm: Normal rate and regular rhythm. Pulmonary: Breath sounds: No wheezing or rales. Abdominal: General: Bowel sounds are normal. Palpations: Abdomen is soft. Musculoskeletal: Right lower leg: No edema. Left lower leg: No edema. Skin: General: Skin is warm and dry. Findings: No erythema or rash. Neurological: Mental Status: She is oriented to person, place, and time. Psychiatric: Mood and Affect: Mood normal. Laboratory Tests: Lab Results Component Value Date WBC 7.4 08/06/2024 HGB 13.9 08/06/2024 HCT 40.7 08/06/2024 MCV 90.2 08/06/2024 PLT 293 08/06/2024 Lab Results Component Value Date GLUCOSE 119 (H) 08/31/2024 CALCIUM 9.2 08/31/2024 NA 141 08/06/2024 K 3.8 08/06/2024 CO2 23 08/31/2024 CL 107 08/06/2024 BUN 18 08/31/2024 CREATININE 0.75 08/31/2024 @[facility]@ Lab Results Component Value Date CHOL 145 02/27/2022 CHOL 195 10/29/2021 CHOL 189 07/03/2021 Lab Results Component Value Date TRIG 75 02/27/2022 TRIG 96 10/29/2021 TRIG 97 07/03/2021 Lab Results Component Value Date HDL 60 02/27/2022 HDL 57 10/29/2021 HDL 43 07/03/2021 No results found for: LDLCALC, LDLDIRECT No components found for: LVEF, LVEFMODE [id number] Score for Atrial Fibrillation Stroke Risk Risk Factors C CHF No, 0 H HTN Yes, 1 A2 Age >= 75 Yes, 2 D DM Yes, 1 S2 Prior Stroke/TIA No, 0 V Vascular Disease No, 0 A Age 65-74 No, 0 Sc Sex Female, 1 [id number] Score 5 Calculator: [id number] risk stratification score for estimation of stroke risk for nonvalvular atrial fibrillation in adults - UpToDate Atrial fibrillation in adults: Use of oral anticoagulants - UpToDate Assessment and Plan: Paroxysmal atrial fibrillation. EKG by my review notes sinus bradycardia with a heart rate of 57. At this time we will continue carvedilol for rate control. Will continue Xarelto for stroke risk reduction. Hypertension. Blood pressure is better controlled. At this time we will continue current doses of carvedilol 12.5 mg twice daily, and lisinopril 20 mg daily. Follow-up BMP August 31 noted stable electrolytes and renal function. Hyperlipidemia. She will continue current dose of atorvastatin. Lipid panel May 11 noted a total cholesterol 162, triglycerides 114, HDL 69, LDL 73. She can be seen again in 6 months. She understands to call sooner with any questions or concerns. documented in this encounter [facility] 09-20-2024 Telephone encounter Note Pt was left a detailed message and was given breast center number to call and schedule her mammogram. [facility] 09-20-2024 Miscellaneous Notes Pt was left a detailed message and was given breast center number to call and schedule her mammogram. Last OV:05/11/24 Scheduled:10/05/24 Name of caller: Cassie Contact phone number: [phone] Relationship to Patient: patient Provider: [facility]: [facility] Chief Complaint/Reason for Call: Patient wants to know if you can place an order for her to get a mammogram. She said she would like to get it done on a day she already has some appointments scheduled in September. Please advise Best time of day caller can be reached: any Patient advised that office/PCP has 24-48 business hours to return their call: No documented in this encounter [facility] 09-19-2024 Telephone encounter Note Last OV:05/11/24 Scheduled:10/05/24 [facility] 09-19-2024 Miscellaneous Notes Last OV:05/11/24 Scheduled:10/05/24 Name of caller: Cassie Contact phone number: [phone] Relationship to Patient: patient Provider: [facility]: [facility] Chief Complaint/Reason for Call: Patient wants to know if you can place an order for her to get a mammogram. She said she would like to get it done on a day she already has some appointments scheduled in September. Please advise Best time of day caller can be reached: any Patient advised that office/PCP has 24-48 business hours to return their call: No documented in this encounter [facility] 09-19-2024 Telephone encounter Note Name of caller: [employer] Contact phone number: [phone] Relationship to Patient: patient Provider: [facility]: [facility] Chief Complaint/Reason for Call: Patient wants to know if you can place an order for her to get a mammogram. She said she would like to get it done on a day she already has some appointments scheduled in September. Please advise Best time of day caller can be reached: any Patient advised that office/PCP has 24-48 business hours to return their call: No [facility] 09-14-2024 Telephone encounter Note Talked to patient and got an appointment to be seen sooner per Dr. Franklin on 10/05/24 [facility] 09-14-2024 Miscellaneous Notes Talked to patient and got an appointment to be seen sooner per Dr. Franklin on 10/05/24 Medication name: ALPRAZolam (Xanax) 0.25 MG tablet Medication dosage: 0.25 mg (Miligrams Monthly quantity needed: 30 How many day supply requestin days Medication route: oral (PO) Medication administration time(s): as needed (PRN) If taking medication PRN, reason for taking medication: 1/2 or one tab q day prn anxiety If this is a controlled substance do you receive this or any other controlled medication from any other doctor or facility: No Ordering provider: Dr. Franklin Date of last office visit: 05/11/24 Date of next office visit: 11/09/24 Date of last refill: (see medication tab): 07/07/24 Updated/Validated preferred pharmacy: Yes Patient instructed to contact the pharmacy prior to picking up the medication: Yes documented in this encounter [facility] 09-13-2024 Telephone encounter Note Medication name: ALPRAZolam (Xanax) 0.25 MG tablet Medication dosage: 0.25 mg (Miligrams Monthly quantity needed: 30 How many day supply requestin days Medication route: oral (PO) Medication administration time(s): as needed (PRN) If taking medication PRN, reason for taking medication: 1/2 or one tab q day prn anxiety If this is a controlled substance do you receive this or any other controlled medication from any other doctor or facility: No Ordering provider: Dr. Franklin Date of last office visit: 05/11/24 Date of next office visit: 11/09/24 Date of last refill: (see medication tab): 07/07/24 Updated/Validated preferred pharmacy: Yes Patient instructed to contact the pharmacy prior to picking up the medication: Yes [facility] 09-13-2024 Miscellaneous Notes Medication name: ALPRAZolam (Xanax) 0.25 MG tablet Medication dosage: 0.25 mg (Miligrams Monthly quantity needed: 30 How many day supply requestin days Medication route: oral (PO) Medication administration time(s): as needed (PRN) If taking medication PRN, reason for taking medication: 1/2 or one tab q day prn anxiety If this is a controlled substance do you receive this or any other controlled medication from any other doctor or facility: No Ordering provider: Dr. Franklin Date of last office visit: 05/11/24 Date of next office visit: 11/09/24 Date of last refill: (see medication tab): 07/07/24 Updated/Validated preferred pharmacy: Yes Patient instructed to contact the pharmacy prior to picking up the medication: Yes documented in this encounter [facility] 08-23-2024 History of Present illness Narrative [facility] Cardiology Note DATE of SERVICE:08/23/24 TIME of SERVICE: 10:40 AM Chief Complaint: Chief Complaint Patient presents with Follow-up ED visit follow up History of PresentIllness: Cassie Morgan is a 79 y.o. female with a history of paroxysmal atrial fibrillation, and hypertension. She was in the emergency room August 06, feeling that she was in atrial fibrillation. EKG did demonstrate that she was in fact in atrial fibrillation. She was also hypertensive with a blood pressure of 175/93. Direct-current cardioversion was completed in the emergency room with adventism of sinus rhythm. She is now being seen in the office for follow-up. She states she will frequently feel fatigued. She has a Kardia, and states she uses it frequently, but is unable to tell me whether she has found herself in atrial fibrillation any other day but August 06. We did do a 3-day monitor back in December but noted normal sinus rhythm without recurrent A-fib. An echocardiogram at that time noted normal LV systolic function without significant valvular disease. Her blood pressure here today is also high. She is unable to tell me how she felt on August 06 that was a different than her typical feeling of fatigue that led her to go to the ER. Past Medical History: Past Medical History: Diagnosis Date Anxiety Breast cancer screening by mammogram 09/2023 COVID-19 11/2023 Dependent edema Diverticulosis 2019 Diverticulitis H/O colonoscopy 2013 Dr Ramesh- maria t 2023 History of transfusion PAF (paroxysmal atrial fibrillation) (HCC) 2018 Dr. Newby- OAC, nml EF Recurrent UTI Keflex prophylaxis SBO (small bowel obstruction) ([facility]) 11/2023 hospitalized Type II or unspecified type diabetes mellitus without mention of complication, not stated as uncontrolled ([facility]) 2013 Past Surgical History Past Surgical History: Procedure Laterality Date BREAST CYST EXCISION Left 2013 CATARACT EXTRACTION Left 2019 SECTION (HISTORICAL) COLONOSCOPY 2013 COLONOSCOPY W/ POLYPECTOMY 07/2021 ? 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 LAP,INGUINAL HERNIA REPR,INITIAL (HISTORICAL) Right 08/18/2023 [place] Family History Family History Problem Relation Name Age of Onset Other (19013) Mother Aminah Benitez natural causes, age 89 Pancreatic cancer Father Freddy 79 Diabetes Sister Bonnie Diabetes Brother Ed Social History Social History Tobacco Use Smoking status: Never Smokeless tobacco: Never Vaping Use Vaping status: Never Used Substance Use Topics Alcohol use: No Alcohol/week: 0.0 standard drinks of alcohol Drug use: No Comment: caffeine: a couple cups of coffee a day Allergies: Allergies Allergen Reactions Cefaclor Codeine Rash Medications: Current Outpatient Medications: ALPRAZolam (Xanax) 0.25 MG tablet, 1/2 or one tab q day prn anxiety, Disp: 30 tablet, Rfl: 0 ascorbic acid (Vitamin C) 500 mg chewable tablet, Chew 500 mg in the morning., Disp: , Rfl: atorvastatin (Lipitor) 10 MG tablet, Take 1 tablet (10 mg) by mouth daily., Disp: 90 tablet, Rfl: 1 cephalexin (Keflex) 250 MG capsule, Take 250 mg by mouth Nightly., Disp: , Rfl: cholecalciferol (Vitamin D-3) 25 MCG (1000 UT) tablet, Take 1,000 Units by mouth in the morning., Disp: , Rfl: cyanocobalamin (Vitamin B-12) 500 MCG tablet, Take 500 mcg by mouth in the morning., Disp: , Rfl: estradiol (Estrace) 0.1 MG/GM vaginal cream, Insert 2 g into the vagina daily., Disp: , Rfl: famotidine (Pepcid) 20 MG tablet, Take 20 mg by mouth Nightly as needed for heartburn., Disp: , Rfl: fluticasone (Flonase) 50 MCG/ACT nasal spray, Administer 1 spray into affected nostril(s) Daily as needed., Disp: , Rfl: metFORMIN (Glucophage) 500 MG tablet, Take 2 tablets (1,000 mg) by mouth in the morning and 2 tablets (1,000 mg) in the evening. Take with meals., Disp: 360 tablet, Rfl: 1 rivaroxaban (Xarelto) 20 MG tablet, TAKE 1 TABLET BY MOUTH DAILY (WITH BREAKFAST), Disp: 90 tablet, Rfl: 3 Blood Glucose Monitoring Suppl (FreeStyle Lite) device, Use as instructed E11.9, Disp: 1 each, Rfl: 0 carvedilol (Coreg) 12.5 MG tablet, Take 1 tablet (12.5 mg) by mouth 2 times daily (with meals)., Disp: 180 tablet, Rfl: 1 FREESTYLE LITE test strip, by Other route daily. Use as instructed E11.9, Disp: 100 each, Rfl: 11 lisinopril 20 MG tablet, Take 1 tablet (20 mg) by mouth daily., Disp: 90 tablet, Rfl: 1 Review of Systems: Review of Systems Constitutional: Negative for chills and fever. HENT: Negative for nosebleeds. Respiratory: Negative for chest tightness and shortness of breath. Cardiovascular: Negative for chest pain and leg swelling. Gastrointestinal: Negative for abdominal pain, diarrhea and nausea. Genitourinary: Negative for dysuria. Musculoskeletal: Negative for myalgias. Skin: Negative for pallor. Neurological: Negative for dizziness and syncope. Hematological: Does not bruise/bleed easily. Physical Examination: Vitals: Vitals: 08/23/24 1001 08/23/24 1023 BP: (S) (!) 170/100 (!) 150/88 BP Location: Left arm Patient Position: Sitting BP Cuff Size: Adult Pulse: 60 SpO2: 99% Weight: 166 lb 3.2 oz (75.4 kg) Height: 5' 5 (1.651 m) Body mass index is 27.66 kg/m . Physical Exam Constitutional: General: She is not in acute distress. Appearance: She is not diaphoretic. HENT: Head: Normocephalic. Eyes: General: Right eye: No discharge. Left eye: No discharge. Conjunctiva/sclera: Conjunctivae normal. Cardiovascular: Rate and Rhythm: Normal rate and regular rhythm. Pulmonary: Breath sounds: No wheezing or rales. Abdominal: General: Bowel sounds are normal. Palpations: Abdomen is soft. Musculoskeletal: Right lower leg: No edema. Left lower leg: No edema. Skin: General: Skin is warm and dry. Findings: No erythema or rash. Neurological: Mental Status: She is oriented to person, place, and time. Psychiatric: Mood and Affect: Mood normal. Laboratory Tests: Lab Results Component Value Date WBC 7.4 08/06/2024 HGB 13.9 08/06/2024 HCT 40.7 08/06/2024 MCV 90.2 08/06/2024 PLT 293 08/06/2024 Lab Results Component Value Date GLUCOSE 151 (H) 08/06/2024 CALCIUM 9.3 08/06/2024 NA 141 08/06/2024 K 3.8 08/06/2024 CO2 21 (L) 08/06/2024 CL 107 08/06/2024 BUN 17 08/06/2024 CREATININE 0.87 08/06/2024 @[facility]@ Lab Results Component Value Date CHOL 145 02/27/2022 CHOL 195 10/29/2021 CHOL 189 07/03/2021 Lab Results Component Value Date TRIG 75 02/27/2022 TRIG 96 10/29/2021 TRIG 97 07/03/2021 Lab Results Component Value Date HDL 60 02/27/2022 HDL 57 10/29/2021 HDL 43 07/03/2021 No results found for: LDLCALC, LDLDIRECT No components found for: LVEF, LVEFMODE [id number] Score for Atrial Fibrillation Stroke Risk Risk Factors C CHF No, 0 H HTN Yes, 1 A2 Age >= 75 Yes, 2 D DM Yes, 1 S2 Prior Stroke/TIA No, 0 V Vascular Disease No, 0 A Age 65-74 No, 0 Sc Sex Female, 1 [id number] Score 5 Calculator: [id number] risk stratification score for estimation of stroke risk for nonvalvular atrial fibrillation in adults - UpToDate Atrial fibrillation in adults: Use of oral anticoagulants - UpToDate Assessment and Plan: Paroxysmal atrial fibrillation. She had recurrent atrial fibrillation on August 06 where she was noted to be back in atrial fibrillation. She did undergo cardioversion at that time in the emergency room. She is on Xarelto for stroke risk reduction. After review with Dr. Roman, we will continue with rate control and oral anticoagulation at this time. Hypertension. Blood pressure is elevated. At this time we are changing Toprol to carvedilol 12.5 mg twice daily, and increasing lisinopril to 20 mg daily. I have asked that she keep a log of her blood pressures, and bring it into the next visit. She will have a follow-up BMP done in 1 week to document stability of electrolytes and renal function. I will see her back in the office in 1 month. Hyperlipidemia. She will continue atorvastatin. Lipid panel May 11 noted a total cholesterol 162, triglycerides 114, HDL 69, LDL 73. documented in this encounter [facility] 08-07-2024 Note IMPRESSION: Sinus rhythm Abnormal R-wave progression, late transition Left ventricular hypertrophy Compared to ECG 08/06/24 at 21:47 Atrial fibrillation no longer present Electronically Signed On 08-07-2024 04:23:13 EST by Nick Hagan [facility] 07-27-2024 Telephone encounter Note RX loaded Next ov 11/09/24 [facility] 07-27-2024 Miscellaneous Notes RX loaded Next ov 11/09/24 Name of caller: Yumiko Contact phone number: [phone] Relationship to Patient: [facility] Pharmacy Provider: Dr. Franklin Practice: [facility] Chief Complaint/Reason for Call: Pharmacy requesting a new Blood Glucose Monitoring Suppl (FreeStyle Lite) device Please advise Best time of day caller can be reached: Any Patient advised that office/PCP has 24-48 business hours to return their call: No documented in this encounter [facility] 07-27-2024 Telephone encounter Note Name of caller: Yumiko Contact phone number: [phone] Relationship to Patient: [facility] Pharmacy Provider: Dr. Franklin Practice: [facility] Chief Complaint/Reason for Call: Pharmacy requesting a new Blood Glucose Monitoring Suppl (FreeStyle Lite) device Please advise Best time of day caller can be reached: Any Patient advised that office/PCP has 24-48 business hours to return their call: No [facility] 07-18-2024 Telephone encounter Note Medication name: metoprolol succinate XL (Toprol-XL) Medication dosage: 50mg Monthly quantity needed: 30 How many day supply requestin days Medication route: oral (PO) Medication administration time(s): daily If taking medication PRN, reason for taking medication: N/A If this is a controlled substance do you receive this or any other controlled medication from any other doctor or facility: N/A Ordering provider: Dr Franklin Date of last office visit: 05/11/24 Date of next office visit: 11/09/24 Date of last refill: (see medication tab): 06/23/24 Updated/Validated preferred pharmacy: Yes Patient instructed to contact the pharmacy prior to picking up the medication: Yes [facility] 07-18-2024 Miscellaneous Notes Medication name: metoprolol succinate XL (Toprol-XL) Medication dosage: 50mg Monthly quantity needed: 30 How many day supply requestin days Medication route: oral (PO) Medication administration time(s): daily If taking medication PRN, reason for taking medication: N/A If this is a controlled substance do you receive this or any other controlled medication from any other doctor or facility: N/A Ordering provider: Dr Franklin Date of last office visit: 05/11/24 Date of next office visit: 11/09/24 Date of last refill: (see medication tab): 10/31/24 Updated/Validated preferred pharmacy: Yes Patient instructed to contact the pharmacy prior to picking up the medication: Yes documented in this encounter [facility] 07-07-2024 Telephone encounter Note Medication name: ALPRAZolam (Xanax) tablet Medication dosage: 0.25 mg (Miligrams Monthly quantity needed: 30 How many day supply requestin days Medication route: oral (PO) Medication administration time(s): as needed (PRN) If taking medication PRN, reason for taking medication: anxiety If this is a controlled substance do you receive this or any other controlled medication from any other doctor or facility: No Ordering provider: [facility] Date of last office visit: 05.11.2024 Date of next office visit: 11.09.2024 Date of last refill: (see medication tab): 06.08.2024 Updated/Validated preferred pharmacy: Yes Patient instructed to contact the pharmacy prior to picking up the medication: Yes [facility] 07-07-2024 Miscellaneous Notes Medication name: ALPRAZolam (Xanax) tablet Medication dosage: 0.25 mg (Miligrams Monthly quantity needed: 30 How many day supply requestin days Medication route: oral (PO) Medication administration time(s): as needed (PRN) If taking medication PRN, reason for taking medication: anxiety If this is a controlled substance do you receive this or any other controlled medication from any other doctor or facility: No Ordering provider: [facility] Date of last office visit: 05.11.2024 Date of next office visit: 11.09.2024 Date of last refill: (see medication tab): 06.08.2024 Updated/Validated preferred pharmacy: Yes Patient instructed to contact the pharmacy prior to picking up the medication: Yes documented in this encounter [facility] 06-27-2024 Telephone encounter Note Rx loaded [facility] 06-27-2024 Miscellaneous Notes Rx loaded Medication name: metFORMIN (Glucophage) 500 MG tablet Medication dosage: 1000 mg (Miligrams Monthly quantity needed: 120 How many day supply requestin days Medication route: oral (PO) Medication administration time(s): 2 times a day (BID) If taking medication PRN, reason for taking medication: N/A If this is a controlled substance do you receive this or any other controlled medication from any other doctor or facility: N/A Ordering provider: Dr. Franklin Date of last office visit: 05/11/2024 Date of next office visit: 11/09/2024 Date of last refill: (see medication tab): 01/13/2024 Updated/Validated preferred pharmacy: Yes Patient instructed to contact the pharmacy prior to picking up the medication: N/A documented in this encounter [facility] 06-24-2024 Telephone encounter Note Medication name: metFORMIN (Glucophage) 500 MG tablet Medication dosage: 1000 mg (Miligrams Monthly quantity needed: 120 How many day supply requestin days Medication route: oral (PO) Medication administration time(s): 2 times a day (BID) If taking medication PRN, reason for taking medication: N/A If this is a controlled substance do you receive this or any other controlled medication from any other doctor or facility: N/A Ordering provider: Dr. Franklin Date of last office visit: 05/11/2024 Date of next office visit: 11/09/2024 Date of last refill: (see medication tab): 01/13/2024 Updated/Validated preferred pharmacy: Yes Patient instructed to contact the pharmacy prior to picking up the medication: N/A [facility] 06-07-2024 Telephone encounter Note Please send to [facility] pharmacy in [place]. [facility] 06-07-2024 Miscellaneous Notes Please send to [facility] pharmacy in [place]. Spoke with patient and she says she takes a 1/2 pill and sometimes when she needs it she takes a whole pill she says its tricky because its just depends on how she feels, and yes its due to taking care of her . Patient has only gotten 10 or 20 of these meds at a time reviewing her record and last refilled last fall by Mr. Sharma. Get me details on how frequently she is needing these meds for as needed anxiety. I imagine it is related to taking care of her . Rx loaded Medication name: ALPRAZolam (Xanax) 0.25 MG tablet Medication dosage: 0.25 mg (Miligrams Monthly quantity needed: 90 How many day supply requestin days Medication route: oral (PO) Medication administration time(s): daily If taking medication PRN, reason for taking medication: N/A If this is a controlled substance do you receive this or any other controlled medication from any other doctor or facility: No Ordering provider: Pedro Date of last office visit: 05/11/24 Date of next office visit: 11/09/24 Date of last refill: (see medication tab): 07/01/23 Updated/Validated preferred pharmacy: Yes [facility] [address] Patient instructed to contact the pharmacy prior to picking up the medication: Yes documented in this encounter [facility] 06-06-2024 Telephone encounter Note Spoke with patient and she says she takes a 1/2 pill and sometimes when she needs it she takes a whole pill she says its tricky because its just depends on how she feels, and yes its due to taking care of her . [facility] 06-06-2024 Telephone encounter Note Patient has only gotten 10 or 20 of these meds at a time reviewing her record and last refilled last fall by Mr. Sharma. Get me details on how frequently she is needing these meds for as needed anxiety. I imagine it is related to taking care of her . [facility] 06-06-2024 Telephone encounter Note Rx loaded [facility] 06-06-2024 Telephone encounter Note Name of caller: [employer] Contact phone number: [phone] Relationship to Patient: patient Provider: [facility]In Practice: [facility] Chief Complaint/Reason for Call: Pt wanted to let Dr. Franklin know she went to the heart doctor and had an episode of A Fib. Also BP has been down except a couple of times. Best time of day caller can be reached: AM Patient advised that office/PCP has 24-48 business hours to return their call: N/A [facility] 06-06-2024 Miscellaneous Notes Name of caller: [employer] Contact phone number: [phone] Relationship to Patient: patient Provider: Ion Practice: [facility] Chief Complaint/Reason for Call: Pt wanted to let Dr. Franklin know she went to the heart doctor and had an episode of A Fib. Also BP has been down except a couple of times. Best time of day caller can be reached: AM Patient advised that office/PCP has 24-48 business hours to return their call: N/A documented in this encounter [facility] 06-06-2024 Telephone encounter Note Medication name: ALPRAZolam (Xanax) 0.25 MG tablet Medication dosage: 0.25 mg (Miligrams Monthly quantity needed: 90 How many day supply requestin days Medication route: oral (PO) Medication administration time(s): daily If taking medication PRN, reason for taking medication: N/A If this is a controlled substance do you receive this or any other controlled medication from any other doctor or facility: No Ordering provider: Pedro Date of last office visit: 05/11/24 Date of next office visit: 11/09/24 Date of last refill: (see medication tab): 07/01/23 Updated/Validated preferred pharmacy: Yes [facility] [address] Patient instructed to contact the pharmacy prior to picking up the medication: Yes [facility] 06-01-2024 History of Present illness Narrative [facility] Cardiology [facility] - [address] [facility] [address] Dept: [phone] Dept Visit type: Established : 1945 Chief Complaint: Chief Complaint Patient presents with 3 Month Follow Up Atrial Fibrillation History of Present Illness: Cassie Morgan is a 79 y.o. female who is here in follow-up concerning her history of paroxysmal atrial fibrillation and hypertension. Overall she is doing well from a cardiac standpoint with no symptoms of chest pain or tightness. She has rare palpitations. She tries to remain active but has limited mobility due to knee problems. 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 She has not had any bleeding complications related to her anticoagulation. Past Medical History: Past Medical History: Diagnosis Date Anxiety Breast cancer screening by mammogram 09/2023 COVID-19 11/2023 Dependent edema Diverticulosis 2019 Diverticulitis H/O colonoscopy 2013 Dr Ramesh- due 2023 History of transfusion PAF (paroxysmal atrial fibrillation) ([facility]) 2017 Dr. Newby- OAC, nml EF Recurrent UTI Keflex prophylaxis SBO (small bowel obstruction) ([facility]) 11/2023 hospitalized Type II or unspecified type diabetes mellitus without mention of complication, not stated as uncontrolled ([facility]) 2013 Past Surgical History Past Surgical History: Procedure Laterality Date BREAST CYST EXCISION Left 2012 CATARACT EXTRACTION Left 2019 SECTION (HISTORICAL) COLONOSCOPY 2013 COLONOSCOPY W/ POLYPECTOMY 07/2021 ? 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 LAP,INGUINAL HERNIA REPR,INITIAL (HISTORICAL) Right 08/18/2023 [place] Family History Family History Problem Relation Name Age of Onset Other (62053) Mother Aminah Benitez natural causes, age 89 Pancreatic cancer Father Freddy Braswell Diabetes Sister Bonnie Diabetes Brother Ed Social History Social History Tobacco Use Smoking status: Never Smokeless tobacco: Never Vaping Use Vaping status: Never Used Substance Use Topics Alcohol use: No Alcohol/week: 0.0 standard drinks of alcohol Drug use: No Allergies: Allergies Allergen Reactions Cefaclor Codeine Rash Medications: Current Outpatient Medications: ALPRAZolam (Xanax) 0.25 MG tablet, Take 1 tablet (0.25 mg) by mouth Nightly as needed for anxiety., Disp: 30 tablet, Rfl: 1 ascorbic acid (Vitamin C) 500 mg chewable tablet, Chew 500 mg in the morning., Disp: , Rfl: atorvastatin (Lipitor) 10 MG tablet, Take 1 tablet (10 mg) by mouth daily., Disp: 90 tablet, Rfl: 1 Blood Glucose Monitoring Suppl (FreeStyle Lite) device, Use as instructed E11.9, Disp: 1 each, Rfl: 0 cephalexin (Keflex) 250 MG capsule, Take 250 mg by mouth Nightly., Disp: , Rfl: cholecalciferol (Vitamin D-3) 25 MCG (1000 UT) tablet, Take 1,000 Units by mouth in the morning., Disp: , Rfl: cyanocobalamin (Vitamin B-12) 500 MCG tablet, Take 500 mcg by mouth in the morning., Disp: , Rfl: estradiol (Estrace) 0.1 MG/GM vaginal cream, Insert 2 g into the vagina daily., Disp: , Rfl: famotidine (Pepcid) 20 MG tablet, Take 20 mg by mouth Nightly as needed for heartburn., Disp: , Rfl: fluticasone (Flonase) 50 MCG/ACT nasal spray, Administer 1 spray into affected nostril(s) Daily as needed., Disp: , Rfl: FREESTYLE LITE test strip, by Other route daily. Use as instructed E11.9, Disp: 100 each, Rfl: 11 lisinopril 10 MG tablet, Take 1 tablet (10 mg) by mouth daily for 90 doses. (Patient taking differently: Take 20 mg by mouth daily.), Disp: 90 tablet, Rfl: 1 metFORMIN (Glucophage) 500 MG tablet, Take 2 tablets (1,000 mg) by mouth in the morning and 2 tablets (1,000 mg) in the evening. Take with meals., Disp: 360 tablet, Rfl: 1 metoprolol succinate XL (Toprol-XL) 50 MG 24 hr tablet, Take 1 tablet (50 mg) by mouth daily., Disp: 90 tablet, Rfl: 3 rivaroxaban (Xarelto) 20 MG tablet, TAKE 1 TABLET BY MOUTH DAILY (WITH BREAKFAST), Disp: 90 tablet, Rfl: 3 Review of Systems: Review of Systems Constitutional: Negative for activity change, chills, diaphoresis, fatigue and fever. HENT: Negative for nosebleeds and trouble swallowing. Eyes: Negative for discharge and visual disturbance. Respiratory: Negative for apnea, cough, chest tightness, shortness of breath and wheezing. Cardiovascular: Positive for leg swelling. Negative for chest pain and palpitations. Gastrointestinal: Negative for abdominal distention, abdominal pain, blood in stool, diarrhea, nausea and vomiting. Endocrine: Negative for cold intolerance and heat intolerance. Genitourinary: Negative for hematuria. Musculoskeletal: Negative for gait problem and myalgias. Skin: Negative for color change and rash. Neurological: Negative for dizziness, seizures, syncope, facial asymmetry, speech difficulty, weakness, light-headedness, numbness and headaches. Hematological: Does not bruise/bleed easily. Psychiatric/Behavioral: Negative for dysphoric mood. Physical Examination: Vitals: Vitals: 06/01/24 1036 BP: 130/80 BP Location: Left arm Patient Position: Sitting BP Cuff Size: Adult Pulse: 58 Resp: 16 SpO2: 98% Weight: 159 lb 12.8 oz (72.5 kg) Height: 5' 5 (1.651 m) Body mass index is 26.59 kg/m . Physical Exam Constitutional: Appearance: Normal appearance. HENT: Head: Normocephalic and atraumatic. Nose: Nose normal. Eyes: General: No scleral icterus. Extraocular Movements: Extraocular movements intact. Pupils: Pupils are equal, round, and reactive to light. Neck: Thyroid: No thyromegaly. Vascular: No carotid bruit or JVD. Cardiovascular: Rate and Rhythm: Normal rate and regular rhythm. Pulses: Normal pulses. Heart sounds: No murmur heard. No gallop. Pulmonary: Effort: Pulmonary effort is normal. Breath sounds: No wheezing, rhonchi or rales. Chest: Chest wall: No tenderness. Abdominal: General: Abdomen is flat. There is no distension. Palpations: Abdomen is soft. There is no hepatomegaly, splenomegaly or mass. Musculoskeletal: General: No swelling or tenderness. Normal range of motion. Cervical back: No tenderness. Right lower le+ Edema present. Left lower le+ Edema present. Skin: General: Skin is warm. Neurological: General: No focal deficit present. Mental Status: She is alert and oriented to person, place, and time. Cranial Nerves: Cranial nerves 2-12 are intact. No cranial nerve deficit. Psychiatric: Attention and Perception: Attention normal. Mood and Affect: Mood normal. Speech: Speech normal. Behavior: Behavior normal. Laboratory Tests: Lab Results Component Value Date WBC 7.2 05/11/2024 HGB 13.7 05/11/2024 HCT 42.7 05/11/2024 MCV 94.9 05/11/2024 PLT 281 05/11/2024 Lab Results Component Value Date GLUCOSE 140 (H) 05/11/2024 CALCIUM 9.6 05/11/2024 NA 139 12/12/2023 K 4.0 12/12/2023 CO2 26 05/11/2024 CL 107 12/12/2023 BUN 19 05/11/2024 CREATININE 0.82 05/11/2024 [facility] Lab Results Component Value Date CHOL 145 02/27/2022 CHOL 195 10/29/2021 CHOL 189 07/03/2021 Lab Results Component Value Date TRIG 75 02/27/2022 TRIG 96 10/29/2021 TRIG 97 07/03/2021 Lab Results Component Value Date HDL 60 02/27/2022 HDL 57 10/29/2021 HDL 43 07/03/2021 Assessment and Plan: 1. PAF (paroxysmal atrial fibrillation) ([facility]) 2. Essential (primary) hypertension 3. Mixed hyperlipidemia 1. Paroxysmal atrial fibrillation: She has maintained sinus rhythm. She is anticoagulated. We will continue this. If she has more episodes then consideration for adjusting her medicines will be made but at this point I do not think we need to do any other testing. 2. Hypertension: Blood pressure is adequate today. Her primary recently adjusted her medicines. 3. Hyperlipidemia: On therapy. documented in this encounter [facility] 05-11-2024 History of Present illness Narrative Images from the original note were not included. [facility] - [address] [facility] [address] Visit type: Established Patient Reason for Visit: Other ([place] - small bowel obstruction ) and Flu Vaccine (Patient has agreed to receive influenza vaccine in the office today. ) Assessment / Plan: Cassie was seen today for other and flu vaccine. Diagnoses and all orders for this visit: Type 2 diabetes mellitus with other specified complication, without long-term current use of insulin (HCC) (Primary) Comments: Stable, continue metformin Orders: - Hemoglobin A1c; Future - Hemoglobin A1c Essential (primary) hypertension Comments: Uncontrolled, increase lisinopril 10 mg daily. BP check 4 weeks Orders: - lisinopril 10 MG tablet; Take 1 tablet (10 mg) by mouth daily for 90 doses. - CBC auto differential; Future - Comprehensive metabolic panel; Future - CBC auto differential - Comprehensive metabolic panel PAF (paroxysmal atrial fibrillation) ([facility]) Comments: Stable, continue metoprolol and Xarelto Pure hypercholesterolemia Comments: Stable, continue Lipitor Orders: - Lipid panel; Future - TSH; Future - Lipid panel - TSH THIERRY (generalized anxiety disorder) History of small bowel obstruction Comments: Resolved, high-fiber meals stool softener lots of liquids Anticoagulant long-term use Dependent edema Varicose veins of both lower extremities, unspecified whether complicated Other orders - Flu vaccine (FLUAD), trivalent, adjuvanted, preservative-free (ages 65+/high dose) 35 Minutes spent on reviewing pertinent history, patient interview, physical exam, discussion of diagnosis and treatment and work-up options. Subjective: Patient ID: Cassie Morgan is a 79 y.o. female. HPI well-controlled type II hypertensive diabetic with atrial fibrillation on Xarelto presents for first-time evaluation in many years. Past medical, surgical, family and social history reviewed and chart updated. Glucose levels have been excellent. No change in vision or skin. Had a partial small bowel obstruction in November requiring NG suction. No recurrent symptoms. Had a ventral hernia repair in August 15 along with a D&C for postmenopausal vaginal bleeding. No pathology found on endometrial sampling. Hernia surgery went well. Overall she considers herself healthy. Has a lot of stress dealing with her with moderately severe dementia. Review of Systems no recent earache sore throat or cough. No chest pain or dyspnea. No palpitations PND orthopnea or change in chronic leg edema and varicosities. Recent echocardiogram showed preserved left ventricular ejection fraction. She denies cough or phlegm or fever. No heartburn or reflux. Bowels are regular on fruit and fiber. No change in arthralgias. No change in skin breakdowns of her legs or feet or toes she does wear support hose in the fall and winter Allergies Allergen Reactions Cefaclor Codeine Rash Current Outpatient Medications on File Prior to Visit Medication Sig Dispense Refill ALPRAZolam (Xanax) 0.25 MG tablet Take 1 tablet (0.25 mg) by mouth Nightly as needed for anxiety. 30 tablet 1 ascorbic acid (Vitamin C) 500 mg chewable tablet Chew 500 mg in the morning. atorvastatin (Lipitor) 10 MG tablet Take 1 tablet (10 mg) by mouth daily. 90 tablet 1 Blood Glucose Monitoring Suppl ([employer]) device Use as instructed E11.9 1 each 0 cephalexin (Keflex) 250 MG capsule Take 250 mg by mouth Nightly. cholecalciferol (Vitamin D-3) 25 MCG (1000 UT) tablet Take 1,000 Units by mouth in the morning. cyanocobalamin (Vitamin B-12) 500 MCG tablet Take 500 mcg by mouth in the morning. estradiol (Estrace) 0.1 MG/GM vaginal cream Insert 2 g into the vagina daily. famotidine (Pepcid) 20 MG tablet Take 20 mg by mouth Nightly as needed for heartburn. fluticasone (Flonase) 50 MCG/ACT nasal spray Administer 1 spray into affected nostril(s) Daily as needed. FREESTYLE LITE test strip by Other route daily. Use as instructed E11.9 100 each 11 metFORMIN (Glucophage) 500 MG tablet Take 2 tablets (1,000 mg) by mouth in the morning and 2 tablets (1,000 mg) in the evening. Take with meals. 360 tablet 1 metoprolol succinate XL (Toprol-XL) 50 MG 24 hr tablet Take 1 tablet (50 mg) by mouth daily. 90 tablet 3 rivaroxaban (Xarelto) 20 MG tablet TAKE 1 TABLET BY MOUTH DAILY (WITH BREAKFAST) 90 tablet 3 [DISCONTINUED] lisinopril 5 MG tablet Take 1 tablet (5 mg) by mouth daily. 90 tablet 1 No current facility-administered medications on file prior to visit. Patient Active Problem List Diagnosis Recurrent UTI Type 2 diabetes mellitus with other specified complication, without long-term current use of insulin (HCC) Dependent edema PAF (paroxysmal atrial fibrillation) (HCC) Anticoagulant long-term use Essential (primary) hypertension Postmenopausal bleeding Pure hypercholesterolemia THIERRY (generalized anxiety disorder) History of small bowel obstruction Social History Tobacco Use Smoking status: Never Smokeless tobacco: Never Substance Use Topics Alcohol use: No Alcohol/week: 0.0 standard drinks of alcohol Past Surgical History: Procedure Laterality Date BREAST CYST EXCISION Left 2013 CATARACT EXTRACTION Left 2019 SECTION (HISTORICAL) COLONOSCOPY 2013 COLONOSCOPY W/ POLYPECTOMY 07/2021 ? 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 Well-hydrated. Nonicteric. Normal eardrums and oropharynx. No thyroid or neck masses. No JVD carotid bruits or neck masses. Heart is regular today without new murmurs. No ectopy or gallops. Lungs are clear of rales and wheezes. Abdomen soft without pain hepatosplenomegaly masses or bruits. Femoral pedal pulses are adequate. 2+ leg edema with multiple varicosities. No skin breakdowns. There is no motor or sensory loss of the feet or toes. Hypertrophic toenails are noted. documented in this encounter [facility] 05-11-2024 Instructions Armando Franklin DO - 05/11/2024 10:00 AM EDT Call with BP reading in one month documented in this encounter [facility] 04-26-2024 History of Present illness Narrative Patient is requested refill her medication lisinopril and atorvastatin. I did review her chart she did have baseline blood work obtained back in November. Shows normal kidney function liver function. She does have a scheduled follow-up appointment later this month with her primary care physician. Medications are authorized and refilled today. Clyde Sharma PA-C documented in this encounter [facility] 04-26-2024 Telephone encounter Note Rx loaded [facility] 04-26-2024 Miscellaneous Notes Rx loaded Medication name: atorvastatin (Lipitor) 10 MG tablet Medication dosage: 10 mg (Miligrams Monthly quantity needed: 90 How many day supply requestin days Medication route: oral (PO) Medication administration time(s): daily If taking medication PRN, reason for taking medication: N/A If this is a controlled substance do you receive this or any other controlled medication from any other doctor or facility: N/A Ordering provider: Clyde Sharma Date of last office visit: 07/01/23 Date of next office visit: 05/11/24 Date of last refill: (see medication tab): 01/15/23 Updated/Validated preferred pharmacy: Yes [facility] [address] Patient instructed to contact the pharmacy prior to picking up the medication: N/A documented in this encounter [facility] 04-26-2024 Telephone encounter Note Medication name: atorvastatin (Lipitor) 10 MG tablet Medication dosage: 10 mg (Miligrams Monthly quantity needed: 90 How many day supply requestin days Medication route: oral (PO) Medication administration time(s): daily If taking medication PRN, reason for taking medication: N/A If this is a controlled substance do you receive this or any other controlled medication from any other doctor or facility: N/A Ordering provider: Clyde Sharma Date of last office visit: 07/01/23 Date of next office visit: 05/11/24 Date of last refill: (see medication tab): 01/15/23 Updated/Validated preferred pharmacy: [facility] [address] Patient instructed to contact the pharmacy prior to picking up the medication: N/A [facility] 03-28-2024 Telephone encounter Note Medication name: FREESTYLE LITE test strip Medication dosage: . . Monthly quantity needed: 100 How many day supply requestin days Medication route: other Medication administration time(s): daily If taking medication PRN, reason for taking medication: N/A If this is a controlled substance do you receive this or any other controlled medication from any other doctor or facility: N/A Ordering provider: ion Date of last office visit: 07/01/2023 Date of next office visit: 05/11/2024 Date of last refill: (see medication tab): 06/23/23 Updated/Validated preferred pharmacy: Yes Patient instructed to contact the pharmacy prior to picking up the medication: Yes [facility] 03-28-2024 Miscellaneous Notes Medication name: FREESTYLE LITE test strip Medication dosage: . . Monthly quantity needed: 100 How many day supply requestin days Medication route: other Medication administration time(s): daily If taking medication PRN, reason for taking medication: N/A If this is a controlled substance do you receive this or any other controlled medication from any other doctor or facility: N/A Ordering provider: ion Date of last office visit: 07/01/2023 Date of next office visit: 05/11/2024 Date of last refill: (see medication tab): 06/23/23 Updated/Validated preferred pharmacy: Yes Patient instructed to contact the pharmacy prior to picking up the medication: Yes documented in this encounter [facility] 02-12-2024 Telephone encounter Note Noted [facility] 02-12-2024 Miscellaneous Notes Noted Name of caller: Cassie Contact phone number: [phone] Relationship to Patient: patient Provider: Dr Franklin Practice: [facility] Chief Complaint/Reason for Call: Patient has been scheduled on 05/06/[address] Franklin for transitional care appointment. FYI Best time of day caller can be reached: any Patient advised that office/PCP has 24-48 business hours to return their call: Yes Left message for patient to return call to the office. First available with Dr Franklin on a Thursday afternoon is May 25. Name of Caller: Cassie Contact Reason for Appointment: Pt has had to reschedule her [place] appt twice , I contacted back line and she was offered 02/16/24 at 430 but Pt is only able to be seen on a Thursday afternoon appt. I was unable to find an appt Pt would like to be contacted to discuss getting fit into schedule. Please advise Office Name: [facility]. Medication Refills need, if any: na Medication Name: na documented in this encounter [facility] 02-12-2024 Telephone encounter Note Name of caller: Cassie Contact phone number: [phone] Relationship to Patient: patient Provider: Dr Franklin Practice: [facility] Chief Complaint/Reason for Call: Patient has been scheduled on 05/06/[address] Franklin for transitional care appointment. FYI Best time of day caller can be reached: any Patient advised that office/PCP has 24-48 business hours to return their call: Yes [facility] [employer] 02-12-2024 Telephone encounter Note Left message for patient to return call to the office. First available with Dr Franklin on a Thursday afternoon is May 25. [facility] 02-11-2024 Telephone encounter Note Name of Caller: Cassie Contact Reason for Appointment: Pt has had to reschedule her [place] appt twice , I contacted back line and she was offered 02/16/24 at 430 but Pt is only able to be seen on a Thursday afternoon appt. I was unable to find an appt Pt would like to be contacted to discuss getting fit into schedule. Please advise Office Name: [facility]. Medication Refills need, if any: na Medication Name: na [facility] 01-27-2024 History of Present illness Narrative Images from the original note were not included. [facility] Cardiology Office Note DATE of SERVICE: 01/27/24 TIME of SERVICE: 1:38 PM Reason for Visit: Chief Complaint Patient presents with 1 Month Follow Up History ofPresent Illness: Cassie Morgan is a 78 y.o. female who is known to Dr. Roamn. She has a history of paroxysmal atrial fibrillation, historically maintaining a normal sinus rhythm. Continues on Toprol XL 50 mg daily, and is anticoagulated on Xarelto 20 mg daily. At her last office visit with Dr. Roman in November she was describing symptoms of intermittent palpitations and fatigue. She was recommended underwent a repeat transthoracic echo December 30, 2023 noting a well-preserved EF measured 67%, no significant valvular disease. She also wore a 3-day Holter monitor in December noting a sinus rhythm, with an average heart rate in the 60s. Today in office she continues to experience intermittent palpitations and fatigue, denies worsening symptoms. States she remains very active, is able to do the things that she wants to do without limitation. Blood pressure and heart rate remain well-controlled. She has a [employer] mobile, she showed me strips that note elevated heart rates in the 130s. I spent quite a long time discussing these, the baseline of the stroke is quite variable, it was difficult for me to tell if she was indeed in A-fib at that time. I did note that if she is experiencing elevated heart rates, she can take a one-time dose of extra half tab of Toprol to equal 25 mg in a 24-hour period. However if she is taking extra Toprol, I advise she notify the office. She continues to deny any specific symptoms of chest discomfort, pain, or shortness of breath. Past Medical History: Past Medical History: Diagnosis Date Anxiety Breast cancer screening by mammogram 09/2023 needs phys exam Dependent edema Diverticulosis 2018 Diverticulitis H/O colonoscopy 2013 Dr Ramesh- due 2023 History of transfusion PAF (paroxysmal atrial fibrillation) ([facility]) 2017 Dr. Newby- OAC, nml EF Recurrent UTI Type II or unspecified type diabetes mellitus without mention of complication, not stated as uncontrolled ([facility]) 2013 Past Surgical History Past Surgical History: Procedure Laterality Date BREAST CYST EXCISION Left 10/2012 CATARACT EXTRACTION Left 10/2018 SECTION (HISTORICAL) COLONOSCOPY 2013 COLONOSCOPY W/ POLYPECTOMY 07/2021 ? rech 2025 CYSTOSCOPY 10/2009 DILATION AND CURETTAGE (HISTORICAL) 08/18/2023 LAP,INGUINAL HERNIA REPR,INITIAL (HISTORICAL) Right 08/18/2023 [place] Family History Family History Problem Relation Name Age of Onset Other (35878) Mother Aminah Benitez natural causes Pancreatic cancer Father Freddy Braswell Diabetes Sister Diabetes Brother Social History Social History Tobacco Use Smoking status: Never Smokeless tobacco: Never Vaping Use Vaping Use: Never used Substance Use Topics Alcohol use: No Alcohol/week: 0.0 standard drinks of alcohol Drug use: No Allergies: Allergies Allergen Reactions Cefaclor Codeine Rash Medications: Current Outpatient Medications: ALPRAZolam (Xanax) 0.25 MG tablet, Take 1 tablet (0.25 mg) by mouth Nightly as needed for anxiety., Disp: 30 tablet, Rfl: 1 ascorbic acid (Vitamin C) 500 mg chewable tablet, Chew 500 mg in the morning., Disp: , Rfl: atorvastatin (Lipitor) 10 MG tablet, Take 1 tablet (10 mg) by mouth daily., Disp: 90 tablet, Rfl: 1 Blood Glucose Monitoring Suppl (FreeStyle Lite) device, Use as instructed E11.9, Disp: 1 each, Rfl: 0 cephalexin (Keflex) 250 MG capsule, Take 250 mg by mouth Nightly., Disp: , Rfl: cholecalciferol (Vitamin D-3) 25 MCG (1000 UT) tablet, Take 1,000 Units by mouth in the morning., Disp: , Rfl: cyanocobalamin (Vitamin B-12) 500 MCG tablet, Take 500 mcg by mouth in the morning., Disp: , Rfl: estradiol (Estrace) 0.1 MG/GM vaginal cream, Insert 2 g into the vagina daily., Disp: , Rfl: famotidine (Pepcid) 20 MG tablet, Take 20 mg by mouth Nightly as needed for heartburn., Disp: , Rfl: fluticasone (Flonase) 50 MCG/ACT nasal spray, Administer 1 spray into affected nostril(s) Daily as needed., Disp: , Rfl: FREESTYLE LITE test strip, by Other route daily. Use as instructed E11.9, Disp: 100 each, Rfl: 1 lisinopril 5 MG tablet, Take 1 tablet (5 mg) by mouth every morning (before breakfast)., Disp: 90 tablet, Rfl: 1 metFORMIN (Glucophage) 500 MG tablet, Take 2 tablets (1,000 mg) by mouth in the morning and 2 tablets (1,000 mg) in the evening. Take with meals., Disp: 360 tablet, Rfl: 1 metoprolol succinate XL (Toprol-XL) 50 MG 24 hr tablet, Take 1 tablet (50 mg) by mouth daily., Disp: 90 tablet, Rfl: 3 rivaroxaban (Xarelto) 20 MG tablet, TAKE 1 TABLET BY MOUTH DAILY (WITH BREAKFAST), Disp: 90 tablet, Rfl: 3 Review of Systems: Review of Systems Constitutional: Negative for activity change, chills, diaphoresis, fatigue and fever. Pt states feeling well HENT: Negative for nosebleeds and trouble swallowing. Eyes: Negative for discharge and visual disturbance. Respiratory: Negative for apnea, cough, chest tightness, shortness of breath and wheezing. Denies SOB Cardiovascular: Negative for chest pain, palpitations and leg swelling. Occasional palpitations Gastrointestinal: Negative for abdominal distention, abdominal pain, blood in stool, diarrhea, nausea and vomiting. Endocrine: Negative for cold intolerance and heat intolerance. Genitourinary: Negative for hematuria. Musculoskeletal: Negative for gait problem and myalgias. Skin: Negative for color change and rash. Neurological: Negative for dizziness, seizures, syncope, facial asymmetry, speech difficulty, weakness, light-headedness, numbness and headaches. Denies dizziness or light headedness Hematological: Does not bruise/bleed easily. Psychiatric/Behavioral: Negative for dysphoric mood. Physical Examination: Vitals: BP 122/68 (BP Location: Right arm, Patient Position: Sitting, BP Cuff Size: Adult) Pulse 65 Resp 16 Ht 5' 5 (1.651 m) Wt 159 lb 9.6 oz (72.4 kg) SpO2 100% BMI 26.56 kg/m Body mass index is 26.56 kg/m . Physical Exam Constitutional: Appearance: Normal appearance. Comments: Pt is well compensated HENT: Head: Normocephalic. Nose: Nose normal. Eyes: General: Right eye: No discharge. Left eye: No discharge. Cardiovascular: Rate and Rhythm: Normal rate and regular rhythm. Heart sounds: No murmur heard. Comments: Regular, no murmer's present on exam Pulmonary: Effort: Pulmonary effort is normal. Breath sounds: Normal breath sounds. No wheezing or rales. Comments: Clear t/o Abdominal: General: There is no distension. Palpations: Abdomen is soft. Musculoskeletal: Right lower leg: No edema. Left lower leg: No edema. Comments: BLE are nonedematous Skin: General: Skin is warm and dry. Findings: No rash. Neurological: Mental Status: She is alert and oriented to person, place, and time. Psychiatric: Mood and Affect: Mood normal. Laboratory Tests: Lab Results Component Value Date GLUCOSE 108 (H) 12/12/2023 CALCIUM 8.3 (L) 12/12/2023 NA 139 12/12/2023 K 4.0 12/12/2023 CO2 29 12/12/2023 CL 107 12/12/2023 BUN 10 12/12/2023 CREATININE 0.63 12/12/2023 @LASTCMP@ Lab Results Component Value Date CHOL 145 02/27/2022 CHOL 195 10/29/2021 CHOL 189 07/03/2021 Lab Results Component Value Date TRIG 75 02/27/2022 TRIG 96 10/29/2021 TRIG 97 07/03/2021 Lab Results Component Value Date HDL 60 02/27/2022 HDL 57 10/29/2021 HDL 43 07/03/2021 No results found for: LDLCALC No results found for: VLDL Lab Results Component Value Date CHOLHDLRATIO 2 02/27/2022 CHOLHDLRATIO 3 10/29/2021 CHOLHDLRATIO 4 07/03/2021 Other Testing: Cardiac Tests: Echo (date: 12/30/2023): Left Ventricle: Left ventricle size is normal. Mildly increased wall thickness. Normal left ventricular systolic function. EF by 2D [employer] is 67%. Global longitudinal strain is normal with a value of -21.1%. Normal wall motion. Diastolic dysfunction present with normal LVEF. Normal left ventricular filling pressure. Right Ventricle: Right ventricle size is normal. Normal systolic function. TAPSE is 3.1 cm. Left Atrium: Left atrium is mildly dilated. LA Vol Index A/L is 38 mL/m2. No significant valvular abnormalities. Cardiac Testin Day Holter- 01/20/2024- The patient wore a Holter monitor and 3 days 22 hours 51 minutes were available for analysis. The rhythm was sinus averaging 63 bpm with a minimum of 42 and a maximum of 92. There were 1649 PVCs for burden of less than 1%. A ventricular triplet was noted. There were 2465 PACs for burden of less than 1%. No atrial fibrillation was seen. Summary: Holter monitor demonstrates sinus rhythm averaging 63 bpm with occasional atrial and ventricular ectopy. Assessment and Plan: 1. Paroxysmal atrial fibrillation-maintaining a normal sinus rhythm, overall her heart rates are well-controlled, sinus, in the 60s. -It appears she may infrequently be going into atrial fibrillation, with elevated heart rates. I advised if she is relatively asymptomatic, treat with an extra one-time dose of Toprol XL 25 mg. However if she is taking extra Toprol, I advise she notify the office. -Continue Toprol XL 50 mg daily -Continues to be anticoagulated on Xarelto 20 mg daily without bleeding complication. 2. Fatigue/multifactorial, no evidence of heart failure or valvular disease. Denies worsening symptoms, or extreme activity limiting symptoms. -No further cardiac evaluation warranted at this time 3. Dyslipidemia-atorvastatin 10 mg daily continues for cardiac risk reduction 4. Zrmlrvupdirp-kypf-fnhumgdihd 5. Jmvdbf-xw-gep has a regular scheduled appointment with Dr. Roman in April, of course we are always available if any new questions or concerns arise. Parker West APRN/HUMAN SERVICES SUPERVISOR documented in this encounter [facility] 01-13-2024 Telephone encounter Note RX loaded Next ov 01/28/24 [facility] 01-13-2024 Miscellaneous Notes RX loaded Next ov 01/28/24 Medication name: metFORMIN (Glucophage) 500 MG tablet -- alexander 2 tablets (1,000 mg) by mouth in the morning and 2 tablets (1,000 mg) in the evening. Take with meal -- 90 days Medication dosage: 500 mg (Miligrams Monthly quantity needed: 360 How many day supply requestin days Medication route: oral (PO) Medication administration time(s): 4 times a day (QID) If taking medication PRN, reason for taking medication: N/A If this is a controlled substance do you receive this or any other controlled medication from any other doctor or facility: N/A Ordering provider: Dr. Franklin Date of last office visit: 07-11-2023 Date of next office visit: Date of last refill: (see medication tab) 06-25-2023 Updated/Validated preferred pharmacy: Yes Patient instructed to contact the pharmacy prior to picking up the medication: Yes documented in this encounter [facility] 01-13-2024 Telephone encounter Note Medication name: metFORMIN (Glucophage) 500 MG tablet -- alexander 2 tablets (1,000 mg) by mouth in the morning and 2 tablets (1,000 mg) in the evening. Take with meal -- 90 days Medication dosage: 500 mg (Miligrams Monthly quantity needed: 360 How many day supply requestin days Medication route: oral (PO) Medication administration time(s): 4 times a day (QID) If taking medication PRN, reason for taking medication: N/A If this is a controlled substance do you receive this or any other controlled medication from any other doctor or facility: N/A Ordering provider: Dr. Franklin Date of last office visit: 07-11-2023 Date of next office visit: Date of last refill: (see medication tab) 06-25-2023 Updated/Validated preferred pharmacy: Yes Patient instructed to contact the pharmacy prior to picking up the medication: Yes [facility] 12-21-2023 Telephone encounter Note S: Patient spoke with [facility] nurse regarding scar tissue and bowel issues, bloated last night, having BM was like pellets and changed to diarrhea B: Onset of symptoms/concern today A: Pt recently admitted for SBO on 12/08/23 and had NG tube for 4 days. Pt reports last night had bloating in abdomen. Pt reports she is taking miralax daily so took some to alleviate bloating. Reports got up and ate and drank coffee. Pt reports had pellets then had a regular bowl movement and then 3-4 times liquid with some consistency. Denies blood in stool. Denies vomiting or nausea. Reports stomach feels blah but denies abdominal pain. Pt denies bloating but then says sometimes stomach is harder than other times but able to push on stomach. Denies blood in stool. Pt wanting to know if should be talking the miralax. Hospital follow up is on 01/12/24 R: Patient understands care advice. Advised patient will send HP TE to provider due to no appt today and if her symptoms worsen such as continuous or severe abdominal pain to go right to ED. Pt advised to keep hydrating. Pt expresses frustrations concerning inability to see provider. Pt states thanks for nothing. Pt advised will send TE to over now and if any further questions or concerns to call right back. Pt verbalized understanding. Reason for Disposition MODERATE diarrhea (e.g., 4-6 times / day more than normal) and age > 70 years Protocols used: [id number] [facility] 12-21-2023 Miscellaneous Notes S: Patient spoke with [facility] nurse regarding scar tissue and bowel issues, bloated last night, having BM was like pellets and changed to diarrhea B: Onset of symptoms/concern today A: Pt recently admitted for SBO on 12/08/23 and had NG tube for 4 days. Pt reports last night had bloating in abdomen. Pt reports she is taking miralax daily so took some to alleviate bloating. Reports got up and ate and drank coffee. Pt reports had pellets then had a regular bowl movement and then 3-4 times liquid with some consistency. Denies blood in stool. Denies vomiting or nausea. Reports stomach feels blah but denies abdominal pain. Pt denies bloating but then says sometimes stomach is harder than other times but able to push on stomach. Denies blood in stool. Pt wanting to know if should be talking the miralax. Hospital follow up is on 01/12/24 R: Patient understands care advice. Advised patient will send HP TE to provider due to no appt today and if her symptoms worsen such as continuous or severe abdominal pain to go right to ED. Pt advised to keep hydrating. Pt expresses frustrations concerning inability to see provider. Pt states thanks for nothing. Pt advised will send TE to over now and if any further questions or concerns to call right back. Pt verbalized understanding. Reason for Disposition MODERATE diarrhea (e.g., 4-6 times / day more than normal) and age > 70 years Protocols used: [id number] documented in this encounter [facility] 12-17-2023 Telephone encounter Note FS [facility] 12-17-2023 Miscellaneous Notes FS documented in this encounter [facility] 12-12-2023 Hospital course Narrative Images from the original note were not included. Hospitalist Discharge Summary Cassie Morgan : 1945 Admit date: 12/08/2023 Discharge date: 12/12/2023 Admitting Physician: Garth Chung MD Primary Care Physician: Armando Franklin DO Visit Status: Inpatient admission Code Status: Prior Acute, acute on chronic, unstable/uncontrolled chronic problems/discharge diagnoses: # Abdominal pain possibly due to ileus vs pSBO, improved # Covid-19 infection - Tested (+) Covid-19 on 12/08/23. Remained on room air during entire admission # Recent ventral hernia repair # Hypokalemia, improved Stable chronic problems affecting care, new non-acute discharge diagnoses: # HTN - Toprol XL 50 mg daily, Lisinopril 5 mg daily # T2DM with hyperglycemia - A1c 6.3% (06/2023). On Metformin 1000 mg BID # Atrial fibrillation - on Xarelto, Toprol XL 50 mg daily # Hx of recurrent UTI's - Patient reported that PCP started her on chronic Keflex # Anxiety Past Medical History: Diagnosis Date Anxiety Breast cancer screening by mammogram 09/2023 needs phys exam Dependent edema Diverticulosis 2019 Diverticulitis H/O colonoscopy 2013 Dr Ramesh- due 2023 History of transfusion PAF (paroxysmal atrial fibrillation) ([facility]) 2017 Dr. Newby- OAC, nml EF Recurrent UTI Type II or unspecified type diabetes mellitus without mention of complication, not stated as uncontrolled ([facility]) 2013 Procedures: Hospital Course: Cassie Morgan is a 78 y.o. female who presented to ED on 12/08/23 for severe abdominal pain and N/V. In ED, labs significant for bicarb 19, AG 15, BUN 22, BG 175, mildly elevated WBC 10.8, procal 0.03 wnl, (+) Covid-19. CT A/P showed findings most concerning for small bowel obstruction with a transition point within lower abdomen at the midline, no obvious free air, colonic diverticulosis, enlarged uterus with multiple probable calcified leiomyomas, hepatic lesions likely reflecting cysts and/or hemangiomas. Patient given pain IV morphine and zofran in ED, NG tube was placed and patient was made NPO. Admitted for further evaluation and management. General Surgery consulted/evaluated. Abdominal pain eventually improved and XR abdomen with improved small bowel dilation. NG tube was removed and diet was advanced as tolerated. Patient clinically improved with resolved abdominal pain and tolerated regular diet. She remained on room air during admission and did not require treatments for Covid-19. Patient is discharged in improved and stable condition. See discharge diagnoses list above and medication adjustments below in med rec. Consults: IP CONSULT TO GENERAL SURGERY Discharge Instructions: Diet: Activity: as tolerated Recommended Outpatient Tests: Disposition: Patient discharged in stable condition to Home. Greater than 31 minutes spent discharging the patient and coming up with patient discharge plan. Vitals: BP 134/76 (BP Location: Left arm, Patient Position: Lying) Pulse 69 Temp 36.3 C (97.3 F) (Temporal) Resp 18 Ht 5' 5 (1.651 m) Wt 160 lb (72.6 kg) SpO2 98% BMI 26.63 kg/m Pulse Ox: SpO2 Av.5 % Min: 95 % Max: 98 % Supplemental O2: O2 Flow Rate (L/min): 2 L/min Physical Exam Constitutional: General: She is not in acute distress. Appearance: She is not toxic-appearing. HENT: Head: Normocephalic. Right Ear: External ear normal. Left Ear: External ear normal. Eyes: Extraocular Movements: Extraocular movements intact. Cardiovascular: Rate and Rhythm: Normal rate and regular rhythm. Pulmonary: Effort: Pulmonary effort is normal. No respiratory distress. Abdominal: General: Bowel sounds are normal. Palpations: Abdomen is soft. Tenderness: There is no abdominal tenderness. Skin: General: Skin is warm and dry. Neurological: Mental Status: She is alert and oriented to person, place, and time. Psychiatric: Thought Content: Thought content normal. LABS: Recent Labs 12/10/23 0200 12/11/23 0550 12/12/23 0343 NA 140 138 139 K 3.6 3.1* 4.0 CL 106 106 107 CO2 30 27 29 BUN 10 5* 10 CREATININE 0.62 0.60 0.63 GLUCOSE 144* 135* 108* CALCIUM 8.3* 8.3* 8.3* Recent Labs 12/10/23 0200 12/11/23 0550 12/12/23 0343 WBC 9.4 8.8 6.9 RBC 3.78* 3.68* 3.56* HGB 11.3* 11.3* 10.8* HCT 35.6 34.4* 33.5* MCV 94.2 93.5 94.1 MCH 29.9 30.7 30.3 [facility] 31.7 32.8 32.2 RDW 13.8 13.3 13.0 PLT 204 207 192 MPV 10.3 11.1 10.3 Discharge Medications: Medication List CHANGE how you take these medications metoprolol succinate XL 50 MG 24 hr tablet Commonly known as: Toprol-XL Take 1 tablet (50 mg) by mouth daily. What changed: when to take this CONTINUE taking these medications ALPRAZolam 0.25 MG tablet Commonly known as: Xanax Take 1 tablet (0.25 mg) by mouth Nightly as needed for anxiety. ascorbic acid 500 mg chewable tablet Commonly known as: Vitamin C atorvastatin 10 MG tablet Commonly known as: Lipitor Take 1 tablet (10 mg) by mouth daily. cephalexin 250 MG capsule Commonly known as: Keflex cholecalciferol 25 MCG (1000 UT) tablet Commonly known as: Vitamin D-3 cyanocobalamin 500 MCG tablet Commonly known as: Vitamin B-12 estradiol 0.1 MG/GM vaginal cream Commonly known as: Estrace famotidine 20 MG tablet Commonly known as: Pepcid fluticasone 50 MCG/ACT nasal spray Commonly known as: Flonase FreeStyle Lite device Use as instructed E11.9 FREESTYLE LITE test strip Generic drug: glucose blood by Other route daily. Use as instructed E11.9 lisinopril 5 MG tablet Take 1 tablet (5 mg) by mouth every morning (before breakfast). metFORMIN 500 MG tablet Commonly known as: Glucophage Take 2 tablets (1,000 mg) by mouth in the morning and 2 tablets (1,000 mg) in the evening. Take with meals. Xarelto 20 MG tablet Generic drug: rivaroxaban TAKE 1 TABLET BY MOUTH DAILY (WITH BREAKFAST) Recommended Follow-up: Armando Franklin, DO [address] [facility] [id number] Complexity of Follow up: [] Moderate Complexity: follow up within 7-14 calendar days (88452) [x] Severe Complexity: follow up within 7 calendar days (44245) Follow up Testing, Pending results or Referrals at Transitional Care Visit: [x] yes [] no Instructions to MA: Please call patient on day after discharge (must document patient contacted within 2 business days of discharge). Follow up questions for MA: 1. Did you get medications filled and taking them as instructed from discharge? 2. Are you following your discharge instructions from your hospital stay? 3. Please confirm patient is scheduled for a follow up appointment within the above time frame. Signed: Clyde Ugarte MD Division of Hospitalist Medicine [place] Medical [place] [place]12[place]23, 7:18 PM documented in this encounter [facility] 12-12-2023 History of Present illness Narrative Reviewed dc instructions with pt. Pt verbalizes understanding. FU with PCP next week. Reviewed medications. Pt will call when ride arrives Images from the original note were not included. Attending Attestation [facility] - General Surgery Patient Name: [facility] Date: 12/12/23 Patient seen and examined. Doing well. Tolerating diet, just ate full breakfast. Voiding. Having bowel function and just had a BM this AM. No nausea or vomiting. Some URI congestion given COVID. Eager for home-going today. Exam: Abdomen: Soft, nontender, minimally distended, reportedly much improved. Assessment and Plan: 78 y.o. female with ileus vs. pSBO in the setting of COVID No surgical intervention Diet as tolerated OK for discharge home today Encouraged self regulation and soft foods at home, patient demonstrated understanding and is very reliable. Outpatient follow up with Dr. Durant as needed ongoing. I personally interviewed the patient and performed an individual physical examination. In addition, I discussed the patient's condition and treatment options with them. I have also reviewed the past medical, family and social history and care plan unless otherwise noted. All of the patient's questions were answered. low medical decision making and case complexity with 25 minute total care time including chart review, care coordination and face to face encounter was spent discussing/counseling the patient regarding the care plan for this patient. The patient was seen and examined independently and relevant data reviewed by myself. A full chart review was performed. Tristin Kenyon MD, MPH General Surgery [facility]: Tristin Kenyon 11:20 AM 12/12/2023 GENERAL SURGERY Progress Note PATIENT NAME: Cassie Morgan TODAY'S DATE: 12/12/2023 SUBJECTIVE: General Surgery follow up on abdominal pain. Abdominal pain resolving. No N/V. Tolerating diet. Small BM this morning with positive flatus. Hoping to go home today. Pain controlled Yes Other Complaints No Flatus/BM/or Ostomy function {Yes OBJECTIVE: VITALS: BP 134/76 (BP Location: Left arm, Patient Position: Lying) Pulse 69 Temp 36.3 C (97.3 F) (Temporal) Resp 18 Ht 5' 5 (1.651 m) Wt 160 lb (72.6 kg) SpO2 98% BMI 26.63 kg/m INTAKE/OUTPUT: I/O last 3 completed shifts: In: 582 (8 mL/kg) [I.V.:582 (8 mL/kg)] Out: - (0 mL/kg) Weight: 72.6 kg No intake/output data recorded. REVIEW OF SYSTEMS: Pertinent positives and negatives as per interval history section PHYSICAL EXAM: CONSTITUTIONAL: A&O x 3, LUNGS: Resp effort easy and unlabored, breath sounds normal CARDIOVASCULAR: RRR ABDOMEN: soft non distended, non tender MUSCULOSKELETAL: Normal range of motion NEUROLOGIC: Level of Alertness: alert PSYCHIATRIC: Speech is normal SKIN: Warm, dry, and intact Data: CBC: Recent Labs 12/10/23 0200 12/11/23 0550 12/12/23 0343 WBC 9.4 8.8 6.9 HGB 11.3* 11.3* 10.8* HCT 35.6 34.4* 33.5* PLT 204 207 192 BMP: Recent Labs 12/10/23 0200 12/11/23 0550 12/12/23 0343 NA 140 138 139 K 3.6 3.1* 4.0 CL 106 106 107 CO2 30 27 29 BUN 10 5* 10 CREATININE 0.62 0.60 0.63 GLUCOSE 144* 135* 108* Hepatic: No results for input(s): AST, ALT, BILITOT, ALKPHOS in the last 72 hours. No lab exists for component: ALB ASSESSMENT AND PLAN: Ms. Morgan is a 78 y.o. F presenting with abdominal pain and vomiting -CT with SBO with transition point in lower abdomen at midline -XR yesterday with improving SB dilatation -WBC 6.9, Hgb 10.8 -COVID (+) -Tolerating low fiber diet -Medical mgmt per primary team Disposition: Patient with SBO resolving, feeling better today with prior imaging that demonstrates improvement. Continues to improve with positive flatus and small BM. Encouraged OOB to chair and ambulation as tolerated. Diet as tolerated. IF tolerates diet okay to discharge from surgical standpoint. General Surgery will sign off. Patient counseled on risks, benefits, and alternatives of treatment plan today. Patient states an understanding and willingness to proceed with plan. Jimy Nassar APRN - HUMAN SERVICES SUPERVISOR Images from the original note were not included. [phone]: Please page me ([phone]) for patient care issues. [phone]: Please page [facility] Hospitalist for any issues. Subjective: Admit Date: 12/08/2023 PCP: Armando Franklin, Room#: B4-450/B4-450 A Cassie Morgan is a 78 y.o. female who presents with Small bowel obstruction (HCC) Interval History: No overnight issues. 78-year-old female patient is admitted with small bowel obstruction, she recently had hernia surgery. Her COVID test was positive and she is in isolation, did not qualify for remdesivir Today her NG tube is out she is trying clear liquids, complains of throat pain Denies chest pain,abdominal pain, nausea, vomiting, diarrhea, constipation, fevers, or chills. Adult diet Regular; Low Fiber 24HR INTAKE/OUTPUT: Intake/Output Summary (Last 24 hours) at 12/11/2023 1214 Last data filed at 12/11/2023 0041 Gross per 24 hour Intake 782 ml Output -- Net 782 ml LABS: CBC: Recent Labs 12/08/23 2309 12/10/23 0200 12/11/23 0550 WBC 10.8* 9.4 8.8 RBC 4.45 3.78* 3.68* HGB 13.4 11.3* 11.3* HCT 39.5 35.6 34.4* MCV 88.8 94.2 93.5 RDW 12.9 13.8 13.3 PLT 280 204 207 BMP: Recent Labs 12/08/23 2309 12/10/23 0200 12/11/23 0550 NA 138 140 138 K 3.8 3.6 3.1* CL 104 106 106 CO2 19* 30 27 BUN 22* 10 5* CREATININE 0.91 0.62 0.60 GLUCOSE 175* 144* 135* CALCIUM 9.7 8.3* 8.3* ANIONGAP 15* 4 5 LIVER PROFILE: Recent Labs 12/08/232308 AST 21 ALT 15 BILITOT 0.6 ALKPHOS 64 PROT 7.5 PT/INR: No results for input(s): PROTIME, INR in the last 72 hours. CARDIAC ENZYMES: No results for input(s): TROPONINI in the last 72 hours. Procalcitonin: Lab Results Component Value Date PROCAL 0.03 12/08/2023 Objective: Vitals: BP 133/91 (BP Location: Left arm, Patient Position: Lying) Pulse 118 Temp 37.1 C (98.8 F) (Temporal) Resp 18 Ht 5' 5 (1.651 m) Wt 160 lb (72.6 kg) SpO2 96% BMI 26.63 kg/m Pulse Ox: SpO2 Av.3 % Min: 94 % Max: 99 % Supplemental O2: O2 Flow Rate (L/min): 2 L/min 12/11/2023 General appearance: No apparent distress, appears stated age, HEENT: NG tube eyes: No scleral icterus Oral: Tongue is semi-moist Cardiovascular: S1/S2 heard, RRR Respiratory: Diminished breath sounds and no rhonchi abdomen: Soft, non-tender, non-distended bowel sounds positive Musculoskeletal: No obvious deformities seen Skin: No visible rashes or lesions. Medications: atorvastatin, 10 mg, Oral, Daily [Held by provider] enoxaparin, 40 mg, SubCUTAneous, Daily insulin lispro, 0-6 Units, SubCUTAneous, TID WC And insulin lispro, 0-6 Units, SubCUTAneous, Nightly lisinopril, 5 mg, Oral, Daily metoprolol succinate XL, 50 mg, Oral, Daily potassium chloride CR, 40 mEq, Oral, BID rivaroxaban, 20 mg, Oral, Daily with evening meal Assessment Small bowel obstruction-General surgery is following and today NG tube is clamped to give her a clear liquid diet, recent ventral hernia repair Positive for COVID-19, no hypoxemia so does not qualify for remdesivir Hypokalemia-replace potassium, K at 3.1 today Anemia with hemoglobin of 11.3 Type 2 diabetes-check blood sugars q. ACH S and will restart home meds once her blood sugar starts to improve, holding metformin Hypertension-holding lisinopril and metoprolol Recent ventral hernia repair Chronic problems Chronic atrial fibrillation restart p.o. meds anxiety disorder-as needed Xanax Plan Advance to diet so will restart p.o. medications and see how she tolerates Restart metoprolol and Xarelto, continue to advance diet Discharge planning on 12/11 Advance to regular diet and patient is requesting Chloraseptic throat spray -am labs, replace lytes prn -increase activity Diet Adult diet Regular; Low Fiber DVT Prophylaxis [x] Lovenox, [] Heparin, [] SCDs, [] Ambulation [] Already on Anticoagulation GI Prophylaxis [x] PPI, [] H2 Angela, [] Carafate, [] Diet/Tube Feeds Code Status Full Code Disposition Patient requires continued admission due to small bowel obstruction MDM [] Low, [] Moderate,[x] High Patient's risk as above Total time spent (which include face to face and non face to face encounters) : minutes Toxic drug monitoring/narrow therapeutic index drug monitoring : # Drug name : Morphine # Route administered : Intravenous # Method of monitoring : Daily monitoring Extended Emergency Contact Information Primary Emergency Contact: Abdon Helms [place] Mobile Relation: Son Advance Directive: Full Code Discharge planning: TBD Sheron Mccallum MD Division of Hospitalist Medicine [place]patient Medical Services[place] - [facility] Physicians Surgery Patient Name: Cassie Morgan Date: 12/11/2023 Patient seen and examined by myself and I agree with ANTELMO note below Resting in bed and appears comfortable Positive flatus and tolerating liquids Abdomen soft nontender nondistended Labs and imaging reviewed Assessment /Plan: Abdominal pain resolved Okay for regular diet when tolerating okay to DC home from surgical standpoint No outpatient follow-up necessary Patient counseled on risks,benefits, and alternatives of treatement plan at length. Patient states an understanding and willingness to proceed with plan. I personally saw and evaluated the patient. I reviewed and agree with the ANTELMO's documentation. I provided a substantive portion of the care of this patient. I personally performed the (MDM) for this encounter. I discussed the patient's condition and treatment options with them. I have also reviewed and agree with the past medical, family and social history and care plan unless otherwise noted. All of the patient's questions were answered. This case represents moderate level care including chart review, care coordination and face to face encounter was spent discussing/counseling the patient regarding the care plan for this patient. The patient was seen and examined independently and relevant data reviewed by myself. A full chart review was performed. Jose Durant MD FACS General Surgery 1:44 PM 12/11/2023 GENERAL SURGERY Progress Note PATIENT NAME: Cassie Morgan TODAY'S DATE: 12/11/2023 SUBJECTIVE: General Surgery follow up on abdominal pain. Overall improving. Passing flatus no BM yet. NO abdominal pain. Mild bloating. No N/V. Main complaint of sore throat. Pain controlled Yes Other Complaints No Flatus/BM/or Ostomy function {Yes OBJECTIVE: VITALS: BP 133/91 (BP Location: Left arm, Patient Position: Lying) Pulse 118 Temp 37.1 C (98.8 F) (Temporal) Resp 18 Ht 5' 5 (1.651 m) Wt 160 lb (72.6 kg) SpO2 96% BMI 26.63 kg/m INTAKE/OUTPUT: I/O last 3 completed shifts: In: 832 (11.5 mL/kg) [P.O.:250; I.V.:582 (8 mL/kg)] Out: 600 (8.3 mL/kg) [Urine:100 (0 mL/kg/hr); Emesis/NG output:500] Weight: 72.6 kg No intake/output data recorded. REVIEW OF SYSTEMS: Pertinent positives and negatives as per interval history section PHYSICAL EXAM: CONSTITUTIONAL: A&O x 3, LUNGS: Resp effort easy and unlabored, breath sounds normal CARDIOVASCULAR: RRR ABDOMEN: soft minimally distended, non tender MUSCULOSKELETAL: Normal range of motion NEUROLOGIC: Level of Alertness: alert PSYCHIATRIC: Speech is normal SKIN: Warm, dry, and intact Data: CBC: Recent Labs 12/08/23 2309 12/10/23 0200 12/11/23 0550 WBC 10.8* 9.4 8.8 HGB 13.4 11.3* 11.3* HCT 39.5 35.6 34.4* PLT 280 204 207 BMP: Recent Labs 12/08/23 2309 12/10/23 0200 12/11/23 0550 NA 138 140 138 K 3.8 3.6 3.1* CL 104 106 106 CO2 19* 30 27 BUN 22* 10 5* CREATININE 0.91 0.62 0.60 GLUCOSE 175* 144* 135* Hepatic: Recent Labs 12/08/232308 AST 21 ALT 15 BILITOT 0.6 ALKPHOS 64 ASSESSMENT AND PLAN: Ms. Morgan is a 78 y.o. F presenting with abdominal pain and vomiting -CT with SBO with transition point in lower abdomen at midline -XR yesterday with improving SB dilatation -WBC 8.8, Hgb 11.3 -COVID (+) -Tolerating CLD with clamping of NGT- Remove NGT and advance diet as tolerated -IVF -Medical mgmt per primary team Disposition: Patient with SBO, feeling better today with imaging that demonstrates improvement. Continues to improve with positive flatus. Encouraged OOB to chair and ambulation as tolerated. Diet as tolerated. IF tolerates diet okay to discharge from surgical standpoint Patient counseled on risks, benefits, and alternatives of treatment plan today. Patient states an understanding and willingness to proceed with plan. Jimy Nassar APRN - HUMAN SERVICES SUPERVISOR Images from the original note were not included. [phone]: Please page me ([phone]) for patient care issues. [phone]: Please page [facility] Hospitalist for any issues. Subjective: Admit Date: 12/08/2023 PCP: Armando Franklin DO Room#: B4-450/B4-450 A Cassie Morgan is a 78 y.o. female who presents with Small bowel obstruction (HCC) Interval History: No overnight issues. 78-year-old female patient is admitted with small bowel obstruction, she recently had hernia surgery. Her COVID test was positive and she is in isolation, did not qualify for remdesivir Her NG tube is clamped and she is trying clear liquid diet Denies chest pain,abdominal pain, nausea, vomiting, diarrhea, constipation, fevers, or chills. Adult diet Clear liquid 24HR INTAKE/OUTPUT: Intake/Output Summary (Last 24 hours) at 12/10/2023 1401 Last data filed at 12/10/2023 1134 Gross per 24 hour Intake 50 ml Output 600 ml Net -550 ml LABS: CBC: Recent Labs 12/08/23230812/10/23 0200 WBC 10.8* 9.4 RBC 4.45 3.78* HGB 13.4 11.3* HCT 39.5 35.6 MCV 88.8 94.2 RDW 12.9 13.8 PLT 280 204 BMP: Recent Labs 12/08/23230812/10/23 0200 NA 138 140 K 3.8 3.6 CL 104 106 CO2 19* 30 BUN 22* 10 CREATININE 0.91 0.62 GLUCOSE 175* 144* CALCIUM 9.7 8.3* ANIONGAP 15* 4 LIVER PROFILE: Recent Labs 12/08/232308 AST 21 ALT 15 BILITOT 0.6 ALKPHOS 64 PROT 7.5 PT/INR: No results for input(s): PROTIME, INR in the last 72 hours. CARDIAC ENZYMES: No results for input(s): TROPONINI in the last 72 hours. Procalcitonin: Lab Results Component Value Date PROCAL 0.03 12/08/2023 Objective: Vitals: BP 132/65 (BP Location: Right arm, Patient Position: Lying) Pulse 69 Temp 36.4 C (97.6 F) (Temporal) Resp 18 Ht 5' 5 (1.651 m) Wt 160 lb (72.6 kg) SpO2 100% BMI 26.63 kg/m Pulse Ox: SpO2 Av % Min: 97 % Max: 100 % Supplemental O2: O2 Flow Rate (L/min): 2 L/min 12/10/2023 General appearance: No apparent distress, appears stated age, HEENT: NG tube eyes: No scleral icterus Oral: Tongue is semi-moist Cardiovascular: S1/S2 heard, RRR Respiratory: Diminished breath sounds and no rhonchi abdomen: Soft, non-tender, non-distended bowel sounds positive Musculoskeletal: No obvious deformities seen Skin: No visible rashes or lesions. Medications: lactated Ringer's, 150 mL/hr, Last Rate: 150 mL/hr (12/09/236) [Held by provider] enoxaparin, 40 mg, SubCUTAneous, Daily insulin lispro, 0-6 Units, SubCUTAneous, TID WC And insulin lispro, 0-6 Units, SubCUTAneous, Nightly Assessment Small bowel obstruction-General surgery is following and today NG tube is clamped to give her a clear liquid diet Positive for COVID-19, no hypoxemia so does not qualify for remdesivir Type 2 diabetes-check blood sugars q. ACH S and will restart home meds once her blood sugar starts to improve, holding metformin Hypertension-holding lisinopril and metoprolol Recent ventral hernia repair Chronic problems Chronic atrial fibrillation-on IV Lopressor and Lovenox pending n.p.o. status Anxiety disorder-as needed Xanax Plan Reviewed medications, continue to hold metformin, metoprolol and lisinopril, and Xarelto Continue with as needed Lopressor and Lovenox Plan is to advance diet tomorrow if x-ray improves -am labs, replace lytes prn -increase activity Diet Adult diet Clear liquid DVT Prophylaxis [x] Lovenox, [] Heparin, [] SCDs, [] Ambulation [] Already on Anticoagulation GI Prophylaxis [x] PPI, [] H2 Angela, [] Carafate, [] Diet/Tube Feeds Code Status Full Code Disposition Patient requires continued admission due to small bowel obstruction MDM [] Low, [] Moderate,[x] High Patient's risk as above Total time spent (which include face to face and non face to face encounters) : minutes Toxic drug monitoring/narrow therapeutic index drug monitoring : # Drug name : Morphine # Route administered : Intravenous # Method of monitoring : Daily monitoring Extended Emergency Contact Information Primary Emergency Contact: Abdon Helms [place] Relation: Son Advance Directive: Full Code Discharge planning: TBD Sheron Mccallum MD Division of Hospitalist Medicine Inpatient Medical Services[place] rescreen completed. Patient assigned a level 1. Images from the original note were not included. [facility] - Surgery [facility] Physicians Surgery Patient Name: Cassie Morgan Date: 12/10/2023 Patient seen and examined by myself and I agree with ANTELMO note below Patient resting in bed and appears comfortable Abdominal pain essentially resolved No bowel function as of yet Abdomen soft nontender nondistended Labs and imaging reviewed Assessment /Plan: Abdominal pain with ileus versus partial small bowel obstruction clinically improving Clamp NG and start clears If tolerates overnight will DC NG and advance diet hopefully home soon Patient counseled on risks,benefits, and alternatives of treatement plan at length. Patient states an understanding and willingness to proceed with plan. I personally saw and evaluated the patient. I reviewed and agree with the ANTELMO's documentation. I provided a substantive portion of the care of this patient. I personally performed the (MDM) for this encounter. I discussed the patient's condition and treatment options with them. I have also reviewed and agree with the past medical, family and social history and care plan unless otherwise noted. All of the patient's questions were answered. This case represents moderate level care including chart review, care coordination and face to face encounter was spent discussing/counseling the patient regarding the care plan for this patient. The patient was seen and examined independently and relevant data reviewed by myself. A full chart review was performed. Jose Durant MD [facility] General Surgery 4:12 PM 12/10/2023 GENERAL SURGERY Progress Note PATIENT NAME: Cassie Morgan TODAY'S DATE: 12/10/2023 SUBJECTIVE: Follow up on abdominal pain. Patient seen this morning sitting up in bed, pleasant. She notes improvement in abdominal pain and denies further nausea/vomiting. Patient has been tolerating ice chips without issue. She notes minimal flatus and denies BM since admission. Patient denies SOB, chest pain, or cough. She is eager for diet trial and grateful to hear that surgical intervention is unlikely. No overnight events noted. Pain controlled Yes Other Complaints No Flatus/BM/or Ostomy function Yes OBJECTIVE: VITALS: BP 132/65 (BP Location: Right arm, Patient Position: Lying) Pulse 69 Temp 36.4 C (97.6 F) (Temporal) Resp 18 Ht 5' 5 (1.651 m) Wt 160 lb (72.6 kg) SpO2 100% BMI 26.63 kg/m INTAKE/OUTPUT: I/O last 3 completed shifts: In: - (0 mL/kg) Out: 600 (8.3 mL/kg) [Urine:100 (0 mL/kg/hr); Emesis/NG output:500] Weight: 72.6 kg I/O this shift: In: 50 [P.O.:50] Out: 0 REVIEW OF SYSTEMS: Pertinent positives and negatives as per interval history section PHYSICAL EXAM: CONSTITUTIONAL: A&O x 3, LUNGS: Resp effort easy and unlabored, breath sounds normal CARDIOVASCULAR: RRR ABDOMEN: soft, nondistended, nontender, peritoneal signs absent MUSCULOSKELETAL: Normal range of motion NEUROLOGIC: Level of Alertness: alert PSYCHIATRIC: Speech is normal SKIN: Warm, dry, and intact Data: XR abdomen 2 views supine and decubitus Status: Final result Link to Procedure Log Procedure Log PACS Images Show images for XR abdomen 2 views supine and decubitus Study Result Narrative & Impression Patient Name: CASSIE MORGAN : 1945 Exam Date/Time: 12/10/2023 07:33 Procedure: XR ABDOMEN 2 VIEWS SUPINE AND DECUBITUS Ordering Provider: CANO ALAINA Reason For Exam: SBO EXAM TYPE: XR ABDOMEN 2 VIEWS SUPINE AND DECUBITUS EXAM DATE AND TIME: 12/10/2023 7:33 AM EDT INDICATION: 78 years Female with small bowel obstruction COMPARISON: 12/09/2023, 12/08/2023 TECHNIQUE: AP supine and left lateral decubitus radiographs of the abdomen and pelvis were obtained. FINDINGS: Improved small bowel dilation since the prior study No free air or air-fluid levels. An enteric tube terminates overlying the proximal stomach with the side-port overlying the distal esophagus. Calcified uterine leiomyomata are present. Degenerative changes are seen in the visualized spine. The visualized lung bases are unremarkable. IMPRESSION: Improved small bowel dilation since the prior study. Enteric tube terminates overlying the proximal stomach; consider repositioning. Report Dictated on Electronically Signed By: Homer Sanders MD Electronically Signed Date/Time: 12/10/2023 8:03 AM EDT Result History XR abdomen 2 views supine and decubitus (Order #[id number]) on 12/10/2023 - Order Result History Report XR abdomen 2 views supine and decubitus: Patient Communication Add Comments Add Notifications Breast Imaging Recommendations Cassie Morgan No recommendations exist for this order. Risk Scores as of 12/08/2023 [place] 8 Risk factorsBreast cancer (HCC) 5-year 1.35% Breast cancer (HCC) lifetime 2.22% BRCA1 positive 0.01% BRCA2 positive 0.04% Breast cancer genetic susceptibility 0.05% [place] 7 Risk factorsBreast cancer (HCC) 5-year 1.43% Breast cancer (HCC) lifetime 2.35% BRCA1 positive 0.01% BRCA2 positive 0.04% Breast cancer genetic susceptibility 0.05% Risk Considerations as of 12/08/2023 Risk factorsProbability score 100% The preliminary information your patient provided suggests a potentially increased risk for hereditary breast cancer. An informative discussion of the risk for hereditary cancer with a Genetic Counselor may include a description of hereditary cancer, the value of screening and early detection, options for prevention, and other relevant information. Genetic testing may be offered if hereditary breast or ovarian cancer is suspected. NCCN HBOC Guidelines as of 12/08/2023 Risk factorsProbability score 100% First-degree relative with a history of exocrine pancreatic cancer NCCN [place] as of 12/08/2023 Risk factorsProbability score 0% Risk Explanation [place] 8 as of 12/08/2023 Risk factorsBreast cancer (HCC) 2.22% For people with patient's age and gender: 3.45 % Including above and patient's race and ethnicity: 3.45 % Including above and patient's hormonal and reproductive risk factors: 2.20 % Including above and patient's medical history: 2.44 % Including above and patient's family history: 2.22 % Including above and patient's personal family genetic testin.22 % Including above and if patient's breasts were almost entirely fatty: 1.23 % Including above and if patient had scattered areas of breast density: 1.88 % Including above and if patient had heterogeneously dense breasts: 2.85 % Including above and if patient had extremely dense breasts: 4.32 % Final score: 2.22 % BRCAPRO as of 12/08/2023 Risk factorsOvarian cancer (HCC) 5-year 0.22% Ovarian cancer (HCC) lifetime 0.22% Breast cancer (HCC) 5-year 2.24% Breast cancer (HCC) lifetime 2.24% BRCA1 positive 0.01% BRCA2 positive 0.02% BRCA gene positive 0% Breast cancer genetic susceptibility 0.03% My[facility] as of 12/08/2023 Risk factorsBreast cancer genetic susceptibility 1.5% No Freddy risk assessment data. 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 OPERATOR Request ID as of 12/08/2023 Risk factorsPoint score [id number] STIFF LEG DERRICK OPERATOR Pet[employer] Teacher ID as of 12/08/2023 Risk factorsPoint score 201 Signed by Signed Time Phone Pager Homer Sanders MD 12/10/2023 08:03 Exam Information Status Exam Begun Exam Ended Final 12/10/2023 07:10 12/10/2023 07:33 External Results Report Open External Results Report Encounter View Encounter Study Details Open Study Details Order Transmittal Tracking XR abdomen 2 views supine and decubitus (Order #[id number]) on 12/10/23 Order Report XR abdomen 2 views supine and decubitus (Order #[id number]) on 12/10/23 CBC: Recent Labs 12/08/23230812/10/23 0200 WBC 10.8* 9.4 HGB 13.4 11.3* HCT 39.5 35.6 PLT 280 204 BMP: Recent Labs 12/08/23230812/10/23 0200 NA 138 140 K 3.8 3.6 CL 104 106 CO2 19* 30 BUN 22* 10 CREATININE 0.91 0.62 GLUCOSE 175* 144* Hepatic: Recent Labs 12/08/232308 AST 21 ALT 15 BILITOT 0.6 ALKPHOS 64 ASSESSMENT AND PLAN: Ms. Morgan is a 78 y.o. F presenting with abdominal pain and vomiting -CT with SBO with transition point in lower abdomen at midline -XR this AM with improved small bowel dilation since prior study -WBC 9.4, Hgb 11.3 -COVID (+) -Clamp NGT/trial CLD -IVF -Medical mgmt per primary team Disposition: Patient with SBO, feeling better today with imaging that demonstrates improvement. Trial NGT clamping and CLD. Encourage OOB. No surgical intervention planned at this time, will continue to follow with serial exams and imaging. Patient counseled on risks, benefits, and alternatives of treatment plan today. Patient states an understanding and willingness to proceed with plan. MAGDA Hooker Images from the original note were not included. Hospitalist Progress Note 12/09/2023 2:13 PM [phone]: Please reach me on [employer] patient care issues. [phone]: Please page [facility] Hospitalist for any issues. Subjective: Admit Date: 12/08/2023 PCP: Armando Franklin DO Room#: Follow up on patient admitted after midnight. Patient admitted for: Please see Dr. Chung's H&P for details Abdominal pain/small bowel obstruction, NG tube to low suction and n.p.o. with IV fluids and antiemetics Positive COVID, she claims onset of symptoms yesterday but she is not hypoxemic but will be in isolation for 10 days according to [facility] [facility] and will monitor for any need for remdesivir Atrial fibrillation-continue rate control meds metoprolol and Xarelto, but because of n.p.o. status will replace it with Lopressor and Lovenox, after surgery evaluates her and changes her diet Type 2 diabetes-check blood sugars q. ACH S for now because of n.p.o. status will cover with sliding scale insulin Anxiety disorder-alprazolam as needed Past Medical History: Past Medical History: Diagnosis Date Anxiety Breast cancer screening by mammogram 09/2023 needs phys exam Dependent edema Diverticulosis 2019 Diverticulitis H/O colonoscopy 2013 Dr Ramesh- due 2023 History of transfusion PAF (paroxysmal atrial fibrillation) (HCC) 2017 Dr. Newby- OAC, nml EF Recurrent UTI Type II or unspecified type diabetes mellitus without mention of complication, not stated as uncontrolled (HCC) 2013 All labs, diagnostic studies, imaging, and progress notes reviewed. Sheron Mccallum MD Division of Hospitalist Medicine [facility] documented in this encounter [facility] 12-12-2023 Note Formatting of this n ote might be different from the original. Received call from patient asking about HHC. She thinks she is being discharged today and wants to know if it has been arranged and what all is being provided. Messaged [facility] liaison to reach out to patient. TCC will continue to follow. [facility] 12-12-2023 Note Formatting of this n ote might be different from the original. Received call from patient asking about HHC. She thinks she is being discharged today and wants to know if it has been arranged and what all is being provided. Messaged [facility] liaison to reach out to patient. TCC will continue to follow. [facility] 12-12-2023 Miscellaneous Notes Received call from patient asking about HHC. She thinks she is being discharged today and wants to know if it has been arranged and what all is being provided. Messaged [facility] liaison to reach out to patient. TCC will continue to follow. Images from the original note were not included. Care Management Progress Note Weaned off oxygen. Pulse ox 94-99%. Ng remains clamped. Started on clear liquids yesterday. No documented zofran received. Abdomen documented as being soft with hypoactive bs. Last bm documented 12/08. Still requiring iv morphine x 3 yesterday for pain. Remains on ivf. Labs pending for this am. professor of latin american studies spoke with yesterday afternoon and discharge plan is home with [facility] when medically stable. . Discharge Milestones and Delays Expected Date/Time: 12/12/[address] discharge order Complete med reconciliation Case mgmt discharge readiness Clinical Stability Diagnsotic Workup Expected Discharge History Expected Date/Time Set By Reviewed At 12/12/2023 Selena Jarquin RN 12/10/2023 8:39 AM tcc est 12/12/2023 MAGDA Yoder 12/09/2023 6:36 PM 12/11/2023 MAGDA Yoder 12/09/2023 12:57 AM Length of Stay (Days): 2 GMLOS: 4.6 Patient Choice Patient Name: CASSIE MORGAN Date of : 1945 All Providers Sent Referral Name: [facility] Phone: [phone] Address: [address] [place] [address] Start PACC Note Home Health Referral Educated patient on Home Care and services available. Patient offered choice of available C and agreeable to SN services with [facility] - Home Care. Care Types: COVID 19 - Recent COVID-19 Results The following shows this patient's 5 most recent COVID-19 test results: SARS-CoV-2 Date Value Ref Range Status 12/08/2023 Detected (A) Not Detected Final Isolation Precautions: Droplet Plus Social Determinates of Health: Tobacco Use: Low Risk (12/01/2023) Patient History Smoking Tobacco Use: Never Smokeless Tobacco Use: Never Passive Exposure: Not on file Social History Substance and Sexual Activity Alcohol Use No Alcohol/week: 0.0 standard drinks of alcohol Social History Substance and Sexual Activity Drug Use No Does the patient have any financial resource strain? No Does the patient have any food insecurities? No Does the patient have any housing instabilities? No If any of the above is noted as yes - consider a DUAL RATE DEALER evaluation once the patient returns home. START PATIENT REGISTRATION INFORMATION Order Information Order Signing Physician: Sheron Mccallum MD Service Ordered RN ?: Yes Service Ordered PT ?: No Service Ordered OT ?: No Service Ordered ST ?: No Service Ordered DUAL RATE DEALER?:No Service Ordered DEGREASING WHEEL OPERATOR?: No Following Physician: Armando Franklin DO Following Physician Overseeing Physician: Armando Franklin DO (Required for Residents only) Agreeable to Follow? Yes Date/Time of Call 12/10/23 5:09 PM, Spoke with: LM WITH OFFICE Care Coordination Same Day SOC?: No Primary Care Physician: Armando Franklin DO Primary Care Physician Primary Care Physician Address: [address] [place] [phone] Visit Instructions: N/A Service Discharge Location Type: Home with Home Health Care Service Facility Name: N/A Service Floor Facility: N/A Service Room No: N/A Demographics Patient Last Name: Pedro Patient First Name: Cassie Language/Communication Barrier: NONE Service Address: [address] [place] [address] Service City: [place] Service ST: [place] Service ZIP: [phone] Service (home) Other phone numbers: Telephone Information: Emergency Contact: Extended Emergency Contact Information Primary Emergency Contact: Abdon Helms Mobile Relation: Son Admission Information Admit Date: 12/08/2023 Patient status at discharge: Inpatient Admitting Diagnosis: Small bowel obstruction (HCC) [K56.609] COVID [U07.1] Caregiver Information Caregiver First Name: NA Caregiver Last Name: NA Caregiver Relationship to Patient NA Caregiver Phone Number: NA Caregiver Notes: N/A Spin[employer] List HIGHTECH: [employer] TECH - COVID19 Active COVID-19 infection: Yes Date of most recent positive test: 12/08/23 If Positive, or Results Pending, is patient agreeable to wearing PPE during visit?: Yes Exposure to anyone with a dx of COVID-19: Yes END PATIENT REGISTRATION INFORMATION Pt Home Health goal TO RETURN HOME COVID Status 1. Do you have any upper respiratory symptoms (cough, SOB, Fever)? Yes 2. Have you been exposed to anyone with COVID-19 Virus? Yes Answer only if pending or positive for COVID-19? 1. Agreeable to wear PPE at each visit? Yes 2. Is the hospital supplying them with PPE upon Discharge? No Start PACC Summary General Report/ Additional Comments Small bowel obstruction-General surgery is following and today NG tube is clamped to give her a clear liquid diet Positive for COVID-19, no hypoxemia so does not qualify for remdesivir Type 2 diabetes-check blood sugars q. ACH S and will restart home meds once her blood sugar starts to improve, holding metformin Hypertension-holding lisinopril and metoprolol Recent ventral hernia repair Chronic problems Chronic atrial fibrillation-on IV Lopressor and Lovenox pending n.p.o. status Anxiety disorder-as needed Xanax Plan Reviewed medications, continue to hold metformin, metoprolol and lisinopril, and Xarelto Continue with as needed Lopressor and Lovenox Plan is to advance diet tomorrow if x-ray improves -am labs, replace lytes prn -increase activity Discharge Date: TBD Referral Source-PACC: (Hospital/Unit): [facility] / [id number]/B4-450 A End PACC Note Care Managment Initial Assessment Date: 12/10/2023 Patient Name: Cassie Morgan : 1945 Patient Information Source of Information: Patient Name/Contact Information: ABDON HELMS SON [phone] SON Cognition/Language: WFL - Within Functional Limits Permission given to speak with patient merchandiser retail representative/caregiver as indicated: Yes Confirmation of Payer with patient/family: Yes Payer Name: [employer] MEDICARE [place]: No Confirmation of Primary Care Physician: Confirmed PCP Name: DR. FRANKLIN Seen in last 2 years?: Yes Primary Caregiver: Self If assistance needed, confirmed caregiver ready, willing and able to care for patient at discharge: Yes Confirmed with: PER PATIENT HER CHILDREN Living Arrangements Current Residence: House Number of Floors 1 Number of Entry Steps: 2 Bed/Bath Levels: Both first floor Facility: Facility Name: NA Plan to Return: Yes Lives with: Spouse/significant other Support Systems: Spouse/significant other, Children Activities of Daily Living Ambulation: Independent Bathing/Dressing: Independent Elimination/Continence/Toileting: Independent Feeding: Independent Who Assists with Activities of Daily Living: NA Instrumental Activities of Daily Living Prescription Coverage: Yes Pharmacy Used: [facility] [place] [facility] Medication Management: Independent Transportation/Shopping: Independent Transportation Mode: Car Needs Assistance with Transportation at Discharge: No (CHILDREN TO TRANSPORT) Meal Preparation: Independent Laundry/Cleaning: Independent Finances/Bill Paying: Independent Communication: Independent Types of Care Services/Equipment Utilized Care Services: Dialysis Type: NA Durable Medical Equipment: Raised Toilet Seat, Glucometer Patient's Goal/Discharge Plan Patient expects to be discharged to: HOME Discharge Planning Actions: Continue to follow Patient's Choice Rights and [employer] and Collaborative Relationships Disclosed as Indicated for Post-Acute Care: NA Interdisciplinary Team Engagement: Social Work Referral for: Additional Information: Discharge preparation checklist reviewed with patient. Lives at home with spouse. Spouse suffers from alzheimer's. She is his caregiver. Is normally independent in adls and household tasks. Denies use of any assistive devices. Still drives. Denies home oxygen use. Is NIDDM and [facility]. [facility] has glucometer and testing supplies at home. Is currently declining need for home care services upon discharge and anticipated discharge plan is home when medically stable. Will need to monitor for oxygen needs. [facility] children will be providing transportation upon discharge. . Selena Jarquin RN Admitted from home with SBO and also covid positive. Surgery consulted. NPO, NG, KUB, ivf, iv pain and nausea medications. Did require morphine x4 yesterday and zofran x 3. BS are ordered ac and hs with ss coverage. Patient is requiring oxygen at 2 liters with saturation 100% will need to wean off oxygen. Tentative discharge plan is home when medically stable. . documented in this encounter [facility] 12-11-2023 Note Formatting of this n ote is different from the original. Images from the original note were not included. Care Management Progress Note Weaned off oxygen. Pulse ox 94-99%. Ng remains clamped. Started on clear liquids yesterday. No documented zofran received. Abdomen documented as being soft with hypoactive bs. Last bm documented 12/08. Still requiring iv morphine x 3 yesterday for pain. Remains on ivf. Labs pending for this am. professor of latin american studies spoke with yesterday afternoon and discharge plan is home with [facility] when medically stable. . Discharge Milestones and Delays Expected Date/Time: 12/12/[address] discharge order Complete med reconciliation Case mgmt discharge readiness Clinical Stability Diagnsotic Workup Expected Discharge History Expected Date/Time Set By Reviewed At 12/12/2023 Selena Jarquin RN 12/10/2023 8:39 AM tcc est 12/12/2023 MAGDA Yoder 12/09/2023 6:36 PM 12/11/2023 MAGDA Yoder 12/09/2023 12:57 AM Length of Stay (Days): 2 GMLOS: 4.6 [facility] 12-11-2023 Note Formatting of this n ote is different from the original. Images from the original note were not included. Care Management Progress Note Weaned off oxygen. Pulse ox 94-99%. Ng remains clamped. Started on clear liquids yesterday. No documented zofran received. Abdomen documented as being soft with hypoactive bs. Last bm documented 12/08. Still requiring iv morphine x 3 yesterday for pain. Remains on ivf. Labs pending for this am. professor of latin american studies spoke with yesterday afternoon and discharge plan is home with [facility] when medically stable. . Discharge Milestones and Delays Expected Date/Time: 12/12/[address] discharge order Complete med reconciliation Case mgmt discharge readiness Clinical Stability Diagnsotic Workup Expected Discharge History Expected Date/Time Set By Reviewed At 12/12/2023 Selena Jarquin RN 12/10/2023 8:39 AM tcc est 12/12/2023 MAGDA Yoder 12/09/2023 6:36 PM 12/11/2023 MAGDA Yoder 12/09/2023 12:57 AM Length of Stay (Days): 2 GMLOS: 4.6 [facility] 12-10-2023 Note Formatting of this n ote might be different from the original. Patient Choice Patient Name: CASSIE MORGAN Date of : 1945 All Providers Sent Referral Name: [facility] Phone: [phone] Address: [address] [place] [address] [facility] 12-10-2023 Note Formatting of this n ote might be different from the original. Patient Choice Patient Name: CASSIE MORGAN Date of : 1945 All Providers Sent Referral Name: [facility] [employer] [facility] [facility] Phone: [phone] Address: [address] [place] [id number] [facility] 12-10-2023 Note Formatting of this n ote is different from the original. Start PACC Note Home Health Referral Educated patient on Home Care and services available. Patient offered choice of available HHC and agreeable to SN services with [facility] - [facility] Care. Care Types: COVID 19 - Recent COVID-19 Results The following shows this patient's 5 most recent COVID-19 test results: SARS-CoV-2 Date Value Ref Range Status 12/08/2023 Detected (A) Not Detected Final Isolation Precautions: Droplet Plus Social Determinates of Health: Tobacco Use: Low Risk (12/01/2023) Patient History Smoking Tobacco Use: Never Smokeless Tobacco Use: Never Passive Exposure: Not on file Social History Substance and Sexual Activity Alcohol Use No Alcohol/week: 0.0 standard drinks of alcohol Social History Substance and Sexual Activity Drug Use No Does the patient have any financial resource strain? No Does the patient have any food insecurities? No Does the patient have any housing instabilities? No If any of the above is noted as yes - consider a DUAL RATE DEALER evaluation once the patient returns home. START PATIENT REGISTRATION INFORMATION Order Information Order Signing Physician: Sheron Mccallum MD Service Ordered RN ?: Yes Service Ordered PT ?: No Service Ordered OT ?: No Service Ordered ST ?: No Service Ordered DUAL RATE DEALER?:No Service Ordered DEGREASING WHEEL OPERATOR?: No Following Physician: Armando Franklin DO Following Physician Overseeing Physician: Armando Franklin DO (Required for Residents only) Agreeable to Follow? Yes Date/Time of Call 12/10/23 5:09 PM, Spoke with: CARLOTTA WITH OFFICE Care Coordination Same Day SOC?: No Primary Care Physician: Armando Franklin DO Primary Care Physician Primary Care Physician Address: [address] [place] [phone] Visit Instructions: N/A Service Discharge Location Type: Home with Home Health Care Service Facility Name: N/A Service Floor Facility: N/A Service Room No: N/A Demographics Patient Last Name: Morgan Patient First Name: Cassie Language/Communication Barrier: NONE Service Address: [address] [place] [address] Service City: [facility] ST: [place] Service ZIP: [address] Service (home) Other phone numbers: Telephone Information: Emergency Contact: Extended Emergency Contact Information Primary Emergency Contact: Abdon Helms Mobile Relation: Son Admission Information Admit Date: 12/08/2023 Patient status at discharge: Inpatient Admitting Diagnosis: Small bowel obstruction (HCC) [K56.609] COVID [U07.1] Caregiver Information Caregiver First Name: NA Caregiver Last Name: NA Caregiver Relationship to Patient NA Caregiver Phone Number: NA Caregiver Notes: N/A SpinSnap-Tech List HIGHTECH: [place] TECH - COVID19 Active COVID-19 infection: Yes Date of most recent positive test: 12/08/23 If Positive, or Results Pending, is patient agreeable to wearing PPE during visit?: Yes Exposure to anyone with a dx of COVID-19: Yes END PATIENT REGISTRATION INFORMATION Pt Home Health goal TO RETURN HOME COVID Status 1. Do you have any upper respiratory symptoms (cough, SOB, Fever)? Yes 2. Have you been exposed to anyone with COVID-19 Virus? Yes Answer only if pending or positive for COVID-19? 1. Agreeable to wear PPE at each visit? Yes 2. Is the hospital supplying them with PPE upon Discharge? No Start PACC Summary General Report/ Additional Comments Small bowel obstruction-General surgery is following and today NG tube is clamped to give her a clear liquid diet Positive for COVID-19, no hypoxemia so does not qualify for remdesivir Type 2 diabetes-check blood sugars q. ACH S and will restart home meds once her blood sugar starts to improve, holding metformin Hypertension-holding lisinopril and metoprolol Recent ventral hernia repair Chronic problems Chronic atrial fibrillation-on IV Lopressor and Lovenox pending n.p.o. status Anxiety disorder-as needed Xanax Plan Reviewed medications, continue to hold metformin, metoprolol and lisinopril, and Xarelto Continue with as needed Lopressor and Lovenox Plan is to advance diet tomorrow if x-ray improves -am labs, replace lytes prn -increase activity Discharge Date: TBD Referral Source-PACC: (Hospital/Unit): [facility] / B4-450/B4-450 A End PACC Note [facility] 12-10-2023 Note Formatting of this n ote is different from the original. Start PACC Note Home Health Referral Educated patient on Home Care and services available. Patient offered choice of available HHC and agreeable to SN services with [facility] - Home Care. Care Types: COVID 19 - Recent COVID-19 Results The following shows this patient's 5 most recent COVID-19 test results: SARS-CoV-2 Date Value Ref Range Status 12/08/2023 Detected (A) Not Detected Final Isolation Precautions: Droplet Plus Social Determinates of Health: Tobacco Use: Low Risk (12/01/2023) Patient History Smoking Tobacco Use: Never Smokeless Tobacco Use: Never Passive Exposure: Not on file Social History Substance and Sexual Activity Alcohol Use No Alcohol/week: 0.0 standard drinks of alcohol Social History Substance and Sexual Activity Drug Use No Does the patient have any financial resource strain? No Does the patient have any food insecurities? No Does the patient have any housing instabilities? No If any of the above is noted as yes - consider a DUAL RATE DEALER evaluation once the patient returns home. START PATIENT REGISTRATION INFORMATION Order Information Order Signing Physician: Sheron Mccallum MD Service Ordered RN ?: Yes Service Ordered PT ?: No Service Ordered OT ?: No Service Ordered ST ?: No Service Ordered DUAL RATE DEALER?:No Service Ordered DEGREASING WHEEL OPERATOR?: No Following Physician: Armando Franklin DO Following Physician Overseeing Physician: Armando Franklin DO (Required for Residents only) Agreeable to Follow? Yes Date/Time of Call 12/10/23 5:09 PM, Spoke with: CARLOTTA WITH OFFICE Care Coordination Same Day SOC?: No Primary Care Physician: Armando Franklin DO Primary Care Physician Primary Care Physician Address: [address] [place] [phone] Visit Instructions: N/A Service Discharge Location Type: Home with Home Health Care Service Facility Name: N/A Service Floor Facility: N/A Service Room No: N/A Demographics Patient Last Name: Pedro Patient First Name: Cassie Language/Communication Barrier: NONE Service Address: [address] [place] [address] Service City: [facility] ST: [place] Service ZIP: [address] Service (home) Other phone numbers: Telephone Information: Emergency Contact: Extended Emergency Contact Information Primary Emergency Contact: Abdon Helms Mobile Relation: Son Admission Information Admit Date: 12/08/2023 Patient status at discharge: Inpatient Admitting Diagnosis: Small bowel obstruction (HCC) [K56.609] COVID [U07.1] Caregiver Information Caregiver First Name: NA Caregiver Last Name: NA Caregiver Relationship to Patient NA Caregiver Phone Number: NA Caregiver Notes: N/A [employer] List HIGHTECH: [place] TECH - COVID19 Active COVID-19 infection: Yes Date of most recent positive test: 12/08/23 If Positive, or Results Pending, is patient agreeable to wearing PPE during visit?: Yes Exposure to anyone with a dx of COVID-19: Yes END PATIENT REGISTRATION INFORMATION Pt Home Health goal TO RETURN HOME COVID Status 1. Do you have any upper respiratory symptoms (cough, SOB, Fever)? Yes 2. Have you been exposed to anyone with COVID-19 Virus? Yes Answer only if pending or positive for COVID-19? 1. Agreeable to wear PPE at each visit? Yes 2. Is the hospital supplying them with PPE upon Discharge? No Start PACC Summary General Report/ Additional Comments Small bowel obstruction-General surgery is following and today NG tube is clamped to give her a clear liquid diet Positive for COVID-19, no hypoxemia so does not qualify for remdesivir Type 2 diabetes-check blood sugars q. ACH S and will restart home meds once her blood sugar starts to improve, holding metformin Hypertension-holding lisinopril and metoprolol Recent ventral hernia repair Chronic problems Chronic atrial fibrillation-on IV Lopressor and Lovenox pending n.p.o. status Anxiety disorder-as needed Xanax Plan Reviewed medications, continue to hold metformin, metoprolol and lisinopril, and Xarelto Continue with as needed Lopressor and Lovenox Plan is to advance diet tomorrow if x-ray improves -am labs, replace lytes prn -increase activity Discharge Date: TBD Referral Source-PACC: (Hospital/Unit): [facility] / B4-450/B4-450 A End PACC Note [facility] 12-10-2023 Hospital Discharge instructions Yoko Padgett RN - 12/10/2023 5:04 PM EDT Continuity of Care Form Patient Name: Cassie Morgan : 1945 Admit date: 12/08/2023 Discharge date: Code Status Order: Full Code Advance Directives: N Admitting Physician: Garth Chung MD PCP: Armando Franklin DO Discharging Nurse: Discharging Hospital Unit/Room#: B4-450/B4-450 A Discharging Unit Phone Number: Emergency Contact: Extended Emergency Contact Information Primary Emergency Contact: Abdon Helms Mobile Relation: Son Past Surgical History: Past Surgical History: Procedure Laterality Date BREAST CYST EXCISION Left 10/2012 CATARACT EXTRACTION Left 10/2018 SECTION (HISTORICAL) COLONOSCOPY 2014 COLONOSCOPY W/ POLYPECTOMY 07/2021 ? rech 2025 CYSTOSCOPY 10/2009 DILATION AND CURETTAGE (HISTORICAL) 08/18/2023 LAP,INGUINAL HERNIA REPR,INITIAL (HISTORICAL) Right 08/18/2023 [place] Immunization History: Immunization History Administered Date(s) Administered Covid-19, Pfizer Bivalent Booster, (Age 12y+), Im, 30 Mcg/0e 06/13/2022 Influenza Whole 06/07/2015 Influenza, High Dose Seasonal, Preservative Free 05/17/2019 Influenza, Seasonal, Quadrivalent, Adjuvanted 06/25/2021, 06/13/2022 Influenza, Unspecified 08/10/2014, 06/07/2015 Influenza, injectable, quadrivalent 06/19/2016, 06/26/2017, 06/16/2018 Influenza, seasonal, injectable 08/10/2014 Pfizer SARS-CoV-2 Vaccination 10/21/2020, 11/12/2020, 06/25/2021 Pneumococcal Conjugate PCV 13 11/27/2015 Pneumococcal Polysaccharide PPSV23 08/10/2014 Zoster, Recombinant 08/01/2020, 11/29/2020 Zoster, live 10/20/2013 Active Problems: Medical Problems Problem List * (Principal) Small bowel obstruction (HCC) Essential (primary) hypertension Anxiety attack Hernia, inguinal, right Recurrent UTI Type 2 diabetes mellitus with other specified complication, without long-term current use of insulin (HCC) Dependent edema PAF (paroxysmal atrial fibrillation) (HCC) Encounter for current long-term use of anticoagulants Right inguinal hernia Postmenopausal bleeding Isolation/Infection: Droplet Plus COVID-19 (confirmed) Nurse Assessment: Last Vital Signs: BP 128/86 (BP Location: Right arm, Patient Position: Lying) Pulse 119 Temp 37.1 C (98.7 F) (Temporal) Resp 18 Ht 1.651 m (5' 5) Wt 72.6 kg (160 lb) SpO2 94% BMI 26.63 kg/m Last documented pain score (0-10 scale): Last Weight: Wt Readings from Last 1 Encounters: 12/09/23 72.6 kg (160 lb) Mental Status: {DAKOTAH Patient Mental Status:32660} IV Access: {DAKOTAH IV Access:62864} Nursing Mobility/ADLs: Walking {MILENA ADL:00902::Independent} Transfer {MILENA ADL:39282::Independent} Bathing {MILENA ADL:82985::Independent} Dressing {MILENA ADL:12774::Independent} Toileting {MILENA ADL:61128::Independent} Feeding {MILENA ADL:76290::Independent} Sales Program Manager {MILENA ADL:46912::Independent} Med Delivery {yes/no:66028} Wound Care Documentation and Therapy: Wound/Incision 08/18/23 Incision Abdomen Upper (Active) Number of days: 114 Elimination: Continence: Bowel: {yes/no:87201} Bladder: {yes/no:16516} Urinary Catheter: {DAKOTAH Urinary Catheter:74188} Colostomy/Ileostomy/Ileal Conduit: {YES / NO:} Date of Last BM: Intake/Output Summary (Last 24 hours) at 12/10/2023 1704 Last data filed at 12/10/2023 1134 Gross per 24 hour Intake 50 ml Output 600 ml Net -550 ml I/O last 3 completed shifts: In: - (0 mL/kg) Out: 600 (8.3 mL/kg) [Urine:100 (0 mL/kg/hr); Emesis/NG output:500] Weight: 72.6 kg Safety Concerns: {DAKOTAH Safety Concerns:23901} Impairments/Disabilities: {DAKOTAH Impairments/Disabilities:52828} Nutrition Therapy: Current Nutrition Therapy: {DAKOTAH Diet List:04589} Routes of Feeding: {routes of feedin} Liquids: {liquid consistency:69455} Daily Fluid Restriction: {daily fluid restriction:83336} Last Modified Barium Swallow with Video (Video Swallowing Test): {done not done:95336} Treatments at the Time of Hospital Discharge: Respiratory Treatments: Oxygen Therapy: {Therapy; copd oxygen:32127} Ventilator: {DAKOTAH Ventilator:56421} Rehab Therapies: {GEN THERAPY DISCIPLINE SCAL:7193516} Weight Bearing Status/Restrictions: {POD WEIGHT BEARIN} Other Medical Equipment (for information only, NOT a DME order): {Assistive Devices DME:12361} Other Treatments: Patient's personal belongings (please select all that are sent with patient): {DAKOTAH Patient Belongings:30577} RN SIGNATURE: {E-signature:22748} CASE MANAGEMENT/SOCIAL WORK SECTION Inpatient Status Date: Readmission Risk Assessment Score: @READMISSIONRISKDETAILS@ Discharging to Facility/ Agency Name: [facility] Address: [address] [place] [address] Dialysis Facility (if applicable) Name: Address: Dialysis Schedule: Phone: Fax: Hotshot Superintendent/Permanent Mold Supervisor signature: {E-signature:88387} PHYSICIAN SECTION Prognosis: {Rehab Prognosis:82245} Condition at Discharge: {Patient Condition:63260} Rehab Potential (if transferring to Rehab): {Rehab Prognosis:72799} Recommended Labs or Other Treatments After Discharge: Physician Certification: I certify the above information and transfer of Cassie Morgan is necessary for the continuing treatment of the diagnosis listed and that she requires {DAKOTAH Level of Care:51803} for {greater less than:43732} 30 days. Update Admission H&P: {DAKOTAH Changes in H&P:30476} PHYSICIAN SIGNATURE: {E-signature:95868} The following attachments cannot be sent through Care Everywhere.COVID-19 Discharge Instructions (Bermudian)Small Bowel Obstruction Discharge Instructions (Bermudian)documented in this encounter [facility] 12-10-2023 Note Formatting of this n ote might be different from the original. Care Managment Initial Assessment Date: 12/10/2023 Patient Name: Cassie Morgan : 1945 Patient Information Source of Information: Patient Name/Contact Information: ABDON HELMS SON [phone] SON Cognition/Language: WFL - Within Functional Limits Permission given to speak with patient merchandiser retail representative/caregiver as indicated: Yes Confirmation of Payer with patient/family: Yes Payer Name: [employer] MEDICARE : No Confirmation of Primary Care Physician: Confirmed PCP Name: DR. FRANKLIN Seen in last 2 years?: Yes Primary Caregiver: Self If assistance needed, confirmed caregiver ready, willing and able to care for patient at discharge: Yes Confirmed with: PER PATIENT HER CHILDREN Living Arrangements Current Residence: House Number of Floors 1 Number of Entry Steps: 2 Bed/Bath Levels: Both first floor Facility: Facility Name: [facility] Plan to Return: Yes Lives with: Spouse/significant other Support Systems: Spouse/significant other, Children Activities of Daily Living Ambulation: Independent Bathing/Dressing: Independent Elimination/Continence/Toileting: Independent Feeding: Independent Who Assists with Activities of Daily Living: NA Instrumental Activities of Daily Living Prescription Coverage: Yes Pharmacy Used: [facility] [place] OR [facility] Medication Management: Independent Transportation/Shopping: Independent Transportation Mode: Car Needs Assistance with Transportation at Discharge: No (CHILDREN TO TRANSPORT) Meal Preparation: Independent Laundry/Cleaning: Independent Finances/Bill Paying: Independent Communication: Independent Types of Care Services/Equipment Utilized Care Services: Dialysis Type: NA Durable Medical Equipment: Raised Toilet Seat, Glucometer Patient's Goal/Discharge Plan Patient expects to be discharged to: HOME Discharge Planning Actions: Continue to follow Patient's Choice Rights and [employer] and Collaborative Relationships Disclosed as Indicated for Post-Acute Care: NA Interdisciplinary Team Engagement: Social Work Referral for: Additional Information: Discharge preparation checklist reviewed with patient. Lives at home with spouse. Spouse suffers from alzheimer's. She is his caregiver. Is normally independent in adls and household tasks. Denies use of any assistive devices. Still drives. Denies home oxygen use. Is NIDDM and states checks blood sugars daily. States has glucometer and testing supplies at home. Is currently declining need for home care services upon discharge and anticipated discharge plan is home when medically stable. Will need to monitor for oxygen needs. States children will be providing transportation upon discharge. . Selena Jarquin RN [facility] 12-10-2023 Note Formatting of this n ote might be different from the original. Care Managment Initial Assessment Date: 12/10/2023 Patient Name: Cassie Morgan : 1945 Patient Information Source of Information: Patient Name/Contact Information: ABDON KIRKPATRICK [phone] CASIMIRO Cognition/Language: WFL - Within Functional Limits Permission given to speak with patient merchandiser retail representative/caregiver as indicated: Yes Confirmation of Payer with patient/family: Yes Payer Name: [employer] MEDICARE [place]: No Confirmation of Primary Care Physician: Confirmed PCP Name: DR. FRANKLIN Seen in last 2 years?: Yes Primary Caregiver: Self If assistance needed, confirmed caregiver ready, willing and able to care for patient at discharge: Yes Confirmed with: PER PATIENT HER CHILDREN Living Arrangements Current Residence: House Number of Floors 1 Number of Entry Steps: 2 Bed/Bath Levels: Both first floor Facility: Facility Name: NA Plan to Return: Yes Lives with: Spouse/significant other Support Systems: Spouse/significant other, Children Activities of Daily Living Ambulation: Independent Bathing/Dressing: Independent Elimination/Continence/Toileting: Independent Feeding: Independent Who Assists with Activities of Daily Living: NA Instrumental Activities of Daily Living Prescription Coverage: Yes Pharmacy Used: [facility] [place] [facility] Medication Management: Independent Transportation/Shopping: Independent Transportation Mode: Car Needs Assistance with Transportation at Discharge: No (CHILDREN TO TRANSPORT) Meal Preparation: Independent Laundry/Cleaning: Independent Finances/Bill Paying: Independent Communication: Independent Types of Care Services/Equipment Utilized Care Services: Dialysis Type: NA Durable Medical Equipment: Raised Toilet Seat, Glucometer Patient's Goal/Discharge Plan Patient expects to be discharged to: HOME Discharge Planning Actions: Continue to follow Patient's Choice Rights and [employer] and Collaborative Relationships Disclosed as Indicated for Post-Acute Care: NA Interdisciplinary Team Engagement: Social Work Referral for: Additional Information: Discharge preparation checklist reviewed with patient. Lives at home with spouse. Spouse suffers from alzheimer's. She is his caregiver. Is normally independent in adls and household tasks. Denies use of any assistive devices. Still drives. Denies home oxygen use. Is NIDDM and states checks blood sugars daily. States has glucometer and testing supplies at home. Is currently declining need for home care services upon discharge and anticipated discharge plan is home when medically stable. Will need to monitor for oxygen needs. States children will be providing transportation upon discharge. . Selena Jarquin RN [facility] 12-10-2023 Note Formatting of this n ote might be different from the original. Admitted from home with SBO and also covid positive. Surgery consulted. NPO, NG, KUB, ivf, iv pain and nausea medications. Did require morphine x4 yesterday and zofran x 3. BS are ordered ac and hs with ss coverage. Patient is requiring oxygen at 2 liters with saturation 100% will need to wean off oxygen. Tentative discharge plan is home when medically stable. . [facility] 12-10-2023 Note Formatting of this n ote might be different from the original. Admitted from home with SBO and also covid positive. Surgery consulted. NPO, NG, KUB, ivf, iv pain and nausea medications. Did require morphine x4 yesterday and zofran x 3. BS are ordered ac and hs with ss coverage. Patient is requiring oxygen at 2 liters with saturation 100% will need to wean off oxygen. Tentative discharge plan is home when medically stable. . T [facility] 12-09-2023 Consult note Associated Order (s): IP CONSULT TO GENERAL SURGERY Images from the original note were not included. [facility] - Surgery [facility] Surgery Patient Name: Cassie Morgan Date: 12/09/2023 Patient seen and examined by myself and I agree with ANTELMO note below Patient resting in bed and appears comfortable with family members at bedside, she is answering questions appropriately Abdominal discomfort improved since admission overnight Still some pain but not as severe Abdomen soft nontender nondistended, no peritoneal signs Labs and imaging reviewed Assessment /Plan: Abdominal pain with ileus versus partial obstruction No indication for acute surgical intervention at this time. Recommend continue with NG, IV fluids, bowel rest Repeat films in a.m. and if symptoms persist consider small bowel follow-through Patient counseled on risks,benefits, and alternatives of treatement plan at length. Patient states an understanding and willingness to proceed with plan. I personally saw and evaluated the patient. I reviewed and agree with the ANTELMO's documentation. I provided a substantive portion of the care of this patient. I personally performed the (MDM) for this encounter. I discussed the patient's condition and treatment options with them. I have also reviewed and agree with the past medical, family and social history and care plan unless otherwise noted. All of the patient's questions were answered. This case represents moderate level care including chart review, care coordination and face to face encounter was spent discussing/counseling the patient regarding the care plan for this patient. The patient was seen and examined independently and relevant data reviewed by myself. A full chart review was performed. Jose Durant MD [facility] General Surgery 2:34 PM 12/09/2023 Department of General Surgery Consult PATIENT NAME: Cassie Morgan DATE OF : 1945 ADMISSION DATE: 12/08/2023 10:20 PM TODAY'S DATE: 12/09/2023 Reason for Consult: SBO HISTORY OF PRESENT ILLNESS: The patient is a 78 y.o. female who presents with abdominal pain. Patient states that she had onset of abdominal pain and vomiting suddenly start yesterday late afternoon. Patient denies known trigger to symptoms including new foods, medications, or trauma to the abdomen. She denies changes in bowel habits, notes that yesterday she had a soft but formed bowel movement even when vomiting. Patient denies hematochezia, diarrhea, or melena. She states that the pain and vomiting persisted so she presented to the ED for further evaluation. Patient denies associated fever/chills or SOB but was found to be positive for COVID19. NGT was placed and patient notes throat irritation this morning. She notes improvement in abdominal pain and denies current nausea/vomiting. She expresses wish to avoid operative intervention if possible. PMH notable for diverticulosis, PAF, DMII. PSH notable for inguinal hernia repair/D&C 07/2023, cystoscopy, section, colonoscopy. Patient is on Xarelto therapy. CT with SBO with transition point in lower abdomen at midline, WBC 10.8, Hgb 13.4, COVID (+). VSS 2L NC. Thoroughly reviewed the patient's medical history, family history, social history and review of systems with the patient today in the office. Please see medical record for pertinent positives. Past Medical History: Past Medical History: Diagnosis Date Anxiety Breast cancer screening by mammogram 09/2023 needs phys exam Dependent edema Diverticulosis 2019 Diverticulitis H/O colonoscopy 2013 Dr Ramesh- due 2023 History of transfusion PAF (paroxysmal atrial fibrillation) ([facility]) 2017 Dr. Newby- OAC, nml EF Recurrent UTI Type II or unspecified type diabetes mellitus without mention of complication, not stated as uncontrolled ([facility]) 2013 Past Surgical History: Past Surgical History: Procedure Laterality Date BREAST CYST EXCISION Left 10/2012 CATARACT EXTRACTION Left 10/2018 SECTION (HISTORICAL) COLONOSCOPY 2014 COLONOSCOPY W/ POLYPECTOMY 07/2021 ? rech 2025 CYSTOSCOPY 10/2009 DILATION AND CURETTAGE (HISTORICAL) 08/18/2023 LAP,INGUINAL HERNIA REPR,INITIAL (HISTORICAL) Right 08/18/2023 [place] Current Medications: [Held by provider] enoxaparin, 40 mg, SubCUTAneous, Daily insulin lispro, 0-6 Units, SubCUTAneous, TID WC And insulin lispro, 0-6 Units, SubCUTAneous, Nightly lactated Ringer's, 150 mL/hr, Last Rate: 150 mL/hr (12/09/23 1149) PRN medications: acetaminophen OR acetaminophen, dextrose, dextrose, glucagon (rDNA), glucose, hydrALAZINE, LORazepam, metoprolol, morphine sulfate, naloxone, ondansetron ODT OR ondansetron Allergies: Cefaclor and Codeine Social History: Social History Socioeconomic History Marital status: Spouse name: Not on file Number of children: Not on file Years of education: Not on file Highest education level: Not on file Occupational History Not on file Tobacco Use Smoking status: Never Smokeless tobacco: Never Vaping Use Vaping Use: Never used Substance and Sexual Activity Alcohol use: No Alcohol/week: 0.0 standard drinks of alcohol Drug use: No Sexual activity: Defer Other Topics Concern Not on file Social History Narrative to [place], [place] or drinker, 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 Social Determinants of Health Financial Resource Strain: Not on file Food Insecurity: Not on file Transportation Needs: No Transportation Needs (08/06/2023) PRAPARE - Transportation Lack of Transportation (Medical): No Lack of Transportation (Non-Medical): No Physical Activity: Not on file Stress: Not on file Social Connections: Not on file Intimate Partner Violence: Not on file Housing Stability: Unknown (08/06/2023) Housing Stability Vital Sign Unable to Pay for Housing in the Last Year: No Number of Places Lived in the Last Year: Not on file Unstable Housing in the Last Year: No Family History: Family History Problem Relation Name Age of Onset Other (99283) Mother Aminah Benitez natural causes Pancreatic cancer Father Freddy Braswell Diabetes Sister Diabetes Brother REVIEW OF SYSTEMS: CONSTITUTIONAL: Negative for fatigue, and unexpected weight change HENT: Negative for hearing loss, nosebleeds, sneezing, sore throat, trouble swallowing and voice change. RESPIRATORY: Negative for cough, SOB, and wheezing CARDIOVASCULAR: Negative for chest pains and palpatations GASTROINTESTINAL: Positive for nausea/vomiting and abdominal pain. Negative for fever/chills, diarrhea, hematochezia, melena, or constipation GENITOURINARY: negative for dysuria, urgency, frequency, and difficulty urinating. SKIN: negative for rash ALLERGIC/IMMUNOLOGIC: Negative for immunocompromised state HEMATOLOGIC/LYMPHATIC: Negative for adenopathy. Does not bruise/bleed easily. NEUROLOGICAL: Negative for seizures and syncope * All other ROS reviewed see HPI for pertinent positives and negatives. PHYSICAL EXAM: VITALS: BP 139/62 (BP Location: Right arm, Patient Position: Lying) Pulse 79 Temp 36.4 C (97.5 F) (Temporal) Resp 17 Ht 5' 5 (1.651 m) Wt 160 lb (72.6 kg) SpO2 99% BMI 26.63 kg/m 24HR INTAKE/OUTPUT: No intake/output data recorded. No intake/output data recorded. CONSTITUTIONAL: Appears well nourished. No distress EYES: PERRL, conjunctiva normal ENT: Normocepalic,atraumatic, without obvious abnormality NECK: supple, symmetrical, trachea midline, no thyromegaly LUNGS: Resp effort easy and unlabored, breath sounds normal CARDIOVASCULAR: NO JVD, RRR, No murmur ABDOMEN: soft, nondistended, mild diffuse tenderness, peritoneal signs absent, no masses palpated and hernia absent MUSCULOSKELETAL: Normal range of motion, no edema NEUROLOGIC: Mental Status Exam: Level of Alertness: alert Sensation globally intact PSYCHIATRIC: Oriented to person, place, and time. Speech is normal, mood appears normal SKIN: Warm, dry, and intact DATA: CT abdomen pelvis w contrast Status: Final result Link to Procedure Log Procedure Log Orders Requiring a Screening Form Procedure Order Status Order ID Accession Number Form Status CT abdomen pelvis w contrast Completed [id number] Created PACS Images Show images for CT abdomen pelvis w contrast Study Result Narrative & Impression Patient Name: CASSIE MORGAN : 1945 Exam Date/Time: 12/08/2023 23:56 Procedure: CT ABDOMEN PELVIS W CONTRAST Ordering Provider: IYER AMY Reason For Exam: Abdominal pain, acute, nonlocalized CT ABDOMEN AND PELVIS Indication: Abdominal pain Scan Parameters: Multiple axial CT images were obtained of the abdomen and pelvis. Coronal and sagittal reconstructions were reviewed as well. ALARA protocol. Dose reduction was employed with automated exposure control. Contrast: 75 mL of Isovue-370 IV contrast; no oral contrast Comparison: 09/04/2018 (report only; images not available) FINDINGS: Lung bases: The lung bases are clear. Osseous structures: The osseous lesions are intact. There is narrowing of both hips. Liver: A few low attenuating lesions are present within the liver measuring up to 1.1 cm. Gallbladder/Biliary tree: No biliary dilatation. The gallbladder is normal. Spleen: Normal. Adrenals: Normal. Pancreas: Normal. Kidneys/Bladder: The kidneys are symmetric without hydronephrosis. Tiny right renal cysts present. The bladder contour is normal. Adnexa: Multiple calcified uterine probable leiomyomas are present. The uterus is enlarged and anteverted measuring 7.3 x 6.5 x 6.3 cm. A small amount of fluid is present in the pelvic cul-de-sac, of uncertain etiology. Lymph nodes: There is no adenopathy. GI Tract: Multiple colonic diverticuli are present. The appendix is not clearly identified in the right lower quadrant. There is poor distention of multiple large bowel loops which limits overall evaluation. Lack of GI contrast limits overall evaluation. There are multiple loops of fluid-filled and distended small bowel with what appears to be a change of caliber at the midline along the distal small bowel (coronal series 5 image 35). Small bowel loop distention of 3 cm. The distal small bowel is completely decompressed. Air within the lumen of the dilated small bowel is likely within the lumen and less likely within the wall. A small sliding-type hiatal hernia is present. The duodenum and proximal jejunum are of normal caliber. Vasculature: Normal contour. Mild atherosclerotic calcifications are present. IMPRESSION: Findings are most concerning for small bowel obstruction with a transition point within the lower abdomen at the midline. A small amount of fluid is present in the pelvis dependently. There is no obvious free air. Surgical consultation is recommended. Colonic diverticulosis. The uterus is enlarged with multiple probable calcified leiomyomas, correlate with clinical exam. Hepatic lesions likely reflect cysts and/or hemangiomas. Report Dictated on Electronically Signed By: Sabrina Baker MD Electronically Signed Date/Time: 12/09/2023 12:06 AM EDT Result History CT abdomen pelvis w contrast (Order #[id number]) on 12/09/2023 - Order Result History Report CT abdomen pelvis w contrast: Patient Communication Add Comments Add Notifications Breast Imaging Recommendations Cassie Morgan No recommendations exist for this order. Risk Scores as of 12/08/2023 Tyrer-Cuzick 8 Risk factorsBreast cancer (HCC) 5-year 1.35% Breast cancer (HCC) lifetime 2.22% BRCA1 positive 0.01% BRCA2 positive 0.04% Breast cancer genetic susceptibility 0.05% Tyrer-Cuzick 7 Risk factorsBreast cancer (HCC) 5-year 1.43% Breast cancer (HCC) lifetime 2.35% BRCA1 positive 0.01% BRCA2 positive 0.04% Breast cancer genetic susceptibility 0.05% Risk Considerations as of 12/08/2023 Risk factorsProbability score 100% The preliminary information your patient provided suggests a potentially increased risk for hereditary breast cancer. An informative discussion of the risk for hereditary cancer with a Genetic Counselor may include a description of hereditary cancer, the value of screening and early detection, options for prevention, and other relevant information. Genetic testing may be offered if hereditary breast or ovarian cancer is suspected. NCCN HBOC Guidelines as of 12/08/2023 Risk factorsProbability score 100% First-degree relative with a history of exocrine pancreatic cancer NCCN [place] as of 12/08/2023 Risk factorsProbability score 0% Risk Explanation Tyrer-Vilmack 8 as of 12/08/2023 Risk factorsBreast cancer (HCC) 2.22% For people with patient's age and gender: 3.45 % Including above and patient's race and ethnicity: 3.45 % Including above and patient's hormonal and reproductive risk factors: 2.20 % Including above and patient's medical history: 2.44 % Including above and patient's family history: 2.22 % Including above and patient's personal family genetic testin.22 % Including above and if patient's breasts were almost entirely fatty: 1.23 % Including above and if patient had scattered areas of breast density: 1.88 % Including above and if patient had heterogeneously dense breasts: 2.85 % Including above and if patient had extremely dense breasts: 4.32 % Final score: 2.22 % BRCAPRO as of 12/08/2023 Risk factorsOvarian cancer (HCC) 5-year 0.22% Ovarian cancer (HCC) lifetime 0.22% Breast cancer (HCC) 5-year 2.24% Breast cancer (HCC) lifetime 2.24% BRCA1 positive 0.01% BRCA2 positive 0.02% BRCA gene positive 0% Breast cancer genetic susceptibility 0.03% [facility] as of 12/08/2023 Risk factorsBreast cancer genetic susceptibility 1.5% No Freddy risk assessment data. 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 Study Details Open Study Details Order Transmittal Tracking CT abdomen pelvis w contrast (Order #[id number]) on 12/08/[address] abdomen pelvis w contrast (Order #[id number]) on 12/08/23 CBC: Recent Labs 12/08/23 2309 WBC 10.8* HGB 13.4 HCT 39.5 PLT 280 BMP: Recent Labs 12/08/23 2309 NA 138 K 3.8 CL 104 CO2 19* BUN 22* CREATININE 0.91 GLUCOSE 175* Hepatic: Recent Labs 12/08/23 2309 AST 21 ALT 15 BILITOT 0.6 ALKPHOS 64 Mag: No results for input(s): MG in the last 72 hours. Phos: No results for input(s): PHOS in the last 72 hours. INR: No results for input(s): INR in the last 72 hours. IMPRESSION/RECOMMENDATIONS: Ms. Morgan is a 78 y.o. F presenting with abdominal pain and vomiting -CT with SBO with transition point in lower abdomen at midline -WBC 10.8, Hgb 13.4 -COVID (+) -KUB this AM with NGT in place -NPO -IVF -NGT to LIS -Repeat XR and serial abdominal exam tomorrow AM -Medical mgmt per primary team Disposition: Patient with SBO, progressively improved today. Continue above conservative management, will continue to follow with serial exams and imaging. Optimistic for resolution without operative intervention but did discuss with patient and family the possibility of OR if no improvement. Patient counseled on risks, benefits, and alternatives of treatment plan at length. Patient states an understanding and willingness to proceed with plan. Thank you for the opportunity to care for your patient, please don't hesitate to contact me for any questions or concerns you may have. MAGDA Hooker Secure Chat during hours 7:30a-4:30p Thursday-Thursday After hours, please contact physician cardiac rehabilitation specialist. [facility] 12-09-2023 Consult note Associated Order (s): IP CONSULT TO GENERAL SURGERY Images from the original note were not included. [facility] - Surgery [facility] Physicians Surgery Patient Name: Cassie Morgan Date: 12/09/2023 Patient seen and examined by myself and I agree with ANTELMO note below Patient resting in bed and appears comfortable with family members at bedside, she is answering questions appropriately Abdominal discomfort improved since admission overnight Still some pain but not as severe Abdomen soft nontender nondistended, no peritoneal signs Labs and imaging reviewed Assessment /Plan: Abdominal pain with ileus versus partial obstruction No indication for acute surgical intervention at this time. Recommend continue with NG, IV fluids, bowel rest Repeat films in a.m. and if symptoms persist consider small bowel follow-through Patient counseled on risks,benefits, and alternatives of treatement plan at length. Patient states an understanding and willingness to proceed with plan. I personally saw and evaluated the patient. I reviewed and agree with the ANTELMO's documentation. I provided a substantive portion of the care of this patient. I personally performed the (MDM) for this encounter. I discussed the patient's condition and treatment options with them. I have also reviewed and agree with the past medical, family and social history and care plan unless otherwise noted. All of the patient's questions were answered. This case represents moderate level care including chart review, care coordination and face to face encounter was spent discussing/counseling the patient regarding the care plan for this patient. The patient was seen and examined independently and relevant data reviewed by myself. A full chart review was performed. Jose Durant MD [facility] General Surgery 2:34 PM 12/09/2023 Department of General Surgery Consult PATIENT NAME: Cassie Morgan DATE OF : 1945 ADMISSION DATE: 12/08/2023 10:20 PM TODAY'S DATE: 12/09/2023 Reason for Consult: SBO HISTORY OF PRESENT ILLNESS: The patient is a 78 y.o. female who presents with abdominal pain. Patient states that she had onset of abdominal pain and vomiting suddenly start yesterday late afternoon. Patient denies known trigger to symptoms including new foods, medications, or trauma to the abdomen. She denies changes in bowel habits, notes that yesterday she had a soft but formed bowel movement even when vomiting. Patient denies hematochezia, diarrhea, or melena. She states that the pain and vomiting persisted so she presented to the ED for further evaluation. Patient denies associated fever/chills or SOB but was found to be positive for COVID19. NGT was placed and patient notes throat irritation this morning. She notes improvement in abdominal pain and denies current nausea/vomiting. She expresses wish to avoid operative intervention if possible. PMH notable for diverticulosis, PAF, DMII. PSH notable for inguinal hernia repair/D&C 07/2023, cystoscopy, section, colonoscopy. Patient is on Xarelto therapy. CT with SBO with transition point in lower abdomen at midline, WBC 10.8, Hgb 13.4, COVID (+). VSS 2L NC. Thoroughly reviewed the patient's medical history, family history, social history and review of systems with the patient today in the office. Please see medical record for pertinent positives. Past Medical History: Past Medical History: Diagnosis Date Anxiety Breast cancer screening by mammogram 09/2023 needs phys exam Dependent edema Diverticulosis 2019 Diverticulitis H/O colonoscopy 2013 Dr Ramesh- due 2023 History of transfusion PAF (paroxysmal atrial fibrillation) (HCC) 2017 Dr. Newby- OAC, nml EF Recurrent UTI Type II or unspecified type diabetes mellitus without mention of complication, not stated as uncontrolled ([facility]) 2013 Past Surgical History: Past Surgical History: Procedure Laterality Date BREAST CYST EXCISION Left 10/2012 CATARACT EXTRACTION Left 10/2018 SECTION (HISTORICAL) COLONOSCOPY 2013 COLONOSCOPY W/ POLYPECTOMY 07/2021 ? rech 2025 CYSTOSCOPY 10/2009 DILATION AND CURETTAGE (HISTORICAL) 08/18/2023 LAP,INGUINAL HERNIA REPR,INITIAL (HISTORICAL) Right 08/18/2023 Lacho Current Medications: [Held by provider] enoxaparin, 40 mg, SubCUTAneous, Daily insulin lispro, 0-6 Units, SubCUTAneous, TID WC And insulin lispro, 0-6 Units, SubCUTAneous, Nightly lactated Ringer's, 150 mL/hr, Last Rate: 150 mL/hr (12/09/23 1149) PRN medications: acetaminophen OR acetaminophen, dextrose, dextrose, glucagon (rDNA), glucose, hydrALAZINE, LORazepam, metoprolol, morphine sulfate, naloxone, ondansetron ODT OR ondansetron Allergies: Cefaclor and Codeine Social History: Social History Socioeconomic History Marital status: Spouse name: Not on file Number of children: Not on file Years of education: Not on file Highest education level: Not on file Occupational History Not on file Tobacco Use Smoking status: Never Smokeless tobacco: Never Vaping Use Vaping Use: Never used Substance and Sexual Activity Alcohol use: No Alcohol/week: 0.0 standard drinks of alcohol Drug use: No Sexual activity: Defer Other Topics Concern Not on file Social History Narrative to Peter, NS or drinker, 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 Social Determinants of Health Financial Resource Strain: Not on file Food Insecurity: Not on file Transportation Needs: No Transportation Needs (08/06/2023) PRAPARE - Transportation Lack of Transportation (Medical): No Lack of Transportation (Non-Medical): No Physical Activity: Not on file Stress: Not on file Social Connections: Not on file Intimate Partner Violence: Not on file Housing Stability: Unknown (08/06/2023) Housing Stability Vital Sign Unable to Pay for Housing in the Last Year: No Number of Places Lived in the Last Year: Not on file Unstable Housing in the Last Year: No Family History: Family History Problem Relation Name Age of Onset Other (60098) Mother Aminah Benitez natural causes Pancreatic cancer Father Freddy Braswell Diabetes Sister Diabetes Brother REVIEW OF SYSTEMS: CONSTITUTIONAL: Negative for fatigue, and unexpected weight change HENT: Negative for hearing loss, nosebleeds, sneezing, sore throat, trouble swallowing and voice change. RESPIRATORY: Negative for cough, SOB, and wheezing CARDIOVASCULAR: Negative for chest pains and palpatations GASTROINTESTINAL: Positive for nausea/vomiting and abdominal pain. Negative for fever/chills, diarrhea, hematochezia, melena, or constipation GENITOURINARY: negative for dysuria, urgency, frequency, and difficulty urinating. SKIN: negative for rash ALLERGIC/IMMUNOLOGIC: Negative for immunocompromised state HEMATOLOGIC/LYMPHATIC: Negative for adenopathy. Does not bruise/bleed easily. NEUROLOGICAL: Negative for seizures and syncope * All other ROS reviewed see HPI for pertinent positives and negatives. PHYSICAL EXAM: VITALS: BP 139/62 (BP Location: Right arm, Patient Position: Lying) Pulse 79 Temp 36.4 C (97.5 F) (Temporal) Resp 17 Ht 5' 5 (1.651 m) Wt 160 lb (72.6 kg) SpO2 99% BMI 26.63 kg/m 24HR INTAKE/OUTPUT: No intake/output data recorded. No intake/output data recorded. CONSTITUTIONAL: Appears well nourished. No distress EYES: PERRL, conjunctiva normal ENT: Normocepalic,atraumatic, without obvious abnormality NECK: supple, symmetrical, trachea midline, no thyromegaly LUNGS: Resp effort easy and unlabored, breath sounds normal CARDIOVASCULAR: NO JVD, RRR, No murmur ABDOMEN: soft, nondistended, mild diffuse tenderness, peritoneal signs absent, no masses palpated and hernia absent MUSCULOSKELETAL: Normal range of motion, no edema NEUROLOGIC: Mental Status Exam: Level of Alertness: alert Sensation globally intact PSYCHIATRIC: Oriented to person, place, and time. Speech is normal, mood appears normal SKIN: Warm, dry, and intact DATA: CT abdomen pelvis w contrast Status: Final result Link to Procedure Log Procedure Log Orders Requiring a Screening Form Procedure Order Status Order ID Accession Number Form Status CT abdomen pelvis w contrast Completed [id number] Created PACS Images Show images for CT abdomen pelvis w contrast Study Result Narrative & Impression Patient Name: CASSIE MORGAN : 1945 Exam Date/Time: 12/08/2023 23:56 Procedure: CT ABDOMEN PELVIS W CONTRAST Ordering Provider: IYER AMY Reason For Exam: Abdominal pain, acute, nonlocalized CT ABDOMEN AND PELVIS Indication: Abdominal pain Scan Parameters: Multiple axial CT images were obtained of the abdomen and pelvis. Coronal and sagittal reconstructions were reviewed as well. ALARA protocol. Dose reduction was employed with automated exposure control. Contrast: 75 mL of Isovue-370 IV contrast; no oral contrast Comparison: 09/04/2018 (report only; images not available) FINDINGS: Lung bases: The lung bases are clear. Osseous structures: The osseous lesions are intact. There is narrowing of both hips. Liver: A few low attenuating lesions are present within the liver measuring up to 1.1 cm. Gallbladder/Biliary tree: No biliary dilatation. The gallbladder is normal. Spleen: Normal. Adrenals: Normal. Pancreas: Normal. Kidneys/Bladder: The kidneys are symmetric without hydronephrosis. Tiny right renal cysts present. The bladder contour is normal. Adnexa: Multiple calcified uterine probable leiomyomas are present. The uterus is enlarged and anteverted measuring 7.3 x 6.5 x 6.3 cm. A small amount of fluid is present in the pelvic cul-de-sac, of uncertain etiology. Lymph nodes: There is no adenopathy. GI Tract: Multiple colonic diverticuli are present. The appendix is not clearly identified in the right lower quadrant. There is poor distention of multiple large bowel loops which limits overall evaluation. Lack of GI contrast limits overall evaluation. There are multiple loops of fluid-filled and distended small bowel with what appears to be a change of caliber at the midline along the distal small bowel (coronal series 5 image 35). Small bowel loop distention of 3 cm. The distal small bowel is completely decompressed. Air within the lumen of the dilated small bowel is likely within the lumen and less likely within the wall. A small sliding-type hiatal hernia is present. The duodenum and proximal jejunum are of normal caliber. Vasculature: Normal contour. Mild atherosclerotic calcifications are present. IMPRESSION: Findings are most concerning for small bowel obstruction with a transition point within the lower abdomen at the midline. A small amount of fluid is present in the pelvis dependently. There is no obvious free air. Surgical consultation is recommended. Colonic diverticulosis. The uterus is enlarged with multiple probable calcified leiomyomas, correlate with clinical exam. Hepatic lesions likely reflect cysts and/or hemangiomas. Report Dictated on Electronically Signed By: Sabrina Baker MD Electronically Signed Date/Time: 12/09/2023 12:06 AM EDT Result History CT abdomen pelvis w contrast (Order #[id number]) on 12/09/2023 - Order Result History Report CT abdomen pelvis w contrast: Patient Communication Add Comments Add Notifications Breast Imaging Recommendations Cassie Morgan No recommendations exist for this order. Risk Scores as of 12/08/2023 Brier-Vilmack 8 Risk factorsBreast cancer (HCC) 5-year 1.35% Breast cancer (HCC) lifetime 2.22% BRCA1 positive 0.01% BRCA2 positive 0.04% Breast cancer genetic susceptibility 0.05% William 7 Risk factorsBreast cancer (HCC) 5-year 1.43% Breast cancer (HCC) lifetime 2.35% BRCA1 positive 0.01% BRCA2 positive 0.04% Breast cancer genetic susceptibility 0.05% Risk Considerations as of 12/08/2023 Risk factorsProbability score 100% The preliminary information your patient provided suggests a potentially increased risk for hereditary breast cancer. An informative discussion of the risk for hereditary cancer with a Genetic Counselor may include a description of hereditary cancer, the value of screening and early detection, options for prevention, and other relevant information. Genetic testing may be offered if hereditary breast or ovarian cancer is suspected. NCCN HBOC Guidelines as of 12/08/2023 Risk factorsProbability score 100% First-degree relative with a history of exocrine pancreatic cancer NCCN Jackson as of 12/08/2023 Risk factorsProbability score 0% Risk Explanation Tyrer-Vilmack 8 as of 12/08/2023 Risk factorsBreast cancer (HCC) 2.22% For people with patient's age and gender: 3.45 % Including above and patient's race and ethnicity: 3.45 % Including above and patient's hormonal and reproductive risk factors: 2.20 % Including above and patient's medical history: 2.44 % Including above and patient's family history: 2.22 % Including above and patient's personal family genetic testin.22 % Including above and if patient's breasts were almost entirely fatty: 1.23 % Including above and if patient had scattered areas of breast density: 1.88 % Including above and if patient had heterogeneously dense breasts: 2.85 % Including above and if patient had extremely dense breasts: 4.32 % Final score: 2.22 % BRCAPRO as of 12/08/2023 Risk factorsOvarian cancer (HCC) 5-year 0.22% Ovarian cancer (HCC) lifetime 0.22% Breast cancer (HCC) 5-year 2.24% Breast cancer (HCC) lifetime 2.24% BRCA1 positive 0.01% BRCA2 positive 0.02% BRCA gene positive 0% Breast cancer genetic susceptibility 0.03% Myriad as of 12/08/2023 Risk factorsBreast cancer genetic susceptibility 1.5% No Freddy risk assessment data. 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 Study Details Open Study Details Order Transmittal Tracking CT abdomen pelvis w contrast (Order #[id number]) on 12/08/[address] abdomen pelvis w contrast (Order #[id number]) on 12/08/23 CBC: Recent Labs 12/08/23 2309 WBC 10.8* HGB 13.4 HCT 39.5 PLT 280 BMP: Recent Labs 12/08/23 2309 NA 138 K 3.8 CL 104 CO2 19* BUN 22* CREATININE 0.91 GLUCOSE 175* Hepatic: Recent Labs 12/08/23 2309 AST 21 ALT 15 BILITOT 0.6 ALKPHOS 64 Mag: No results for input(s): MG in the last 72 hours. Phos: No results for input(s): PHOS in the last 72 hours. INR: No results for input(s): INR in the last 72 hours. IMPRESSION/RECOMMENDATIONS: Ms. Morgan is a 78 y.o. F presenting with abdominal pain and vomiting -CT with SBO with transition point in lower abdomen at midline -WBC 10.8, Hgb 13.4 -COVID (+) -KUB this AM with NGT in place -NPO -IVF -NGT to LIS -Repeat XR and serial abdominal exam tomorrow AM -Medical mgmt per primary team Disposition: Patient with SBO, progressively improved today. Continue above conservative management, will continue to follow with serial exams and imaging. Optimistic for resolution without operative intervention but did discuss with patient and family the possibility of OR if no improvement. Patient counseled on risks, benefits, and alternatives of treatment plan at length. Patient states an understanding and willingness to proceed with plan. Thank you for the opportunity to care for your patient, please don't hesitate to contact me for any questions or concerns you may have. MAGDA Hooker Secure Chat during hours 7:30a-4:30p Thursday-Thursday After hours, please contact physician cardiac rehabilitation specialist. documented in this encounter [facility] 12-09-2023 Emergency department Note Patient given ice chips. Ok per Dr. Chung. Patient medicated for pain and nausea. Shantel Murica RN 12/09/23 0713 [facility] 12-09-2023 Emergency department Note Patient given ice chips. Ok per Dr. Chung. Patient medicated for pain and nausea. Shantel Murcia RN 12/09/[address] Chung at bedside. Shantel Murcia RN 12/09/23 0654 Patient complaining of pain in throat from NG tube. NG tube remains in place and in position of when it was placed, Still draining on Low intermittent suction. Reviewed available orders and no appropriate orders in place due to NPO status/ pain rating. Secure chat sent to Dr. Chung. Shantel Murcia RN 12/09/23 0644 Attempted to wean patient from O2. Pulse ox drops when patient attempts to sleep. Patient placed back on 2 L O2 via nasal cannula. Shantel Murcia RN 12/09/23 0458 Patient's pulse ox high 80's on RA. Patient placed on 2 L O2 via nasal cannula. Shantel Murcia RN 12/09/23 0303 Pt presents to ED for vomiting/abd pain x 2 hours after eating reports feeling swollen all over documented in this encounter [facility] 12-09-[address] Chung at bedside. Shantel Murcia RN 12/09/23 0654 [facility] 12-09-2023 Emergency department Note Patient complaining of pain in throat from NG tube. NG tube remains in place and in position of when it was placed, Still draining on Low intermittent suction. Reviewed available orders and no appropriate orders in place due to NPO status/ pain rating. Secure chat sent to Dr. Chung. Shantel Murcia RN 12/09/23 0644 [facility] 12-09-2023 Emergency department Note Attempted to wean patient from O2. Pulse ox drops when patient attempts to sleep. Patient placed back on 2 L O2 via nasal cannula. Shantel Murcia RN 12/09/23 0458 [facility] 12-09-2023 Emergency department Note Patient's pulse ox high 80's on RA. Patient placed on 2 L O2 via nasal cannula. Shantel Murcia RN 12/09/23 0303 [facility] 12-09-2023 History and physical note Images from the original note were not included. History and Physical [facility] Morgan : 1945 AGE 78 y.o. YEARS Note Date 12/09/2023 Primary Care Physician:Armando Franklin DO Current Providers as of 12/08/2023 PCP: Armando Franklin DO Referring Provider: not found, starting on ThuDec 08, 2023 12:00 AM Admitting Provider: Garth Chung MD, (Active) Attending Provider: Srinivasa Enciso Jr., DO, starting on ThuDec 08, 2023 11:06 PM (Active) Attending Provider: Garth Chung MD, starting on ThuDec 09, 2023 12:57 AM (Active) Physician Dish Machine Operator: MAGDA Yoder, starting on ThuDec 08, 2023 10:56 PM (Active) Chief Complaint: Vomiting and Abdominal Pain HPI: She reports she got sick about 6 pm She reports she got sick after eating She had abd pain, nausea and vomiting Her abdomen felt full and then she felt like she had to have a bowel movement she was able to have 1 regular bowel movement which she continued to have mid abdominal pain before that she was feeling well she had no abdominal pain nausea vomiting shortness of breath or cough She then come out to the emergency room that evening Review of Systems: General: Skin: HEENT: Cardiovascular Fever n Rashes n Difficulty chewing n Chest Pain n Chills n Sores n Appetite Loss n Chest Pressure n Fatigue She took a nap Earlier in the day so she might have felt a littler tired Epistaxis n Orthopnea n Sweats n Hearing loss n Palpitations GI: Tinnitus n GERD y Vision quality n RESP: Abdominal Pain y : SOB/CASTILLO n Nausea y Hematuria n Cough n Vomiting y Dysuria n Productive/Sputum n Hematemesis y NEURO: Urgency n Hemoptysis n Diarrhea n Headaches n Frequency Wheezing n Constipation n Seizures n Times at night urinating Heamatochezia Neuropathy n catheter present MSK: Melena Focal weakness n Hesitancy Focal Numbness n Incontinence Acute joint pain n Dizzy/Vertigo Redness n Difficulty speaking Heme/Lymph Swelling n Difficulty walking Lymphadenopathy Myalgia y Ataxia Chronic joint pain Past Medical History: Diagnosis Date Anxiety Breast cancer screening by mammogram 09/2023 needs phys exam Dependent edema Diverticulosis 2019 Diverticulitis H/O colonoscopy 2013 Dr Ramesh- due 2023 History of transfusion PAF (paroxysmal atrial fibrillation) (HCC) 2017 Dr. Newby- OAC, nml EF Recurrent UTI Type II or unspecified type diabetes mellitus without mention of complication, not stated as uncontrolled ([facility]) 2013 Past Surgical History: Procedure Laterality Date BREAST CYST EXCISION Left 10/2012 CATARACT EXTRACTION Left 10/2018 SECTION (HISTORICAL) COLONOSCOPY 2013 COLONOSCOPY W/ POLYPECTOMY 07/2021 ? rech 2025 CYSTOSCOPY 10/2009 DILATION AND CURETTAGE (HISTORICAL) 08/18/2023 LAP,INGUINAL HERNIA REPR,INITIAL (HISTORICAL) Right 08/18/2023 Lacho Allergies Allergen Reactions Cefaclor Codeine Rash Medications Prior to Admission: Current Outpatient Medications Medication Instructions ALPRAZolam (XANAX) 0.25 mg, Oral, Nightly PRN ascorbic acid (VITAMIN C) 500 mg, Oral, Daily atorvastatin (LIPITOR) 10 mg, Oral, Daily Blood Glucose Monitoring Suppl (FreeStyle Lite) device Use as instructed E11.9 cephalexin (KEFLEX) 250 mg, Oral, Nightly cholecalciferol (VITAMIN D-3) 1,000 Units, Oral, Daily cyanocobalamin (VITAMIN B-12) 500 mcg, Oral, Daily estradiol (ESTRACE) 2 g, Vaginal, Daily famotidine (PEPCID) 20 mg, Oral, Nightly PRN fluticasone (Flonase) 50 MCG/ACT nasal spray 1 spray, Nasal, Daily PRN FREESTYLE LITE test strip Other, Daily, Use as instructed E11.9 lisinopril 5 mg, Oral, Daily before breakfast metFORMIN (GLUCOPHAGE) 1,000 mg, Oral, 2 times daily with meals metoprolol succinate XL (TOPROL-XL) 50 mg, Oral, Daily rivaroxaban (Xarelto) 20 MG tablet TAKE 1 TABLET BY MOUTH DAILY (WITH BREAKFAST) She reports she does not take the alprazolam much Social History Social History Tobacco Use Smoking status: Never Smokeless tobacco: Never Substance Use Topics Alcohol use: No Alcohol/week: 0.0 standard drinks of alcohol Family History Family History Problem Relation Name Age of Onset Other (75806) Mother Aminah Benitez natural causes Pancreatic cancer Father Freddy 79 Diabetes Sister Diabetes Brother Physical Exam Temp (24hrs), Av.4 C (97.5 F), Min:36.4 C (97.5 F), Max:36.4 C (97.5 F) BP 135/89 Pulse 82 Temp 36.4 C (97.5 F) (Temporal) Resp 20 SpO2 99% Pulse Ox: SpO2 Av % Min: 99 % Max: 99 % Supplemental O2: General appearance: She currently has NG tube in with brown fluid HEENT: Normal cephalic, atraumatic without obvious deformity. Pupils equal, round, and reactive to light. Extra ocular muscles intact. Conjunctivae/corneas clear. Neck: Supple, with full range of motion. No jugular venous distention. Trachea midline. No lymphadenopathy. Respiratory: Normal respiratory effort. Clear to auscultation, bilaterally without Rales/Wheezes/Rhonchi. Cardiovascular: Regular rate and rhythm with normal S1/S2 without murmurs, rubs or gallops. Abdomen: Hypoactive bowel sounds with mid abdominal tenderness Musculoskeletal: No clubbing, cyanosis or edema bilaterally. Full range of motion without deformity. Skin: Skin color, texture, turgor normal. No rashes or lesions. Neurologic: Neurovascularly intact without any focal sensory/motor deficits. Cranial nerves grossly intact. Labs Admission on 12/08/2023 Component Date Value SARS-CoV-2 12/08/2023 Detected (A) Respiratory Syncytial Vi* 12/08/2023 Not Detected Influenza A 12/08/2023 Not Detected Influenza B 12/08/2023 Not Detected Auto WBC 12/08/2023 10.8 (H) RBC 12/08/2023 4.45 Hemoglobin 12/08/2023 13.4 Hematocrit 12/08/2023 39.5 MCV 12/08/2023 88.8 MCH 12/08/2023 30.1 MCHC 12/08/2023 33.9 RDW 12/08/2023 12.9 Platelets 12/08/2023 280 MPV 12/08/2023 10.9 nRBC 12/08/2023 0.0 Neutrophils Relative 12/08/2023 59.3 Lymphocytes Relative 12/08/2023 31.0 Monocytes Relative 12/08/2023 7.8 Eosinophils Relative 12/08/2023 1.2 Basophils Relative 12/08/2023 0.5 Immature Grans % 12/08/2023 0.2 Neutrophils Absolute 12/08/2023 6.4 Lymphocytes Absolute 12/08/2023 3.4 Monocytes Absolute 12/08/2023 0.9 Eosinophils Absolute 12/08/2023 0.1 Basophils Absolute 12/08/2023 0.1 Immature Grans Absolute 12/08/2023 0.0 SODIUM 12/08/2023 138 POTASSIUM 12/08/2023 3.8 CHLORIDE 12/08/2023 104 CARBON DIOXIDE 12/08/2023 19 (L) UREA NITROGEN 12/08/2023 22 (H) CREATININE 12/08/2023 0.91 GLUCOSE 12/08/2023 175 (H) CALCIUM 12/08/2023 9.7 ANION GAP 12/08/2023 15 (H) eGFR 12/08/2023 65.1 BILIRUBIN, TOTAL 12/08/2023 0.6 BILIRUBIN, DIRECT 12/08/2023 0.0 ALKALINE PHOSPHATASE 12/08/2023 64 AST (SGOT) 12/08/2023 21 ALT 12/08/2023 15 ALBUMIN 12/08/2023 4.5 TOTAL PROTEIN 12/08/2023 7.5 LIPASE 12/08/2023 115 EKG Encounter Date: 12/01/23 ECG 12 lead - CLINIC PERFORMED Narrative Sinus Bradycardia Low voltage in precordial leads. -Left atrial enlargement. Left axis ABNORMAL Assessment/Plan and Medical Decision Making Abd pain Small bowl obstruction She reports sudden onset on the evening of 12/08/2023 NG tube has been placed in the emergency room and surgery consult requested This is a new problem for her she reports prior to that she was eating and drinking well Pain nausea control and hydration have been ordered and should be kept n.p.o. NG tube maintained to intermittent low suction until surgery evaluates her Covid + Date of symptoms onset 12/07? She tested positive for COVID in the emergency room. she only reports possible symptoms of fatigue earlier in the day She did not have any other symptoms other than the nausea and vomiting abdominal pain above which is believed to be from her small bowel obstruction Currently she is not hypoxic does not qualify for inpatient treatment but will need to be isolated per [facility] policy 10 days History atrial fibrillation At home she is on rate control medications of metoprolol and anticoagulation with Xarelto she is unable to take p.o. meds now I will write her for as needed Lopressor IV And she can be placed on subcu Lovenox if no surgery is planned History of diabetes Glucose on admission 175 she is unable to take p.o. meds at home will monitor her glucose and cover with sliding scale until then anxiety She rarely takes alprazolam at home but I will cover here with as needed lorazepam I discussed the need for admission with the emergency provider. -DVT prophylaxis: [] Lovenox [] Heparin [] SCDs [x] Encourage ambulation [] Already on Anticoagulation [x] Pharmocologic prophylaxis on hold to due risk bleed/procedure [] Low risk, ambulatory [] Both pharmacologic and mechanical contraindicated 12/09/2023 [facility] [id number] Any scheduled follow up appointments Future Appointments Date Time Provider Department Center 12/16/2023 8:00 AM [facility] ECHO 2 [facility] Imaging 12/16/2023 9:00 AM [facility] EMERGENCY DEPARTMENT [facility] 01/20/2024 10:00 AM Parker [place] APRN - HUMAN SERVICES SUPERVISOR [facility] 05/06/2024 2:30 PM Reynaldo Roman MD [facility] Extended Emergency Contact Information Primary Emergency Contact: Abdon Helms Mobile Relation: Son Portions of this note may be electronically transcribed. Please forward a copy of this H&P to the primary care physician. [facility] Work Phone: 12-09-2023 History and physical note Images from the original note were not included. History and Physical [facility] Morgan : 1945 AGE 78 y.o. YEARS Note Date 12/09/2023 Primary Care Physician:Armando Franklin DO Current Providers as of 12/08/2023 PCP: Armando Franklin DO Referring Provider: not found, starting on ThuDec 08, 2023 12:00 AM Admitting Provider: Garth Chung MD, (Active) Attending Provider: Srinivasa Enciso Jr., DO, starting on ThuDec 08, 2023 11:06 PM (Active) Attending Provider: Garth Chung MD, starting on ThuDec 09, 2023 12:57 AM (Active) Physician Dish Machine Operator: MAGDA Yoder, starting on ThuDec 08, 2023 10:56 PM (Active) Chief Complaint: Vomiting and Abdominal Pain HPI: She reports she got sick about 6 pm She reports she got sick after eating She had abd pain, nausea and vomiting Her abdomen felt full and then she felt like she had to have a bowel movement she was able to have 1 regular bowel movement which she continued to have mid abdominal pain before that she was feeling well she had no abdominal pain nausea vomiting shortness of breath or cough She then come out to the emergency room that evening Review of Systems: General: Skin: HEENT: Cardiovascular Fever n Rashes n Difficulty chewing n Chest Pain n Chills n Sores n Appetite Loss n Chest Pressure n Fatigue She took a nap Earlier in the day so she might have felt a littler tired Epistaxis n Orthopnea n Sweats n Hearing loss n Palpitations GI: Tinnitus n GERD y Vision quality n RESP: Abdominal Pain y : SOB/CASTILLO n Nausea y Hematuria n Cough n Vomiting y Dysuria n Productive/Sputum n Hematemesis y NEURO: Urgency n Hemoptysis n Diarrhea n Headaches n Frequency Wheezing n Constipation n Seizures n Times at night urinating Heamatochezia Neuropathy n catheter present MSK: Melena Focal weakness n Hesitancy Focal Numbness n Incontinence Acute joint pain n Dizzy/Vertigo Redness n Difficulty speaking Heme/Lymph Swelling n Difficulty walking Lymphadenopathy Myalgia y Ataxia Chronic joint pain Past Medical History: Diagnosis Date Anxiety Breast cancer screening by mammogram 09/2023 needs phys exam Dependent edema Diverticulosis 2019 Diverticulitis H/O colonoscopy 2013 Dr Ramesh- due 2023 History of transfusion PAF (paroxysmal atrial fibrillation) ([facility]) 2017 Dr. Newby- OAC, nml EF Recurrent UTI Type II or unspecified type diabetes mellitus without mention of complication, not stated as uncontrolled ([facility]) 2013 Past Surgical History: Procedure Laterality Date BREAST CYST EXCISION Left 10/2012 CATARACT EXTRACTION Left 10/2018 SECTION (HISTORICAL) COLONOSCOPY 2013 COLONOSCOPY W/ POLYPECTOMY 07/2021 ? rech 2025 CYSTOSCOPY 10/2009 DILATION AND CURETTAGE (HISTORICAL) 08/18/2023 LAP,INGUINAL HERNIA REPR,INITIAL (HISTORICAL) Right 08/18/2023 [facility] Allergies Allergen Reactions Cefaclor Codeine Rash Medications Prior to Admission: Current Outpatient Medications Medication Instructions ALPRAZolam (XANAX) 0.25 mg, Oral, Nightly PRN ascorbic acid (VITAMIN C) 500 mg, Oral, Daily atorvastatin (LIPITOR) 10 mg, Oral, Daily Blood Glucose Monitoring Suppl (FreeStyle Lite) device Use as instructed E11.9 cephalexin (KEFLEX) 250 mg, Oral, Nightly cholecalciferol (VITAMIN D-3) 1,000 Units, Oral, Daily cyanocobalamin (VITAMIN B-12) 500 mcg, Oral, Daily estradiol (ESTRACE) 2 g, Vaginal, Daily famotidine (PEPCID) 20 mg, Oral, Nightly PRN fluticasone (Flonase) 50 MCG/ACT nasal spray 1 spray, Nasal, Daily PRN FREESTYLE LITE test strip Other, Daily, Use as instructed E11.9 lisinopril 5 mg, Oral, Daily before breakfast metFORMIN (GLUCOPHAGE) 1,000 mg, Oral, 2 times daily with meals metoprolol succinate XL (TOPROL-XL) 50 mg, Oral, Daily rivaroxaban (Xarelto) 20 MG tablet TAKE 1 TABLET BY MOUTH DAILY (WITH BREAKFAST) She reports she does not take the alprazolam much Social History Social History Tobacco Use Smoking status: Never Smokeless tobacco: Never Substance Use Topics Alcohol use: No Alcohol/week: 0.0 standard drinks of alcohol Family History Family History Problem Relation Name Age of Onset Other (45279) Mother Aminah Benitez natural causes Pancreatic cancer Father Freddy Braswell Diabetes Sister Diabetes Brother Physical Exam Temp (24hrs), Av.4 C (97.5 F), Min:36.4 C (97.5 F), Max:36.4 C (97.5 F) BP 135/89 Pulse 82 Temp 36.4 C (97.5 F) (Temporal) Resp 20 SpO2 99% Pulse Ox: SpO2 Av % Min: 99 % Max: 99 % Supplemental O2: General appearance: She currently has NG tube in with brown fluid HEENT: Normal cephalic, atraumatic without obvious deformity. Pupils equal, round, and reactive to light. Extra ocular muscles intact. Conjunctivae/corneas clear. Neck: Supple, with full range of motion. No jugular venous distention. Trachea midline. No lymphadenopathy. Respiratory: Normal respiratory effort. Clear to auscultation, bilaterally without Rales/Wheezes/Rhonchi. Cardiovascular: Regular rate and rhythm with normal S1/S2 without murmurs, rubs or gallops. Abdomen: Hypoactive bowel sounds with mid abdominal tenderness Musculoskeletal: No clubbing, cyanosis or edema bilaterally. Full range of motion without deformity. Skin: Skin color, texture, turgor normal. No rashes or lesions. Neurologic: Neurovascularly intact without any focal sensory/motor deficits. Cranial nerves grossly intact. Labs Admission on 12/08/2023 Component Date Value SARS-CoV-2 12/08/2023 Detected (A) Respiratory Syncytial Vi* 12/08/2023 Not Detected Influenza A 12/08/2023 Not Detected Influenza B 12/08/2023 Not Detected Auto WBC 12/08/2023 10.8 (H) RBC 12/08/2023 4.45 Hemoglobin 12/08/2023 13.4 Hematocrit 12/08/2023 39.5 MCV 12/08/2023 88.8 MCH 12/08/2023 30.1 MCHC 12/08/2023 33.9 RDW 12/08/2023 12.9 Platelets 12/08/2023 280 MPV 12/08/2023 10.9 nRBC 12/08/2023 0.0 Neutrophils Relative 12/08/2023 59.3 Lymphocytes Relative 12/08/2023 31.0 Monocytes Relative 12/08/2023 7.8 Eosinophils Relative 12/08/2023 1.2 Basophils Relative 12/08/2023 0.5 Immature Grans % 12/08/2023 0.2 Neutrophils Absolute 12/08/2023 6.4 Lymphocytes Absolute 12/08/2023 3.4 Monocytes Absolute 12/08/2023 0.9 Eosinophils Absolute 12/08/2023 0.1 Basophils Absolute 12/08/2023 0.1 Immature Grans Absolute 12/08/2023 0.0 SODIUM 12/08/2023 138 POTASSIUM 12/08/2023 3.8 CHLORIDE 12/08/2023 104 CARBON DIOXIDE 12/08/2023 19 (L) UREA NITROGEN 12/08/2023 22 (H) CREATININE 12/08/2023 0.91 GLUCOSE 12/08/2023 175 (H) CALCIUM 12/08/2023 9.7 ANION GAP 12/08/2023 15 (H) eGFR 12/08/2023 65.1 BILIRUBIN, TOTAL 12/08/2023 0.6 BILIRUBIN, DIRECT 12/08/2023 0.0 ALKALINE PHOSPHATASE 12/08/2023 64 AST (SGOT) 12/08/2023 21 ALT 12/08/2023 15 ALBUMIN 12/08/2023 4.5 TOTAL PROTEIN 12/08/2023 7.5 LIPASE 12/08/2023 115 EKG Encounter Date: 12/01/23 ECG 12 lead - CLINIC PERFORMED Narrative Sinus Bradycardia Low voltage in precordial leads. -Left atrial enlargement. Left axis ABNORMAL Assessment/Plan and Medical Decision Making Abd pain Small bowl obstruction She reports sudden onset on the evening of 12/08/2023 NG tube has been placed in the emergency room and surgery consult requested This is a new problem for her she reports prior to that she was eating and drinking well Pain nausea control and hydration have been ordered and should be kept n.p.o. NG tube maintained to intermittent low suction until surgery evaluates her Covid + Date of symptoms onset 12/07? She tested positive for COVID in the emergency room. she only reports possible symptoms of fatigue earlier in the day She did not have any other symptoms other than the nausea and vomiting abdominal pain above which is believed to be from her small bowel obstruction Currently she is not hypoxic does not qualify for inpatient treatment but will need to be isolated per [facility] policy 10 days History atrial fibrillation At home she is on rate control medications of metoprolol and anticoagulation with Xarelto she is unable to take p.o. meds now I will write her for as needed Lopressor IV And she can be placed on subcu Lovenox if no surgery is planned History of diabetes Glucose on admission 175 she is unable to take p.o. meds at home will monitor her glucose and cover with sliding scale until then anxiety She rarely takes alprazolam at home but I will cover here with as needed lorazepam I discussed the need for admission with the emergency provider. -DVT prophylaxis: [] Lovenox [] Heparin [] SCDs [x] Encourage ambulation [] Already on Anticoagulation [x] Pharmocologic prophylaxis on hold to due risk bleed/procedure [] Low risk, ambulatory [] Both pharmacologic and mechanical contraindicated 12/09/2023 Cassie Morgan [id number] Any scheduled follow up appointments Future Appointments Date Time Provider Department Center 12/16/2023 8:00 AM [facility] ECHO 2 [facility] NON-INVA [facility] Imaging 12/16/2023 9:00 AM [facility] EMERGENCY DEPARTMENT [facility] NON-INVA [facility] 01/20/2024 10:00 AM JESSE Watters CNP [facility] CV [facility] 05/06/2024 2:30 PM Reynaldo Roman MD [facility] MG CV [facility] Extended Emergency Contact Information Primary Emergency Contact: Abdon Helms Mobile Relation: Son Portions of this note may be electronically transcribed. Please forward a copy of this H&P to the primary care physician. documented in this encounter [facility] 12-08-2023 Emergency department Triage note Pt presents to ED for vomiting/abd pain x 2 hours after eating reports feeling swollen all over [facility] 12-01-2023 History of Present illness Narrative [facility] Cardiology [facility] CARDIOLOG[facility] [address] [place] [address] [facility] [address] Dept: [phone] Dept Visit type: Established : 1945 Chief Complaint: Chief Complaint Patient presents with Follow-up fatigue History of Present Illness: Cassie Morgan is a 78 y.o. female who returns in follow-up. She is switching to this office for convenience to her home. She has history of paroxysmal atrial fibrillation. Lately she has noticed her heart rate has been faster. She is more fatigued and has less energy than before. She states she checks her cardia mobile and will note her heart rate to be very fast at times. Currently she is in sinus rhythm. She does not feel palpitation when she goes out of rhythm. She has not had chest pain, tightness or syncope. She has had significantly decreased energy levels though. Past Medical History: Past Medical History: Diagnosis Date Anxiety Breast cancer screening by mammogram 09/2023 needs phys exam Dependent edema Diverticulosis 2018 Diverticulitis H/O colonoscopy 2013 Dr Ramesh- due 2023 History of transfusion PAF (paroxysmal atrial fibrillation) ([facility]) 2017 Dr. Newby- OAC, nml EF Recurrent UTI Type II or unspecified type diabetes mellitus without mention of complication, not stated as uncontrolled ([facility]) 2013 Past Surgical History Past Surgical History: Procedure Laterality Date BREAST CYST EXCISION Left 10/2012 CATARACT EXTRACTION Left 10/2018 SECTION (HISTORICAL) COLONOSCOPY 2013 COLONOSCOPY W/ POLYPECTOMY 07/2021 ? rech 2025 CYSTOSCOPY 10/2009 DILATION AND CURETTAGE (HISTORICAL) 08/18/2023 LAP,INGUINAL HERNIA REPR,INITIAL (HISTORICAL) Right 08/18/2023 [facility] Family History Family History Problem Relation Name Age of Onset Other ([id number]) Mother Aminah Benitez natural causes Pancreatic cancer Father Freddy 79 Diabetes Sister Diabetes Brother Social History Social History Tobacco Use Smoking status: Never Smokeless tobacco: Never Vaping Use Vaping Use: Never used Substance Use Topics Alcohol use: No Alcohol/week: 0.0 standard drinks of alcohol Drug use: No Allergies: Allergies Allergen Reactions Cefaclor Codeine Rash Medications: Current Outpatient Medications: ALPRAZolam (Xanax) 0.25 MG tablet, Take 1 tablet (0.25 mg) by mouth Nightly as needed for anxiety., Disp: 30 tablet, Rfl: 1 ascorbic acid (Vitamin C) 500 mg chewable tablet, Chew 500 mg in the morning., Disp: , Rfl: atorvastatin (Lipitor) 10 MG tablet, Take 1 tablet (10 mg) by mouth daily., Disp: 90 tablet, Rfl: 1 Blood Glucose Monitoring Suppl (FreeStyle Lite) device, Use as instructed E11.9, Disp: 1 each, Rfl: 0 cephalexin (Keflex) 250 MG capsule, Take 250 mg by mouth Nightly., Disp: , Rfl: cholecalciferol (Vitamin D-3) 25 MCG (1000 UT) tablet, Take 1,000 Units by mouth in the morning., Disp: , Rfl: cyanocobalamin (Vitamin B-12) 500 MCG tablet, Take 500 mcg by mouth in the morning., Disp: , Rfl: estradiol (Estrace) 0.1 MG/GM vaginal cream, Insert 2 g into the vagina daily., Disp: , Rfl: famotidine (Pepcid) 20 MG tablet, Take 20 mg by mouth Nightly as needed for heartburn., Disp: , Rfl: fluticasone (Flonase) 50 MCG/ACT nasal spray, Administer 1 spray into affected nostril(s) Daily as needed., Disp: , Rfl: FREESTYLE LITE test strip, by Other route daily. Use as instructed E11.9, Disp: 100 each, Rfl: 1 lisinopril 5 MG tablet, Take 1 tablet (5 mg) by mouth every morning (before breakfast)., Disp: 90 tablet, Rfl: 1 metFORMIN (Glucophage) 500 MG tablet, Take 2 tablets (1,000 mg) by mouth in the morning and 2 tablets (1,000 mg) in the evening. Take with meals., Disp: 14 tablet, Rfl: 0 metoprolol succinate XL (Toprol-XL) 50 MG 24 hr tablet, Take 1 tablet (50 mg) by mouth daily. (Patient taking differently: Take 50 mg by mouth every morning (before breakfast).), Disp: 90 tablet, Rfl: 3 rivaroxaban (Xarelto) 20 MG tablet, TAKE 1 TABLET BY MOUTH DAILY (WITH BREAKFAST), Disp: 90 tablet, Rfl: 3 Review of Systems: Review of Systems Constitutional: Positive for fatigue. Negative for activity change, chills, diaphoresis and fever. HENT: Negative for nosebleeds and trouble swallowing. Eyes: Negative for discharge and visual disturbance. Respiratory: Negative for apnea, cough, chest tightness, shortness of breath and wheezing. Cardiovascular: Negative for chest pain, palpitations and leg swelling. Gastrointestinal: Negative for abdominal distention, abdominal pain, blood in stool, diarrhea, nausea and vomiting. Endocrine: Negative for cold intolerance and heat intolerance. Genitourinary: Negative for hematuria. Musculoskeletal: Negative for gait problem and myalgias. Skin: Negative for color change and rash. Neurological: Negative for dizziness, seizures, syncope, facial asymmetry, speech difficulty, weakness, light-headedness, numbness and headaches. Hematological: Does not bruise/bleed easily. Psychiatric/Behavioral: Negative for dysphoric mood. Physical Examination: Vitals: Vitals: 12/01/23 0939 BP: 138/84 BP Location: Left arm Patient Position: Sitting BP Cuff Size: Adult Pulse: 56 Resp: 15 Weight: 160 lb (72.6 kg) Height: 5' 6 (1.676 m) Body mass index is 25.82 kg/m . Physical Exam Constitutional: Appearance: Normal appearance. HENT: Head: Normocephalic and atraumatic. Nose: Nose normal. Eyes: General: No scleral icterus. Extraocular Movements: Extraocular movements intact. Pupils: Pupils are equal, round, and reactive to light. Neck: Thyroid: No thyromegaly. Vascular: No carotid bruit or JVD. Cardiovascular: Rate and Rhythm: Normal rate and regular rhythm. Pulses: Normal pulses. Heart sounds: No murmur heard. No gallop. Pulmonary: Effort: Pulmonary effort is normal. Breath sounds: No wheezing, rhonchi or rales. Chest: Chest wall: No tenderness. Abdominal: General: Abdomen is flat. There is no distension. Palpations: Abdomen is soft. There is no hepatomegaly, splenomegaly or mass. Musculoskeletal: General: No swelling or tenderness. Normal range of motion. Cervical back: No tenderness. Skin: General: Skin is warm. Neurological: General: No focal deficit present. Mental Status: She is alert and oriented to person, place, and time. Cranial Nerves: Cranial nerves 2-12 are intact. No cranial nerve deficit. Psychiatric: Attention and Perception: Attention normal. Mood and Affect: Mood normal. Speech: Speech normal. Behavior: Behavior normal. Laboratory Tests: Lab Results Component Value Date WBC 5.8 06/16/2023 HGB 13.4 06/16/2023 HCT 40.0 06/16/2023 MCV 92.0 06/16/2023 PLT 249 06/16/2023 Lab Results Component Value Date GLUCOSE 170 (H) 06/16/2023 CALCIUM 8.9 06/16/2023 NA 141 06/16/2023 K 3.7 06/16/2023 CO2 28 06/16/2023 CL 106 06/16/2023 BUN 13 06/16/2023 CREATININE 0.69 06/16/2023 @LASTCMP@ Lab Results Component Value Date CHOL 145 02/27/2022 CHOL 195 10/29/2021 CHOL 189 07/03/2021 Lab Results Component Value Date TRIG 75 02/27/2022 TRIG 96 10/29/2021 TRIG 97 07/03/2021 Lab Results Component Value Date HDL 60 02/27/2022 HDL 57 10/29/2021 HDL 43 07/03/2021 Assessment and Plan: 1. PAF (paroxysmal atrial fibrillation) (HCC) 2. Palpitations 3. Mixed hyperlipidemia 4. Other fatigue 1. Atrial fibrillation: She is in sinus rhythm but has had paroxysmal atrial fibrillation in the past. She is anticoagulated and on a beta-angela. I think we need to quantitate a little bit better her arrhythmia. If she is having a lot of atrial fibrillation we may need to put her on an antiarrhythmic. Also I think because of her significant fatigue we should be evaluated her left ventricular function with an echo. 2. Hyperlipidemia: On therapy. documented in this encounter [facility] [employer] 11-30-2023 Telephone encounter Note We would need to see her in office and decide on utility of an EM to see how much she is having Afib. That would help guide us as to future treatment. [facility] [employer] Work Phone: 11-30-2023 Miscellaneous Notes We would need to see her in office and decide on utility of an EM to see how much she is having Afib. That would help guide us as to future treatment. Pt called into the office stating for the last 2 days she has been feeling lousy. She states she has felt tired and worn out. She denies dizziness, increased SOB or palpitations. Pt states she is not having any other sx. Today she took her pulse on her [employer] and it was 133-138 bpm. She is unable to state what rhythm her [employer] stated she was in. She said she thinks it said possibly a little A-fib. Pt is taking Toprol XL 50 mg daily and Lisinopril 5 mg daily. She is also taking her Xarelto 20 mg daily. Let patient know we will review with provider and call her with recommendations. Pt called in stating her heart rate fluctuates from 136-138 bpm. She has metoprolol prescribed to her and she states after she takes that she feels better but before she does she feels very drowsy. She didn't know if she should come into office about or not. Pt would like a call back at [phone]. documented in this encounter [facility] [employer] 11-30-2023 Telephone encounter Note Pt called into the office stating for the last 2 days she has been feeling lousy. She states she has felt tired and worn out. She denies dizziness, increased SOB or palpitations. Pt states she is not having any other sx. Today she took her pulse on her [employer] and it was 133-138 bpm. She is unable to state what rhythm her [employer] stated she was in. She said she thinks it said possibly a little A-fib. Pt is taking Toprol XL 50 mg daily and Lisinopril 5 mg daily. She is also taking her Xarelto 20 mg daily. Let patient know we will review with provider and call her with recommendations. [facility] 11-30-2023 Telephone encounter Note Pt called in stating her heart rate fluctuates from 136-138 bpm. She has metoprolol prescribed to her and she states after she takes that she feels better but before she does she feels very drowsy. She didn't know if she should come into office about or not. Pt would like a call back at [phone]. [facility] 10-01-2023 Telephone encounter Note Message released to patient as written. DEXA scan currently shows findings of osteopenia what you can do to help prevent and treat this is: 1 avoid smoking 2 eat a healthy balanced diet 3 exercise daily either walking or jogging 4. Calcium 1200 mg daily 5. vitamin D3 at 1000 units daily 6. Limit the alcohol use 7. And get as much sun exposure as possible. Mammogram is normal at this point time can continue yearly exams on an as-needed basis any questions please let the office know otherwise keep your scheduled follow-ups. Have a great weekend aydee Good news your Cologuard results are in and they are negative. This is a good screening test as it needs to be repeated every 3 years but at this point I would say you are safe and probably do not need any further testing or studies in the future unless you start having symptoms any questions or concerns please let me know otherwise have a great weekend. ... Patient's further questions if applicable: Patient verbalized understanding Were all questions from office addressed or relayed to the patient from encounter: Yes [facility] 10-01-2023 Miscellaneous Notes Message released to patient as written. DEXA scan currently shows findings of osteopenia what you can do to help prevent and treat this is: 1 avoid smoking 2 eat a healthy balanced diet 3 exercise daily either walking or jogging 4. Calcium 1200 mg daily 5. vitamin D3 at 1000 units daily 6. Limit the alcohol use 7. And get as much sun exposure as possible. Mammogram is normal at this point time can continue yearly exams on an as-needed basis any questions please let the office know otherwise keep your scheduled follow-ups. Have a great weekend aydee Good news your Cologuard results are in and they are negative. This is a good screening test as it needs to be repeated every 3 years but at this point I would say you are safe and probably do not need any further testing or studies in the future unless you start having symptoms any questions or concerns please let me know otherwise have a great weekend. ... Patient's further questions if applicable: Patient verbalized understanding Were all questions from office addressed or relayed to the patient from encounter: Yes documented in this encounter [facility] 09-03-2023 History of Present illness Narrative Chief Complaint Patient presents with Follow-up Soreness where hernia was HPI Pt 2 weeks post-op from hysteroscopy D&C for postmenopausal bleeding. Has known fibroids. D&C was unremarkable and tissue exam benign. Spotting for a few days post-op but has resolved. Had combo case for hernia repair, states she has soreness where the hernia repair was done, but otherwise no pain. ROS: Constitutional - denies fevers or chills Resp - denies CP or SOB CV - denies CP GI - denies nausea, vomiting - denies frequency and dysuria Past Medical History: Diagnosis Date Anxiety Dependent edema Diverticulosis 2019 Diverticulitis H/O colonoscopy 2013 Dr Ramesh- due for 2023 History of transfusion PAF (paroxysmal atrial fibrillation) ([facility]) 2017 Dr. Newby- OAC, nml EF Recurrent UTI Type II or unspecified type diabetes mellitus without mention of complication, not stated as uncontrolled ([facility]) 2013 Past Surgical History: Procedure Laterality Date BREAST CYST EXCISION Left 10/2012 CATARACT EXTRACTION Left 10/2018 SECTION (HISTORICAL) COLONOSCOPY 2013 COLONOSCOPY W/ POLYPECTOMY 07/2021 ? rech 2025 CYSTOSCOPY 10/2009 DILATION AND CURETTAGE (HISTORICAL) 08/18/2023 LAP,INGUINAL HERNIA REPR,INITIAL (HISTORICAL) Right 08/18/2023 [place] Allergies Allergen Reactions Cefaclor Codeine Rash @MEDCMED@ BP (!) 148/76 Pulse 61 Wt 73 kg (161 lb) BMI 26.79 kg/m PE: Well developed, well nourished Normocephalic, atraumatic CV - normal rate Resp - normal effort Abd - soft, ND MS - no edema Neuro - Pt A&Ox3, NAD Skin - warn and dry Psych - normal affect and behavior Meadow was seen today for follow-up. Diagnoses and all orders for this visit: Postoperative state (Primary) Okay to resume vaginal estrogen Will call if has any more bleeding Path reviewed Follow up if symptoms worsen or fail to improve. documented in this encounter [facility] 08-28-2023 Telephone encounter Note Noted. Patient was made aware if any complications to contact the office to be seen and scheduled immediately. Patient scheduled for post-op visit 08/31/2023 [facility] 08-28-2023 Miscellaneous Notes Noted. Patient was made aware if any complications to contact the office to be seen and scheduled immediately. Patient scheduled for post-op visit 08/31/2023 S-Patient is calling with post-op questions. B-She had a Hysteroscopy, D&C and Right Inguinal Hernia Repair on 08/18/23. A-Today around 11:00 am she went to the bathroom and had some dark reddish bleeding with small clots on the tissue when wiping a few times x 1 episode. She has been pain free in her groin area with sitting, laying or walking except with bending or other activity her pain is 5-6. Yesterday she accidentally inserted Estrogen Cream into her vagina before reading her discharge instructions. R-I advised her to call back if the bleeding returned or if she becomes worse. Reason for Disposition Other post-op symptom or question Answer Assessment - Initial Assessment Questions 1. SYMPTOM: What's the main symptom you're concerned about? (e.g., pain, fever, vomiting) bleeding 2. ONSET: When did this start? 11:00 am 3. SURGERY: What surgery did you have? See note 4. DATE of SURGERY: When was the surgery? 08/18/23 5. ANESTHESIA: What type of anesthesia did you have? (e.g., general, spinal, epidural, local) general 6. PAIN: Is there any pain? If Yes, ask: How bad is it? (Scale 1-10; or mild, moderate, severe) Pain is 5-6 in right groin area with activity. No pain with sitting. 7. FEVER: Do you have a fever? If Yes, ask: What is your temperature, how was it measured, and when did it start? No 8. VOMITING: Is there any vomiting? If Yes, ask: How many times? No 9. BLEEDING: Is there any bleeding? If Yes, ask: How much? and Where? See note 10. OTHER SYMPTOMS: Do you have any other symptoms? (e.g., drainage from wound, painful urination, constipation) no Protocols used: Post-Op Symptoms and [id number] documented in this encounter [facility] 08-25-2023 Telephone encounter Note Pt has post op on 08/31/23 [facility] 08-25-2023 Miscellaneous Notes Pt has post op on 08/31/23 S: Patient spoke with [facility] nurse regarding post op concerns B: Onset of symptoms/concern today A: Patient had surgery on 08/18/2023 HYSTEROSCOPY, DILATION AND CURETTAGE / ROBOTIC RIGHT INGUINAL HERNIA REPAIR . Patient is having slight bleeding, afebrile, feels crappy from the surgery. Patient alternates between liners and pads today, there is only a slight bit of blood, there was some on the toilet paper. Patient is drinking lots of fluids, going to the bathroom more to urinate, had some urine on the pads. Patient is afebrile. Patient is walking a lot. Patient drove on 08/22/2023 to the grocery store and back. R: Nurse reviewed discharge instructions with patient, instructed her on when to call us back (increased bleeding, fever, pain). Patient verbalized understanding. Message sent to provider for review. Reason for Disposition Caller has NON-URGENT question and triager unable to answer question Protocols used: Post-Op Symptoms and [id number] documented in this encounter [facility] 08-25-2023 Telephone encounter Note S: Patient spoke with [facility] nurse regarding post op concerns B: Onset of symptoms/concern today A: Patient had surgery on 08/18/2023 HYSTEROSCOPY, DILATION AND CURETTAGE / ROBOTIC RIGHT INGUINAL HERNIA REPAIR . Patient is having slight bleeding, afebrile, feels crappy from the surgery. Patient alternates between liners and pads today, there is only a slight bit of blood, there was some on the toilet paper. Patient is drinking lots of fluids, going to the bathroom more to urinate, had some urine on the pads. Patient is afebrile. Patient is walking a lot. Patient drove on 08/22/2023 to the grocery store and back. R: Nurse reviewed discharge instructions with patient, instructed her on when to call us back (increased bleeding, fever, pain). Patient verbalized understanding. Message sent to provider for review. Reason for Disposition Caller has NON-URGENT question and triager unable to answer question Protocols used: Post-Op Symptoms and [id number] [facility] 08-23-2023 Telephone encounter Note S: Patient spoke with [facility] nurse regarding post op concerns. B: Onset of symptoms/concern had a hysteroscopy, D&C and right inguinal Hernia repair on 08/18/23 Dr. Sims and the hernia repair by Dr. Angel. Calling to scheduled her post op appointment. A: Had bleeding in a thin pad. Had to drive herself to the grocery store. Pain level is controlled. Using a panti-liner, and again today, whole pad is covered. Denies dizziness, no further bleeding R: Home care advised. Patient understands care advice. No further needs at this time. Patient instructed to call back with new or worsening symptoms. [facility] 08-23-2023 Miscellaneous Notes S: Patient spoke with [facility] nurse regarding post op concerns. B: Onset of symptoms/concern had a hysteroscopy, D&C and right inguinal Hernia repair on 08/18/23 Dr. Sims and the hernia repair by Dr. Angel. Calling to scheduled her post op appointment. A: Had bleeding in a thin pad. Had to drive herself to the grocery store. Pain level is controlled. Using a panti-liner, and again today, whole pad is covered. Denies dizziness, no further bleeding R: Home care advised. Patient understands care advice. No further needs at this time. Patient instructed to call back with new or worsening symptoms. documented in this encounter [facility] 08-22-2023 Telephone encounter Note S-Patient is calling with post-op questions. B-She had a Hysteroscopy, D&C and Right Inguinal Hernia Repair on 08/18/23. A-Today around 11:00 am she went to the bathroom and had some dark reddish bleeding with small clots on the tissue when wiping a few times x 1 episode. She has been pain free in her groin area with sitting, laying or walking except with bending or other activity her pain is 5-6. Yesterday she accidentally inserted Estrogen Cream into her vagina before reading her discharge instructions. R-I advised her to call back if the bleeding returned or if she becomes worse. Reason for Disposition Other post-op symptom or question Answer Assessment - Initial Assessment Questions 1. SYMPTOM: What's the main symptom you're concerned about? (e.g., pain, fever, vomiting) bleeding 2. ONSET: When did this start? 11:00 am 3. SURGERY: What surgery did you have? See note 4. DATE of SURGERY: When was the surgery? 08/18/23 5. ANESTHESIA: What type of anesthesia did you have? (e.g., general, spinal, epidural, local) general 6. PAIN: Is there any pain? If Yes, ask: How bad is it? (Scale 1-10; or mild, moderate, severe) Pain is 5-6 in right groin area with activity. No pain with sitting. 7. FEVER: Do you have a fever? If Yes, ask: What is your temperature, how was it measured, and when did it start? No 8. VOMITING: Is there any vomiting? If Yes, ask: How many times? No 9. BLEEDING: Is there any bleeding? If Yes, ask: How much? and Where? See note 10. OTHER SYMPTOMS: Do you have any other symptoms? (e.g., drainage from wound, painful urination, constipation) no Protocols used: Post-Op Symptoms and [id number] [facility] 08-22-2023 Miscellaneous Notes S-Patient is calling with post-op questions. B-She had a Hysteroscopy, D&C and Right Inguinal Hernia Repair on 08/18/23. A-Today around 11:00 am she went to the bathroom and had some dark reddish bleeding with small clots on the tissue when wiping a few times x 1 episode. She has been pain free in her groin area with sitting, laying or walking except with bending or other activity her pain is 5-6. Yesterday she accidentally inserted Estrogen Cream into her vagina before reading her discharge instructions. R-I advised her to call back if the bleeding returned or if she becomes worse. Reason for Disposition Other post-op symptom or question Answer Assessment - Initial Assessment Questions 1. SYMPTOM: What's the main symptom you're concerned about? (e.g., pain, fever, vomiting) bleeding 2. ONSET: When did this start? 11:00 am 3. SURGERY: What surgery did you have? See note 4. DATE of SURGERY: When was the surgery? 08/18/23 5. ANESTHESIA: What type of anesthesia did you have? (e.g., general, spinal, epidural, local) general 6. PAIN: Is there any pain? If Yes, ask: How bad is it? (Scale 1-10; or mild, moderate, severe) Pain is 5-6 in right groin area with activity. No pain with sitting. 7. FEVER: Do you have a fever? If Yes, ask: What is your temperature, how was it measured, and when did it start? No 8. VOMITING: Is there any vomiting? If Yes, ask: How many times? No 9. BLEEDING: Is there any bleeding? If Yes, ask: How much? and Where? See note 10. OTHER SYMPTOMS: Do you have any other symptoms? (e.g., drainage from wound, painful urination, constipation) no Protocols used: Post-Op Symptoms and [id number] documented in this encounter [facility] 08-20-2023 Telephone encounter Note Pt states that she is out of medication. Pt states she contacted Pharmacy and they did not have refill on medication. Please advise. Medication name: lisinopril Medication dosage: 5 mg (Miligrams Monthly quantity needed: 30 How many day supply requestin days Medication route: oral (PO) Medication administration time(s): daily If taking medication PRN, reason for taking medication: N/A If this is a controlled substance do you receive this or any other controlled medication from any other doctor or facility: No Ordering provider: Carlyn Date of last office visit: 07/01/23 Date of next office visit: n/a Date of last refill: (see medication tab): 07/01/23 Updated/Validated preferred pharmacy: Yes Patient instructed to contact the pharmacy prior to picking up the medication: No [facility] 08-20-2023 Miscellaneous Notes Pt states that she is out of medication. Pt states she contacted Pharmacy and they did not have refill on medication. Please advise. Medication name: lisinopril Medication dosage: 5 mg (Miligrams Monthly quantity needed: 30 How many day supply requestin days Medication route: oral (PO) Medication administration time(s): daily If taking medication PRN, reason for taking medication: N/A If this is a controlled substance do you receive this or any other controlled medication from any other doctor or facility: No Ordering provider: Carlyn Date of last office visit: 07/01/23 Date of next office visit: n/a Date of last refill: (see medication tab): 07/01/23 Updated/Validated preferred pharmacy: Yes Patient instructed to contact the pharmacy prior to picking up the medication: No documented in this encounter [facility] 08-18-2023 Note Formatting of this n ote might be different from the original. Instructions and rx given with verbalized understanding pt and son tolerated cracker and clear liquids well up to bathroom with assist and voided without problem scant vag bldg noted on brayan pad [facility] 08-18-2023 Miscellaneous Notes Instructions and rx given with verbalized understanding pt and son tolerated cracker and clear liquids well up to bathroom with assist and voided without problem scant vag bldg noted on brayan pad OPERATIVE NOTE DATE OF PROCEDURE: 08/18/2023 SURGEON: JOSE DURANT M.D. ASSISTANTS: kateryna PROCEDURE: Robotic-assisted TRANABDOMINAL PREPERITONEAL INGUINAL HERNIA REPAIR WITH MESH (SCAR). PREOPERATIVE DIAGNOSIS: right Inguinal hernia. POSTOPERATIVE DIAGNOSIS: same ANESTHESIA: General Endotracheal Anesthesia COMPLICATIONS: None. BLOOD LOSS: less than 50 INDICATIONS: The patient is a 78 y.o. year old female with history of above preop diagnosis. The patient was consented for a robotic-assisted possible open unilateral possible bilateral repair inguinal hernia(s). I explained the risks with the patient including, but not limited to: bleeding, acute and/or chronic pain, infection, recurrence, injury to other organs or structures, need for further surgery. Also discussed benefits, expected outcome, and alternatives to the procedure. Patient understood and was in agreement to proceed with operation. DESCRIPTION OF PROCEDURE: Patient placed supine on OR table. Patient arms were tucked at their sides, being careful to protect all bony prominences. The abdomen was prepped and draped in standard sterile fashion. The bilateral groin was shaved and prepped and draped. Prior to incision timeout protocol completed. 8mm supra umbilical incision made just to the left of the midline and Veress needle placed intraabdominal with proper placement confirmed by normal flush saline. Pneumoperitoneum was established with CO2 gas to pressure of 15 mm Hg and 5mm non-bladed infraumbilical port then placed. 2 additional 8 mm ports placed on the left and right lateral abdominal wall in line with the midline port. Patient placed in slight Trendelenburg position. The robotic arms were then properly docked and camera inserted and instruments advanced under direct vision without complication. I then assumed position at robotic console to proceed with operation. The patient was noted to have right indirect} inguinal hernia. The peritoneum on the side of the hernia was incised with scissors approximately 8 cm above the superior edge of the hernia defect. This was then extended laterally to the anterior superior iliac spine and medially just beyond median umbilical ligament.. Peritoneal flap was mobilized inferiorly using blunt and sharp dissection. Inferior epigastric vessels identified and Jose's ligament was dissected. The preperitoneal hernia sac and contents were cafefully dissected free from the transversalis fascia and the round ligament divided. The lateral pocket was further developed bluntly. A ProGrip [id number] mesh was then placed into the preperitoneal space. All mesh edges were tucked into place, covering the peritoneum and hernia defects. Mesh was noted to be laying flat. The peritoneal flap was then closed over the mesh with running 2-0 strata fix suture. Hemostasis was observed. Abdomen then desufflated and all robotic arms easily undocked and all cannulas removed. The skin incisions closed with 4-0 Vicryl subcuticular stitch. Benzoin, Steri-Strips, and sterile dressings were applied. Estimated blood loss was minimal. Sponge and needle counts were correct. The patient tolerated the procedure well and was sent to PACU in stable condition to be discharged later today and they will be followed up in the Surgical Clinic in 2-3 weeks. IV @ kvo via pump Patient educated on importance of coughing/ deep breathing after surgery to reduce risk of pneumonia. Patient educated on importance of early mobility to reduce the risk of blood clots. Falls prevention information reviewed with patient. Post-operative pain control and ways to prevent constipation discussed with patient. Son at bedside documented in this encounter [facility] 08-18-2023 Hospital Discharge instructions Jose Durant MD - 08/18/2023 3:37 PM EST POST-OPERATIVE INSTRUCTIONS HERNIA REPAIR Thank you very much for allowing me to participate in your care, it is truly a privilege. Below please see discharge orders that will help you during your recovery. Please do not hesitate to call the office at [phone] for any questions. After hours, the same number will allow you to reach the on-call surgeon. Call the office to schedule your post-operative appointment with Dr. Durant or Nurse Practitioner for 2 weeks if not already scheduled. (May need to be seen before 2 weeks if stitches and/or drains present) Change bandages daily or more frequently if needed. Keep incisions clean with soap/ water daily. (Peroxide OK as well) Cover incision(s) as needed. Please remove the Steri-Strips as instructed 5 days after your date of surgery. This includes any clear bandages and gauze placed in the navel, if applicable. If you have skin glue this will come off on its own May place an ice pack over your incisions on and off (15min) at a time for the next 24-48 hours. Resume regular diet as tolerated (recommend starting with liquids) General guidelines for activity: Avoid strenuous activity or lifting anything heavier than 15 pounds. It is OK to be up and walking around. Going up and down stairs is also OK. Do what is comfortable: stop and rest when you feel tired. It is OK to shower after 24 hours You will have pain medicine ordered. Take as directed/needed. Some discomfort, mild bruising, and swelling are not unusual; please call my office if you have any severe pain, hemorrhage, or high fever (over 101 F) During the laparoscopic procedure that you had, gas is pumped into the abdominal cavity. You may feel abdominal, shoulder, or rib pain for a few days due to this. Resume home medications (see medication reconciliation sheet) Do NOT drive for one day and while taking your narcotic pain medicine. Watch for signs of infection: Excessive warmth or bright redness around your incisions Leakage of bloody or cloudy fluid from you incisions Fever over 100.5 If you experience constipation Increase your water intake. Increase your activity; walking is best. An over the counter stool softener or mild laxative may be necessary if you still have not had a bowel movement after several days. Please call the office at [phone] for any questions and too make your post op appointment if needed. Thank you again for allowing me to participate in your care, and get well soon! Jose Durant MD FACS The following attachments cannot be sent through Care Everywhere.General Anesthesia Discharge Instructions (Bermudian)documented in this encounter [facility] 08-18-2023 Note Formatting of this n ote might be different from the original. OPERATIVE NOTE DATE OF PROCEDURE: 08/18/2023 SURGEON: JOSE DURANT M.D. ASSISTANTS: katreyna PROCEDURE: Robotic-assisted TRANABDOMINAL PREPERITONEAL INGUINAL HERNIA REPAIR WITH MESH (SCAR). PREOPERATIVE DIAGNOSIS: right Inguinal hernia. POSTOPERATIVE DIAGNOSIS: same ANESTHESIA: General Endotracheal Anesthesia COMPLICATIONS: None. BLOOD LOSS: less than 50 INDICATIONS: The patient is a 78 y.o. year old female with history of above preop diagnosis. The patient was consented for a robotic-assisted possible open unilateral possible bilateral repair inguinal hernia(s). I explained the risks with the patient including, but not limited to: bleeding, acute and/or chronic pain, infection, recurrence, injury to other organs or structures, need for further surgery. Also discussed benefits, expected outcome, and alternatives to the procedure. Patient understood and was in agreement to proceed with operation. DESCRIPTION OF PROCEDURE: Patient placed supine on OR table. Patient arms were tucked at their sides, being careful to protect all bony prominences. The abdomen was prepped and draped in standard sterile fashion. The bilateral groin was shaved and prepped and draped. Prior to incision timeout protocol completed. 8mm supra umbilical incision made just to the left of the midline and Veress needle placed intraabdominal with proper placement confirmed by normal flush saline. Pneumoperitoneum was established with CO2 gas to pressure of 15 mm Hg and 5mm non-bladed infraumbilical port then placed. 2 additional 8 mm ports placed on the left and right lateral abdominal wall in line with the midline port. Patient placed in slight Trendelenburg position. The robotic arms were then properly docked and camera inserted and instruments advanced under direct vision without complication. I then assumed position at robotic console to proceed with operation. The patient was noted to have right indirect} inguinal hernia. The peritoneum on the side of the hernia was incised with scissors approximately 8 cm above the superior edge of the hernia defect. This was then extended laterally to the anterior superior iliac spine and medially just beyond median umbilical ligament.. Peritoneal flap was mobilized inferiorly using blunt and sharp dissection. Inferior epigastric vessels identified and Jose's ligament was dissected. The preperitoneal hernia sac and contents were cafefully dissected free from the transversalis fascia and the round ligament divided. The lateral pocket was further developed bluntly. A ProGrip [id number] mesh was then placed into the preperitoneal space. All mesh edges were tucked into place, covering the peritoneum and hernia defects. Mesh was noted to be laying flat. The peritoneal flap was then closed over the mesh with running 2-0 strata fix suture. Hemostasis was observed. Abdomen then desufflated and all robotic arms easily undocked and all cannulas removed. The skin incisions closed with 4-0 Vicryl subcuticular stitch. Benzoin, Steri-Strips, and sterile dressings were applied. Estimated blood loss was minimal. Sponge and needle counts were correct. The patient tolerated the procedure well and was sent to PACU in stable condition to be discharged later today and they will be followed up in the Surgical Clinic in 2-3 weeks. [employer] 08-18-2023 Note Formatting of this n ote might be different from the original. IV @ kvo via pump Patient educated on importance of coughing/ deep breathing after surgery to reduce risk of pneumonia. Patient educated on importance of early mobility to reduce the risk of blood clots. Falls prevention information reviewed with patient. Post-operative pain control and ways to prevent constipation discussed with patient. Son at bedside [employer] 08-10-2023 Miscellaneous Notes I faxed clearance letter to [facility] [phone] Received a fax from [facility] requesting cardiac clearance for robotic right inguinal hernia repair scheduled 08-18-[address] Jose Durant. I generated a letter to Dr Garcia. documented in this encounter [facility] 08-10-2023 Telephone encounter Note I faxed clearance letter to [facility] [phone] [facility] 08-04-2023 Telephone encounter Note Received a fax from [facility] requesting cardiac clearance for robotic right inguinal hernia repair scheduled 08-18-[address] Jose Durant. I generated a letter to Dr Garcia. [facility] 08-04-2023 Telephone encounter Note PAT: 08.06.2023 at7 :30 am SX: 08.18.2023 at1 2:30 pm arrival at 10:30 am Please call patient to schedule post op with Dr Benitez for two weeks after 08.18.2023\Thank you. [facility] 08-04-2023 Miscellaneous Notes PAT: 08.06.2023 at7 :30 am SX: 08.18.2023 at1 2:30 pm arrival at 10:30 am Please call patient to schedule post op with Dr Benitez for two weeks after 08.18.2023\Thank you. documented in this encounter [facility] 08-03-2023 History of Present illness Narrative General Surgery History and Physical HPI: Ms. Morgan is a 78 y.o. F presenting with R groin lump. Patient states that she went to the ED on 06/16/2023 with complaints of vaginal bleeding. There, an exam and US were done where a lot of pressure was applied to her groin. After this, patient notes that she appreciated a lump in the R groin. She denies appreciating a lump prior to this. Patient notes that the bulge is uncomfortable when pressed upon and with activity but denies sharp pain. Patient denies associated abdominal pain, nausea/vomiting, or bowel changes including hematochezia, melena, constipation, or diarrhea. Patient denies past history of similar symptoms. PMH notable for DMII, AFib, diverticulitis. PSH notable for section and tubal ligation. She takes Xarelto for Afib. Patient is planing upcoming D&C with [employer], will be called with scheduling information. Thoroughly reviewed the patient's medical history, family history, social history and review of systems with the patient today in the office. Please see medical record for pertinent positives. Impression /Treatment: Patient with mildly symptomatic R inguinal hernia. Will schedule for minimally invasive robotic-assisted repair at her convenience, can be combination case with [employer] D&C. Patient will hold Xarelto preop patient counseled on risks, benefits, and alternatives of treatment plan at length while in the office today. Patient states an understanding and willingness to proceed with plan. Past Medical History: Diagnosis Date Dependent edema Diverticulosis 2018 Diverticulitis Eye exam normal 08/23/2020 no retinopathy Eye exam, routine 12/09/2021 No diabetic retinopathy H/O colonoscopy 2013 Dr Ramesh- due for 2023 PAF (paroxysmal atrial fibrillation) ([facility]) 2017 Dr. Newby- OAC, nml EF Recurrent UTI Type II or unspecified type diabetes mellitus without mention of complication, not stated as uncontrolled ([facility]) 2013 Past Surgical History: Procedure Laterality Date BREAST CYST EXCISION Left 10/2012 CATARACT EXTRACTION Left 10/2018 COLONOSCOPY 09/2013 COLONOSCOPY 08/08/2021 polyp. Repeat colonoscopy 5 years CYSTOSCOPY 10/2009 Current Outpatient Medications Medication Sig Dispense Refill ALPRAZolam (Xanax) 0.25 MG tablet Take 1 tablet (0.25 mg) by mouth Nightly as needed for anxiety. 30 tablet 1 ascorbic acid (Vitamin C) 500 mg chewable tablet Chew 500 mg in the morning. atorvastatin (Lipitor) 10 MG tablet Take 1 tablet (10 mg) by mouth daily. 90 tablet 1 Blood Glucose Monitoring Suppl (FreeStyle Lite) device Use as instructed E11.9 1 each 0 cholecalciferol (Vitamin D-3) 25 MCG (1000 UT) tablet Take 1,000 Units by mouth in the morning. cyanocobalamin (Vitamin B-12) 500 MCG tablet Take 500 mcg by mouth in the morning. estradiol (Estrace) 0.1 MG/GM vaginal cream Insert 2 g into the vagina daily. fluticasone (Flonase) 50 MCG/ACT nasal spray Administer 1 spray into affected nostril(s). FREESTYLE LITE test strip by Other route daily. Use as instructed E11.9 100 each 1 lisinopril 5 MG tablet Take 1 tablet (5 mg) by mouth daily. 30 tablet 2 metFORMIN (Glucophage) 500 MG tablet Take 2 tablets (1,000 mg) by mouth in the morning and 2 tablets (1,000 mg) in the evening. Take with meals. 14 tablet 0 Meth-Hyo-M Bl-Na Phos-Ph Warren (Uribel) 118 MG capsule Take 1 capsule by mouth in the morning and 1 capsule at noon and 1 capsule before bedtime. metoprolol succinate XL (Toprol-XL) 50 MG 24 hr tablet Take 1 tablet (50 mg) by mouth daily. 90 tablet 3 rivaroxaban (Xarelto) 20 MG tablet TAKE 1 TABLET BY MOUTH DAILY (WITH BREAKFAST) 90 tablet 3 No current facility-administered medications for this visit. Allergies Allergen Reactions Cefaclor Codeine Rash Review of Systems: Review of Systems Constitutional: Negative for appetite change, chills, fatigue, fever and unexpected weight change. HENT: Negative for hearing loss, nosebleeds, sneezing, sore throat, trouble swallowing and voice change. Respiratory: Negative for cough, shortness of breath and wheezing. Cardiovascular: Negative for chest pain and palpitations. Gastrointestinal: Negative for abdominal pain, blood in stool, constipation, diarrhea, nausea, rectal pain and vomiting. R groin bulge Endocrine: Negative for polydipsia and polyuria. Genitourinary: Negative for difficulty urinating, dysuria, frequency, hematuria and urgency. Skin: Negative for rash and wound. Allergic/Immunologic: Negative for immunocompromised state. Neurological: Negative for seizures and syncope. Hematological: Negative for adenopathy. Does not bruise/bleed easily. Psychiatric/Behavioral: Negative for agitation and confusion. Physical Exam: BP 137/74 Pulse 61 Temp 36.4 C (97.5 F) (Temporal) Ht 5' 5 (1.651 m) BMI 26.46 kg/m Physical Exam Constitutional: Appearance: Normal appearance. HENT: Head: Normocephalic. Eyes: Pupils: Pupils are equal, round, and reactive to light. Cardiovascular: Rate and Rhythm: Normal rate and regular rhythm. Pulses: Normal pulses. Pulmonary: Effort: Pulmonary effort is normal. No respiratory distress. Breath sounds: Normal breath sounds. No rales. Abdominal: General: Bowel sounds are normal. There is no distension. Palpations: Abdomen is soft. There is no mass. Tenderness: There is no abdominal tenderness. Hernia: A hernia is present. Hernia is present in the right inguinal area. Musculoskeletal: General: No swelling or tenderness. Cervical back: Normal range of motion. No tenderness. Lymphadenopathy: Cervical: No cervical adenopathy. Skin: General: Skin is warm and dry. Coloration: Skin is not jaundiced or pale. Findings: No bruising or erythema. Neurological: Mental Status: She is alert and oriented to person, place, and time. Psychiatric: Behavior: Behavior normal. No orders of the defined types were placed in this encounter. Follow Up: No follow-ups on file. Jose Durant MD AG 08/03/2023 documented in this encounter [facility] 07-28-2023 History of Present illness Narrative Cassie Morgan 07/28/2023 78 y.o. Primary Care Physician: Baldev Shore DO Chief Complaint Patient presents with New Patient Patient present to discuss uterine fibroids HPI : Cassie Morgan is a 78 y.o. female here for bleeding _ Gynecologic History: No LMP recorded. Pt reports has fibroids. In on estrogen. Went to ER for bleeding. Now also notices a knot in the RLQ for 1 week. No bleeding since. Only on estrogen. Estrogen cream - no progesterone. OB History No obstetric history on file. Past Medical History: Diagnosis Date Dependent edema Diverticulosis 2018 Diverticulitis Eye exam normal 08/23/2020 no retinopathy Eye exam, routine 12/09/2021 No diabetic retinopathy H/O colonoscopy 2013 Dr Ramesh- due for 2023 PAF (paroxysmal atrial fibrillation) ([facility]) 2017 Dr. Newby- OAC, nml EF Recurrent UTI Type II or unspecified type diabetes mellitus without mention of complication, not stated as uncontrolled ([facility]) 2013 Past Surgical History: Procedure Laterality Date BREAST CYST EXCISION Left 10/2012 CATARACT EXTRACTION Left 10/2018 COLONOSCOPY 09/2013 COLONOSCOPY 08/08/2021 polyp. Repeat colonoscopy 5 years CYSTOSCOPY 10/2009 Family History Problem Relation Name Age of Onset Cancer Father Freddy age 79, pancreatic CA Other ([id number]) Mother Aminah Benitez natural causes Diabetes Sister Diabetes Brother Social History Socioeconomic History Marital status: Spouse name: Not on file Number of children: Not on file Years of education: Not on file Highest education level: Not on file Occupational History Not on file Tobacco Use Smoking status: Never Smokeless tobacco: Never Substance and Sexual Activity Alcohol use: No Alcohol/week: 0.0 standard drinks of alcohol Drug use: No Sexual activity: Not on file Other Topics Concern Not on file Social History Narrative to [place], [place] or drinker, 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 ALPRAZolam (Xanax) 0.25 MG tablet Take 1 tablet (0.25 mg) by mouth Nightly as needed for anxiety. 30 tablet 1 ascorbic acid (Vitamin C) 500 mg chewable tablet Chew 500 mg in the morning. atorvastatin (Lipitor) 10 MG tablet Take 1 tablet (10 mg) by mouth daily. 90 tablet 1 Blood Glucose Monitoring Suppl (FreeStyle Lite) device Use as instructed E11.9 1 each 0 cholecalciferol (Vitamin D-3) 25 MCG (1000 UT) tablet Take 1,000 Units by mouth in the morning. cyanocobalamin (Vitamin B-12) 500 MCG tablet Take 500 mcg by mouth in the morning. fluticasone (Flonase) 50 MCG/ACT nasal spray Administer 1 spray into affected nostril(s). FREESTYLE LITE test strip by Other route daily. Use as instructed E11.9 100 each 1 lisinopril 5 MG tablet Take 1 tablet (5 mg) by mouth daily. 30 tablet 2 metFORMIN (Glucophage) 500 MG tablet Take 2 tablets (1,000 mg) by mouth in the morning and 2 tablets (1,000 mg) in the evening. Take with meals. 14 tablet 0 Meth-Hyo-M Bl-Na Phos-Ph Warren (Uribel) 118 MG capsule Take 1 capsule by mouth in the morning and 1 capsule at noon and 1 capsule before bedtime. metoprolol succinate XL (Toprol-XL) 50 MG 24 hr tablet Take 1 tablet (50 mg) by mouth daily. 90 tablet 3 rivaroxaban (Xarelto) 20 MG tablet TAKE 1 TABLET BY MOUTH DAILY (WITH BREAKFAST) 90 tablet 3 No current facility-administered medications for this visit. ALLERGIES: Allergies as of 07/28/2023 - Reviewed 07/01/2023 Allergen Reaction Noted Cefaclor 03/01/2015 Codeine Rash 03/01/2015 REVIEW OF SYSTEMS: CONSTIUTIONAL: No fever, chills or malaise; No weight change or fatigue CV: No Chest Pain with Exertion, Palpitations, Syncope, Edema, Arrhythmia RESPIRATORY: No SOB, Pneumoniae,Cough, BREAST: No breast abnormalities or lumps GI: No Indigestion, Heartburn, Nausea, vomiting, Diarrhea, Constipation,Bloating or Bowel Changes; No Bloody Stools or melena : No Dysuria, Hematuria or Nocturia. No Urinary Incontinence or Vaginal Discharge,vaginal bleeding, or dysparuenia. NEURO: No CVA, Migraines, Epilepsy, Seizure Hx, or Limb Weakness DERM: No Rash, Itching, Hives, Mole Changes or Cancer PSYCH: No Depression or anxiety MUSCULOSKELETAL: No Arthralgia, POS Arthritis - needs knee surgery HEME and LYMPH :No Lymphoma or Bleeding History PHYSICAL EXAM: Vitals: 07/28/23 1259 BP: (!) 144/79 Pulse: 71 Weight: 72.1 kg (159 lb) Body mass index is 26.46 kg/m . [employer] EXAM: EXTERNAL GENITALIA: normal female structures VAGINA: normal ruggae, no lesions CERVIX: no lesions, normal appearance. ANUS/PERINEUM: no hemorrhoids, masses or warts noted. GENERAL EXAM BREAST: deferred CONSTITUTIONAL: Well developed, well nourished, well groomed. no acute distress NECK: no thyromegaly, supple. CARDIOVASCULAR: normal rate and rhythm, no edema LUNGS: Normal effort, normal lung sounds ABDOMEN:soft, non-tender, non-distended, no hepatospleenomegaly SKIN: intact, dry NEUROLOGICAL: no gross motor or sensory deficits noted. . MUSCULOSKELETAL: normal gait, no cyanosis. PSYCHIATRIC Normal mood and affect, A&O x3. ASSESSMENT/PLAN: Cassie was seen today for new patient. 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 Inguinal luymps node - to GS Lump insde right thigh - beent here for 30 years Schedule D&C/hysteroscopy ER and ultrasound reviewed documented in this encounter [facility] 06-25-2023 Telephone encounter Note Name of caller: Cassie Contact phone number: [phone] Relationship to Patient: patient Provider: Dr. Shore Practice: [facility] Chief Complaint/Reason for Call: Pt calling in stating that she is running low on her Metformin and her delivery pharmacy just sent it our yesterday, but she will be out tomorrow. She is asking if a short supply can be sent to her local [facility] pharmacy. Please advise. Best time of day caller can be reached: ANY Patient advised that office/PCP has 24-48 business hours to return their call: Yes [facility] 06-25-2023 Miscellaneous Notes Name of caller: Cassie Contact phone number: [phone] Relationship to Patient: patient Provider: Dr. Shore Practice: [facility] Chief Complaint/Reason for Call: Pt calling in stating that she is running low on her Metformin and her delivery pharmacy just sent it our yesterday, but she will be out tomorrow. She is asking if a short supply can be sent to her local [facility]. Please advise. Best time of day caller can be reached: ANY Patient advised that office/PCP has 24-48 business hours to return their call: Yes documented in this encounter [facility] 06-23-2023 Telephone encounter Note Medication name: FREESTYLE LITE test strip Medication dosage: 1 strip Monthly quantity needed: 100 How many day supply requestin days Medication route: n/a Medication administration time(s): daily If taking medication PRN, reason for taking medication: N/A If this is a controlled substance do you receive this or any other controlled medication from any other doctor or facility: N/A Ordering provider: Pedro Date of last office visit: 03/24/23 Date of next office visit: 07/01/23 Date of last refill: (see medication tab): 07/27/22 Updated/Validated preferred pharmacy: Yes -- [facility] Patient instructed to contact the pharmacy prior to picking up the medication: Yes [facility] 06-23-2023 Miscellaneous Notes Medication name: FREESTYLE LITE test strip Medication dosage: 1 strip Monthly quantity needed: 100 How many day supply requestin days Medication route: n/a Medication administration time(s): daily If taking medication PRN, reason for taking medication: N/A If this is a controlled substance do you receive this or any other controlled medication from any other doctor or facility: N/A Ordering provider: Pedro Date of last office visit: 03/24/23 Date of next office visit: 07/01/23 Date of last refill: (see medication tab): 07/27/22 Updated/Validated preferred pharmacy: Yes -- [facility] Patient instructed to contact the pharmacy prior to picking up the medication: Yes documented in this encounter [facility] 06-23-2023 Telephone encounter Note CLARI 05/07/23. [facility] 06-23-2023 Miscellaneous Notes CLARI 05/07/23. Received fax request from [facility] for refill of Metoprolol Succinate ER 25 mg. documented in this encounter [facility] 06-23-2023 Telephone encounter Note Received fax request from [facility] for refill of Metoprolol Succinate ER 25 mg. [facility] 06-18-2023 Telephone encounter Note Rx loaded Next ov 07/01/23 [facility] 06-18-2023 Miscellaneous Notes Rx loaded Next ov 07/01/23 Medication name: metFORMIN (Glucophage) Medication dosage: 500 mg (Miligrams Monthly quantity needed: 120 How many day supply requestin days Medication route: oral (PO) Medication administration time(s): Take 2 tablets (1,000 mg) by mouth in the morning and 2 tablets (1,000 mg) in the evening. Take with meals. If taking medication PRN, reason for taking medication: N/A If this is a controlled substance do you receive this or any other controlled medication from any other doctor or facility: N/A Ordering provider: ion Date of last office visit: 03.24.23 Date of next office visit: 07.01.23 Date of last refill: (see medication tab): 01.15.23 Updated/Validated preferred pharmacy: Yes Patient instructed to contact the pharmacy prior to picking up the medication: Yes documented in this encounter [facility] 06-18-2023 Telephone encounter Note Medication name: metFORMIN (Glucophage) Medication dosage: 500 mg (Miligrams Monthly quantity needed: 120 How many day supply requestin days Medication route: oral (PO) Medication administration time(s): Take 2 tablets (1,000 mg) by mouth in the morning and 2 tablets (1,000 mg) in the evening. Take with meals. If taking medication PRN, reason for taking medication: N/A If this is a controlled substance do you receive this or any other controlled medication from any other doctor or facility: N/A Ordering provider: ion Date of last office visit: 03.24.23 Date of next office visit: 07.01.23 Date of last refill: (see medication tab): 01.15.23 Updated/Validated preferred pharmacy: Yes Patient instructed to contact the pharmacy prior to picking up the medication: Yes [facility] 06-17-2023 Telephone encounter Note S: Patient spoke with [facility] nurse regarding appointment due to vaginal bleeding B: Onset of symptoms/concern started Thursday night A: Patient states she was seen in the ED yesterday. Has not had any bleeding since leaving the ED. Has a history of Fibroids and had a D&C years ago because of them. Thought was bleeding rectally but after being seen in ED it was determined bleeding was vaginal and advised to follow up with [employer]. Denies any abdominal pain, dizziness or fevers. R: Patient has new patient appointment scheduled for 07/28/23 advised since bleeding has stopped okay to wait until then for new patient appointment. If bleeding increases or any new symptoms call back. Patient given care advice per protocol. Patient understands care advice. No further needs at this time. Patient instructed to call back with new or worsening symptoms. Reason for Disposition Age > 39 years with irregular or excessive bleeding Protocols used: Vaginal Bleeding - [id number] [facility] 06-17-2023 Miscellaneous Notes S: Patient spoke with [facility] nurse regarding appointment due to vaginal bleeding B: Onset of symptoms/concern started Thursday night A: Patient states she was seen in the ED yesterday. Has not had any bleeding since leaving the ED. Has a history of Fibroids and had a D&C years ago because of them. Thought was bleeding rectally but after being seen in ED it was determined bleeding was vaginal and advised to follow up with [employer]. Denies any abdominal pain, dizziness or fevers. R: Patient has new patient appointment scheduled for 07/28/23 advised since bleeding has stopped okay to wait until then for new patient appointment. If bleeding increases or any new symptoms call back. Patient given care advice per protocol. Patient understands care advice. No further needs at this time. Patient instructed to call back with new or worsening symptoms. Reason for Disposition Age > 39 years with irregular or excessive bleeding Protocols used: Vaginal Bleeding - [id number] documented in this encounter [facility] 06-16-2023 Hospital Discharge instructions Sahra Fallon PA-C - 06/16/2023 4:32 PM EDT It is very important that you follow up with OBGYN; provider has been referred to you. Continue to monitor symptoms. If any new or worsening symptoms occur including worsening of bleeding, dizziness, lightheadedness, severe abdominal pain, etc. Please return to the emergency department immediately for reevaluation. Otherwise follow up with your primary care provider within one week. documented in this encounter [facility] 05-07-2023 History of Present illness Narrative [facility] Cardiology Office Note DATE of SERVICE: 05/07/23 TIME of SERVICE: 2:32 PM Chief Complaint: Chief Complaint Patient presents with 1 Month Follow Up History of Present Illness: Cassie Morgan is a 78 y.o. female with paroxysmal AF, hypertension and DM type II and preserved left ventricular systolic function who presents for cardiac assessment. She denies chest pain, shortness of breath, palpitation, near-syncope or syncope. She self monitors for recurrent AF w a Paratekdia device treats with an additional 25mg of metoprolol if rapid AF is confirmed which usually results in prompt return of NSR. She has not required DCC or hospitalization. 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) 2017 Dr. Newby- OAC, nml EF Recurrent UTI Type II or unspecified type diabetes mellitus without mention of complication, not stated as uncontrolled ([facility]) 2013 Past Surgical History Past Surgical History: Procedure Laterality Date BREAST CYST EXCISION Left 10/2012 CATARACT EXTRACTION Left 10/2018 COLONOSCOPY 09/2013 COLONOSCOPY 08/08/2021 polyp. Repeat colonoscopy 5 years CYSTOSCOPY 10/2009 FamilyHistory Family History Problem Relation Name Age of Onset Cancer Father Freddy age 79, pancreatic CA Other ([id number]) Mother Aminah Benitez natural causes Diabetes Sister Diabetes Brother Social History Social History Tobacco Use Smoking status: Never Smokeless tobacco: Never Substance Use Topics Alcohol use: No Alcohol/week: 0.0 standard drinks of alcohol Drug use: No Medications: Current Outpatient Medications: ascorbic acid (Vitamin C) 500 mg chewable tablet, Chew 500 mg in the morning., Disp: , Rfl: atorvastatin (Lipitor) 10 MG tablet, Take 1 tablet (10 mg) by mouth daily., Disp: 90 tablet, Rfl: 1 Blood Glucose Monitoring Suppl (FreeStyle Lite) device, Use as instructed E11.9, Disp: 1 each, Rfl: 0 cholecalciferol (Vitamin D-3) 25 MCG (1000 UT) tablet, Take 1,000 Units by mouth in the morning., Disp: , Rfl: cyanocobalamin (Vitamin B-12) 500 MCG tablet, Take 500 mcg by mouth in the morning., Disp: , Rfl: fluticasone (Flonase) 50 MCG/ACT nasal spray, Administer 1 spray into affected nostril(s)., Disp: , Rfl: FreeStyle lancets, Use as instructed E11.9, Disp: 100 each, Rfl: 3 FreeStyle lancets, Use as instructed, Disp: 100 each, Rfl: 2 FREESTYLE LITE test strip, 1 each by Other route daily. Use as instructed E11.9, Disp: 100 each, Rfl: 1 metFORMIN (Glucophage) 500 MG tablet, Take 2 tablets (1,000 mg) by mouth in the morning and 2 tablets (1,000 mg) in the evening. Take with meals., Disp: 120 tablet, Rfl: 5 Meth-Hyo-M Bl-Na Phos-Ph Warren (Uribel) 118 MG capsule, Take 1 capsule by mouth in the morning and 1 capsule at noon and 1 capsule before bedtime., Disp: , Rfl: metoprolol succinate XL (Toprol-XL) 50 MG 24 hr tablet, Take 1 tablet (50 mg) by mouth daily., Disp: 90 tablet, Rfl: 1 rivaroxaban (Xarelto) 20 MG tablet, TAKE 1 TABLET BY MOUTH DAILY (WITH BREAKFAST), Disp: 90 tablet, Rfl: 3 ALPRAZolam (Xanax) 0.25 MG tablet, Take 1 tablet (0.25 mg) by mouth 3 times daily as needed for anxiety for up to 5 days., Disp: 15 tablet, Rfl: 0 Review of Systems: Review of Systems Constitutional: Negative for chills and fever. HENT: Negative for nosebleeds. Respiratory: Negative for cough, shortness of breath and wheezing. Cardiovascular: Negative for chest pain, palpitations and leg swelling. Gastrointestinal: Negative for abdominal pain, blood in stool, nausea and vomiting. Genitourinary: Negative for hematuria. Neurological: Negative for dizziness and syncope. Hematological: Does not bruise/bleed easily. Psychiatric/Behavioral: Negative for dysphoric mood and suicidal ideas. The patient is nervous/anxious. Physical Examination: Vitals: Vitals: 05/07/23 1416 BP: 125/76 BP Location: Right arm Patient Position: Sitting BP Cuff Size: Adult Pulse: 66 SpO2: 99% Weight: 160 lb (72.6 kg) Height: 5' 5 (1.651 m) Body mass index is 26.63 kg/m . Physical Exam Constitutional: Appearance: Normal appearance. HENT: Head: Normocephalic. Eyes: General: No scleral icterus. Right eye: No discharge. Left eye: No discharge. Cardiovascular: Rate and Rhythm: Regular rhythm. Bradycardia present. Pulses: Normal pulses. Heart sounds: Normal heart sounds. No murmur heard. Pulmonary: Effort: Pulmonary effort is normal. Breath sounds: Normal breath sounds. Abdominal: General: Abdomen is flat. Palpations: Abdomen is soft. Musculoskeletal: General: Normal range of motion. Cervical back: Normal range of motion. Skin: General: Skin is warm and dry. Capillary Refill: Capillary refill takes less than 2 seconds. Neurological: Mental Status: She is alert and oriented to person, place, and time. Psychiatric: Mood and Affect: Mood normal. Laboratory Tests: Lab Results Component Value Date WBC 6.4 07/08/2022 HGB 12.9 07/08/2022 HCT 38.2 07/08/2022 MCV 93.2 07/08/2022 PLT 235 07/08/2022 Lab Results Component Value Date GLUCOSE 108 01/15/2023 CALCIUM 9.1 01/15/2023 NA 140 07/08/2022 K 4.1 07/08/2022 CO2 26 01/15/2023 CL 104 07/08/2022 BUN 23 01/15/2023 CREATININE 1.05 (H) 01/15/2023 Lab Results Component Value Date HGBA1C 6.2 (H) 01/15/2023 Lab Results Component Value Date CHOL 145 02/27/2022 CHOL 195 10/29/2021 CHOL 189 07/03/2021 Lab Results Component Value Date TRIG 75 02/27/2022 TRIG 96 10/29/2021 TRIG 97 07/03/2021 Lab Results Component Value Date HDL 60 02/27/2022 HDL 57 10/29/2021 HDL 43 07/03/2021 No results found for: LDLCALC No results found for: VLDL Lab Results Component Value Date CHOLHDLRATIO 2 02/27/2022 CHOLHDLRATIO 3 10/29/2021 CHOLHDLRATIO 4 07/03/2021 Cardiac Tests: ECG: EKG in the office today shows sinus bradycardia with a heart rate of 48 bpm Last Echo 12/22/17: SUMMARY: 1. Left ventricle: There is focal basal hypertrophy. Systolic function is normal by the biplane method of disks. The estimated ejection fraction is 64%. Last stress test 03/29/18: Stress echocardiogram 03/29/2018 showed: SUMMARY: 1. Procedure narrative: Treadmill exercise testing was performed using the Yassine protocol. The patient exercised for 4 min 3 sec, to a maximal work rate of 5.5 mets. Exercise was terminated due to dyspnea. 2. Left ventricle: Systolic function is normal by the biplane method of disks. The estimated ejection fraction is 67%. 3. Stress: The patient experienced no chest pain during stress. Functional capacity is fair. 4. Stress ECG conclusions: The stress ECG is normal. Hurt scoring: exercise time of 4 min; maximum ST deviation of 0 mm; no angina; resulting score is 4. This score predicts a moderate risk of cardiac events. No stress induced ECG changes suggestive of ischemia. 5. Stress echo: There is no evidence for stress-induced ischemia. 6. Normal study after maximal exercise. Event Monitor 01/15/2018: SUMMARY: Thirty-day event monitor which demonstrates an episode of atrial fibrillation on 01/28/2018 which was associated with fluttering or skipped beats and heart rates between 120bpm and 160bpm. In addition, patient reported lightheadedness during sinus rhythm. This is an abnormal event monitor with diagnosis of atrial fibrillation, rapid ventricular rates as noted. Assessment and Plan: AF Paroxysmal, Nonvalvular Will continue permissive Rx and OAC as above HTN-Well treated. DMII-followed by the primary care physician. Hyperlipidemia- Well treated on atorvastatin therapy-followed by the primary care physician. documented in this encounter [facility] 05-07-2023 Instructions Jona Garcia MD - 05/07/2023 2:00 PM EDT Please call our office at [phone] if you have questions or if you are having worsening symptoms of chest pain, pressure, or heaviness, aching, tightness or discomfort, worsening shortness of breath, palpitations, lightheadedness, or loss of consciousness. Please seek emergency care or call 911 if symptoms are severe. Continue all other medications as prescribed. If you need medication refills, please call our office during business hours (M-F 8a-4:30p) documented in this encounter [facility] 03-24-2023 History of Present illness Narrative Images from the original note were not included. [facility] [address] [address] Dept: [phone] Dept Loc: [phone] Visit type: Established Patient Reason for Visit: Blood Sugar Problem Assessment and Plan 1. Anxiety attack - ALPRAZolam (Xanax) 0.25 MG tablet; Take 1 tablet (0.25 mg) by mouth 3 times daily as needed for anxiety for up to 5 days., Starting 03/24/2023, Until 03/29/2023 at 2359, Normal 2. Hyperglycemia, drug-induced -Patient has ongoing anxiety issues she recognized this and states she would like to have some of the Xanax that she had previously been placed on 8 months ago and ended up losing the rest of the prescription bottle. She thinks it will help her especially when things get extremely tough dealing with a family member has Alzheimer's. - She did have bouts of hyperglycemia secondary to getting prednisone injections. Her sugar this morning was 137 she states that symptoms can be resolving and she feels much better at this point time but she just got panicked and worried because she does anxiety that something else was going on. Follow up if symptoms worsen or fail to improve, for Next scheduled follow-up. Subjective HPI this is a pleasant 77-year-old female with an underlying history of type 2 diabetes as well as paroxysmal A-fib on chronic Xarelto who reports that she has been having issues with her left knee for some time. She has recently received cortisone injections in her knee. She states the last 1 was about a week ago. She had fluid drained off the knee ever since she received those injections her sugars been running high. She stated when she called the [facility], today her BS was 259; she doesn't remember her BS yesterday but states the highest was 300. Denies fever, chest pain, SOB, nausea, vomiting. Pt is taking Metformin 500 mg - 2 pills in AM and 2 pills in PM. Pt wants to know if she should be concerned about the higher BS readings.But patient also reports not following ADA diet. And knows that sugar is running high secondary to prednisone, and ultimately here today because never took previous anxiety meds and feels like she's having anxiety issues and would like the medicine Patient does have a history of paroxysmal atrial fib she had 2 bouts of the past week with a rapid heart rate heart rate reaching the 190s she did contact her guest services lead and is scheduled to follow-up with them tomorrow to discuss this issue whether there needs to be any change in her medications. She is currently adequately anticoagulated she states when she had an episode of this she did take an extra dose of metoprolol and the symptoms resolved. Review of Systems Constitutional: Negative for chills and fever. HENT: Negative for congestion and sore throat. Respiratory: Negative for cough and shortness of breath. Cardiovascular: Positive for palpitations. Negative for chest pain. Gastrointestinal: Negative for abdominal pain, diarrhea, nausea and vomiting. Genitourinary: Negative for difficulty urinating, dysuria, frequency and urgency. Musculoskeletal: Negative for back pain. Neurological: Negative for dizziness and light-headedness. Psychiatric/Behavioral: Negative for self-injury and sleep disturbance. The patient is nervous/anxious. All other systems reviewed and are negative. Allergies Allergen Reactions Cefaclor Codeine Rash Outpatient Medications Prior to Visit Medication Sig Dispense Refill ascorbic acid (Vitamin C) 500 mg chewable tablet Chew 500 mg in the morning. atorvastatin (Lipitor) 10 MG tablet Take 1 tablet (10 mg) by mouth daily. 90 tablet 1 Blood Glucose Monitoring Suppl ([employer]) device Use as instructed E11.9 1 each 0 cholecalciferol (Vitamin D-3) 25 MCG (1000 UT) tablet Take 1,000 Units by mouth in the morning. cyanocobalamin (Vitamin B-12) 500 MCG tablet Take 500 mcg by mouth in the morning. fluticasone (Flonase) 50 MCG/ACT nasal spray Administer 1 spray into affected nostril(s). FreeStyle lancets Use as instructed E11.9 100 each 3 FreeStyle lancets Use as instructed 100 each 2 FREESTYLE LITE test strip 1 each by Other route daily. Use as instructed E11.9 100 each 1 glucose blood test strip 1 EACH BY IN VITRO ROUTE DAILY NEEDED. 100 each 3 metFORMIN (Glucophage) 500 MG tablet Take 2 tablets (1,000 mg) by mouth in the morning and 2 tablets (1,000 mg) in the evening. Take with meals. 120 tablet 5 Meth-Hyo-M Bl-Na Phos-Ph Warren (Uribel) 118 MG capsule Take 1 capsule by mouth in the morning and 1 capsule at noon and 1 capsule before bedtime. metoprolol succinate XL (Toprol-XL) 50 MG 24 hr tablet Take 1 tablet (50 mg) by mouth daily. 90 tablet 1 rivaroxaban (Xarelto) 20 MG tablet TAKE 1 TABLET BY MOUTH DAILY (WITH BREAKFAST) 90 tablet 3 No facility-administered medications prior to visit. Past Medical History: Diagnosis Date Dependent edema Diverticulosis 2018 Diverticulitis Eye exam normal 08/23/2020 no retinopathy Eye exam, routine 12/09/2021 No diabetic retinopathy H/O colonoscopy 2013 Dr Ramesh- due for 2023 PAF (paroxysmal atrial fibrillation) ([facility]/HCC) ([facility]) 2017 Dr. Newby- OAC, nml EF Recurrent UTI Type II or unspecified type diabetes mellitus without mention of complication, not stated as uncontrolled ([facility]) 2013 Social History Tobacco Use Smoking status: Never Smokeless tobacco: Never Substance Use Topics Alcohol use: No Alcohol/week: 0.0 standard drinks of alcohol Past Surgical History: Procedure Laterality Date BREAST CYST EXCISION Left 10/2012 CATARACT EXTRACTION Left 10/2018 COLONOSCOPY 09/2013 COLONOSCOPY 08/08/2021 polyp. Repeat colonoscopy 5 years CYSTOSCOPY 10/2009 Family History Problem Relation Name Age of Onset Cancer Father Freddy age 79, pancreatic CA Other ([id number]) Mother Aminah Benitez natural causes Diabetes Sister Diabetes Brother Objective BP 136/86 (BP Location: Left arm, Patient Position: Sitting, BP Cuff Size: Adult) Pulse 62 Temp 37.3 C (99.1 F) (Temporal) Ht 5' 5 (1.651 m) Wt 156 lb (70.8 kg) SpO2 97% BMI 25.96 kg/m Physical Exam Vitals reviewed. Constitutional: General: She is not in acute distress. Appearance: Normal appearance. She is not ill-appearing or toxic-appearing. Eyes: General: No scleral icterus. Conjunctiva/sclera: Conjunctivae normal. Pupils: Pupils are equal, round, and reactive to light. Cardiovascular: Rate and Rhythm: Normal rate and regular rhythm. Heart sounds: Normal heart sounds. Pulmonary: Effort: Pulmonary effort is normal. No respiratory distress. Breath sounds: Normal breath sounds. Abdominal: General: Bowel sounds are normal. There is no distension. Palpations: Abdomen is soft. Tenderness: There is no abdominal tenderness. Musculoskeletal: Cervical back: Normal range of motion and neck supple. Skin: General: Skin is warm and dry. Neurological: Mental Status: She is alert. Psychiatric: Mood and Affect: Mood normal. Data Reviewed and Summarized Labs: Imaging/Testing: Clyde Sharma PA-C 03/24/2023 Please note that portions of this note may have been completed with voice recognition software. Documentation reviewed prior to signing but minor errors in water manager may have occurred. documented in this encounter [facility] 03-19-2023 Telephone encounter Note Additional documentation can be reviewed in separate TE from [facility]. Appt scheduled for 03/24/2023. [facility] 03-19-2023 Miscellaneous Notes Additional documentation can be reviewed in separate TE from [facility]. Appt scheduled for 03/24/2023. S: Patient spoke with [facility] nurse regarding high blood sugar readings. B: Onset of symptoms/concern a few weeks. A: Pt states she has been having issues with her left knee - has rec'd a few Cortisone shots in knee; last one was last Thursday for knee pain and knee drained for fluid. Ever since she rec'd her injections, her blood sugars have been running high. Today her BS was 259; she doesn't remember her BS yesterday but states the highest was 300. Denies fever, chest pain, SOB, nausea, vomiting. Pt is taking Metformin 500 mg - 2 pills in AM and 2 pills in PM. Pt wants to know if she should be concerned about the higher BS readings. R: Will send to office to review and call pt at [phone]. Pt to call back if any further ques or concerns. Reason for Disposition Caller has NON-URGENT medication question about med that PCP prescribed and triager unable to answer question Answer Assessment - Initial Assessment Questions 1. BLOOD GLUCOSE: What is your blood glucose level? 259 today 2. ONSET: When did you check the blood glucose? This morning 3. USUAL RANGE: What is your glucose level usually? (e.g., usual fasting morning value, usual evening value) Normal is 137 4. KETONES: Do you check for ketones (urine or blood test strips)? If yes, ask: What does the test show now? No 5. TYPE 1 or 2: Do you know what type of diabetes you have? (e.g., Type 1, Type 2, Gestational; doesn't know) Type 2 6. INSULIN: Do you take insulin? What type of insulin(s) do you use? What is the mode of delivery? (syringe, pen; injection or pump)? No 7. DIABETES PILLS: Do you take any pills for your diabetes? If yes, ask: Have you missed taking any pills recently? Metformin 500 mg - 2 in AM and 2 in PM 8. OTHER SYMPTOMS: Do you have any symptoms? (e.g., fever, frequent urination, difficulty breathing, dizziness, weakness, vomiting) No 9. : Is there any chance you are ? When was your last menstrual period? N/A Protocols used: Diabetes - High Blood [id number] documented in this encounter [facility] 03-19-2023 Telephone encounter Note S: Patient spoke with [facility] nurse regarding high blood sugar readings. B: Onset of symptoms/concern a few weeks. A: Pt states she has been having issues with her left knee - has rec'd a few Cortisone shots in knee; last one was last Thursday for knee pain and knee drained for fluid. Ever since she rec'd her injections, her blood sugars have been running high. Today her BS was 259; she doesn't remember her BS yesterday but states the highest was 300. Denies fever, chest pain, SOB, nausea, vomiting. Pt is taking Metformin 500 mg - 2 pills in AM and 2 pills in PM. Pt wants to know if she should be concerned about the higher BS readings. R: Will send to office to review and call pt at [phone]. Pt to call back if any further ques or concerns. Reason for Disposition Caller has NON-URGENT medication question about med that PCP prescribed and triager unable to answer question Answer Assessment - Initial Assessment Questions 1. BLOOD GLUCOSE: What is your blood glucose level? 259 today 2. ONSET: When did you check the blood glucose? This morning 3. USUAL RANGE: What is your glucose level usually? (e.g., usual fasting morning value, usual evening value) Normal is 137 4. KETONES: Do you check for ketones (urine or blood test strips)? If yes, ask: What does the test show now? No 5. TYPE 1 or 2: Do you know what type of diabetes you have? (e.g., Type 1, Type 2, Gestational; doesn't know) Type 2 6. INSULIN: Do you take insulin? What type of insulin(s) do you use? What is the mode of delivery? (syringe, pen; injection or pump)? No 7. DIABETES PILLS: Do you take any pills for your diabetes? If yes, ask: Have you missed taking any pills recently? Metformin 500 mg - 2 in AM and 2 in PM 8. OTHER SYMPTOMS: Do you have any symptoms? (e.g., fever, frequent urination, difficulty breathing, dizziness, weakness, vomiting) No 9. : Is there any chance you are ? When was your last menstrual period? N/A Protocols used: Diabetes - High Blood [id number] [facility] 02-10-2023 History of Present illness Narrative [facility] Note DATE of SERVICE:02/10/23 TIME of SERVICE: 11:38 AM Chief Complaint: Chief Complaint Patient presents with Follow-up History of PresentIllness: Cassie Morgan is a 77 y.o. female who has seen Dr. Woodard since Dr. Newby's longterm. She was last seen September 24 for follow-up of paroxysmal atrial fibrillation. It was noted that she was having increased episodes of palpitation and elevated heart rate lasting for several minutes. Her Toprol dose was increased to 50 mg daily. She was continued on her oral anticoagulation. She is back in today for reassessment. From a symptom standpoint she is feeling well. She has infrequent episodes of palpitations. Her EKG demonstrates a sinus rhythm. Her blood pressure is a little higher here as she states she has been running around with her . I see the last 2 readings at other appointments being better controlled at 121/68 and 130/74. She denies any significant chest pain, or dyspnea with activities. She stays busy with the care of her home and her . Past Medical History: Past Medical History: Diagnosis Date Dependent edema Diverticulosis 2019 Diverticulitis Eye exam normal 08/23/2020 no retinopathy Eye exam, routine 12/09/2021 No diabetic retinopathy H/O colonoscopy 2013 Dr Ramesh- due for 2023 PAF (paroxysmal atrial fibrillation) ([facility]/HCC) ([facility]) 2017 Dr. Newby- OAC, nml EF Recurrent UTI Type II or unspecified type diabetes mellitus without mention of complication, not stated as uncontrolled ([facility]) 2013 Past Surgical History Past Surgical History: Procedure Laterality Date BREAST CYST EXCISION Left 10/2012 CATARACT EXTRACTION Left 10/2018 COLONOSCOPY 09/2013 COLONOSCOPY 08/08/2021 polyp. Repeat colonoscopy 5 years CYSTOSCOPY 10/2009 Family History Family History Problem Relation Name Age of Onset Cancer Father Freddy age 79, pancreatic CA Other ([address]) Mother Aminah Benitez natural causes Diabetes Sister Diabetes Brother Social History Social History Tobacco Use Smoking status: Never Smokeless tobacco: Never Substance Use Topics Alcohol use: No Alcohol/week: 0.0 standard drinks of alcohol Drug use: No Allergies: Allergies Allergen Reactions Cefaclor Codeine Rash Medications: Current Outpatient Medications: ascorbic acid (Vitamin C) 500 mg chewable tablet, Chew 500 mg in the morning., Disp: , Rfl: atorvastatin (Lipitor) 10 MG tablet, Take 1 tablet (10 mg) by mouth daily., Disp: 90 tablet, Rfl: 1 cholecalciferol (Vitamin D-3) 25 MCG (1000 UT) tablet, Take 1,000 Units by mouth in the morning., Disp: , Rfl: cyanocobalamin (Vitamin B-12) 500 MCG tablet, Take 500 mcg by mouth in the morning., Disp: , Rfl: metFORMIN (Glucophage) 500 MG tablet, Take 2 tablets (1,000 mg) by mouth in the morning and 2 tablets (1,000 mg) in the evening. Take with meals., Disp: 120 tablet, Rfl: 5 metoprolol succinate XL (Toprol-XL) 50 MG 24 hr tablet, Take 1 tablet (50 mg) by mouth daily., Disp: 90 tablet, Rfl: 1 rivaroxaban (Xarelto) 20 MG tablet, TAKE 1 TABLET BY MOUTH DAILY (WITH BREAKFAST), Disp: 90 tablet, Rfl: 3 Blood Glucose Monitoring Suppl (FreeStyle Lite) device, Use as instructed E11.9, Disp: 1 each, Rfl: 0 fluticasone (Flonase) 50 MCG/ACT nasal spray, Administer 1 spray into affected nostril(s)., Disp: , Rfl: FreeStyle lancets, Use as instructed E11.9, Disp: 100 each, Rfl: 3 FreeStyle lancets, Use as instructed, Disp: 100 each, Rfl: 2 FREESTYLE LITE test strip, 1 each by Other route daily. Use as instructed E11.9, Disp: 100 each, Rfl: 1 glucose blood test strip, 1 EACH BY IN VITRO ROUTE DAILY NEEDED., Disp: 100 each, Rfl: 3 Meth-Hyo-M Bl-Na Phos-Ph Warren (Uribel) 118 MG capsule, Take 1 capsule by mouth in the morning and 1 capsule at noon and 1 capsule before bedtime., Disp: , Rfl: Review of Systems: Review of Systems Constitutional: Negative for chills, diaphoresis and fever. HENT: Negative for congestion. Eyes: Negative for visual disturbance. Respiratory: Negative for chest tightness and shortness of breath. Cardiovascular: Negative for chest pain and palpitations. Gastrointestinal: Negative for abdominal pain, constipation, diarrhea and nausea. Endocrine: Negative for cold intolerance and heat intolerance. Genitourinary: Negative for dysuria and hematuria. Musculoskeletal: Negative for arthralgias. Skin: Negative for rash. Neurological: Negative for dizziness and syncope. Physical Examination: Vitals: Vitals: 02/10/23 1115 02/10/23 1118 BP: (!) 144/78 (!) 144/78 BP Location: Left arm Left arm Patient Position: Sitting Sitting BP Cuff Size: Adult Adult Pulse: 69 Resp: 14 Weight: 160 lb (72.6 kg) Height: 5' 6 (1.676 m) Body mass index is 25.82 kg/m . Physical Exam Constitutional: General: She is not in acute distress. Appearance: She is not diaphoretic. HENT: Head: Normocephalic. Eyes: General: Right eye: No discharge. Left eye: No discharge. Conjunctiva/sclera: Conjunctivae normal. Cardiovascular: Rate and Rhythm: Normal rate and regular rhythm. Pulmonary: Breath sounds: No wheezing or rales. Abdominal: General: Bowel sounds are normal. Palpations: Abdomen is soft. Musculoskeletal: Right lower leg: Edema present. Left lower leg: Edema present. Comments: Mild lower extremity edema Skin: General: Skin is warm and dry. Findings: No erythema or rash. Neurological: Mental Status: She is oriented to person, place, and time. Psychiatric: Mood and Affect: Mood normal. Laboratory Tests: Lab Results Component Value Date WBC 6.4 07/08/2022 HGB 12.9 07/08/2022 HCT 38.2 07/08/2022 MCV 93.2 07/08/2022 PLT 235 07/08/2022 Lab Results Component Value Date GLUCOSE 108 01/15/2023 CALCIUM 9.1 01/15/2023 NA 140 07/08/2022 K 4.1 07/08/2022 CO2 26 01/15/2023 CL 104 07/08/2022 BUN 23 01/15/2023 CREATININE 1.05 (H) 01/15/2023 @LASTCMP@ Lab Results Component Value Date CHOL 145 02/27/2022 CHOL 195 10/29/2021 CHOL 189 07/03/2021 Lab Results Component Value Date TRIG 75 02/27/2022 TRIG 96 10/29/2021 TRIG 97 07/03/2021 Lab Results Component Value Date HDL 60 02/27/2022 HDL 57 10/29/2021 HDL 43 07/03/2021 No results found for: LDLCALC, LDLDIRECT No components found for: LVEF, LVEFMODE [id number] Score for Atrial Fibrillation Stroke Risk Risk Factors C CHF No, 0 H HTN Yes, 1 A2 Age >= 75 Yes, 2 D DM Yes, 1 S2 Prior Stroke/TIA No, 0 V Vascular Disease No, 0 A Age 65-74 No, 0 Sc Sex Female, 1 [id number] Score 5 Calculator: [id number] risk stratification score for estimation of stroke risk for nonvalvular atrial fibrillation in adults - UpToDate Atrial fibrillation in adults: Use of oral anticoagulants - UpToDate Assessment and Plan: Paroxysmal atrial fibrillation. She is maintaining a normal sinus rhythm by EKG today. She continues on metoprolol for rate control. She is on Xarelto for stroke risk reduction. Labs in December noted stable renal function. Her last hemoglobin June 2022 was good at 12.9. Hypertension. Her blood pressure is a little on the high side today at this visit, but she states she has been running all over with her . I see previous documented blood pressures in September and December that were better controlled. At this time I have made no changes in her medications. We did discuss sodium restrictions of 2 g daily. She had made this follow-up in the [place] office stating it was closer to her home than [place]. She was unaware of the [place] location and states that that location is much closer to her. We will try and arrange follow-up for her and her to establish care with Dr. Garcia in approximately 6 months. She understands to call into the office sooner with any questions or concerns. documented in this encounter [facility] 10-09-2022 Telephone encounter Note Transferred to result notes. [facility] 10-09-2022 Miscellaneous Notes Transferred to result notes. Message released to patient as written. Hemoglobin A1c is acceptable at this point time I would not entertain changing any of the medications at this time. Continue to follow ADA diet as tolerated. Continue to monitor your carbohydrates call for any concerns. Patient's further questions if applicable: Pt stated would like to know what A1c number is. Please advise. Thank you. Were all questions from office addressed or relayed to the patient from encounter: Yes ----- Message from Clyde Sharma PA-C sent at 10/09/2022 8:32 AM EST ----- Hemoglobin A1c is acceptable at this point time I would not entertain changing any of the medications at this time. Continue to follow ADA diet as tolerated. Continue to monitor your carbohydrates call for any concerns. Rx loaded Medication name: metFORMIN (Glucophage) 500 MG tablet Medication dosage: 500 mg (Miligrams Monthly quantity needed: 120 How many day supply requestin days Medication route: oral (PO) Medication administration time(s): 2 times a day (BID) If taking medication PRN, reason for taking medication: N/A If this is a controlled substance do you receive this or any other controlled medication from any other doctor or facility: N/A Ordering provider: [facility] Date of last office visit: 07/08/22 Date of next office visit: 10/08/22 Date of last refill: (see medication tab): 09/08/22 Updated/Validated preferred pharmacy: Yes Patient instructed to contact the pharmacy prior to picking up the medication: Yes documented in this encounter [facility] 10-09-2022 Telephone encounter Note Message released to patient as written. Hemoglobin A1c is acceptable at this point time I would not entertain changing any of the medications at this time. Continue to follow ADA diet as tolerated. Continue to monitor your carbohydrates call for any concerns. Patient's further questions if applicable: Pt stated would like to know what A1c number is. Please advise. Thank you. Were all questions from office addressed or relayed to the patient from encounter: Yes [facility] 10-09-2022 Telephone encounter Note ----- Message from Clyde Sharma PA-C sent at 10/09/2022 8:32 AM EST ----- Hemoglobin A1c is acceptable at this point time I would not entertain changing any of the medications at this time. Continue to follow ADA diet as tolerated. Continue to monitor your carbohydrates call for any concerns. [employer] [facility] 10-08-2022 History of Present illness Narrative Images from the original note were not included. [facility] [address] [address] Dept: [phone] Dept Loc: [phone] Visit type: Established Patient Reason for Visit: Medication Check Assessment and Plan 1. Type 2 diabetes mellitus without complication, without long-term current use of insulin ([facility]) ([facility]) Comments: Repeat A1c, if elevated and needs adjusted we will consider adding Jardiance or changing to Synjardy for better control. Orders: - Diabetes Foot Exam - Hemoglobin A1c - Diabetic Shoes 2. Anxiety attack Comments: Acute situational anxiety not currently anxious not suicidal or homicidal needs something to help periodically take the edge off. Orders: - ALPRAZolam (Xanax) 0.25 MG tablet; Take 1 tablet (0.25 mg) by mouth 3 times daily as needed for anxiety for up to 4 days., Starting 10/08/2022, Until 10/12/2022 at 2359, Normal 3. PAF (paroxysmal atrial fibrillation) (CMS/HCC) ([facility]) Comments: discussed recent increase to toprol xl 50mg daily and continue Xarelto based on cardiology recommendation 4. Chronic cystitis Comments: defer to urology as they continue to monitor and treat, currently not on antibiotics or having active symptoms Follow up in about 6 months (around 04/07/2023). Patient does not appear to be in any acute distress had multiple concerns addressed today. Diabetic foot exam was done and since was unremarkable however she requested ordered for diabetic shoes this to be done. She does state her has some mild Alzheimer's she is requesting some medication to help take the edge off on a rare instance when she gets severely anxious. She was on medication a long time ago she does not recall what it was but states it was only she would use once in a blue mcl[place] for when she had a spell. We did discuss the use of Xanax I will not prescribe long-term as it can have detrimental effects in the elderly as well as have severe osteopenia effects. We will just give her a few tablets for occasional severe breakthrough of anxiety and low-dose. We discussed the use of Xarelto she has a history of paroxysmal A-fib discussed risk versus benefit at this point time would defer to cardiology however we will closely keep an eye on that she becomes a fall risk for any other concerns that would preclude her from being on continued anticoagulant she has never had any history of DVTs or PEs in the past. As of now cardiology is decided to think increase her metoprolol up to 50 mg daily encouraged to continue that for now continue with cardiology. OARRS report was reviewed and is appropriate. Time spent with patient was 32mins Subjective HPI this is a pleasant 77-year-old female with an underlying history of type 2 diabetes as well as paroxysmal A-fib who was recently seen by cardiology to who presents the office today for evaluation of her blood sugar to make sure it is stable and that does not need to have any other general dosing adjustments. She does also states she deals with a who has dementia she states she gets pressure from time to time and starts having anxiety attacks and she needs something to help take the edge off once in a great while or if symptoms get too much for her. She states she was on medicine well over a year ago that she would take periodically when she gets a severe day she does not recall what it was. She states she feels like she does not strictly follow an ADA diet was concerned that maybe her sugars are slightly elevated most recent A1c was 6.2. She is in today to have a recheck to make sure that medication does not need change. She has a history of chronic UTIs she states she sees a specialist in [place] area who had her on multiple antibiotics past she is not currently having any symptoms but states occasionally she gets periodic symptoms they have been trying multiple different therapies and multiple different medications with her she states is an ongoing chronic issue that feels like we can do nothing to help her and she will continue to follow-up with her specialist in [place]. She also states that she would like special diabetic shoes as she states she has weird feet and shoes cause her a lot of pain from time to time is requesting evaluation of her feet and ordering of special diabetic shoes. She denies any ulcers or feet denies any numbness or tingling in her feet or any lesions on her feet denies any other concerns. Review of Systems Constitutional: Negative for chills and fever. HENT: Negative for congestion and sore throat. Endorses a bit of a dry mouth but this is chronic. Respiratory: Negative for cough and shortness of breath. Cardiovascular: Negative for chest pain. Gastrointestinal: Negative for abdominal pain, diarrhea, nausea and vomiting. Genitourinary: Negative for difficulty urinating, dysuria, frequency and urgency. Does describe occasional urinary symptoms such as frequency urgency but none currently is currently following up with specialist Musculoskeletal: Negative for back pain. Neurological: Negative for dizziness and light-headedness. Psychiatric/Behavioral: Negative for agitation, confusion and suicidal ideas. The patient is not nervous/anxious (But does admit to occasional anxious secondary to with dementia). All other systems reviewed and are negative. Allergies Allergen Reactions Cefaclor Codeine Rash Outpatient Medications Prior to Visit Medication Sig Dispense Refill ascorbic acid (Vitamin C) 500 mg chewable tablet Chew 500 mg in the morning. atorvastatin (Lipitor) 10 MG tablet Take 1 tablet (10 mg) by mouth daily. 90 tablet 0 Blood Glucose Monitoring Suppl ([employer]) device Use as instructed E11.9 1 each 0 cholecalciferol (Vitamin D-3) 25 MCG (1000 UT) tablet Take 1,000 Units by mouth in the morning. Cranberry 450 MG tablet Take 1 tablet by mouth in the morning and 1 tablet at noon and 1 tablet before bedtime. cyanocobalamin (Vitamin B-12) 500 MCG tablet Take 500 mcg by mouth in the morning. fluticasone (Flonase) 50 MCG/ACT nasal spray Administer 1 spray into affected nostril(s). FreeStyle lancets Use as instructed E11.9 100 each 3 FreeStyle lancets Use as instructed 100 each 2 FREESTYLE LITE test strip 1 each by Other route daily. Use as instructed E11.9 100 each 1 glucose blood test strip 1 EACH BY IN VITRO ROUTE DAILY NEEDED. 100 each 3 metFORMIN (Glucophage) 500 MG tablet Take 2 tablets (1,000 mg) by mouth in the morning and 2 tablets (1,000 mg) in the evening. Take with meals. 120 tablet 0 Meth-Hyo-M Bl-Na Phos-Ph Warren (Uribel) 118 MG capsule Take 1 capsule by mouth in the morning and 1 capsule at noon and 1 capsule before bedtime. metoprolol succinate XL (Toprol-XL) 50 MG 24 hr tablet Take 1 tablet (50 mg) by mouth daily. 90 tablet 3 rivaroxaban (Xarelto) 20 MG tablet TAKE 1 TABLET BY MOUTH DAILY (WITH BREAKFAST) 90 tablet 3 Turmeric 500 MG tablet Take 1 tablet by mouth in the morning. No facility-administered medications prior to visit. Past Medical History: Diagnosis Date Dependent edema Diverticulosis 2018 Diverticulitis Eye exam normal 08/23/2020 no retinopathy Eye exam, routine 12/09/2021 No diabetic retinopathy H/O colonoscopy 2013 Dr Ramesh- due for 2023 PAF (paroxysmal atrial fibrillation) ([facility]/HCC) ([facility]) 2017 Dr. Newby- OAC, nml EF Recurrent UTI Type II or unspecified type diabetes mellitus without mention of complication, not stated as uncontrolled ([facility]) 2013 Social History Tobacco Use Smoking status: Never Smokeless tobacco: Never Substance Use Topics Alcohol use: No Alcohol/week: 0.0 standard drinks Past Surgical History: Procedure Laterality Date BREAST CYST EXCISION Left 10/2012 CATARACT EXTRACTION Left 10/2018 COLONOSCOPY 09/2013 COLONOSCOPY 08/08/2021 polyp. Repeat colonoscopy 5 years CYSTOSCOPY 10/2009 Family History Problem Relation Name Age of Onset Cancer Father Freddy age 79, pancreatic CA Other ([id number]) Mother Aminah Benitez natural causes Diabetes Sister Diabetes Brother Objective BP 130/74 (BP Location: Left arm, Patient Position: Sitting, BP Cuff Size: Large adult) Pulse 64 Temp 36.6 C (97.8 F) (Temporal) Ht 5' 6 (1.676 m) Wt 160 lb (72.6 kg) SpO2 100% BMI 25.82 kg/m Physical Exam Constitutional: Appearance: Normal appearance. HENT: Right Ear: Tympanic membrane and ear canal normal. Left Ear: Tympanic membrane and ear canal normal. Mouth/Throat: Mouth: Mucous membranes are moist. Pharynx: Oropharynx is clear. Eyes: Extraocular Movements: Extraocular movements intact. Pupils: Pupils are equal, round, and reactive to light. Cardiovascular: Rate and Rhythm: Normal rate and regular rhythm. Heart sounds: Normal heart sounds. Pulmonary: Effort: Pulmonary effort is normal. No respiratory distress. Breath sounds: Normal breath sounds. Abdominal: General: Bowel sounds are normal. Palpations: Abdomen is soft. Musculoskeletal: Cervical back: Normal range of motion and neck supple. Skin: General: Skin is warm and dry. Neurological: Mental Status: She is alert. Psychiatric: Mood and Affect: Mood normal. Diabetic foot exam was performed examination of the feet shows no skin breakdown ulcerations or lesions. There is little bit of a callus skin over the first metatarsal on the plantar surface of the left foot but again there is no corns bunions or other acute abnormalities. Phalanx is appears slightly shortened and stabbing in nature with an accentuated separation between the first and second toes bilaterally. There is no gross signs of cyanosis pain numbness or tingling good peripheral pulses bilaterally. Data Reviewed and Summarized Labs: We will repeat hemoglobin A1c today is recently she has been well controlled at 6.2. Imaging/Testing: Clyde Sharma PA-C 10/08/2022 Please note that portions of this note may have been completed with voice recognition software. Documentation reviewed prior to signing but minor errors in water manager may have occurred. documented in this encounter [email or web address] 10-01-2022 Telephone encounter Note Rx loaded [email or web address] 10-01-2022 Telephone encounter Note Medication name: metFORMIN (Glucophage) 500 MG tablet Medication dosage: 500 mg (Miligrams Monthly quantity needed: 120 How many day supply requestin days Medication route: oral (PO) Medication administration time(s): 2 times a day (BID) If taking medication PRN, reason for taking medication: N/A If this is a controlled substance do you receive this or any other controlled medication from any other doctor or facility: N/A Ordering provider: [facility] Date of last office visit: 07/08/22 Date of next office visit: 10/08/22 Date of last refill: (see medication tab): 09/08/22 Updated/Validated preferred pharmacy: Yes Patient instructed to contact the pharmacy prior to picking up the medication: Yes [facility] 09-24-2022 History of Present illness Narrative [facility] Cardiology Note Visit type: Established : 1945 Chief Complaint: Chief Complaint Patient presents with 1 Year Follow-up Rapid Heart Rate History of Present Illness: Cassie Morgan is a 77 y.o. female Hx paroxysmal, nonvalvular A. fib and diabetes. Last seen by Dr. Newby in 2019 and was stable from a cardiac standpoint. Upon reviewing her chart it appears she was seen in the [place] ED in May 2021 with anxiety and heart racing. She was in A. fib with RVR. Heart rate decreased once she rested and she did not require any further medical therapy. There are no further EKGs to see if she converted back to sinus rhythm. She saw her PCP for ED follow-up and complained of some blood after a bowel movement. She was referred to GI and underwent colonoscopy which showed nonbleeding diverticuli. She had a 5 mm polyp removed. She was cleared to resume oral anticoagulation. She had 2 - 3 episodes of palpitations last month. HR goes upto 180s, lasting few minutes . Says she doesn't feel good when her HR goes up that fast. Doesn't have chest pain or sob during these episodes though. Denies chest pain,sob,orthopnea or pnd . Under a lot of stress, has recently been diagnosed with alzheimer's. Past Medical History: Past Medical History: Diagnosis Date Dependent edema Diverticulosis 2018 Diverticulitis Eye exam normal 08/23/2020 no retinopathy Eye exam, routine 12/09/2021 No diabetic retinopathy H/O colonoscopy 2013 Dr Ramesh- due for 2023 PAF (paroxysmal atrial fibrillation) (CMS/HCC) ([facility]) 2017 Dr. Newby- OAC, nml EF Recurrent UTI Type II or unspecified type diabetes mellitus without mention of complication, not stated as uncontrolled ([facility]) 2013 Past Surgical History Past Surgical History: Procedure Laterality Date BREAST CYST EXCISION Left 10/2012 CATARACT EXTRACTION Left 10/2018 COLONOSCOPY 09/2013 COLONOSCOPY 08/08/2021 polyp. Repeat colonoscopy 5 years CYSTOSCOPY 10/2009 Family History Family History Problem Relation Name Age of Onset Cancer Father Freddy age 79, pancreatic CA Other ([id number]) Mother Aminah Benitez natural causes Diabetes Sister Diabetes Brother Social History Social History Tobacco Use Smoking status: Never Smokeless tobacco: Never Substance Use Topics Alcohol use: No Alcohol/week: 0.0 standard drinks Drug use: No Allergies: Allergies Allergen Reactions Cefaclor Codeine Rash Medications: Current Outpatient Medications: ascorbic acid (Vitamin C) 500 mg chewable tablet, Chew 500 mg in the morning., Disp: , Rfl: atorvastatin (Lipitor) 10 MG tablet, Take 1 tablet (10 mg) by mouth daily., Disp: 90 tablet, Rfl: 0 Blood Glucose Monitoring Suppl (FreeStyle Lite) device, Use as instructed E11.9, Disp: 1 each, Rfl: 0 cholecalciferol (Vitamin D-3) 25 MCG (1000 UT) tablet, Take 1,000 Units by mouth in the morning., Disp: , Rfl: Cranberry 450 MG tablet, Take 1 tablet by mouth in the morning and 1 tablet at noon and 1 tablet before bedtime., Disp: , Rfl: cyanocobalamin (Vitamin B-12) 500 MCG tablet, Take 500 mcg by mouth in the morning., Disp: , Rfl: fluticasone (Flonase) 50 MCG/ACT nasal spray, Administer 1 spray into affected nostril(s)., Disp: , Rfl: FreeStyle lancets, Use as instructed E11.9, Disp: 100 each, Rfl: 3 FreeStyle lancets, Use as instructed, Disp: 100 each, Rfl: 2 FREESTYLE LITE test strip, 1 each by Other route daily. Use as instructed E11.9, Disp: 100 each, Rfl: 1 glucose blood test strip, 1 EACH BY IN VITRO ROUTE DAILY NEEDED., Disp: 100 each, Rfl: 3 Meth-Hyo-M Bl-Na Phos-Ph Warren (Uribel) 118 MG capsule, Take 1 capsule by mouth in the morning and 1 capsule at noon and 1 capsule before bedtime., Disp: , Rfl: rivaroxaban (Xarelto) 20 MG tablet, TAKE 1 TABLET BY MOUTH DAILY (WITH BREAKFAST), Disp: 90 tablet, Rfl: 3 Turmeric 500 MG tablet, Take 1 tablet by mouth in the morning., Disp: , Rfl: metFORMIN (Glucophage) 500 MG tablet, Take 2 tablets (1,000 mg) by mouth in the morning and 2 tablets (1,000 mg) in the evening. Take with meals., Disp: 120 tablet, Rfl: 0 metoprolol succinate XL (Toprol-XL) 50 MG 24 hr tablet, Take 1 tablet (50 mg) by mouth daily., Disp: 90 tablet, Rfl: 3 Review of Systems: Review of Systems Constitutional: Negative for activity change, chills, diaphoresis, fatigue and fever. HENT: Negative for nosebleeds and trouble swallowing. Eyes: Negative for discharge and visual disturbance. Respiratory: Negative for apnea, cough, chest tightness, shortness of breath and wheezing. Cardiovascular: Positive for palpitations (Has had 3 episodes in the last 3 months; an episode KEL; last episode a couple weeks ago-HR goes as high as 180-200's; relieved with metoprolol). Negative for chest pain and leg swelling. Gastrointestinal: Negative for abdominal distention, abdominal pain, blood in stool, diarrhea, nausea and vomiting. Endocrine: Negative for cold intolerance and heat intolerance. Genitourinary: Negative for hematuria. Musculoskeletal: Negative for gait problem and myalgias. Skin: Negative for color change and rash. Neurological: Negative for dizziness, seizures, syncope, facial asymmetry, speech difficulty, weakness, light-headedness, numbness and headaches. Hematological: Does not bruise/bleed easily. Psychiatric/Behavioral: Negative for dysphoric mood. Physical Examination: Vitals: Vitals: 09/24/22 1439 BP: 134/82 BP Location: Left arm Patient Position: Sitting BP Cuff Size: Adult Pulse: 81 Resp: 14 Weight: 157 lb (71.2 kg) Height: 5' 6 (1.676 m) Body mass index is 25.34 kg/m . Physical Exam Constitutional: Appearance: Normal appearance. HENT: Head: Normocephalic. Mouth/Throat: Pharynx: No oropharyngeal exudate. Eyes: General: No scleral icterus. Right eye: No discharge. Left eye: No discharge. Cardiovascular: Rate and Rhythm: Normal rate and regular rhythm. Heart sounds: No murmur heard. No gallop. Pulmonary: Effort: No respiratory distress. Abdominal: General: There is no distension. Tenderness: There is no abdominal tenderness. Musculoskeletal: General: Normal range of motion. Cervical back: Normal range of motion. Right lower leg: No edema. Left lower leg: No edema. Skin: General: Skin is warm and dry. Neurological: Mental Status: She is alert and oriented to person, place, and time. Psychiatric: Mood and Affect: Mood normal. Behavior: Behavior normal. Laboratory Tests: Lab Results Component Value Date WBC 6.4 07/08/2022 HGB 12.9 07/08/2022 HCT 38.2 07/08/2022 MCV 93.2 07/08/2022 PLT 235 07/08/2022 Lab Results Component Value Date GLUCOSE 127 (H) 07/08/2022 CALCIUM 8.8 07/08/2022 NA 140 07/08/2022 K 4.1 07/08/2022 CO2 25 07/08/2022 CL 104 07/08/2022 BUN 17 07/08/2022 CREATININE 0.84 07/08/2022 @LASTCMP@ Lab Results Component Value Date CHOL 145 02/27/2022 CHOL 195 10/29/2021 CHOL 189 07/03/2021 Lab Results Component Value Date TRIG 75 02/27/2022 TRIG 96 10/29/2021 TRIG 97 07/03/2021 Lab Results Component Value Date HDL 60 02/27/2022 HDL 57 10/29/2021 HDL 43 07/03/2021 No results found for: LDLCALC No results found for: BNP Cardiac Tests: Last Echo: 03/29/2018: SUMMARY: 1. Procedure narrative: Treadmill exercise testing was performed using the Yassine protocol. The patient exercised for 4 min 3 sec, to a maximal work rate of 5.5 mets. Exercise was terminated due to dyspnea. 2. Left ventricle: Systolic function is normal by the biplane method of disks. The estimated ejection fraction is 67%. 3. Stress: The patient experienced no chest pain during stress. Functional capacity is fair. 4. Stress ECG conclusions: The stress ECG is normal. Hurt scoring: exercise time of 4 min; maximum ST deviation of 0 mm; no angina; resulting score is 4. This score predicts a moderate risk of cardiac events. No stress induced ECG changes suggestive of ischemia. 5. Stress echo: There is no evidence for stress-induced ischemia. 6. Normal study after maximal exercise. Event Monitor 01/15/2018: SUMMARY: Thirty-day event monitor which demonstrates an episode of atrial fibrillation on 01/28/2018 which was associated with fluttering or skipped beats and heart rates between 120bpm and 160bpm. In addition, patient reported lightheadedness during sinus rhythm. This is an abnormal event monitor with diagnosis of atrial fibrillation, rapid ventricular rates as noted. Assessment and Plan: 1. PAF (paroxysmal atrial fibrillation) (HCC) Nonvalvular. Has had short episodes of afib over the past month or 2. Increase toprol XL to 50 mg po daily. C/w xarelto 2. Encounter for current long-term use of anticoagulants No recurrent bleeding. Tolerating Xarelto. - continue xarelto RTC in 2-3 months documented in this encounter [facility] [employer] 09-08-2022 Telephone encounter Note Rx loaded [facility] [employer] 09-08-2022 Miscellaneous Notes Rx loaded documented in this encounter [facility] [employer] 09-05-2022 Note Addended by: HARRIET SALDANA on: 09/05/2022 09:10 AM Modules accepted: Orders [facility] 09-05-2022 Note Addended by: HARRIET SALDANA on: 09/05/2022 09:10 AM Modules accepted: Orders [facility] 09-05-2022 Telephone encounter Note Rx loaded Last ov 02/27/22 Next ov 10/07/22 [facility] 09-05-2022 Miscellaneous Notes Addended by: HARRIET SALDANA on: 09/05/2022 09:10 AM Modules accepted: Orders Rx loaded Last ov 02/27/22 Next ov 10/07/22 Medication name: metFORMIN (GLUCOPHAGE) Medication dosage: 500mg tablet Monthly quantity needed: 30 How many day supply requestin days Medication route: oral (PO) Medication administration time(s): Take 2 tablets in the morning and 1 tablet in the evening If taking medication PRN, reason for taking medication: N/A If this is a controlled substance do you receive this or any other controlled medication from any other doctor or facility: No Ordering provider: Dr. Shore Date of last office visit: 02/27/22 Date of next office visit: 10/07/22 Date of last refill: (see medication tab): 03/19/22 Updated/Validated preferred pharmacy: Yes Patient instructed to contact the pharmacy prior to picking up the medication: Yes documented in this encounter [facility] 09-05-2022 Telephone encounter Note Medication name: metFORMIN (GLUCOPHAGE) Medication dosage: 500mg tablet Monthly quantity needed: 30 How many day supply requestin days Medication route: oral (PO) Medication administration time(s): Take 2 tablets in the morning and 1 tablet in the evening If taking medication PRN, reason for taking medication: N/A If this is a controlled substance do you receive this or any other controlled medication from any other doctor or facility: No Ordering provider: Dr. Shore Date of last office visit: 02/27/22 Date of next office visit: 10/07/22 Date of last refill: (see medication tab): 03/19/22 Updated/Validated preferred pharmacy: Yes Patient instructed to contact the pharmacy prior to picking up the medication: Yes [email or web address] 08-29-2022 Telephone encounter Note Placed call to patient. Was able to speak to patient. All concerns in message have been addressed. [email or web address] 08-29-2022 Miscellaneous Notes Placed call to patient. Was able to speak to patient. All concerns in message have been addressed. See if pt is willing to come in for a fasting blood sugar. Have her check with her monitor day she comes in. The blood sugar readings that we have done in the office have been acceptable for her age. S: Patient spoke with CAC nurse regarding blood sugar of 198 this morning. B: Onset of symptoms/concern began a while ago. A: Patient recently spoke to Dr. Shore about her blood sugars that have been running high lately. States Dr. Shore told her he might add another medication to her metformin. This morning, BS was 198. Has an appt on 10/[address] Shore. She would like to start on the additional medication before her appt. R: Please call patient back at when Rx is sent to the pharmacy or with further recommendations. Patient understands care advice. No further needs at this time. Patient instructed to call back with new or worsening symptoms. Reason for Disposition Caller wants to use a complementary or alternative medicine Protocols used: Medication Question [id number] documented in this encounter [email or web address] 08-29-2022 Telephone encounter Note See if pt is willing to come in for a fasting blood sugar. Have her check with her monitor day she comes in. The blood sugar readings that we have done in the office have been acceptable for her age. [employer] 08-29-2022 Telephone encounter Note S: Patient spoke with CAC nurse regarding blood sugar of 198 this morning. B: Onset of symptoms/concern began a while ago. A: Patient recently spoke to Dr. Shore about her blood sugars that have been running high lately. States Dr. Shore told her he might add another medication to her metformin. This morning, BS was 198. Has an appt on 10/[address] Shore. She would like to start on the additional medication before her appt. R: Please call patient back at when Rx is sent to the pharmacy or with further recommendations. Patient understands care advice. No further needs at this time. Patient instructed to call back with new or worsening symptoms. Reason for Disposition Caller wants to use a complementary or alternative medicine Protocols used: Medication Question [id number] [email or web address] 08-29-2022 Telephone encounter Note Rx loaded [email or web address] 08-29-2022 Miscellaneous Notes Rx loaded Ordering provider: Dr. Shore Date of last office visit: 02/27/22 Date of next office visit: 10/07/22 Updated/Validated preferred pharmacy: Yes Patient instructed to contact the pharmacy prior to picking up the medication: No (1) Medication name: metFORMIN (GLUCOPHAGE) Medication dosage: 500 mg tablet Monthly quantity needed: Take 2 tablets in the morning and 1 tablet in the evening How many day supply requestin days Medication route: oral (PO) Medication administration time(s): 2 times a day (BID) If taking medication PRN, reason for taking medication: N/A If this is a controlled substance do you receive this or any other controlled medication from any other doctor or facility: No Date of last refill (see medication tab): 12/26/21 (2) Medication name: atorvastatin (LIPITOR Medication dosage: 10 mg tablet Monthly quantity needed: 30 How many day supply requestin days Medication route: oral (PO) Medication administration time(s): daily If taking medication PRN, reason for taking medication: N/A If this is a controlled substance do you receive this or any other controlled medication from any other doctor or facility: No Date of last refill (see medication tab): 05/09/22 documented in this encounter [facility] 08-29-2022 Telephone encounter Note Ordering provider: Dr. Shroe Date of last office visit: 02/27/22 Date of next office visit: 10/07/22 Updated/Validated preferred pharmacy: Yes Patient instructed to contact the pharmacy prior to picking up the medication: No (1) Medication name: metFORMIN (GLUCOPHAGE) Medication dosage: 500 mg tablet Monthly quantity needed: Take 2 tablets in the morning and 1 tablet in the evening How many day supply requestin days Medication route: oral (PO) Medication administration time(s): 2 times a day (BID) If taking medication PRN, reason for taking medication: N/A If this is a controlled substance do you receive this or any other controlled medication from any other doctor or facility: No Date of last refill (see medication tab): 12/26/21 (2) Medication name: atorvastatin (LIPITOR Medication dosage: 10 mg tablet Monthly quantity needed: 30 How many day supply requestin days Medication route: oral (PO) Medication administration time(s): daily If taking medication PRN, reason for taking medication: N/A If this is a controlled substance do you receive this or any other controlled medication from any other doctor or facility: No Date of last refill (see medication tab): 05/09/22 [facility] 06-18-2021 Hospital Discharge instructions Libertad López DO - 06/18/2021 Please follow-up with your primary care provider in the next 1 to 2 days or your guest services lead and return to the ED for any new or concerning symptoms. The following attachments cannot be sent through Care Everywhere.Palpitations (Bermudian)Panic Attacks (Bermudian)[facility]: Evaluation note Diagnosis Anxiety attack- Primary Panic disorder without agoraphobia Palpitations documented in this encounter [facility] Work Phone: Evaluation note* Diagnosis Visit for screening mammogram Other screening mammogram documented in this encounter [facility] Work Phone: Evaluation note* Diagnosis PAF (paroxysmal atrial fibrillation) ([facility]) ([facility])- Primary Atrial fibrillation documented in this encounter [facility]* Diagnosis Anxiety attack- Primary Panic disorder without agoraphobia Hyperglycemia, drug-induced documented in this encounter [facility]* Diagnosis PAF (paroxysmal atrial fibrillation[facility] ([facility]) ([facility]) Atrial fibrillation documented in this encounter [facility]* Diagnosis Vaginal bleeding- Primary Other specified noninflammatory disorder of vagina Leiomyoma Other benign neoplasm of connective and other soft tissue of unspecified site documented in this encounter [facility]* Diagnosis Type 2 diabetes mellitus without complication, without long-term current use of insulin ([facility]) ([facility]) documented in this encounter [facility]* Diagnosis Essential (primary) hypertension Unspecified essential hypertension documented in this encounter [facility]* Diagnosis Type 2 diabetes mellitus without complication, without long-term current use of insulin ([facility]) ([facility]) documented in this encounter [facility]* Diagnosis PMB (postmenopausal bleeding)- Primary Postmenopausal bleeding Vaginal bleeding Other specified noninflammatory disorder of vagina Inguinal mass Abdominal or pelvic swelling, mass or lump, unspecified site documented in this encounter [facility] note* Diagnosis Right inguinal hernia- Primary Inguinal hernia without mention of obstruction or gangrene, unilateral or unspecified, (not specified as recurrent) [facility]* Diagnosis Hernia, inguinal, right- Primary Inguinal mass Abdominal or pelvic swelling, mass or lump, unspecified site [facility] Diagnosis Right inguinal hernia- Primary Inguinal hernia without mention of obstruction or gangrene, unilateral or unspecified, (not specified as recurrent) Right inguinal hernia- Primary Inguinal hernia without mention of obstruction or gangrene, unilateral or unspecified, (not specified as recurrent) Postmenopausal bleeding Right inguinal hernia Inguinal hernia without mention of obstruction or gangrene, unilateral or unspecified, (not specified as recurrent) Postmenopausal bleeding [facility]* Diagnosis Right inguinal hernia- Primary Inguinal hernia without mention of obstruction or gangrene, unilateral or unspecified, (not specified as recurrent) Right inguinal hernia Inguinal hernia without mention of obstruction or gangrene, unilateral or unspecified, (not specified as recurrent) Postmenopausal bleeding Hernia, inguinal, right Postmenopausal bleeding documented in this encounter [facility] note* Diagnosis Essential (primary) hypertension Unspecified essential hypertension [facility] Diagnosis Postoperative state- Primary Other postprocedural status [facility] Diagnosis Encounter for screening mammogram for malignant neoplasm of breast documented in this encounter [facility] note* Diagnosis Post-menopausal Asymptomatic postmenopausal status (age-related) (natural) documented in this encounter [facility] note* Diagnosis PAF (paroxysmal atrial fibrillation) (HCC)- Primary Atrial fibrillation Bruising Contusion of unspecified site [facility] noteNo assessment information availableWAdena [facility] Work Phone: Evaluation note* Diagnosis PAF (paroxysmal atrial fibrillation) (HCC)- Primary Atrial fibrillation Palpitations Mixed hyperlipidemia Other fatigue [facility]* Diagnosis Small bowel obstruction (HCC)- Primary Unspecified intestinal obstruction Small bowel obstruction (HCC) Unspecified intestinal obstruction COVID [facility]* Diagnosis PAF (paroxysmal atrial fibrillation) (HCC) Atrial fibrillation Other fatigue [facility] Diagnosis PAF (paroxysmal atrial fibrillation) (HCC) Atrial fibrillation documented in this encounter [facility] note* Diagnosis Type 2 diabetes mellitus without complication, without long-term current use of insulin ([facility]) (HCC) documented in this encounter [facility] note* Diagnosis Essential (primary) hypertension- Primary Unspecified essential hypertension PAF (paroxysmal atrial fibrillation) (HCC) Atrial fibrillation Chronic fatigue Other malaise and fatigue Encounter for current long-term use of anticoagulants [facility] Diagnosis Encounter for screening mammogram for malignant neoplasm of breast- Primary [facility] Diagnosis Pure hypercholesterolemia [facility] Diagnosis Pure hypercholesterolemia [facility]* Diagnosis Type 2 diabetes mellitus with other specified complication, without long-term current use of insulin ([facility])- Primary Essential (primary) hypertension Unspecified essential hypertension PAF (paroxysmal atrial fibrillation) (HCC) Atrial fibrillation Pure hypercholesterolemia THIERRY (generalized anxiety disorder) Generalized anxiety disorder History of small bowel obstruction Personal history of other diseases of digestive disease Anticoagulant long-term use Encounter for long-term (current) use of anticoagulants Dependent edema Edema Varicose veins of both lower extremities, unspecified whether complicated documented in this encounter [facility] note* Diagnosis PAF (paroxysmal atrial fibrillation) (HCC)- Primary Atrial fibrillation Essential (primary) hypertension Unspecified essential hypertension Mixed hyperlipidemia [facility] Diagnosis Anxiety attack Panic disorder without agoraphobia [facility] Diagnosis Anxiety attack Panic disorder without agoraphobia [facility] Diagnosis Type 2 diabetes mellitus without complication, without long-term current use of insulin ([facility]) (HCC)- Primary Essential (primary) hypertension Unspecified essential hypertension Post-menopausal Asymptomatic postmenopausal status (age-related) (natural) Type 2 diabetes mellitus with other specified complication, without long-term current use of insulin (HCC) Pure hypercholesterolemia PAF (paroxysmal atrial fibrillation) (HCC) Atrial fibrillation Encounter for current long-term use of anticoagulants Type 2 diabetes mellitus with other specified complication, without long-term current use of insulin (HCC)- Primary Routine general medical examination at health care facility Routine general medical examination at a health care facility Anxiety attack Panic disorder without agoraphobia Screening for colon cancer Special screening for malignant neoplasms, colon Essential (primary) hypertension Unspecified essential hypertension Anxiety attack Panic disorder without agoraphobia [facility] Diagnosis Type 2 diabetes mellitus without complication, without long-term current use of insulin (CMS/HCC) (HCC)- Primary Essential (primary) hypertension Unspecified essential hypertension Post-menopausal Asymptomatic postmenopausal status (age-related) (natural) Type 2 diabetes mellitus with other specified complication, without long-term current use of insulin (HCC) Pure hypercholesterolemia PAF (paroxysmal atrial fibrillation) (HCC) Atrial fibrillation Encounter for current long-term use of anticoagulants Type 2 diabetes mellitus with other specified complication, without long-term current use of insulin (HCC)- Primary Routine general medical examination at health care facility Routine general medical examination at a health care facility Anxiety attack Panic disorder without agoraphobia Screening for colon cancer Special screening for malignant neoplasms, colon Essential (primary) hypertension Unspecified essential hypertension Type 2 diabetes mellitus without complication, without long-term current use of insulin (CMS/HCC) (HCC) [facility] Diagnosis Type 2 diabetes mellitus without complication, without long-term current use of insulin (CMS/HCC) (HCC)- Primary Essential (primary) hypertension Unspecified essential hypertension Post-menopausal Asymptomatic postmenopausal status (age-related) (natural) Type 2 diabetes mellitus with other specified complication, without long-term current use of insulin (HCC) Pure hypercholesterolemia PAF (paroxysmal atrial fibrillation) (HCC) Atrial fibrillation Encounter for current long-term use of anticoagulants Type 2 diabetes mellitus with other specified complication, without long-term current use of insulin (HCC)- Primary Routine general medical examination at health care facility Routine general medical examination at a health care facility Anxiety attack Panic disorder without agoraphobia Screening for colon cancer Special screening for malignant neoplasms, colon Essential (primary) hypertension Unspecified essential hypertension Anxiety attack Panic disorder without agoraphobia [facility]* Diagnosis Type 2 diabetes mellitus without complication, without long-term current use of insulin (CMS/HCC) (HCC)- Primary Essential (primary) hypertension Unspecified essential hypertension Post-menopausal Asymptomatic postmenopausal status (age-related) (natural) Type 2 diabetes mellitus with other specified complication, without long-term current use of insulin (HCC) Pure hypercholesterolemia PAF (paroxysmal atrial fibrillation) (HCC) Atrial fibrillation Encounter for current long-term use of anticoagulants Type 2 diabetes mellitus with other specified complication, without long-term current use of insulin (HCC)- Primary Routine general medical examination at health care facility Routine general medical examination at a health care facility Anxiety attack Panic disorder without agoraphobia Screening for colon cancer Special screening for malignant neoplasms, colon Essential (primary) hypertension Unspecified essential hypertension Essential (primary) hypertension Unspecified essential hypertension [facility] Diagnosis Type 2 diabetes mellitus without complication, without long-term current use of insulin (CMS/HCC) (HCC)- Primary Anxiety attack Panic disorder without agoraphobia PAF (paroxysmal atrial fibrillation) (CMS/HCC) (HCC) Atrial fibrillation Chronic cystitis Other chronic cystitis documented in this encounter [facility]* Diagnosis PAF (paroxysmal atrial fibrillation) (CMS/HCC) (HCC) Atrial fibrillation documented in this encounter [facility]* Diagnosis Type 2 diabetes mellitus without complication, without long-term current use of insulin (CMS/HCC) (HCC)- Primary Essential (primary) hypertension Unspecified essential hypertension Post-menopausal Asymptomatic postmenopausal status (age-related) (natural) Type 2 diabetes mellitus with other specified complication, without long-term current use of insulin (HCC) Pure hypercholesterolemia PAF (paroxysmal atrial fibrillation) (HCC) Atrial fibrillation Encounter for current long-term use of anticoagulants Type 2 diabetes mellitus with other specified complication, without long-term current use of insulin (HCC)- Primary Routine general medical examination at health care facility Routine general medical examination at a health care facility Anxiety attack Panic disorder without agoraphobia Screening for colon cancer Special screening for malignant neoplasms, colon Essential (primary) hypertension Unspecified essential hypertension Essential (primary) hypertension- Primary Unspecified essential hypertension PAF (paroxysmal atrial fibrillation) (HCC) Atrial fibrillation documented in this encounter [facility]* Diagnosis Type 2 diabetes mellitus without complication, without long-term current use of insulin (CMS/HCC) (HCC)- Primary Essential (primary) hypertension Unspecified essential hypertension Post-menopausal Asymptomatic postmenopausal status (age-related) (natural) Type 2 diabetes mellitus with other specified complication, without long-term current use of insulin (HCC) Pure hypercholesterolemia PAF (paroxysmal atrial fibrillation) (HCC) Atrial fibrillation Encounter for current long-term use of anticoagulants Type 2 diabetes mellitus with other specified complication, without long-term current use of insulin (HCC)- Primary Routine general medical examination at health care facility Routine general medical examination at a health care facility Anxiety attack Panic disorder without agoraphobia Screening for colon cancer Special screening for malignant neoplasms, colon Essential (primary) hypertension Unspecified essential hypertension Anxiety attack Panic disorder without agoraphobia [facility] HealthEvaluation note* Diagnosis Type 2 diabetes mellitus without complication, without long-term current use of insulin (CMS/HCC) (HCC)- Primary Essential (primary) hypertension Unspecified essential hypertension Post-menopausal Asymptomatic postmenopausal status (age-related) (natural) Type 2 diabetes mellitus with other specified complication, without long-term current use of insulin (HCC) Pure hypercholesterolemia PAF (paroxysmal atrial fibrillation) (HCC) Atrial fibrillation Encounter for current long-term use of anticoagulants Type 2 diabetes mellitus with other specified complication, without long-term current use of insulin (HCC)- Primary Routine general medical examination at health care facility Routine general medical examination at a health care facility Anxiety attack Panic disorder without agoraphobia Screening for colon cancer Special screening for malignant neoplasms, colon Essential (primary) hypertension Unspecified essential hypertension Anxiety attack Panic disorder without agoraphobia [facility]* Diagnosis Type 2 diabetes mellitus without complication, without long-term current use of insulin (CMS/HCC) (HCC)- Primary Essential (primary) hypertension Unspecified essential hypertension Post-menopausal Asymptomatic postmenopausal status (age-related) (natural) Type 2 diabetes mellitus with other specified complication, without long-term current use of insulin (HCC) Pure hypercholesterolemia PAF (paroxysmal atrial fibrillation) (HCC) Atrial fibrillation Encounter for current long-term use of anticoagulants Type 2 diabetes mellitus with other specified complication, without long-term current use of insulin (HCC)- Primary Routine general medical examination at health care facility Routine general medical examination at a health care facility Anxiety attack Panic disorder without agoraphobia Screening for colon cancer Special screening for malignant neoplasms, colon Essential (primary) hypertension Unspecified essential hypertension Essential (primary) hypertension- Primary Unspecified essential hypertension PAF (paroxysmal atrial fibrillation) (HCC) Atrial fibrillation [facility] Diagnosis Type 2 diabetes mellitus without complication, without long-term current use of insulin (CMS/HCC) (HCC)- Primary Essential (primary) hypertension Unspecified essential hypertension Post-menopausal Asymptomatic postmenopausal status (age-related) (natural) Type 2 diabetes mellitus with other specified complication, without long-term current use of insulin (HCC) Pure hypercholesterolemia PAF (paroxysmal atrial fibrillation) (HCC) Atrial fibrillation Encounter for current long-term use of anticoagulants Type 2 diabetes mellitus with other specified complication, without long-term current use of insulin (HCC)- Primary Routine general medical examination at health care facility Routine general medical examination at a health care facility Anxiety attack Panic disorder without agoraphobia Screening for colon cancer Special screening for malignant neoplasms, colon Essential (primary) hypertension Unspecified essential hypertension Type 2 diabetes mellitus with other specified complication, without long-term current use of insulin (HCC)- Primary THIERRY (generalized anxiety disorder) Generalized anxiety disorder Anticoagulant long-term use Encounter for long-term (current) use of anticoagulants Recurrent UTI Urinary tract infection, site not specified Essential (primary) hypertension Unspecified essential hypertension PAF (paroxysmal atrial fibrillation) (HCC) Atrial fibrillation Pure hypercholesterolemia Onychomycosis Dermatophytosis of nail documented in this encounter [facility]* Diagnosis Type 2 diabetes mellitus without complication, without long-term current use of insulin (CMS/HCC) (HCC)- Primary Essential (primary) hypertension Unspecified essential hypertension Post-menopausal Asymptomatic postmenopausal status (age-related) (natural) Type 2 diabetes mellitus with other specified complication, without long-term current use of insulin (HCC) Pure hypercholesterolemia PAF (paroxysmal atrial fibrillation) (HCC) Atrial fibrillation Encounter for current long-term use of anticoagulants Type 2 diabetes mellitus with other specified complication, without long-term current use of insulin (HCC)- Primary Routine general medical examination at health care facility Routine general medical examination at a health care facility Anxiety attack Panic disorder without agoraphobia Screening for colon cancer Special screening for malignant neoplasms, colon Essential (primary) hypertension Unspecified essential hypertension Encounter for screening mammogram for malignant neoplasm of breast documented in this encounter [facility]* Diagnosis Type 2 diabetes mellitus without complication, without long-term current use of insulin (CMS/HCC) (HCC)- Primary Essential (primary) hypertension Unspecified essential hypertension Post-menopausal Asymptomatic postmenopausal status (age-related) (natural) Type 2 diabetes mellitus with other specified complication, without long-term current use of insulin (HCC) Pure hypercholesterolemia PAF (paroxysmal atrial fibrillation) (HCC) Atrial fibrillation Encounter for current long-term use of anticoagulants Type 2 diabetes mellitus with other specified complication, without long-term current use of insulin (HCC)- Primary Routine general medical examination at health care facility Routine general medical examination at a health care facility Anxiety attack Panic disorder without agoraphobia Screening for colon cancer Special screening for malignant neoplasms, colon Essential (primary) hypertension Unspecified essential hypertension PAF (paroxysmal atrial fibrillation) (HCC)- Primary Atrial fibrillation [facility]* Diagnosis Type 2 diabetes mellitus without complication, without long-term current use of insulin (CMS/HCC) (HCC)- Primary Essential (primary) hypertension Unspecified essential hypertension Post-menopausal Asymptomatic postmenopausal status (age-related) (natural) Type 2 diabetes mellitus with other specified complication, without long-term current use of insulin (HCC) Pure hypercholesterolemia PAF (paroxysmal atrial fibrillation) (HCC) Atrial fibrillation Encounter for current long-term use of anticoagulants Type 2 diabetes mellitus with other specified complication, without long-term current use of insulin (HCC)- Primary Routine general medical examination at health care facility Routine general medical examination at a health care facility Anxiety attack Panic disorder without agoraphobia Screening for colon cancer Special screening for malignant neoplasms, colon Essential (primary) hypertension Unspecified essential hypertension Type 2 diabetes mellitus without complication, without long-term current use of insulin (CMS/HCC) (HCC) documented in this encounter [facility] note* Diagnosis Type 2 diabetes mellitus without complication, without long-term current use of insulin (CMS/HCC) (HCC)- Primary Essential (primary) hypertension Unspecified essential hypertension Post-menopausal Asymptomatic postmenopausal status (age-related) (natural) Type 2 diabetes mellitus with other specified complication, without long-term current use of insulin (HCC) Pure hypercholesterolemia PAF (paroxysmal atrial fibrillation) (HCC) Atrial fibrillation Encounter for current long-term use of anticoagulants Type 2 diabetes mellitus with other specified complication, without long-term current use of insulin (HCC)- Primary Routine general medical examination at health care facility Routine general medical examination at a health care facility Anxiety attack Panic disorder without agoraphobia Screening for colon cancer Special screening for malignant neoplasms, colon Essential (primary) hypertension Unspecified essential hypertension PAF (paroxysmal atrial fibrillation) (HCC) Atrial fibrillation [facility] Diagnosis Type 2 diabetes mellitus without complication, without long-term current use of insulin (CMS/HCC) (HCC)- Primary Essential (primary) hypertension Unspecified essential hypertension Post-menopausal Asymptomatic postmenopausal status (age-related) (natural) Type 2 diabetes mellitus with other specified complication, without long-term current use of insulin (HCC) Pure hypercholesterolemia PAF (paroxysmal atrial fibrillation) (HCC) Atrial fibrillation Encounter for current long-term use of anticoagulants Type 2 diabetes mellitus with other specified complication, without long-term current use of insulin (HCC)- Primary Routine general medical examination at health care facility Routine general medical examination at a health care facility Anxiety attack Panic disorder without agoraphobia Screening for colon cancer Special screening for malignant neoplasms, colon Essential (primary) hypertension Unspecified essential hypertension Type 2 diabetes mellitus with other specified complication, without long-term current use of insulin (HCC)- Primary documented in [facility]* Diagnosis Type 2 diabetes mellitus without complication, without long-term current use of insulin (CMS/HCC) (HCC)- Primary Essential (primary) hypertension Unspecified essential hypertension Post-menopausal Asymptomatic postmenopausal status (age-related) (natural) Type 2 diabetes mellitus with other specified complication, without long-term current use of insulin (HCC) Pure hypercholesterolemia PAF (paroxysmal atrial fibrillation) (HCC) Atrial fibrillation Encounter for current long-term use of anticoagulants Type 2 diabetes mellitus with other specified complication, without long-term current use of insulin (HCC)- Primary Routine general medical examination at health care facility Routine general medical examination at a health care [facility] Anxiety attack Panic disorder without agoraphobia Screening for colon cancer Special screening for malignant neoplasms, colon Essential (primary) hypertension Unspecified essential hypertension Type 2 diabetes mellitus with other specified complication, without long-term current use of insulin (HCC)- Primary documented in this encounter [facility]* Diagnosis Type 2 diabetes mellitus without complication, without long-term current use of insulin (CMS/HCC) (HCC)- Primary Essential (primary) hypertension Unspecified essential hypertension Post-menopausal Asymptomatic postmenopausal status (age-related) (natural) Type 2 diabetes mellitus with other specified complication, without long-term current use of insulin (HCC) Pure hypercholesterolemia PAF (paroxysmal atrial fibrillation) (HCC) Atrial fibrillation Encounter for current long-term use of anticoagulants Type 2 diabetes mellitus with other specified complication, without long-term current use of insulin (HCC)- Primary Routine general medical examination at health care facility Routine general medical examination at a health care facility Anxiety attack Panic disorder without agoraphobia Screening for colon cancer Special screening for malignant neoplasms, colon Essential (primary) hypertension Unspecified essential hypertension Type 2 diabetes mellitus with other specified complication, without long-term current use of insulin (HCC)- Primary [facility] Diagnosis Type 2 diabetes mellitus without complication, without long-term current use of insulin (HCC)- Primary Essential (primary) hypertension Unspecified essential hypertension Post-menopausal Asymptomatic postmenopausal status (age-related) (natural) Type 2 diabetes mellitus with other specified complication, without long-term current use of insulin (HCC) Pure hypercholesterolemia PAF (paroxysmal atrial fibrillation) (HCC) Atrial fibrillation Encounter for current long-term use of anticoagulants Type 2 diabetes mellitus with other specified complication, without long-term current use of insulin (HCC)- Primary Routine general medical examination at [facility] care facility Routine general medical examination at a [facility] care [facility] Anxiety attack Panic disorder without agoraphobia Screening for colon cancer Special screening for malignant neoplasms, colon Essential (primary) hypertension Unspecified essential hypertension Type 2 diabetes mellitus with other specified complication, without long-term current use of insulin (HCC)- Primary [facility] Diagnosis Type 2 diabetes mellitus with other specified complication, without long-term current use of insulin (HCC) Essential (primary) hypertension Unspecified essential hypertension Post-menopausal Asymptomatic postmenopausal status (age-related) (natural) Pure hypercholesterolemia PAF (paroxysmal atrial fibrillation) (HCC) Atrial fibrillation Encounter for current long-term use of anticoagulants Type 2 diabetes mellitus with other specified complication, without long-term current use of insulin (HCC)- Primary Routine general medical examination at [facility] care facility Routine general medical examination at a health care facility Anxiety attack Panic disorder without agoraphobia Screening for colon cancer Special screening for malignant neoplasms, colon Essential (primary) hypertension Unspecified essential hypertension Pure hypercholesterolemia [facility] Diagnosis Type 2 diabetes mellitus with other specified complication, without long-term current use of insulin (HCC) Essential (primary) hypertension Unspecified essential hypertension Post-menopausal Asymptomatic postmenopausal status (age-related) (natural) Pure hypercholesterolemia PAF (paroxysmal atrial fibrillation) (HCC) Atrial fibrillation Encounter for current long-term use of anticoagulants Type 2 diabetes mellitus with other specified complication, without long-term current use of insulin (HCC)- Primary Routine general medical examination at [facility] care facility Routine general medical examination at a health care facility Anxiety attack Panic disorder without agoraphobia Screening for colon cancer Special screening for malignant neoplasms, colon Essential (primary) hypertension Unspecified essential hypertension Encounter for screening mammogram for malignant neoplasm of breast- Primary Encounter for screening mammogram for malignant neoplasm of breast documented in this encounter [facility] note* Diagnosis Type 2 diabetes mellitus with other specified complication, without long-term current use of insulin (HCC) Essential (primary) hypertension Unspecified essential hypertension Post-menopausal Asymptomatic postmenopausal status (age-related) (natural) Pure hypercholesterolemia PAF (paroxysmal atrial fibrillation) (HCC) Atrial fibrillation Encounter for current long-term use of anticoagulants Type 2 diabetes mellitus with other specified complication, without long-term current use of insulin (HCC)- Primary Routine general medical examination at health care facility Routine general medical examination at a health care facility Anxiety attack Panic disorder without agoraphobia Screening for colon cancer Special screening for malignant neoplasms, colon Essential (primary) hypertension Unspecified essential hypertension PAF (paroxysmal atrial fibrillation) (HCC)- Primary Atrial fibrillation Essential (primary) hypertension Unspecified essential hypertension [facility] ([facility] Consultation (Routine) - Pending Review Specialty Diagnoses / Procedures Referred By Contac t Referred To Contact Obstetrics and Gynecology Diagnoses Vaginal bleeding Procedures [place] OFFICE/OUTPATIENT NEW HIGH MDM 60-74 MINUTES Sahra Fallon PA-C [address] [place] [address] [facility] Seo Expert [address] [facility] [address] [place] [address] Referral ID Status Reason Start Date Expiration Date Visits Requested Visits Authorized [id number] Pending Review Specialty Services Required 3 06/15/2024 1 1 [facility] (narrative)* Consultation (Routine) - Authorized Specialty Diagnoses / Procedures Referred By Contac t Referred To Contact General Surgery Diagnoses Inguinal mass Procedures [place] OFFICE/OUTPATIENT NEW HIGH MDM 60-74 MINUTES Derrell Sims MD [address] [place] [address] [facility] Gen Surg [address] [facility] [address] [place] [address] Referral ID Status Reason Start Date Expiration Date Visits Requested Visits Authorized [id number] Authorized Specialty Services Required 07/28/2023 07/27/2024 1 1 [facility] for visit Narrative* Cardiology (Routine) - Closed Specialty Diagnoses / Procedures Referred By Contac t Referred To Contact Cardiology Diagnoses PAF (paroxysmal atrial fibrillation) (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 [address] [facility], [address] [place] [address] Phone: tel: fax: Referral ID Status Reason Start Date Expiration Date Visits Re quested Visits Authorized [id number] Closed 10/14/2024 10/09/2025 1 1 [facility] Summary Purpose Family History No Family History Records Found Relationship Condition Age at Onset Recorded Date/T citlaly Not Specified Diabetes mellitus Unknown Atrial fibrillation Unknown Advance Directives No Advanced Directives Records FoundDocuments on File Type Date Recorded 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 ACP-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 Latest Code Status on File Code Status Date Activated Date Inactivated Comments Full Code 08/18/2023 10:34 AM Code Status History Code Status Date Activated Date Inactivated Comments Full Code 08/18/2023 10:20 AM 08/18/2023 10:24 AM Latest Code Status on File Code Status Date Activated Date Inactivated Comments Full Code 08/18/2023 10:34 AM 08/18/2023 7:29 PM Code Status History Code Status Date Activated Date Inactivated Comments Full Code 08/18/2023 10:20 AM 08/18/2023 10:24 AM Latest Code Status on File Code Status Date Activated Date Inactivated Comments Full Code 08/18/2023 10:34 AM 08/18/2023 7:29 PM Advance Directive Response Recorded Date/ Time Living Will Yes June 30 12:13am 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, 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 12:13am Latest Code Status on File Code Status Date Activated Date Inactivated Comments Full Code 12/09/2023 3:00 AM 12/12/2023 3:06 PM Code Status History Code Status Date Activated Date Inactivated Comments Full Code 08/18/2023 10:34 AM 08/18/2023 7:29 PM Full Code 08/18/2023 10:20 AM 08/18/2023 10:24 AM Latest Code Status on File Code Status Date Activated Date Inactivated Comments Full Code 12/09/2023 3:00 AM 12/12/2023 3:06 PM Code Status History Code Status Date Activated Date Inactivated Comments Full Code 08/18/2023 10:34 AM 08/18/2023 7:29 PM Full Code 08/18/2023 10:20 AM 08/18/2023 10:24 AM Date Activated Date Inactivated Comments 12/09/2023 3:00 AM 12/12/2023 3:06 PM Date Activated Date Inactivated Comments 08/18/2023 10:34 AM 08/18/2023 7:29 PM Date Activated Date Inactivated Comments 08/18/2023 10:20 AM 08/18/2023 10:24 AM Date Activated Date Inactivated Comments 12/09/2023 3:00 AM 12/12/2023 3:06 PM Date Activated Date Inactivated Comments 08/18/2023 10:34 AM 08/18/2023 7:29 PM Date Activated Date Inactivated Comments 08/18/2023 10:20 AM 08/18/2023 10:24 AM Chief Complaint and Reason for Visit Chief Complaint CONCERN FOR UTI Reason for Referral Specialty Diagnoses / Procedures Referred By Contac t Referred To Contact Cardiology Diagnoses PAF (paroxysmal atrial fibrillation) (HCC) Other fatigue Procedures Transthoracic echocardiogram (TTE) complete with contrast, bubble, strain, and 3D PRN [place] ECHO TTHRC R-T 2D W/WOM-MODE COMPL SPEC&COLR D [place] TTE W OR WO FOL WAYNE HAMMOND Joseph, MD [address] [place] [address] [address] [place] [address] Referral ID Status Reason Start Date Expiration Date V isits Requested Visits Authorized [id number] Pending Review 12/01/2023 11/30/2024 1 1 Specialty Diagnoses / Procedures Referred By Contac t Referred To Contact Cardiology Diagnoses PAF (paroxysmal atrial fibrillation) (HCC) Procedures Cardiac holter monitor (8- 15 days) [place] EXTERNAL ECG REC>48HR<7D REVIEW & INTERPRETATION [place] EXTERNAL ECG REC>48HR<7D RECORDING [place] EXTERNAL ECG REC>7D<15D RECORDING [place] EXTERNAL ECG REC>7D<15D REVIEW & INTERPRETATION Reynaldo Roman MD [address] [place] [address] [address] [place] [address] Referral ID Status Reason Start Date Expiration Date V isits Requested Visits Authorized [id number] Pending Review 12/01/2023 11/25/2024 1 1 Referral ID Status Reason Start Date Expiration Date Visits Re quested Visits Authorized [id number] Closed 12/01/2023 11/30/2024 1 1 Referral ID Status Reason Start Date Expiration Date Visits Re quested Visits Authorized [id number] Closed 12/03/2023 02/02/2024 1 1 Additional Source Comments INFORMATION SOURCE (unrecogn ized section and content) DATE CREATED AUTHOR 09/12/2018 [facility] DATE CREATED AUTHOR AUTHOR'S ORGANIZ ATION 01/03/2022 [facility] DATE CREATED AUTHOR AUTHOR'S ORGANIZ ATION 01/17/2025 [facility] DATE CREATED AUTHOR AUTHOR'S ORGANIZ ATION [facility]20[facility] Source Comments (unrecognize d section and content) In the event this informatio n is protected by the Federal Confidentiality of Alcohol and Drug Abuse Patient Records regulations: The Federal rules restrict any use of the information to criminally investigate or prosecute any alcohol or drug abuse patient.[facility] Reason for Visit (unrecogniz ed section and content) Reason Comments Anxiety Reason Comments Med Refill Reason Comments Follow-up Reason Comments Blood Sugar Problem Reason Onset Date Comments Hyperglycemia 03/19/2023 Reason Comments 1 Month Follow Up Reason Comments Rectal Bleeding Pt states rectal ble eding since last night. Pt reports Xarelto for Afib. Reason Onset Date Comments Vaginal Bleeding 06/17/2023 Appointment 06/17/2023 Reason Onset Date Comments Med Refill 06/18/2023 Reason Onset Date Comments Med Refill 06/23/2023 Reason Onset Date Comments Medication Problem 06/25/2023 Reason Comments New Patient Patient present to [facility] uterine fibroids Specialty Diagnoses / Procedures Referred By Contac t Referred To Contact Obstetrics and Gynecology Diagnoses Vaginal bleeding Procedures [place] OFFICE/OUTPATIENT NEW HIGH MDM 60-74 MINUTES Sahra Fallon PA-C [address] [place] [address] [facility] Br Seo Expert [address] [facility] [address] [place] [address] Referral ID Status Reason Start Date Expiration Date V isits Requested Visits Authorized [id number] Closed Specialty Services Required 06/16/2023 06/15/2024 1 1 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 Specialty Diagnoses / Procedures Referred By Contac t Referred To Contact General Surgery Diagnoses Inguinal mass Procedures [place] OFFICE/OUTPATIENT [facility] MDM 60-74 MINUTES Derrell Sims MD [address] [place] [address] [facility] Gen Surg [address] [facility] [address] [place] [address] Referral ID Status Reason Start Date Expiration Date V isits Requested Visits Authorized [id number] Closed Specialty Services Required 07/28/2023 07/27/2024 1 1 Reason Onset Date Comments surgery scheduling 08/04/2023 Scheduled at [facility] Reason Onset Date Comments Cardiac Clearance 08/04/2023 Specialty Diagnoses / Procedures Referred By Contac t Referred To Contact Diagnoses Right inguinal hernia Postmenopausal bleeding Right inguinal hernia [K40.90] Procedures NJ HYSTEROSCOPY BX ENDOMETRIUM&/POLYPC W/WO D&C NJ LAPAROSCOPY SURG RPR INITIAL INGUINAL HERNIA HYSTEROSCOPY, DILATION AND CURETTAGE / ROBOTIC RIGHT INGUINAL HERNIA REPAIR LAPAROSCOPY REPAIR INGUINAL HERNIA Derrell Sims MD [address] [place] [id number] Referral ID Status Reason Start Date Expiration Date Visits Re quested Visits Authorized [id number] 08/04/2023 1 1 Reason Onset Date Comments Med Refill 08/20/2023 Reason Onset Date Comments Post-op Problem 08/22/2023 Reason Onset Date Comments Post-op Problem 08/25/2023 Reason Onset Date Comments Post-op Problem 08/23/2023 Reason Comments Follow-up Soreness where herni a was Reason Onset Date Comments other 10/01/2023 Released 3 resul t messages to Patient Reason Comments Follow-up fatigue Reason Onset Date Comments OTHER 11/30/2023 Reason Comments Vomiting Abdominal Pain Specialty Diagnoses / Procedures Referred By Contac t Referred To Contact Diagnoses Small bowel obstruction (HCC) Procedures .. Garth Chung MD [address] [place] [address] [facility] Emergency Dept [address] [place] [address] Referral ID Status Reason Start Date Expiration Date Visits Re quested Visits Authorized [id number] 1 1 Specialty Diagnoses / Procedures Referred By Contac t Referred To Contact Cardiology Diagnoses PAF (paroxysmal atrial fibrillation) (HCC) Other fatigue Procedures Transthoracic echocardiogram (TTE) complete with contrast, bubble, strain, and 3D PRN NJ ECHO TTHRC R-T 2D W/WOM-MODE COMPL SPEC&COLR D NJ TTE W OR WO WAYNE MOON Joseph, MD [address] [facility] [address] [place] [address] Referral ID Status Reason Start Date Expiration Date Visits Re quested Visits Authorized [id number] Closed 12/01/2023 11/30/2024 1 1 Specialty Diagnoses / Procedures Referred By Contac t Referred To Contact Cardiology Diagnoses PAF (paroxysmal atrial fibrillation) (HCC) Procedures Cardiac holter monitor (8- 15 days) NJ EXTERNAL ECG REC>48HR<7D REVIEW & INTERPRETATION NJ EXTERNAL ECG REC>48HR<7D RECORDING NJ EXTERNAL ECG REC>7D<15D RECORDING [place] EXTERNAL ECG REC>7D<15D REVIEW & INTERPRETATION Reynaldo Roman MD [address] [place] [address] [address] [place] [address] Referral ID Status Reason Start Date Expiration Date Visits Re quested Visits Authorized [id number] Closed 12/03/2023 02/02/2024 1 1 Reason Onset Date Comments Med Refill 01/13/2024 Reason Onset Date Comments Appointment 02/11/2024 Reason Onset Date Comments Diarrhea 12/21/2023 Reason Onset Date Comments Med Refill 03/28/2024 Reason Onset Date Comments Med Refill 04/26/2024 Reason Comments Other [place] - small bowel ob struction Flu Vaccine Patient has agreed t o receive influenza vaccine in the office today. Reason Comments 3 Month Follow Up Atrial Fibrillation Reason Onset Date Comments Med Refill 06/06/2024 Reason Onset Date Comments Med Refill 06/24/2024 metFORMIN (Gluco phage) 500 MG tablet Reason Onset Date Comments Other 06/06/2024 A Fib Reason Onset Date Comments Med Refill 07/07/2024 Reason Onset Date Comments Med Refill 07/18/2024 Reason Onset Date Comments Med Refill 07/27/2024 Reason Onset Date Comments Med Refill 08/29/2022 Reason Onset Date Comments Blood Sugar Problem 08/29/2022 Reason Onset Date Comments Med Refill 09/05/2022 Reason Onset Date Comments Med Refill 09/08/2022 Reason Comments Medication Check Reason Comments 1 Year Follow-up Rapid Heart Rate Reason Onset Date Comments Med Refill 10/01/2022 Results 10/01/2022 Reason Comments Follow-up ED visit follow up Reason Onset Date Comments Med Refill 09/13/2024 Reason Onset Date Comments Orders 09/19/2024 Reason Comments Follow-up Med check Reason Onset Date Comments Atrial Fibrillation 10/10/2024 Reason Onset Date Comments Atrial Fibrillation 10/10/2024 Reason Onset Date Comments Med Refill 10/21/2024 Reason Onset Date Comments Other 10/27/2024 Reason Onset Date Comments Other 11/11/2024 A-fib RVR on [place] nt monitor Reason Onset Date Comments Med Refill 11/17/2024 Reason Onset Date Comments Other 11/22/2024 Elevated heart r ate on her event monitor. Scheduled Active and Recently Administ ered Medications (unrecognized section and content) Medication Order 06/16/2021 06/17/2021 06/18/2021 LORazepam (ATIVAN) tablet 1 mg (COMPLETED) 1 mg, Oral, ONCE, On Thu06/18/21 at 1342, For 1 dose 1401 (Given - Provid er: Lupe Brooks RN) Scheduled Medication Order 08/16/2023 08/17/2023 08/18/2023 acetaminophen (Tylenol) tablet 1,000 mg (COMPLETED) 1,000 mg, Oral, Once, On Thu08/18/23 at 1045, For 1 dose, Preprocedure, Maximum dose of acetaminophen is 4000 mg from all sources in 24 hours. Do not administer if patient has taken tylenol <4 hours earlier. Do not give if contraindicated ie. patient has active liver disease or cirrhosis. 1121 (Given - Provid er: Ashanti Todd RN) ceFAZolin in dextrose 4% (Ancef) IVPB 2,000 mg (COMPLETED) 2,000 mg, IntraVENous, Administer over 30 Minutes, Cuff Presser to O.R., On Thu08/18/23 at 1045, For 1 dose, Preprocedure, Administer within 1 hour prior to incision. Recommend to repeat in 3-4 hours after initial dose if still intra-op. premix bag, Suspected Indication (Select all that apply): Surgical Prophylaxis 1445 (Given - Provid er: Leo Schwarz CRNA) famotidine (Pepcid) tablet 20 mg (COMPLETED) 20 mg, Oral, Once, On Thu08/18/23 at 1045, For 1 dose, Preprocedure 1121 (Given - Provid er: Ashanti Todd RN) Insulin Lispro (Humalog) injection 4 Units (COMPLETED) 4 Units, SubCUTAneous, Once, On Thu08/18/23 at 1600, For 1 dose, Recovery (only) 1601 (Given - Provid er: Loly Montana RN - Comment: glucometer 210 -dr pappas ordered this dose) sodium chloride 0.9% (NS) flush 10 mL 10 mL, IntraVENous, Every 12 hours scheduled (2 times per day), First dose on Thu08/18/23 at 1045, Preprocedure 1045 (Canceled Entry - Provider: Automatic Discharge Provider - Comment: Automatically canceled at discontinue of medication order) sodium chloride 0.9% (NS) flush 5-40 mL 5-40 mL, IntraVENous, Every 12 hours, First dose on Thu08/18/23 at 1045, Preprocedure, For Line Patency: Peripheral IV = 5 mL; Midline or Central Line = 10 mL/lumen. If following IV push medication, administer flush at same rate as the IV push. Flush volume is determined by type of infusion therapy being given. For non-viscous solutions use: Peripheral IV = 5 mL Midline or Central Line = 10 mL/lumen For viscous solutions (i.e. blood components, parenteral nutrition, contrast media, or after obtaining blood sample) use: Peripheral IV = 10 mL Midline or Central Line = 20 mL/lumen 1045 (Canceled Entry - Provider: Automatic Discharge Provider - Comment: Automatically canceled at discontinue of medication order) Continuous Medication Order 08/16/2023 08/17/2023 08/18/2023 lactated Ringer's (LR) infusion 50 mL/hr, IntraVENous, Continuous, Starting on Thu08/18/23 at 1045, Preprocedure, Upon admission to sameday - please start iv if patient does not have iv access. Use 500ml NS for patients on dialysis. 1419 (New Bag - Prov ider: Leo Schwarz CRNA)1429 (Continued by Anesthesia - Provider: Leo Schwarz CRNA)1435 (Rate/Dose Change - Provider: Leo Schwarz CRNA) PRN Medication Order 08/16/2023 08/17/2023 08/18/2023 ALPRAZolam (Xanax) disintegrating tablet 0.25 mg (COMPLETED) 0.25 mg, Oral, PRN, anxiety, Starting on Thu08/18/23 at 1034, For 1 dose, Preprocedure, Using dry hands, place tablet on top of tongue and allow to disintegrate. Administration with water is not necessary. 1146 (Given - Provid er: Ashanti Todd RN) dextrose 5 % infusion 100 mL/hr, IntraVENous, PRN, Blood sugar less than 70mg/dL, Starting on Thu08/18/23 at 1034, Preprocedure, Start infusion following administration of dextrose 50% or glucagon. dextrose 50 % solution 12.5 g 12.5 g, IntraVENous, PRN, low blood sugar, Blood glucose less than 70 mg/dL and patient NOT ALERT or NPO., Starting on Thu08/18/23 at 1034, Preprocedure, If patient does not respond within 5 minutes, repeat dose x1. Start D5W at 100 mL/hour until ordering provider can be reached. Repeat blood glucose in 15 minutes. If blood glucose is less than 70 mg/dL, repeat treatment and recheck blood glucose in 15 minutes x2. If using Glucostabilizer, dose as instructed per system. glucagon (human recombinant) injection 1 mg 1 mg, IntraMUSCular, PRN, low blood sugar, Blood glucose less than 70 mg/dL and patient NOT ALERT or NPO and does not have IV access., Starting on Thu08/18/23 at 1034, Preprocedure, After administration, attempt intravenous access and start D5W at 100 mL/hr. Repeat blood glucose in 15 minutes x2 and notify provider. glucose oral gel 15 g 15 g, Oral, As needed, low blood sugar, Starting on Thu08/18/23 at 1034, Preprocedure, If blood glucose less than 50 mg/dL and patient ALERT and NOT NPO, give 2 tubes glucose gel. If blood glucose less than 70 mg/dL and patient ALERT and NOT NPO, give 1 tube glucose gel. Repeat blood glucose in 15 minutes. If blood glucose is less than 70 mg/dL, repeat treatment and recheck blood glucose in 15 minutes x2 and notify provider. HYDROmorphone (Dilaudid) injection 0.5 mg (CANCELED) 0.5 mg, IntraVENous, Every 5 min PRN, severe pain (7-10), Starting on Thu08/18/23 at 1559, For 4 doses, Recovery (only), For Phase I. If Phase II oral narcotics have been administered in the last 60 minutes, do not administer IV narcotics unless specifically approved by provider. 1604 (Given - Provid er: Loly Montana RN)1626 (Given - Provider: Loly Montana RN) Insulin Lispro (Humalog) injection 0-12 Units 0-12 Units, SubCUTAneous, PRN, high blood sugar, Surgery patient, Starting on Thu08/18/23 at 1034, For 3 doses, Preprocedure, Corrective Low Dose Algorithm Glucose: Dose: 70-180 No Insulin 181-240 4 Unit 241-300 6 Units 301-350 8 Units 351-400 10 Units Over 400 12 Units and notify physician oxyCODONE (Roxicodone) immediate release tablet 5 mg (COMPLETED)(Linked Group 1) 5 mg, Oral, PRN, moderate pain (4-6), Starting on Thu08/18/23 at 1559, For 1 dose, Recovery (only), PHASE II 1639 (Given - Provid er: Loly Montana RN) sodium chloride 0.9 % infusion 5-250 mL/hr, IntraVENous, PRN, if patient receiving piggyback infusions and maintenance fluids are not ordered OR KVO fluids to protect IV site / prevent frequent line interruptions / long duration, Starting on Thu08/18/23 at 1034, Preprocedure, For piggyback infusion, administer at same rate as piggyback for a total of 25 mL. Enter 25 mL into dose field and piggyback rate into rate field of order. If piggyback is infusing at a rate less than 100 mL/hr, enter 25 mL into dose field and 100 mL/hr into rate field of order. For KVO fluids, enter rate of 20 mL/hr or less into rate field of order. sodium chloride 0.9 % infusion 5-250 mL/hr, IntraVENous, PRN, if patient receiving piggyback infusions and maintenance fluids are not ordered OR KVO fluids to protect IV site / prevent frequent line interruptions/ long duration, Starting on Thu08/18/23 at 1034, Preprocedure, For piggyback infusion, administer at same rate as piggyback for a total of 25 mL. Enter 25 mL into dose field and piggyback rate into rate field of order. If piggyback is infusing at a rate less than 100 mL/hr, enter 25 mL into dose field and 100 mL/hr into rate field of order. For KVO fluids, enter rate of 20 mL/hr or less into rate field of order. sodium chloride 0.9 % irrigation solution (CANCELED) As needed, Starting on Thu08/18/23 at 1513, Intraprocedure 1513 (Given - Provid er: Derrell Sims MD) sodium chloride 0.9% (NS) flush 10 mL 10 mL, IntraVENous, PRN, line care, Starting on Thu08/18/23 at 1034, Preprocedure, After every IV line use sodium chloride 0.9% (NS) flush 5-40 mL 5-40 mL, IntraVENous, PRN, line care, After every IV line use, Starting on Thu08/18/23 at 1034, Preprocedure, For Line Patency: Peripheral IV = 5 mL; Midline or Central Line = 10 mL/lumen. If following IV push medication, administer flush at same rate as the IV push. Flush volume is determined by type of infusion therapy being given. For non-viscous solutions use: Peripheral IV = 5 mL Midline or Central Line = 10 mL/lumen For viscous solutions (i.e. blood components, parenteral nutrition, contrast media, or after obtaining blood sample) use: Peripheral IV = 10 mL Midline or Central Line = 20 mL/lumen sterile water irrigation solution (CANCELED) As needed, Starting on Thu08/18/23 at 1514, Intraprocedure 1514 (Given - Provid er: Derrell Sims MD) Linked Groups Order Group 1: oxyCODONE (Roxicodone) immediate release tablet 5 mg (COMPLETED)Jump to med 5 mg, Oral, PRN, moderate pain (4-6), Starting on Thu08/18/23 at 1559, For 1 dose, Recovery (only), PHASE II Or oxyCODONE (Roxicodone) immediate release tablet 10 mg (COMPLETED) 10 mg, Oral, PRN, severe pain (7-10), Starting on Thu08/18/23 at 1559, For 1 dose, Recovery (only), PHASE II Scheduled Medication Order 12/10/2023 12/11/2023 12/12/2023 atorvastatin (Lipitor) tablet 10 mg 10 mg, Oral, Nightly, First dose on Thu12/11/23 at 2100 2020 (Given - Provider: Cain Bone RN) enoxaparin (Lovenox) syringe 40 mg 40 mg, SubCUTAneous, Every 24 hours scheduled (Daily), First dose on Thu12/09/23 at 0900, Indication of Use: Prophylaxis-DVT/PE, Indications: Prophylaxis of Venous Thromboembolism, On hold since Thu12/09/2023 at 0659 until manually unheld 0900 (Dose Auto Held - Provider: Garth Chung MD) 0900 (Dose Auto Held - Provider: Garth Chung MD) 0900 (Dose Auto Held - Provider: Garth Chung MD)1501 (Unheld by provider - Provider: Automatic Discharge Provider) Insulin Lispro (Humalog) injection 0-6 Units(Linked Group 1) 0-6 Units, SubCUTAneous, 3 times daily with meals, First dose on Thu12/09/23 at 1200, Low Dose Correction Algorithm Glucose: Dose: LESS than 139 No Insulin 140-199 1 Unit 200-249 2 Units 250-299 3 Units 300-349 4 Units 350-400 5 Units Above 400 6 Units 0800 (Not Given - Provider: Lucy Olivo RN - Reason: Order parameters not met)1308 (Given - Provider: Lucy Olivo RN)1700 (Given - Provider: Lucy Olivo RN) 0941 (Given - Provider: Lucy Olivo RN)1200 (Not Given - Provider: Lucy Olivo RN - Reason: Order parameters not met)1700 (Not Given - Provider: Lucy Olivo RN - Reason: Order parameters not met) 0800 (Not Given - Provider: Nikole Garcia RN - Reason: Order parameters not met)1200 (Not Given - Provider: Nikole Garcia RN - Reason: Other - Comment: pt will take metformin at home) Insulin Lispro (Humalog) injection 0-6 Units(Linked Group 1) 0-6 Units, SubCUTAneous, Nightly, First dose on Thu12/09/23 at 2100, If continuous tube feedings/TPN/NPO, give correction dose based on result, no reduction in dose. If eating or bolus tube feeding: Low Dose Correction Algorithm Glucose: Dose: LESS than 139 No Insulin 140-199 1 Unit 200-249 2 Units 250-299 3 Units 300-349 4 Units 350-400 5 Units Above 400 6 Units 2100 (Not Given - Provider: Claudia Sarabia RN - Reason: Contraindicated - Comment: 122) 2020 (Given - Provider: Cain Bone RN) lisinopril tablet 5 mg 5 mg, Oral, Daily, First dose on Thu12/11/23 at 1445 1653 (Given - Provider: Lucy Olivo RN) 0839 (Given - Provider: Nikole Garcia RN) metoprolol succinate XL (Toprol-XL) 24 hr tablet 50 mg 50 mg, Oral, Daily, First dose on Thu12/11/23 at 1445, Do not crush or chew. 1653 (Given - Provider: Lucy Olivo RN) 0839 (Given - Provider: Nikole Garcia RN) potassium chloride CR (Klor-Con M20) ER tablet 40 mEq (CANCELED) 40 mEq, Oral, 2 times daily, First dose on Thu12/11/23 at 1230, For 3 doses, Best given with food and plenty of water to minimize gastric irritation. Do not crush or chew. 1316 (Given - Provider: Lucy Olivo RN)2020 (Given - Provider: Cain Bone RN) 0900 (Canceled Entry - Provider: Nikole Garcia RN) rivaroxaban (Xarelto) tablet 20 mg 20 mg, Oral, Daily with evening meal, First dose on Thu12/11/23 at 1800, Anticoagulant! Best administered with food or immediately before tube feedings. If ordered via NG or G-tube route, crush and mix with 50 mL water; give within 4 hours of mixing. 181 (Given - Provider: Lucy Olivo RN) Continuous Medication Order 12/10/2023 12/11/2023 12/12/2023 lactated Ringer's infusion (CANCELED) 150 mL/hr, IntraVENous, Continuous, Starting on Thu12/09/23 at 0750 1417 (New Bag - Provider: Lucy Olivo RN)1846 (Rate/Dose Verify - Provider: Lucy Olivo RN)2048 (New Bag - Provider: Claudia Sarabia RN) 0041 (Rate/Dose Verify - Provider: Claudia Sarabia RN)0600 (New Bag - Provider: Claudia Sarabia RN)1100 (Stopped - Provider: Lucy Olivo RN) PRN Medication Order 12/10/2023 12/11/2023 12/12/2023 acetaminophen (Tylenol) suppository 650 mg(Linked Group 2) 650 mg, Rectal, Every 6 hours PRN, mild pain (1-3), fever, For temp greater than 100.4 F (38 C), Starting on Thu12/09/23 at 0253, Administer if oral route cannot be used. Maximum dose of acetaminophen is 4000 mg from all sources in 24 hours. 1014 (See Alternative - Provider: Lucy Olivo RN) acetaminophen (Tylenol) tablet 650 mg(Linked Group 2) 650 mg, Oral, Every 6 hours PRN, mild pain (1-3), fever, For temp greater than 100.4 F (38 C), Starting on Thu12/09/23 at 0253, Maximum dose of acetaminophen is 4000 mg from all sources in 24 hours. 1014 (Given - Provider: Lucy Olivo RN) ALPRAZolam (Xanax) tablet 0.25 mg 0.25 mg, Oral, Nightly PRN, anxiety, Starting on Thu12/11/23 at 1431 dextrose 5 % infusion 100 mL/hr, IntraVENous, PRN, Blood sugar less than 70mg/dL, Starting on Thu12/09/23 at 1106, Start infusion following administration of dextrose 50% or glucagon. dextrose 50 % solution 12.5 g 12.5 g, IntraVENous, PRN, low blood sugar, Blood glucose less than 70 mg/dL and patient NOT ALERT or NPO., Starting on Thu12/09/23 at 1106, If patient does not respond within 5 minutes, repeat dose x1. Start D5W at 100 mL/hour until ordering provider can be reached. Repeat blood glucose in 15 minutes. If blood glucose is less than 70 mg/dL, repeat treatment and recheck blood glucose in 15 minutes x2. If using Glucostabilizer, dose as instructed per system. famotidine (Pepcid) tablet 20 mg 20 mg, Oral, Nightly PRN, heartburn, Starting on Thu12/11/23 at 1432 fluticasone (Flonase) nasal spray 1 spray 1 spray, Each Nostril, Daily PRN, allergies, Starting on Thu12/11/23 at 1432, Shake gently. Before first use, prime pump (press 6 times until fine spray appears). After use, clean tip and replace cap. glucagon (human recombinant) injection 1 mg 1 mg, IntraMUSCular, PRN, low blood sugar, Blood glucose less than 70 mg/dL and patient NOT ALERT or NPO and does not have IV access., Starting on Thu12/09/23 at 1106, After administration, attempt intravenous access and start D5W at 100 mL/hr. Repeat blood glucose in 15 minutes x2 and notify provider. glucose oral gel 15 g 15 g, Oral, As needed, low blood sugar, Starting on Thu12/09/23 at 1106, If blood glucose less than 50 mg/dL and patient ALERT and NOT NPO, give 2 tubes glucose gel. If blood glucose less than 70 mg/dL and patient ALERT and NOT NPO, give 1 tube glucose gel. Repeat blood glucose in 15 minutes. If blood glucose is less than 70 mg/dL, repeat treatment and recheck blood glucose in 15 minutes x2 and notify provider. hydrALAZINE (Apresoline) injection 5 mg 5 mg, IntraVENous, Every 4 hours PRN, high blood pressure, sbp greater than 160, Starting on Thu12/09/23 at 0250 LORazepam (Ativan) injection 0.5 mg 0.5 mg, IntraVENous, Every 6 hours PRN, anxiety, Starting on Thu12/09/23 at 0249, For IV doses dilute dose with 1ml NS. 2057 (Given - Provider: Claudia Sarabia RN) 1014 (Given - Provider: Lucy Olivo, RN) metoprolol tartrate (Lopressor) injection 5 mg 5 mg, IntraVENous, Every 6 hours PRN, tachycardia, pulse greater than 110, Starting on Thu12/09/23 at 1104 morphine injection 4 mg 4 mg, IntraVENous, Every 3 hours PRN, severe pain (7-10), moderate pain (4-6), Starting on Thu12/09/23 at 0659, If oral and IV narcotics ordered, use oral first and only use IV if oral is ineffective or cannot take oral. Do Not give oral and IV within 1 hour of each other unless specifically ordered. 0434 (Given - Provider: Claudia Sarabia RN)0852 (Given - Provider: Lucy lOivo, RN)2100 (Given - Provider: Claudia Sarabia RN) 0554 (Given - Provider: Claudia Sarabia, RN) naloxone (Narcan) injection 0.4 mg 0.4 mg, IntraVENous, Every 5 min PRN, opioid reversal, respiratory depression, Starting on Thu12/09/23 at 0705, +++ For RR <10, pinpoint pupils, over sedation for opioid reversal - MUST notify cardiac rehabilitation specialist provider immediately after first dose, may give IM or SQ if no IV access +++ ondansetron (Zofran) injection 4 mg(Linked Group 3) 4 mg, IntraVENous, Every 6 hours PRN, nausea, vomiting, Starting on Thu12/09/23 at 0253, 1st Line. Give IV if patient is unable to take orally. If inadequate response within 60 minutes, proceed to next-line agent or contact provider if no further options ordered. ondansetron ODT (Zofran-ODT) disintegrating tablet 4 mg(Linked Group 3) 4 mg, Oral, Every 8 hours PRN, nausea, vomiting, Starting on Thu12/09/23 at 0253, 1st Line. If inadequate response within 60 minutes, proceed to next-line agent or contact provider if no further options ordered. Patient should allow tablet to dissolve on tongue. Do not remove from blister pack until just before administering. phenol (Chloraseptic) 1.4 % mouth/throat spray 1 spray 1 spray, Mouth/Throat, Every 2 hour PRN, sore throat, Starting on Thu12/11/23 at 1214, Instruct patient to spit out after 15 seconds. Linked Groups Order Group 1: Insulin Lispro (Humalog) injection 0-6 UnitsJump to med 0-6 Units, SubCUTAneous, 3 times daily with meals, First dose on Thu12/09/23 at 1200, Low Dose Correction Algorithm Glucose: Dose: LESS than 139 No Insulin 140- 199 1 Unit 200-249 2 Units 250-299 3 Units 300-349 4 Units 350-400 5 Units Above 400 6 Units And Insulin Lispro (Humalog) injection 0-6 UnitsJump to med 0-6 Units, SubCUTAneous, Nightly, First dose on Thu12/09/23 at 2100, If continuous tube feedings/TPN/NPO, give correction dose based on result, no reduction in dose. If eating or bolus tube feeding: Low Dose Correction Algorithm Glucose: Dose: LESS than 139 No Insulin 140-199 1 Unit 200-249 2 Units 250-299 3 Units 300-349 4 Units 350-400 5 Units Above 400 6 Units Group 2: acetaminophen (Tylenol) tablet 650 mgJump to med 650 mg, Oral, Every 6 hours PRN, mild pain (1-3), fever, For temp greater than 100.4 F (38 C), Starting on Thu12/09/23 at 0253, Maximum dose of acetaminophen is 4000 mg from all sources in 24 hours. Or acetaminophen (Tylenol) suppository 650 mgJump to med 650 mg, Rectal, Every 6 hours PRN, mild pain (1-3), fever, For temp greater than 100.4 F (38 C), Starting on Thu12/09/23 at 0253, Administer if oral route cannot be used. Maximum dose of acetaminophen is 4000 mg from all sources in 24 hours. Group 3: ondansetron ODT (Zofran-ODT) disintegrating tablet 4 mgJump to med 4 mg, Oral, Every 8 hours PRN, nausea, vomiting, Starting on Thu12/09/23 at 025, 1st Line. If inadequate response within 60 minutes, proceed to next-line agent or contact provider if no further options ordered. Patient should allow tablet to dissolve on tongue. Do not remove from blister pack until just before administering. Or ondansetron (Zofran) injection 4 mgJump to med 4 mg, IntraVENous, Every 6 hours PRN, nausea, vomiting, Starting on Thu12/09/23 at 0253, 1st Line. Give IV if patient is unable to take orally. If inadequate response within 60 minutes, proceed to next-line agent or contact provider if no further options ordered. Care Teams (unrecognized sec tion and content) Mill Tender Second Operator Relationship Specialty Start Date End Date Baldev Shore DO [address] [place] [address] PCP - General Family Medicine 03/08/15 Mill Tender Second Operator Relationship Specialty Start Date End Date Baldev Shore DO [address], [place] [id number] PCP - General 08/24/18 Mill Tender Second Operator Relationship Specialty Start Date End Date Baldev Shore DO [address], [place] [id number] PCP - General 08/24/18 Mill Tender Second Operator Relationship Specialty Start Date End Date Baldev Shore DO [address] [place] [address] PCP - General 08/24/18 Mill Tender Second Operator Relationship Specialty Start Date End Date Baldev Shore DO [address] [place] [address] PCP - General 08/24/18 Mill Tender Second Operator Relationship Specialty Start Date End Date Baldev Shore DO [address] [place] [address] PCP - General 08/24/18 Mill Tender Second Operator Relationship Specialty Start Date End Date Baldev Shore DO [address] [place] [address] PCP - General 08/24/18 Mill Tender Second Operator Relationship Specialty Start Date End Date Baldev Shore DO [address] [place] [address] PCP - General 08/24/18 Mill Tender Second Operator Relationship Specialty Start Date End Date Baldev Shore DO [address] [place] [address] PCP - General 08/24/18 Mill Tender Second Operator Relationship Specialty Start Date End Date Baldev Shore DO [address] [place] [address] PCP - General 08/24/18 Mill Tender Second Operator Relationship Specialty Start Date End Date Baldev Shore DO [address] [place] [address] PCP - General 08/24/18 Mill Tender Second Operator Relationship Specialty Start Date End Date Baldev Shore DO [address], [place] [id number] PCP - General 08/24/18 Mill Tender Second Operator Relationship Specialty Start Date End Date Baldev Shore DO [address] [place] [address] PCP - General 08/24/18 Mill Tender Second Operator Relationship Specialty Start Date End Date Baldev Shore DO [address], [place] [id number] PCP - General 08/24/18 08/03/23 Armando Franklin, [address] [place] [phone] PCP - General Family Medicine 08/04/23 Mill Tender Second Operator Relationship Specialty Start Date End Date Armando Franklin, [address] [place] [phone] PCP - General Family Medicine 08/04/23 Mill Tender Second Operator Relationship Specialty Start Date End Date Armando Franklin, [address] [place] [phone] PCP - General Family Medicine 08/04/23 Mill Tender Second Operator Relationship Specialty Start Date End Date Armando Franklin, [address] [place] [phone] PCP - General Family Medicine 08/04/23 Mill Tender Second Operator Relationship Specialty Start Date End Date Armando Franklin DO [address] [place] [phone] PCP - General Family Medicine 08/04/23 Mill Tender Second Operator Relationship Specialty Start Date End Date Armando Franklin DO [address] [place] [phone] PCP - General Family Medicine 08/04/23 Mill Tender Second Operator Relationship Specialty Start Date End Date Armando Franklin DO [address] [place] [phone] PCP - General Family Medicine 08/04/23 Mill Tender Second Operator Relationship Specialty Start Date End Date Armando Franklin DO [address] [place] [phone] PCP - General Family Medicine 08/04/23 Mill Tender Second Operator Relationship Specialty Start Date End Date Armando Franklin DO [address] [place] [phone] PCP - General Family Medicine 08/04/23 Mill Tender Second Operator Relationship Specialty Start Date End Date Armando Franklin DO [address] [place] [phone] PCP - General Family Medicine 08/04/23 Team Status: Active Member Role Status Dates Dr. Baldev Shore , DO Primary Care Provider Active Team Status: Inactive Member Role Status Dates Dr. Baldev Shore DO Primary Care Provider, Referrin g Provider Active Ruel MAN, PA Attending Provider Active Team Status: Inactive Member Role Status Dates Dr. Baldev Shore , DO Primary Care Provider Active Ruel MAN, PA Attending Provider Active Mill Tender Second Operator Relationship Specialty Start Date End Date Armando Franklin, [address] [place] [phone] PCP - General Family Medicine 08/04/23 Mill Tender Second Operator Relationship Specialty Start Date End Date Armando Franklin BoDO [address] [place] [phone] PCP - General Family Medicine 08/04/23 Mill Tender Second Operator Relationship Specialty Start Date End Date Armando Franklin DO [address] [place] [phone] PCP - General Family Medicine 08/04/23 Mill Tender Second Operator Relationship Specialty Start Date End Date Armando Franklin DO [address] [place] [phone] PCP - General Family Medicine 08/04/23 Mill Tender Second Operator Relationship Specialty Start Date End Date Armando Franklin DO [address] [place] [phone] PCP - General Family Medicine 08/04/23 Mill Tender Second Operator Relationship Specialty Start Date End Date Baldev Shore DO [address] [place] [id number] PCP - General 08/24/18 08/03/23 Armando Franklin DO [address] [place] [phone] PCP - General Family Medicine 08/04/23 Mill Tender Second Operator Relationship Specialty Start Date End Date Armando Franklin DO [address] [place] [phone] PCP - General Family Medicine 08/04/23 Mill Tender Second Operator Relationship Specialty Start Date End Date AliceArmando chandler [address] [place] [phone] PCP - General Family Medicine 08/04/23 Mill Tender Second Operator Relationship Specialty Start Date End Date IonArmando, DO [address] [place] [phone] PCP - General Family Medicine 08/04/23 Mill Tender Second Operator Relationship Specialty Start Date End Date Ion Armando Soriano, [address] [place] [phone] PCP - General Family Medicine 08/04/23 Mill Tender Second Operator Relationship Specialty Start Date End Date Ion Armando SorianoDO [address] [place] [phone] PCP - General Family Medicine 08/04/23 Mill Tender Second Operator Relationship Specialty Start Date End Date IonArmando, [address] [place] [phone] PCP - General Family Medicine 08/04/23 Mill Tender Second Operator Relationship Specialty Start Date End Date IonArmando, [address] [place] [phone] PCP - General Family Medicine 08/04/23 Mill Tender Second Operator Relationship Specialty Start Date End Date Baldev Shore, [address] [place] [address] PCP - General 08/24/18 Mill Tender Second Operator Relationship Specialty Start Date End Date NavaliliaBaldev coronado, DO [address] [place] [address] PCP - General 08/24/18 Mill Tender Second Operator Relationship Specialty Start Date End Date FaridaBaldev coronado, DO [address] [place] [address] PCP - General 08/24/18 Mill Tender Second Operator Relationship Specialty Start Date End Date FaridaBaldev coronado DO [address] [place] [address] PCP - General 08/24/18 Mill Tender Second Operator Relationship Specialty Start Date End Date NavaliliaBaldev coronado, [address] [place] [address] PCP - General 08/24/18 Mill Tender Second Operator Relationship Specialty Start Date End Date FaridaBaldev coronado DO [address] [place] [address] PCP - General 08/24/18 Mill Tender Second Operator Relationship Specialty Start Date End Date Armando Franklin DO [address] [place] [address] PCP - General Family Medicine 08/04/23 Mill Tender Second Operator Relationship Specialty Start Date End Date Armando Franklin, [address] [place] [address] PCP - General Family Medicine 08/04/23 Mill Tender Second Operator Relationship Specialty Start Date End Date Armando Franklin, [address] [place] [phone] PCP - General Family Medicine 08/04/23 Mill Tender Second Operator Relationship Specialty Start Date End Date Ion Armando Soriano, DO [address] [place] [phone] PCP - General Family Medicine 08/04/23 Mill Tender Second Operator Relationship Specialty Start Date End Date Ion Armando Soriano, DO [address] [place] [phone] PCP - General Family Medicine 08/04/23 Mill Tender Second Operator Relationship Specialty Start Date End Date Ion Armando Soriano, DO [address] [place] [address] PCP - General Family Medicine 08/04/23 Mill Tender Second Operator Relationship Specialty Start Date End Date Ion Armando Soriano, DO [address] [place] [phone] PCP - General Family Medicine 08/04/23 Mill Tender Second Operator Relationship Specialty Start Date End Date Ion Armando Soriano, DO [address] [place] [phone] PCP - General Family Medicine 08/04/23 Mill Tender Second Operator Relationship Specialty Start Date End Date Ion Armando Soriano, DO [address] [place] [phone] PCP - General Family Medicine 08/04/23 Mill Tender Second Operator Relationship Specialty Start Date End Date Ion Armando Soriano, DO [address] [place] [phone] PCP - General Family Medicine 08/04/23 Mill Tender Second Operator Relationship Specialty Start Date End Date Armando Franklin DO [address] [place] [address] PCP - General Family Medicine 08/04/23 Mill Tender Second Operator Relationship Specialty Start Date End Date Armando Franklin DO [address] [place] [address] PCP - General Family Medicine 08/04/23 Goals (unrecognized section and content) Goals may be documented in a n alternate section FOR RECORDS PERTAINING TO PATIENTS WHO ARE OR HAVE BEEN ENROLLED IN A CHEMICAL DEPENDENCY/SUBSTANCEABUSE PROGRAM, SOME INFORMATION MAY BE OMITTED. This clinical summary was aggregated from multiple sources. Caution should be exercised in using it in the provision of clinical care. This summary normalizes information from multiple sources, and as a consequence, information in this document may materially change the coding, format and clinical context of patient data. In addition, data may be omitted in some cases. CLINICAL DECISIONS SHOULD BE BASED ON THE PRIMARY CLINICAL RECORDS. [employer] provides no warranty or guarantee of the accuracy or completeness of information in this document.
--- NOTE | 2025-02-02 08:00 | PRE.ANES_ITS ---
ASA Classification* ASA Classification ASA Classification: 2 Assessment & Plan Anesthesia* Anesthesia Assessment Anesthesia Assessment: Discussed sedation and/or anesthesia options, risks, benefits, and alternatives with patient/parents/legal guardian/POA. Questions invited. The patient/parents/legal guardian/POA seems to understand and agrees to proceed with anesthesia plan. Reviewed the physical assessment, medical history, allergy history and patient home medications list prior to surgery/procedure/anesthetic and documented any changes. Performed airway and anesthesia risk assessments. Anesthesia Type Anesthesia Type: MAC Anesthesia Focused Assessment* Temperature: 98 F Pulse Rate: 57 Blood Pressure: 137/67 Respiratory Rate: 16 Pulse Ox: 100 Airway Assessment Mouth opens: >3 cm Mallampati Score: II Labs Anesthesia Preop lab: CBC WBC 7.6 K/mm3 (4.4-11.0) 06/30/20 02:46 06/30/20 RBC 4.11 M/mm3 (4.2-5.4) L 06/30/20 02:46 06/30/20 Hgb 12.6 g/dL (12.0-15.0) 06/30/20 02:46 06/30/20 Hct 38.7 % (37-47) 06/30/20 02:46 06/30/20 Plt Count 244 K/mm3 (150-450) 06/30/20 02:46 06/30/20 CHEMISTRY Potassium 3.6 mmol/L (3.5-5.1) 06/30/20 02:46 06/30/20 Sodium 145 mmol/L (136-145) 06/30/20 02:46 06/30/20 Magnesium 1.9 mg/dL (1.6-2.6) 06/30/20 00:07 06/30/20 BUN 19 mg/dL (7-18) H 06/30/20 02:46 06/30/20 Creatinine 0.91 mg/dL (0.55-1.02) 06/30/20 02:46 06/30/20 Glucose 112 mg/dL (74-106) H 06/30/20 02:46 06/30/20 POC Glucose 84 mg/dL (70-110) 06/30/20 13:32 06/30/20 TSH 6.14 uIU/mL (0.358-3.74) H 06/30/20 02:46 03/12 COAG Pre-Assessment Diagnosis/Proposed Procedure Planned Operative Procedure(s): CYSTO URETHRAL DILATION Anesthesia History Anesthesia History - microbiological analyst: Anesthesia History - microbiological analyst Hx Hospitalization No 01/19/25 13:24 Any Problems With Anesthesia No 01/19/25 13:24 Cholinesterase deficiency No 01/19/25 13:24 You/Your Family Experience No 01/19/25 13:24 fever (hyperthermia) with Relationship Recent Exposure to Contagious No 02/02/25 07:52 Disease Does patient have nerve No 01/19/25 13:24 stimulator Patient instructed to have device shut off --Does patient have Pacemaker or ICD? When Was Last Pacemaker Check QUESTION #4 FULL TEXT: You/Your Family Experience fever (hyperthermia) with Anesthesia Last Oral Intake Last Oral intake: Last Oral Intake NPO since Meds taken in AM with sips of water? Meds patient instructed to take am of surgery PONV PONV - microbiological analyst: PONV - microbiological analyst Female Yes 01/19/25 13:24 HX of Motion Sickness No 01/19/25 13:24 HX of N/V After Surgery No 01/19/25 13:24 Non-Smoker Yes 01/19/25 13:24 Duration of Surgery greater Yes 01/19/25 13:24 than 60 minutes Number of Risk Factors 3 01/19/25 13:24 PONV Score Moderate Risk 01/19/25 13:24 Height & Weight Height & Weight: Anesthesia: Height & Weight Height 5 ft 5 in 02/02/25 07:52 Weight: 71.5 kg 02/02/25 07:52 Body Mass Index (BMI) 26.2 02/02/25 07:52 Respiratory Assessment Respiratory Assessment - microbiological analyst: Respiratory Tract Infection Hx - microbiological analyst Hx Respiratory Tract Infection No 01/19/25 13:24 STOP Sleep Apnea STOP Sleep Apnea - microbiological analyst: STOP Sleep Apnea - microbiological analyst Hx Hypertension Yes: CONTROLLED WITH MEDS 01/19/25 13:24 FOR MOST PART PER PATIENT Hx Sleep Apnea No 01/19/25 13:24 CPAP BIPAP Do you snore loudly (louder No 01/19/25 13:24 than talking or can be heard Do you often feel tired/ No 01/19/25 13:24 fatigued/ sleepy during daytime? Has anyone observed you stop No 01/19/25 13:24 breathing during sleep? STOP Results Negative 01/19/25 13:24 QUESTION #5 FULL TEXT : Do you snore loudly (louder than talking or can be heard through closed doors)? Tobacco Use History Tobacco Use History - microbiological analyst: Tobacco Use History - microbiological analyst Tobacco Use Smoking Status Never smoker 01/19/25 13:24 Hx Tobacco Use No 01/19/25 13:24 Years Smoking Packs Smoked per Day Smoking Cessation Date was within the last 15 years Hx Smoking Cessation Date Hx Smoking Cessation Counseling Hematologic Medial History Hematologic Hx - microbiological analyst: Hematologic Medical Hx - cardiac specialist Hx of Blood Transfusion Yes 01/19/25 13:24 Hx of Transfusion in last 3 No 01/19/25 13:24 Months Date of Last Transfusion (if within last 3 months) Ever experience any problems No 01/19/25 13:24 with transfusion(s)? Specify any problems Hx of Preganancy in last 3 No 01/19/25 13:24 Months Nurse Filling Out Transfusion DSCHRIBER 01/19/25 13:24 & Questions: Date: 01/19/25 01/19/25 13:24 Time: 13:27 01/19/25 13:24 Patient unable to answer at this time (ie. confused, unrespo /Reproduction History /Reproductive History - microbiological analyst: /Reproductive Hx- microbiological analyst Hx Now No 01/19/25 13:24 Gestational Age (in weeks): EDC: Hx Hx Para Hx Section SAB No 01/19/25 13:24 Active Medications Active Medications: Current Medications Generic Name Dose Route Start Last Admin Trade Name Freq PRN Reason Stop Dose Admin Cefazolin Sodium 2 gm/ Sodium 110 mls @ 150 mls/hr 02/02/25 08:45 Chloride IV 02/02/25 09:28 INTRAOP ONE Lactated Ringer's 1,000 mls @ 15 mls/hr 02/02/25 07:30 IV .Q48H GALI PFSH Medical History Wears glasses Wears partial dentures Post-menopausal Diabetes Arthritis High cholesterol Dietary restriction History of diverticulitis Heartburn Non-smoker History of pain when walking History of edema History of echocardiogram Cardiology follow-up encounter Hypertension History of atrial fibrillation Home Medications ?Medication ?Instructions ?Recorded ?Last Taken ?Type rivaroxaban 20 mg tablet 20 mg PO DAILY blood thinner 06/29/20 02/01/25 History ascorbic acid (vitamin C) 500 mg 500 mg PO DAILY 11/16 Unknown History tablet cephalexin 250 mg capsule 250 mg PO QHS 11/17/23 Unkno wn History cyanocobalamin (vitamin B-12) 500 500 mcg PO DAILY Unknown History mcg tablet metoprolol succinate 50 mg 100 mg PO QDAY 11/17/2308/17 06:00 History tablet,extended release 24 hr atorvastatin 10 mg tablet 10 mg PO DAILY 01/19/25 Unkn own History cholecalciferol (vitamin D3) 25 25 mcg PO DAILY Unknown History mcg (1,000 unit) capsule (Vitamin D3) lisinopril 20 mg tablet 20 mg PO DAILY 01/19/25 Unkn own History metformin 500 mg tablet 1,000 mg PO BID 01/19/25 Unk nown History methenamine hippurate 1 gram tablet 1 g PO BID 5 Unknown History Allergy/AdvReac Type Severity Reaction Status Date / Time codeine Allergy Rash Verified 02/02/25 07:50 Family History Other A-fib Diabetes Surgical History Hx of left cataract extraction Hx of breast biopsy History of Hx of colonoscopy History of hernia repair History of dilatation and curettage Social History Smoking Status: Never smoker alcohol intake: never Review of Systems (Anesthesia) ROS Narrative System reviewed and no additional complaints, except as documented.
[2025-02-02] MEDS: Lactated Ringers 1,000 ML 15 ML IV (08:16)
[2025-02-02 08:23] LABS: Hemoglobin 12.3 g/dL (12.0-15.0); Mean Corp Hgb Conc 33.2 g/dL (32-36); Mean Corpuscular Hgb 30.7 pg (27.0-32.0); Mean Corpuscular Volume 92.3 fL (81-99); Mean Platelet Vol. 10.6 fl (6.2-12.0); Platelet Count 224 K/mm3 (150-450); RBC Distribution Width CV 13.2 % (11.6-14.6); Red Blood Count 4.01 M/mm3 (4.2-5.4); White Blood Count 6.3 K/mm3 (4.4-11.0)
--- NOTE | 2025-02-02 08:36 | PCM.OPRPT ---
Operative Report (Standard) Operative Information Date of Procedure: 02/02/25 Pre-Operative Diagnosis: Urinary tract infection, urethral stenosis in female Post-Operative Diagnosis: Same Surgery/Procedure Performed: Urethral dilation, cystoscopy travel guide: No Type of Anesthesia: MAC RN Documented Start/Stop Times: Operation Date: 02/02/25 08:45 Case Time Into Pre-Op 02/02/25 07:27 Out of Pre-Op 02/02/25 09:00 Anesthesia Start 02/02/25 09:01 Into Room 02/02/25 09:01 Procedure Start 02/02/25 09:07 Procedure End 02/02/25 09:13 Anesthesia End 02/02/25 09:16 Out of Room 02/02/25 09:16 Into Recovery 02/02/25 09:20 Procedure Start Time: 09:07 Procedure Stop Time: 09:13 Select all DRAINS/GRAFTS/IMPLANTS that apply: None Estimated Blood Loss: <5cc Specimen collected: No Description of surgery: The patient is a 79-year-old female with recurrent urinary tract infections who was scheduled to undergo a cystoscopy in the office but the urethra was too narrow. She is now presenting for urethral dilation and cystoscopy under anesthesia. Informed consent was obtained. The patient was taken to the operating room and placed on the operating room table. Anesthesia monitored the head, neck, airway, IV access and vital signs throughout the case. Once anesthesia was administered, she was placed into dorsolithotomy position and was prepped and draped in usual sterile fashion. The urethra was dilated from 12 [place] to 26 [place] with female sounds without issue or concern. The cystoscope easily passed through the urethra under direct visualization into the urinary bladder. The bladder mucosa was visualized in its entirety revealing no evidence of mass, erythema, ulceration or foreign body. The bladder was then emptied and the cystoscope was removed. A lighted jet was injected into her urinary bladder. She was awakened and taken to the recovery room in good condition. There were no complications during this procedure. Surgical Findings: Distal urethral stricture, no evidence of mass, erythema or ulceration Complications Complications: No Admit VTE Documentation VTE Present on Admission: Yes VTE Mechan Device Prophylaxis: SCD's VTE Pharm Prophylaxis ordered?: No Reason prophylaxis not ordered: Treatment Not Indicated
[2025-02-02 08:40] LABS: Bedside Glucose 148 mg/dL (74-106)
--- NOTE | 2025-02-02 08:43 | EX.PCM.DISCH ---
Discharge Instructions Diet Discharge Diet: No restrictions Activity Discharge Activity: Return to Normal Activity Dressing / Incision Call your doctor if you observe: Fever of 101 or Higher, Inability to urinate and Inability to have a bowel movement Follow Up Care Please Follow Up With: Susan Best MD When: The office will call to make follow-up arrangements Test Results: Test results from this visit will be discussed in further detail at your follow-up appointment, if applicable. Discharge Plan Admission Attending Provider: Susan Best Primary Care Provider: Baldev Shore Instructions Print Language: Romanian Discharge Orders/Prescriptions Prescriptions: Continued metoprolol succinate 50 mg tablet extended release 24 hr 100 mg PO QDAY ascorbic acid (vitamin C) 500 mg tablet 500 mg PO DAILY cyanocobalamin (vitamin B-12) 500 mcg tablet 500 mcg PO DAILY rivaroxaban 20 MG tablet 20 mg PO DAILY metformin 500 mg tablet 1,000 mg PO BID atorvastatin 10 mg tablet 10 mg PO DAILY lisinopril 20 mg tablet 20 mg PO DAILY methenamine hippurate 1 gram tablet 1 g PO BID cholecalciferol (vitamin D3) [Vitamin D3] 25 mcg (1,000 unit) capsule 25 mcg PO DAILY Discontinued cephalexin 250 mg capsule 250 mg PO QHS Referrals / Follow Up: Baldev Shore DO [Primary Care Provider] - Disposition Disposition (needs filled in before D/C Order can be placed): Home, Self Care
[2025-02-02] MEDS: Cefazolin 2 GM in 0.9% Normal Saline (100mL Bag) 100 ML IV (09:01)
[2025-02-02 09:03] LABS: Anion Gap 12 (5-15); BUN 16 mg/dL (4-19); BUN/Creat Ratio 18.2 RATIO (10-20); Calcium,Total 9.1 mg/dL (7.6-11.0); Carbon Dioxide 22.9 mmol/L (21.0-32.0); Chloride 107 mmol/L (98-108); Creatinine, Serum 0.86 mg/dL (0.70-1.20); EST Glomerular Filtration Rate 69 (>60); Estimated Creatinine Clearance 53.45 ml/min (50-250); Glucose 156 mg/dL (70-99); Potassium 3.8 mmol/L (3.3-5.1); Sodium Level 142 mmol/L (133-145)
[2025-02-02] MEDS: Lidocaine Jelly 2% 20 ML Syringe (URO-JET) 1 APPLIC (09:08)
--- NOTE | 2025-02-02 09:15 | PCM.POST.ANE ---
Anesthesia: Postop Eval I Current Vital Signs Temperature: 97 F Pulse Rate: 72 Blood Pressure: 100/49 Respiratory Rate: 16 Pulse Ox: 85 Oxygen Delivery Method: Room Air Assessment Airway patent: Yes Spontaneous unlabored respirations: Yes Mental status: Awake and Calm nausea: No Vomiting: No Anesthesia Complication: No Fluid Hydration Crystalloid volume administer (ml): 500 Total IV fluid infused: 500 Progress Note Anesthesia document: Postop Eval 1 completed: Yes
--- NOTE | 2025-02-02 09:23 | POSTOPAN2_ITS ---
Anesthesia Postop Eval I Sum Postop Eval Completion status Anesthesia document: Postop Eval 1 completed: Yes Anesthesia Postop Eval I Summary Anesthesia Postop Eval I Summary: Anesthesia Postop Eval I: Assessment Summary Airway patent Yes 02/02/25 09:17 [email or web address] Spontaneous unlabored Yes 02/02/25 09:17 [email or web address] respirations Mental status Awake,Calm 02/02/25 09:17 [email or web address] nausea No 02/02/25 09:17 [email or web address] Vomiting No 02/02/25 09:17 [email or web address] Anesthesia Postop Eval I: Fluid Summary Crystalloid volume administer 500 02/02/25 09:17 QUALITY [email or web address].MDOT (ml) Colloids volume administered ( ml) Blood Product volume administered (ml) Total IV fluid infused 500 02/02/25 09:17 [email or web address] Anesthesia Postop Eval I: Summary Notes Anesthesia Complication No 02/02/25 09:17 [email or web address] [email or web address] Anesthesia Complication Comment: Post-operative progress note Anesthesia: Postop Eval II Evaluation Mental status: Awake and Calm Pain Level: 0 nausea: No Vomiting: No Complications Anesthesia Complication: No
--- NOTE | 2025-02-02 09:23 | PCM.POSTANE2 ---
Anesthesia Postop Eval I Sum Postop Eval Completion status Anesthesia document: Postop Eval 1 completed: Yes Anesthesia Postop Eval I Summary Anesthesia Postop Eval I Summary: Anesthesia Postop Eval I: Assessment Summary Airway patent Yes 02/02/25 09:17 [email or web address] Spontaneous unlabored Yes 02/02/25 09:17 [email or web address] respirations Mental status Awake,Calm 02/02/25 09:17 [email or web address] nausea No 02/02/25 09:17 [email or web address] Vomiting No 02/02/25 09:17 [email or web address] Anesthesia Postop Eval I: Fluid Summary Crystalloid volume administer 500 02/02/25 09:17 [email or web address] (ml) Colloids volume administered ( ml) Blood Product volume administered (ml) Total IV fluid infused 500 02/02/25 09:17 [email or web address] Anesthesia Postop Eval I: Summary Notes Anesthesia Complication No 02/02/25 09:17 [email or web address] Anesthesia Complication Comment: Post-operative progress note Anesthesia: Postop Eval II Evaluation Mental status: Awake and Calm Pain Level: 0 nausea: No Vomiting: No Complications Anesthesia Complication: No
== END 2025-02-02 10:31 | disposition home or self-care (01) ==
LOC: SDC 07:23 → AC 07:26
PROVIDERS: PCP Family Medicine; Referring Provider Urology; Visit Provider Urology
PROC: 0T7D8ZZ Dilation of Urethra, Via Natural or Artificial Opening Endoscopic (ICD-10-PCS; CPT 52281; principal; 2025-02-02 08:35)
DX: N35.82 Other urethral stricture, female (principal); I48.91 Unspecified atrial fibrillation; E11.9 Type 2 diabetes mellitus without complications; Z79.899 Other long term (current) drug therapy; Z79.01 Long term (current) use of anticoagulants; N39.0 Urinary tract infection, site not specified; N81.11 Cystocele, midline; N95.2 Postmenopausal atrophic vaginitis; R35.1 Nocturia; N39.41 Urge incontinence; N32.81 Overactive bladder; E78.00 Pure hypercholesterolemia, unspecified; I10 Essential (primary) hypertension
CPT/HCPCS: 52281; 00910; 80048; 82962; 85027; 93005; J2405